=== PATIENT | female | born 1960 ===

== ENCOUNTER 2023-04-15 09:04 | Outpatient (AMB) | payer MEDICARE, OTHER, SELFPAY ==
--- NOTE | 2023-04-15 09:23 | MHC.OFFVIS ---
Intake Vital Signs 04/15/23 09:30 Height 5 ft 2 in Weight 163 lb 2.273 oz BMI 29.8 BP 133/73 Blood Pressure Location Lt brachial Position Sitting Pulse 74 Intake Visit Reasons: Colonoscopy screening Intake Note: Karly presents in office as a new.patient for a colonoscopy screening PT CC: pt reports having abdominal pain , diarrhea pt denies any other GI Issues Retail Services Professional Required: Yes Retail Services Professional Language: Georgian Accompanied by: Self / Same As Patient Allergies No Known Allergies Allergy (Unverified 04/15/23 09:23) HPI Colonoscopy screening HPI Details 62 year old? female here today for pre colonoscopy screening.? Patient was sent to us by her PCP.? ?Last colonoscopy 10 years ago and it was normal per patient. Patient admits to having a history of giardia treated about 4 years ago. Patient reports that she traveled to [place] about 3 months ago and stayed there for couple months.. Was test that about a month ago. ? Patient reports frequent stools mostly lose. Denies melena, hematochezia, unintentional weight loss or ribbon like stools. Patient denies any issues with anesthesia in the past. No history of sleep apnea. Not on any anticoagulation medication. Patient reports epigastric discomfort occasionally without dyspepsia, dysphagia or odynophagia. Patient denies any nausea or vomiting. [facility] Surgical History (Updated 04/15/23 @ 09:30 by Aureliano Gongora) Hx of tonsillectomy Family History (Updated 04/15/23 @ 09:29 by Aureliano Gongora) Mother HTN (hypertension) Heart disease Diabetes Fibromyalgia Arthritis Father Arthritis Maternal Aunt Heart disease Diabetes HTN (hypertension) Maternal Uncle Heart disease Social History (Updated 04/15/23 @ 09:25 by Aureliano Gongora) Household Members: Other Alcohol intake: never Patient Tobacco Use Status: Never used Tobacco Physical Exam Vital Signs: Last Vital Signs Pulse 74 04/15/23 09:30 BP 133/73 04/15/23 09:30 BMI result Body Mass Index 29.8 Const General: healthy appearing, no acute distress and well developed Nutritional Appearance: obese Orientation/consciousness: patient oriented x3 HEENT Head: Yes normal to inspection, Yes normocephalic and Yes atraumatic Face and sinus: Yes normal facial exam Mouth: Normal oral and palatal mucosa present Throat: Yes posterior oropharynx normal, Yes tonsils normal and Yes uvula midline Eyes General: appearance normal, both eyes and all related structures Neck Neck: Yes normal visual inspection, Yes full ROM and Yes trachea midline Thyroid: Thyroid normal Resp Effort & Inspection: normal respiratory effort, able to speak in complete sentences, no tracheal deviation and symmetric chest movement Auscultation: clear to auscultation bilaterally Cardio Rate: regular rate Heart sounds: S1 normal heart sound present and S2 normal heart sound present GI Inspection: Yes normal to inspection, No distended and Yes obesity Palpation (GI): Soft to palpation, not firm, nontender and No hepatosplenomegaly present Auscultation: normal bowel sounds General: Yes no CVA tenderness Back/Spine/Pelvis Back: no CVA tenderness Skin General skin exam: elasticity normal, turgor normal and dry skin Neuro General: patient oriented x3 Psych Appearance: grossly normal Mental Status: mental status grossly normal Speech and movement: Normal speech and movement present Assessment & Plan Assessment & Plan (1) Screen for colon cancer: Code(s): Z12.11 - Encounter for screening for malignant neoplasm of colon Plan: We will schedule patient for colonoscopy, however in the meantime we will rule out reason for frequent loose stools. Will check CRP, C diff, GI panel, ova and parasite (2) Postprandial epigastric pain: Code(s): R10.13 - Epigastric pain Plan: Postprandial epigastric discomfort. Will check for H pylori. Will treat empirically if positive. Patient will also be sent for upper endoscopy when she goes for colonoscopy. Check transglutaminase, lipase. Liver profile. Abdomen nontender, negative Dash sign. (3) Diarrhea: Code(s): R19.7 - Diarrhea, unspecified Qualifiers: Diarrhea type: unspecified type Qualified Code(s): R19.7 - Diarrhea, unspecified Plan: Patient reports diarrhea on and off. As mentioned above will check CRP, C diff, GI panel, ova and parasite. Will also check her thyroid. I will see patient in 5 weeks, sooner on as needed basis. Patient is agreeable to this plan and verbalizes understanding of instructions. She was given the opportunity to ask questions and all questions answered. Thank you for allowing me to participate in her care Orders: Orders C Reactive Protein Today K58.9 - Irritable bowel syndrome without diarrhea CDiff Gene PCR Today R19.7 - Diarrhea, unspecified H Pylori Breath Test Today Lipase Today R10.9 - Unspecified abdominal pain Liver Panel Today R10.9 - Unspecified abdominal pain TSH reflex Free T4 Today K59.00 - Constipation, unspecified Transglutaminase IgA Today R10.9 - Unspecified abdominal pain Transglutaminase Ab IgG Today R10.9 - Unspecified abdominal pain GI Panel Today R19.7 - Diarrhea, unspecified Ova and Parasite Today R19.7 - Diarrhea, unspecified Medications: New methylcellulose (laxative) (Citrucel) take it with full glass of water 500 mg PO DAILY 90 tabs 2RF K59.00 - Constipation, unspecified pantoprazole take one tablet half an hour before breakfast 40 mg PO DAILY 30 tabs 2RF K21.9 - Gastro-esophageal reflux disease without esophagitis Coding Level of Care Code New Pt Level 4 (02549) Diagnoses Screen for colon cancer Z12.11 Postprandial epigastric pain R10.13 Diarrhea R19.7 Diarrhea type: unspecified type Time Spent (min) 45 Comment 30 minutes spent with patient and additional 15 minutes spent reviewing her records
[2023-04-15 09:30] VITALS: BP 133/73; PULSE 74; BMI 29.8
== END 2023-04-15 10:40 | disposition home or self-care (01) ==
PROVIDERS: PCP Nurse Practitioner Family; Visit Provider Nurse Practitioner Family
DX: R19.7 Diarrhea, unspecified (principal); R10.13 Epigastric pain; Z12.11 Encounter for screening for malignant neoplasm of colon
CPT/HCPCS: 99204

== ENCOUNTER 2023-04-15 09:04 | Outpatient (REF) | payer MEDICARE, OTHER, MEDICAID, SELFPAY ==
[2023-04-15 13:12] LABS: Alanine Aminotransferase 23 U/L (0-31); Albumin Level 4.5 g/dL (3.5-5.0); Alkaline Phosphatase 96 U/L (39-117); Aspartate Amino Transferase 19 U/L (5-31); Bilirubin Direct 0.1 mg/dL (0.0-0.5); Bilirubin Total 0.4 mg/dL (0.0-1.0); C Reactive Protein 0.19 mg/dL (< or = 0.50); Lipase 25 U/L (8-78); Total Protein 7.6 g/dL (6.5-8.0)
[2023-04-15 13:30] LABS: TSH reflex Free T4 2.46 uIU/mL (0.32-4.0)
[2023-04-16 09:51] LABS: CDiff Gene PCR NEGATIVE (Negative)
[2023-04-16 10:12] LABS: Adenovirus F 40/41 Not Detected (Not Detect.); Astrovirus Not Detected (Not Detect.); Campylobacter Not Detected (Not Detect.); Cryptosporidium Not Detected (Not Detect.); Cyclospora cayetanensis Not Detected (Not Detect.); E. coli EAEC Not Detected (Not Detect.); E. coli EPEC Not Detected (Not Detect.); E. coli ETEC Not Detected (Not Detect.); E. coli STEC Not Detected (Not Detect.); Entamoeba histolytica Not Detected (Not Detect.); Giardia lamblia Not Detected (Not Detect.); Norovirus GI/GII Not Detected (Not Detect.); Plesiomonas shigelloides Not Detected (Not Detect.); Rotavirus A Not Detected (Not Detect.); Salmonella Not Detected (Not Detect.); Sapovirus Not Detected (Not Detect.); Shigella sp./EIEC Not Detected (Not Detect.); Vibrio Not Detected (Not Detect.); Vibrio Cholerae Not Detected (Not Detect.); Yersinia enterocolitica Not Detected (Not Detect.)
[2023-04-17 13:44] LABS: Transglutaminase Ab IgG <1.0 U/mL; Transglutaminase IgA <1.0 U/mL
[2023-04-19 12:54] LABS: H Pylori Breath Test Positive (Negative)
== END 2023-04-15 09:05 | disposition home or self-care (01) ==
LOC: HO.LAB 09:04
PROVIDERS: PCP Nurse Practitioner Family; Visit Provider Nurse Practitioner Family
DX: R10.9 Unspecified abdominal pain (principal); K58.9 Irritable bowel syndrome, unspecified; K59.00 Constipation, unspecified; R19.7 Diarrhea, unspecified; R10.13 Epigastric pain
CPT/HCPCS: 36415; 80076; 83013; 83690; 84443; 86140; 86364; 87177; 87209; 87493; 87507; 99202

== ENCOUNTER 2023-04-17 09:20 | Outpatient (REF) | payer MEDICARE, MEDICAID, SELFPAY ==
[2023-04-17 11:30] LABS: MANUAL DIFF FLAG NO
[2023-04-17 11:55] LABS: Estimated Average Glucose 94 mg/dL; Hemoglobin A1c % 4.9 % (<6.0)
[2023-04-17 11:56] LABS: Basophils Absolute Auto 0.1 X10*3/uL (0.0-0.2); Basophils Percent Auto 0.9 % (0-2); Eosinophils Absolute Auto 0.1 X10*3/uL (0.0-0.4); Eosinophils Percent Auto 1.8 % (0-4); Hematocrit 43.9 % (37.0-47.0); Hemoglobin 14.7 g/dl (12.0-16.0); Imm Gran Abs Auto 0.02 X10*3/uL (0.00-0.03); Imm Gran Pct Auto 0.3 % (0.0-0.4); Lymphocytes Absolute Auto 2.6 X10*3/uL (1.2-4.9); Lymphocytes Percent Auto 39.1 % (20-40); Mean Corpuscular HGB Conc 33.5 g/dl (31.0-35.0); Mean Corpuscular Hemoglobin 29.3 pg (27.0-33.0); Mean Corpuscular Volume 87.5 fL (80.0-98.0); Mean Platelet Volume 11.4 fL (9.4-12.3); Monocytes Absolute Auto 0.4 X10*3/uL (0.1-1.2); Neutrophils Absolute Auto 3.5 x10*3/uL (2.0-8.3); Neutrophils Percent Auto 51.9 % (45-73); Platelet Count 305 X10*3/uL (160-400); Red Blood Count 5.02 X10*6/uL (4.20-5.50); Red Cell Distribution Width 13.6 % (11.0-16.0); White Blood Count 6.7 X10*3/uL (4.8-10.8)
[2023-04-17 12:19] LABS: Alanine Aminotransferase 20 U/L (0-31); Albumin Level 4.3 g/dL (3.5-5.0); Alkaline Phosphatase 89 U/L (39-117); Anion Gap 11 (12-20); Aspartate Amino Transferase 18 U/L (5-31); Bilirubin Total 0.6 mg/dL (0.0-1.0); Blood Urea Nitrogen 16 mg/dL (9-16); Calcium 10.1 mg/dL (8.4-10.2); Carbon Dioxide 25 mmol/L (22-29); Chloride 108 mmol/L (96-108); Cholesterol 238 mg/dL (<200); Estimated Glomerular Filt Rate > 60; Glucose Random 89 mg/dL (60-115); HDL Cholesterol 51 mg/dL (>40); Iron 99 mcg/dL (30-160); LDL Cholesterol Calculated 148 mg/dL (<100); Magnesium 1.9 mg/dL (1.6-2.6); Percent Iron Saturation 34 % (15-50); Potassium 3.9 mmol/L (3.3-5.1); Sodium 140 mmol/L (135-145); Total Iron Binding Capacity 294 mcg/dL (228-428); Total Protein 7.3 g/dL (6.5-8.0); Triglycerides 199 mg/dL (<150); Unsaturated Iron Binding 195 ug/dL
[2023-04-17 12:26] LABS: Ferritin 128 ng/mL (10-250); Thyroid Stimulating Hormone 2.59 uIU/mL (0.32-4.0)
[2023-04-17 12:29] LABS: HBS Num1 24.75 mIU/mL (0-7.99); HBc Num1 0.12 S/CO (0.00-0.79); HBsAGNum1 0.35 S/CO (0.00-0.99); Hepatitis A Antibody IgM 0.34 Index (0-0.79); Hepatitis B Core Antibody Nonreactive (Nonreactive); Hepatitis B Surface Antigen Negative (Negative); ~HepC Num1 0.09 S/CO (0.00-0.79); ~Hepatitis A Antibody IgM Nonreactive (Nonreactive); ~Hepatitis B Surface Antibody REACTIVE (Nonreactive); ~Hepatitis C Antibody Nonreactive (Nonreactive)
== END 2023-04-17 09:21 | disposition home or self-care (01) ==
LOC: HO.HHCL 09:20
PROVIDERS: Visit Provider Registered Nurse
DX: Z00.01 Encounter for general adult medical examination with abnormal findings (principal); R25.2 Cramp and spasm; E83.19 Other disorders of iron metabolism; E78.2 Mixed hyperlipidemia; Z11.59 Encounter for screening for other viral diseases; Z72.89 Other problems related to lifestyle
CPT/HCPCS: 36415; 80053; 80061; 82728; 83036; 83540; 83735; 84443; 85025; 86704; 86706; 86709; 86803; 87340

== ENCOUNTER → 2023-05-13 09:07 | Outpatient (BNVA) | payer MEDICARE, MEDICAID, SELFPAY | PROVIDERS: PCP Nurse Practitioner Family; Visit Provider Nurse Practitioner Family ==

== ENCOUNTER 2023-05-30 09:49 | Outpatient (REF) | payer MEDICARE, OTHER, MEDICAID, SELFPAY ==
--- NOTE | 2023-05-30 09:52 | EMG_ITS ---
Left tibial and peroneal motor studies were performed. Left superficial peroneal, sural, median, and lateral plantar sensory studies were performed. Tibial H-reflex was obtained and paraspinal muscles were tested with a needle. IMPRESSION: 1. 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 2. Minimal signs of left lower lumbar radiculopathy. MD MICHELLE Gregory/SCOTT / [id number]
== END 2023-05-30 09:50 | disposition home or self-care (01) ==
LOC: HO.NEURO 09:49
PROVIDERS: PCP Nurse Practitioner Family; Visit Provider Registered Nurse
DX: M79.7 Fibromyalgia (principal); R25.2 Cramp and spasm
CPT/HCPCS: 95886; 95909

== ENCOUNTER 2023-05-31 08:47 | Outpatient (REF) | payer MEDICARE, MEDICAID, SELFPAY ==
[2023-06-02 15:19] LABS: H Pylori Breath Test Positive (Negative)
== END 2023-05-31 08:48 | disposition home or self-care (01) ==
LOC: HO.LNP 08:47
PROVIDERS: PCP Nurse Practitioner Family; Visit Provider Nurse Practitioner Family
DX: Z11.2 Encounter for screening for other bacterial diseases (principal)
CPT/HCPCS: 83013; 99211

== ENCOUNTER 2023-06-13 13:45 | Day surgery (SDC) | payer MEDICARE, MEDICAID, OTHER, SELFPAY ==
[2023-06-10 15:15] VITALS: BMI 30.7
--- NOTE | 2023-06-12 13:08 | P.CONAN_ITS ---
Documented by User: Chely Smith NP 06/12/23 13:09 HPI - Anesthesia Eval Consult details Narrative: 62yo F for Upper Endoscopy and Colonoscopy [facility] Past Medical History Medical History Elevated cholesterol Allergic rhinitis Anxiety Depression Fibromyalgia Helicobacter pylori (H. pylori) infection Family History Family History Mother HTN (hypertension) Heart disease Diabetes Fibromyalgia Arthritis Father Arthritis Maternal Aunt Heart disease Diabetes HTN (hypertension) Maternal Uncle Heart disease Surgical History Surgical History History of bunionectomy H/O colonoscopy Hx of tonsillectomy Social History Social History Household Members: Other Alcohol intake: never Patient Tobacco Use Status: Never used Tobacco Are you DNR?: No Advance Directives: No Advance Directives Information Provided: Yes Nutrition Risks: No Nutritional Risk Meds Allergies Allergy/AdvReac Type Severity Reaction Status Date / Time No Known Allergies Allergy Verified 06/13/23 14:10 Home Medications Medication Instructions Recorded Confirmed Last Taken Type albuterol sulfate 90 mcg/actuation 2 puff inhalation Q4H PRN Allergy 04/15/23 06/10/23 Unknown History aerosol inhaler (Ventolin HFA) Symptoms cholecalciferol (vitamin D3) 50 50 mcg PO DAILY 04/15/23 06/10/23 Unknown Histo ry mcg (2,000 unit) capsule trazodone 100 mg tablet 100 mg PO BEDTIME 04/15/23 06/10/23 Unknown History venlafaxine 75 mg capsule,extended 75 mg PO DAILY 05/13/23 06/10/23 Unknown History release 24 hr gabapentin 300 mg capsule 300 mg PO DAILY PRN Pain 06/10/23 06/10/23 Unknown History Exam Exam Date and Time: June 12, 2023 1308 Height,Weight and Vital Signs: Height 5 ft 2 in Weight 76.204 kg Pertinent Lab Results Pertinent Lab Results: Laboratory Tests 04/17/23 09:25 WBC 6.7 Hgb 14.7 Hct 43.9 Plt Count 305 Sodium 140 Potassium 3.9 Chloride 108 Carbon Dioxide 25 BUN 16 Creatinine 0.79 Assessment and Plan Assessment Anesthesia Assessment: Chart Reviewed Documented by User: Narciso Watkins MD 06/13/23 15:22 [facility] Past Medical History Medical History Elevated cholesterol Allergic rhinitis Anxiety Depression Fibromyalgia Helicobacter pylori (H. pylori) infection Family History Family History Mother HTN (hypertension) Heart disease Diabetes Fibromyalgia Arthritis Father Arthritis Maternal Aunt Heart disease Diabetes HTN (hypertension) Maternal Uncle Heart disease Family history of problems with anesthesia: No Surgical History Surgical History History of bunionectomy H/O colonoscopy Hx of tonsillectomy History of Problems with Anesthesia: No Social History Social History Household Members: Other Alcohol intake: never Patient Tobacco Use Status: Never used Tobacco Are you DNR?: No Advance Directives: No Advance Directives Information Provided: Yes Nutrition Risks: No Nutritional Risk Meds Allergies Allergy/AdvReac Type Severity Reaction Status Date / Time No Known Allergies Allergy Verified 06/13/23 14:10 Home Medications Medication Instructions Recorded Confirmed Last Taken Type albuterol sulfate 90 mcg/actuation 2 puff inhalation Q4H PRN Allergy 04/15/23 06/10/23 Unknown History aerosol inhaler (Ventolin HFA) Symptoms cholecalciferol (vitamin D3) 50 50 mcg PO DAILY 04/15/23 06/10/23 Unknown History mcg (2,000 unit) capsule trazodone 100 mg tablet 100 mg PO BEDTIME 04/15/23 06/10/23 Unknown History venlafaxine 75 mg capsule,extended 75 mg PO DAILY 05/13/23 06/10/23 Unknown History release 24 hr gabapentin 300 mg capsule 300 mg PO DAILY PRN Pain 06/10/23 06/10/23 Unknown History Exam Airway Mallampati Class: II TM Dist: >3cm Neck ROM: Full Loose/Missing/Broken Teeth: Yes Assessment and Plan Assessment Anesthesia Assessment: Anesthesia Plan Discussed Final Anesthetic Review Family History of Problems with Anesthesia: No History of Problems with Anesthesia: No NPO: Yes ASA Class: II Final Preanesthetic Review: No Changes in Pt Med Stat, Meds/Allgs Chart Review ed, Consent Obtained/Reviewed and Anes Risks/Benef Reviewed Patient Risk: Low Procedure Risk: Low Anesthetic Plan Anesthetic Plan: MAC: Disposition: Standard PACU
[2023-06-13] MEDS: Lactated Ringers 1,000 ML 100 ML IVCONT (14:01)
[2023-06-13 14:10] VITALS: BP 134/78; PULSE 87; RESP 18; TEMP 36.7; O2SAT 98
--- NOTE | 2023-06-13 14:16 | MHC.SHP ---
Pre-Procedural Eval Section A Date of Service: 06/13/23 Section B Chief Complaint: screening Details of Present Illness: epigastric pain Relevant Family History (Specify if Yes): No Relevant Social History: None Present Medications: see Short Stay Collaborative assessment Medical History: Significant History (Elevated cholesterol Allergic rhinitis Anxiety Depression Fibromyalgia Helicobacter pylori (H. pylori) infection) History of Previous Operations: Relevant previous surgery/procedure and date(s) (History of bunionectomy H/O colonoscopy Hx of tonsillectomy) Allergies: Allergies Allergy/AdvReac Type Severity Reaction Status Date / Time No Known Allergies Allergy Verified 06/13/23 14:10 Review of Systems Sugical H&P ROS: Negative: Constitution, Cardiovascular, Respiratory, Neurological, Psychiatric, Hem-Onc, Allergic/Immunologic, Gastrointestinal, Genitourinary, Musculoskeletal, Integumentary, Endocrine and Eyes/Ears/Nose/Throat Exam Surgical H&P Exam: Normal: HEENT, Normal: Heart, Normal: Lungs, Normal: Extremities, Normal: Abdomen, Normal: Skin and Normal: Neurological Plan Diagnosis/Plan: Unchanged I have reviewed the history and physical and performed a pertinent physical examination on my patient. No changes have occurred unless specified. Time Spent With Patient Time: Total time managing care of this patient today ____ minutes.
--- NOTE | 2023-06-13 14:34 | P.OP_ITS ---
Operative Note Operative Note Date of Service: 06/13/23 Narrative: Operative Information Procedure Description: EGD, Colonoscopy Indication: epigastric pain and screening Anesthesia: MAC FLEXIBLE TRANSORAL UPPER GASTROINTESTINAL ENDOSCOPY AND COLONOSCOPY PROCEDURE NOTE UPPER ENDOSCOPY Consent: Indications for the procedure and potential complications of bleeding, perforation, reaction to medications and missed diagnosis were discussed with the patient and informed consent was obtained. Instrument: Olympus GIF H 190 J mid size upper endoscope Monitoring: Vital signs and clinical assessment, continuous EKG monitoring, Pulse oximetry, Carbon Dioxide monitoring and blood pressure monitoring were done throughout the procedure. Procedure: The patient was placed in the left lateral decubitis position and pre-procedure medications were administered and a bite block was placed. The endoscope was inserted into the mouth and advanced under direct vision to the third part of duodenum. A careful inspection was made as the upper endoscope was withdrawn including a retroflexed examination of the proximal stomach; Findings and interventions are described below. Findings: Larynx:normal Esophagus: GE junction at 37 cm, diaphragm hiatus at 37 cm, mild erythema, bx taken Stomach:Gastritis noted. Biopsies were obtained. Grade 2 flap valve on retroflexed examination of the cardia. Duodenum: Normal bulb and descending duodenum, bx taken Intervention: Biopsies as noted above COLONOSCOPY Instrument: Olympus variable stiffness pediatric scope 190L Colonoscopy Monitoring: Vital signs and clinical assessment, continuous EKG monitoring, Pulse oximetry, Carbon Dioxide monitoring and blood pressure monitoring were done throughout the procedure. Colon withdrawal time was 7 minutes. Procedure: The patient was placed in the left lateral decubitis position and pre-procedure medications were administered. After a digital rectal examination of the ano-rectum, the video colonoscope was inserted into the rectum and advanced through the colon to the cecum/TI. The colonoscope was slowly withdrawn in a retrograde panoramic fashion and the colon mucosa was carefully examined including a retroflexed view of the rectum. Findings and interventions are described below. Procedure Difficulty:easy Findings: Terminal Ileum-normal Cecum:normal Ascending Colon: normal Transverse Colon -normal Descending Colon:normal Sigmoid Colon: normal Rectum: Retroflexion with medium sized internal hemorrhoids, grade I Anorectum - normal Colon preparation: [place] Bowel Preparation Scale Right colon; 1 Transverse colon: 1-2 Left colon; 1-2 (0 = Unprepared colon segment with mucosa not seen due to solid stool that cannot be cleared. 1 = Portion of mucosa of the colon segment seen, but other areas of the colon segment not well seen due to staining, residual stool and/or opaque liquid. 2 = Minor amount of residual staining, small fragments of stool and/or opaque li quid, but mucosa of colon segment seen well. 3 = Entire mucosa of colon segment seen well with no residual staining, small fragments of stool or opaque liquid) Impression and Post Procedure Diagnosis: Endoscopy Findings: gastritis Colonoscopy Findings: poor prep internal hemorrhoids Plan: Await Pathology results Repeat Colonoscopy in 6-12 months with prep compliance or earlier if clinically indicated High fiber diet leaflet avoid straining at stool, epsom salts and sitz bath, anusol supps or cream if H pylori pos treat Above findings were reviewed with the patient and relevant handouts were provided if indicated.
[2023-06-13 15:10] VITALS: BP 113/70; PULSE 93; RESP 16; TEMP 36.1; O2SAT 96
[2023-06-13 15:25] VITALS: BP 113/67; PULSE 81; RESP 14; O2SAT 98
[2023-06-13 15:40] VITALS: BP 123/74; PULSE 75; RESP 16; O2SAT 99
[2023-06-13] MEDS: Mag&Al/Sim/Diphenhyd/Lidocaine 10 ML ORAL.SUSP PO (15:47)
[2023-06-13 15:55] VITALS: BP 125/75; PULSE 73; RESP 14; TEMP 36.1; O2SAT 99
== END 2023-06-13 15:59 | disposition home or self-care (01) ==
PROVIDERS: PCP Nurse Practitioner Family; Visit Provider Internal Medicine Gastroenterology
PROC: (CPT 43239; principal; 2023-06-13 15:40)
DX: Z12.11 Encounter for screening for malignant neoplasm of colon (principal); K64.0 First degree hemorrhoids; K59.1 Functional diarrhea; R10.13 Epigastric pain; K29.50 Unspecified chronic gastritis without bleeding; K44.9 Diaphragmatic hernia without obstruction or gangrene; E66.9 Obesity, unspecified; Z68.30 Body mass index [BMI] 30.0-30.9, adult
CPT/HCPCS: 43239; G0121; 88305; 88342

== ENCOUNTER → 2023-06-13 13:45 | Outpatient (BNV) | payer MEDICARE, OTHER, SELFPAY | PROVIDERS: PCP Nurse Practitioner Family; Visit Provider Internal Medicine Gastroenterology | DX: Z12.11 Encounter for screening for malignant neoplasm of colon (principal); K64.0 First degree hemorrhoids; Z91.199 Patient's noncompliance with other medical treatment and regimen due to unspecified reason; K29.70 Gastritis, unspecified, without bleeding | CPT/HCPCS: 43239; G0121 ==

== ENCOUNTER 2023-07-01 09:01 | Outpatient (REF) | payer MEDICARE, OTHER, MEDICAID, SELFPAY ==
[2023-07-04 10:17] LABS: H Pylori Breath Test Positive (Negative)
== END 2023-07-01 09:02 | disposition home or self-care (01) ==
LOC: HO.LNP 09:01
PROVIDERS: PCP Nurse Practitioner Family; Visit Provider Nurse Practitioner Family
DX: R10.13 Epigastric pain (principal); K59.1 Functional diarrhea; K21.9 Gastro-esophageal reflux disease without esophagitis; Z98.890 Other specified postprocedural states
CPT/HCPCS: 83013; 99212

== ENCOUNTER 2023-07-01 09:01 | Outpatient (AMB) | payer MEDICARE, OTHER, SELFPAY ==
--- NOTE | 2023-07-01 09:07 | A.OFFVIS_ITS ---
Intake Vital Signs 07/01/23 09:10 Height 5 ft 2 in Weight 163 lb 9.328 oz BMI 29.9 BP 137/72 Blood Pressure Location Lt brachial Position Sitting Pulse 80 Intake Visit Reasons: S/P [place], EGD; Dr. Mcdonald Intake Note: Karly presents in office today for post op follow up s/p EGD and colonoscopy. CC: Patient underwent colonoscopy and EGD on 06/13/[address] Mcdonald. Patient c/o diarrhea, epigastric pain, acid reflux, and heartburn. Spring Internship Required: Yes Spring Internship Language: Tunisian Accompanied by: Self / Same As Patient Allergies No Known Allergies Allergy (Verified 07/01/23 09:18) HPI S/P [place], EGD; Dr. Mcdonald HPI Details LAST VISIT: Screen for colon cancer Patient denies any issues with anesthesia in the past. No history of sleep apnea. Not on any anticoagulation medication. Denies any cardiac or respiratory symptoms. What to expect before, during and after the procedure discussed with patient. The importance of good bowel prep and clear liquid diet discussed with patient. Postprandial epigastric pain Postprandial epigastric pain subsided. Occasional epigastric discomfort depending on what she eats. Will retest patient for H pylori. Patient stopped taking pantoprazole. I will have her take famotidine daily. Diarrhea Patient no longer has diarrhea. No longer is using Citrucel. I will see patient after the procedure, sooner on as needed basis. Patient is agreeable to this plan and verbalizes understanding of instructions. She was given the opportunity to ask questions and all questions answered. ? Thank you for allowing me to participate in care Plan Medications New famotidine (Pepcid) 20 mg PO DAILY 30 tabs 3RF K21.9 polyethylene glycol 3350 (Miralax) As directed by gastroenterology department at [facility] 238 grams PO ONCE 238 grams 0RF Z12.11 bisacodyl (Dulcolax (bisacodyl)) take 2 tabs at noon the day before your colonoscopy 10 mg (2 x 5 mg) PO ONCE 1 day 2 tabs 0R F Z12.11 UPPER ENDOSCOPY AND COLONOSCOPY Findings: Larynx:normal Esophagus: GE junction at 37 cm, diaphragm hiatus at 37 cm, mild erythema, bx taken Stomach:Gastritis noted. Biopsies were obtained. Grade 2 flap valve on retroflexed examination of the cardia. Duodenum: Normal bulb and descending duodenum, bx taken Findings: Terminal Ileum-normal Cecum:normal Ascending Colon: normal Transverse Colon -normal Descending Colon:normal Sigmoid Colon: normal Rectum: Retroflexion with medium sized internal hemorrhoids, grade I Anorectum - normal Colon preparation: Mead Bowel Preparation Scale Right colon; 1 Transverse colon: 1-2 Left colon; 1-2 (0 = Unprepared colon segment with mucos a not seen due to solid stool that cannot be cleared. 1 = Portion of mucosa of the colon segme nt seen, but other areas of the colon segment not well seen due to staining, residual stool and/or opaque liquid. 2 = Minor amount of residual staining, s mall fragments of stool and/or opaque liquid, but mucosa of colon segment seen well. 3 = Entire mucosa of colon segment seen well with no residual staining, small fragments of stool or opaque liquid) Impression and Post Procedure Diagnosis: Endoscopy Findings: gastritis Colonoscopy Findings: poor prep internal hemorrhoids Plan: Await Pathology results Repeat Colonoscopy in 6-12 months with prep compliance or earlier if clinically indicated High fiber diet leaflet avoid straining at stool, epsom salts and sitz bath, anusol supps or cream if H pylori pos treat PATHOLOGY RESULTS Addendum #1 (B): H pylori immunostain is negative wi th appropriate control. Electronically Signed By: Macie Tellez 06/19/23 0335 Diagnosis A. Duodenum, biopsy: Duodenal mucosa with preserved villi and no specific change. B. Stomach, biopsy: Chronic gastritis with minimal activity; negative for intestinal metaplasia and dysplasia (see comment). Comment: (B): H pylori immunostain pending; adden dum to follow TODAY'S VISIT: Patient is here today for that like follow-up and to discuss upper endoscopy and colonoscopy results. Patient had suboptimal prep and will need to repeat colonoscopy in 6-12 months. No polyps were found. Patient had chronic gastritis, stops taking her PPI and of May. Biopsy did not show H pylori, however we will do H pylori breath test any office today. Patient had been treated for H pylori prior to going for endoscopy. She continues to have epigastric discomfort postprandially. Patient reports that is not as bad as it was prior to treatment. Patient reports no nausea or vomiting. Occasional dyspepsia without dysphagia or odynophagia. Patient reports that she has frequent postprandial and loose stools. Patient does not feel like she empties completely. Denies melena, hematochezia, unintentional weight loss or ribbon like stools. REPLACED BY [facility] Medical History Elevated cholesterol Allergic rhinitis Anxiety Depression Fibromyalgia Helicobacter pylori (H. pylori) infection Surgical History History of esophagogastroduodenoscopy (EGD) History of bunionectomy H/O colonoscopy Hx of tonsillectomy Family History Mother HTN (hypertension) Heart disease Diabetes Fibromyalgia Arthritis Father Arthritis Maternal Aunt Heart disease Diabetes HTN (hypertension) Maternal Uncle Heart disease Social History Household Members: Other Alcohol intake: never Patient Tobacco Use Status: Never used Tobacco Review of Systems Const Denies weight gain and Denies weight loss ENT Reports no additional complaints, Denies dysphagia and Denies odynophagia Card Reports no additional complaints Resp Reports no additional complaints GI Denies abdominal pain, Denies belching, Denies melena, Reports bloating, Denies change in bowel habits, Denies dysphagia, Denies excessive flatus, Denies dyspepsia, Reports heartburn, Denies diarrhea, Reports loose stools, Denies nausea, Denies odynophagia and Denies vomiting Reports no additional complaints Musc Reports no additional complaints Neuro Reports no additional complaints Psych Reports no additional complaints Endo Reports no additional complaints Physical Exam Vital Signs: Last Vital Signs Pulse 80 07/01/23 09:10 BP 137/72 07/01/23 09:10 BMI result Body Mass Index 29.9 Const General: healthy appearing, no acute distress and well developed Nutritional Appearance: obese Orientation/consciousness: patient oriented x3 HEENT Head: Yes normal to inspection, Yes normocephalic and Yes atraumatic Face and sinus: Yes normal facial exam Mouth: Normal oral and palatal mucosa present Throat: Yes posterior oropharynx normal, Yes tonsils normal and Yes uvula midline Eyes General: appearance normal, both eyes and all related structures Neck Neck: Yes normal visual inspection, Yes full ROM and Yes trachea midline Thyroid: Thyroid normal Resp Effort & Inspection: normal respiratory effort, able to speak in complete sentences, no tracheal deviation and symmetric chest movement Auscultation: clear to auscultation bilaterally Cardio Rate: regular rate Heart sounds: S1 normal heart sound present and S2 normal heart sound present GI Inspection: Yes normal to inspection, No distended and Yes obesity Palpation (GI): Soft to palpation, not firm, nontender and No hepatosplenomegaly present Auscultation: normal bowel sounds General: Yes no CVA tenderness Back/Spine/Pelvis Back: no CVA tenderness Skin General skin exam: elasticity normal, turgor normal and dry skin Neuro General: patient oriented x3 Psych Appearance: grossly normal Mental Status: mental status grossly normal Affect: normal affect Assessment & Plan Assessment & Plan (1) Postprandial epigastric pain: Code(s): R10.13 - Epigastric pain (2) Diarrhea: Code(s): R19.7 - Diarrhea, unspecified Qualifiers: Diarrhea type: functional diarrhea Qualified Code(s): K59.1 - Functional diarrhea (3) GERD (gastroesophageal reflux disease): Code(s): K21.9 - Gastro-esophageal reflux disease without esophagitis Qualifiers: Esophagitis presence: without esophagitis Qualified Code(s): K21.9 - Gastro-esophageal reflux disease without esophagitis (4) Status post colonoscopy: Code(s): Z98.890 - Other specified postprocedural states Plan Patient will repeat colonoscopy in 6-12 months. Will retest for H pylori today. Will start patient on low-dose pantoprazole. Patient continues to have occasional epigastric discomfort with occasional dyspepsia postprandially. Discussed with patient avoiding dietary triggers and late night snacking. Staying upright for minimal 3 hours after meals discussed with patient. Patient can take famotidine on as needed basis at bedtime. Patient is not emptying her bowels completely diarrhea most likely related to patient being constipated. Will help patient bulk her stools with Citrucel and he can take Senokot at bedtime to help her evaluate her bowels better. Patient was also encouraged to increase fluid intake and activity to promote better bowel motility. I will see her in 2 months, sooner on as needed basis. Patient is agreeable to this plan and verbalizes understanding of instructions. She was given the opportunity to ask questions and all questions answered. Thank you for allowing me to participate in her care Orders: Orders H Pylori Breath Test Today Medications: New sennosides (Natural Senna Laxative) 17.2 mg (2 x 8.6 mg) PO BEDTIME 180 tabs 3RF constipation K59.00 - Constipation, unspecified pantoprazole 20 mg PO DAILY 90 tabs 2RF Changed From famotidine (Pepcid) 20 mg PO DAILY 30 tabs 3RF K21.9 - Gastro-esophageal reflux disease without esophagitis To famotidine (Pepcid) 20 mg PO DAILY PRN 30 tabs 3RF acid reflux K21.9 - Gastro-esophageal reflux disease without esophagitis Refilled methylcellulose (laxative) (Citrucel) take it with full glass of water 500 mg PO DAILY 90 tabs 2RF K59.00 - Constipation, unspecified Discontinued pantoprazole take one tablet half an hour before breakfast Discontinued Reason: Patient Completed Course 40 mg PO DAILY 30 tabs 2RF K21.9 - Gastro-esophageal reflux disease without esophagitis Coding Level of Care Code Est Pt Level 4 (27656) Diagnoses Postprandial epigastric pain R10.13 Functional diarrhea K59.1 Diarrhea type: functional diarrhea Gastroesophageal reflux disease without esophagitis K21.9 Esophagitis presence: without esophagitis Status post colonoscopy Z98.890 Time Spent (min) 35 Comment 40 minutes spent with patient and additional 15 minutes spent reviewing her records
[2023-07-01 09:10] VITALS: BP 137/72; PULSE 80; BMI 29.9
== END 2023-07-01 10:00 | disposition home or self-care (01) ==
PROVIDERS: PCP Nurse Practitioner Family; Visit Provider Nurse Practitioner Family
DX: R10.13 Epigastric pain (principal); K59.1 Functional diarrhea; K21.9 Gastro-esophageal reflux disease without esophagitis; Z98.890 Other specified postprocedural states
CPT/HCPCS: 99214

== ENCOUNTER 2023-07-02 11:38 | Outpatient (REF) | payer MEDICARE, OTHER, MEDICAID, SELFPAY ==
--- NOTE | ~2023-07-02 | XR_ITS ---
EXAMINATION: XR LUMBOSACRAL SPINE CLINICAL INFORMATION: Chronic left-sided lower back pain with left-sided sciatica. COMPARISON: CT abdomen/pelvis dated 08/27/2013. TECHNIQUE: Three views of the lumbosacral spine. FINDINGS: Normal vertebral body alignment. The lumbar lordosis is maintained. No acute fracture or subluxation. No loss of vertebral body or intervertebral disc height. Tiny anterior endplate osteophytes at L3-S1, new when compared to the prior CT. No concerning lytic or blastic osseous lesion. No abnormal soft tissue calcification. XR/XR lumbar spine 2-3V IMPRESSION: Minimal degenerative disc disease at L3-S1, new when compared to the prior CT.
--- NOTE | ~2023-07-02 | XR_ITS ---
EXAMINATION: XR KNEE, LEFT CLINICAL INFORMATION: Left knee injury COMPARISON: None available. TECHNIQUE: Four views of the left knee. FINDINGS: No fracture or joint effusion. Alignment is anatomic. Joint spaces are maintained. No abnormal soft tissue calcification. XR/XR knee LT 4V IMPRESSION: Normal left knee.
== END 2023-07-02 11:39 | disposition home or self-care (01) ==
LOC: HO.HHCX 11:38
PROVIDERS: Visit Provider Emergency Medicine
DX: S89.92XA Unspecified injury of left lower leg, initial encounter (principal); M54.50 Low back pain, unspecified
CPT/HCPCS: 72100; 73564

== ENCOUNTER 2023-09-04 09:05 | Outpatient (AMB) | payer MEDICARE, OTHER, SELFPAY ==
[2023-09-04 09:14] VITALS: BMI 29.8
--- NOTE | 2023-09-04 09:14 | MHC.OFFVIS ---
Intake Vital Signs 09/04/23 09:14 Height 5 ft 2 in Weight 163 lb BMI 29.8 Intake Visit Reasons: [employer] LE[employer]PERSON- Left sided back, sciatica pain Intake Note: Karly is a 62 year old danish speaking female who presents today as a new patient with complaints of lower back pain. Her pain (described as burning) has been present for over a year now with radiation down the left leg to the foot. She was taking Tramaol which was helpful but it was discontinued, currently taking tylenol and ibuprofen. EMG done by Dr. Fox at [facility] on 05/30/23 revealing neuropathy. Cms Expert Required: Yes Cms Expert Name: [id number] Allergies No Known Allergies Allergy (Verified 09/04/23 09:14) Medication List - Last Reconciled 09/04/23 by Edith Burger MD albuterol sulfate 90 mcg/actuation (Ventolin HFA) 2 puffs inhalation Q4H PRN bismuth subsalicylate 2 tabs PO QID 14 days cholecalciferol (vitamin D3) 50 mcg PO DAILY clotrimazole 1% 1 appful vaginal BEDTIME doxycycline hyclate 100 mg PO BID 14 days famotidine (Pepcid) 20 mg PO DAILY PRN gabapentin 300 mg PO DAILY PRN methylcellulose (laxative) (Citrucel) 500 mg PO DAILY metronidazole 1,000 mg (2 x 500 mg) PO BID ondansetron 4 mg PO Q8H PRN pantoprazole 20 mg PO DAILY prochlorperazine (Compazine) 25 mg MO DAILY PRN rosuvastatin 10 mg PO BEDTIME sennosides (Natural Senna Laxative) 17.2 mg (2 x 8.6 mg) PO BEDTIME sucralfate 1 g PO BEDTIME trazodone 100 mg PO BEDTIME venlafaxine ER 75 mg PO DAILY HPI HPI Comments History of Present Illness Details Referred from [facility], PCP. Denies inciting injuries. Started more than a year ago. Started on left hip area that gradually has radiated down to left leg. Also points to lateral lumbar/SI region. Reports tingling on left leg down to ankle/heel. Denies weakness. No foot drop. No bladder/bowel changes. Treatment done so far: NSAIDs PFSH Medical History Elevated cholesterol Allergic rhinitis Anxiety Depression Fibromyalgia Helicobacter pylori (H. pylori) infection Surgical History History of esophagogastroduodenoscopy (EGD) History of bunionectomy H/O colonoscopy Hx of tonsillectomy Family History Mother HTN (hypertension) Heart disease Diabetes Fibromyalgia Arthritis Father Arthritis Maternal Aunt Heart disease Diabetes HTN (hypertension) Maternal Uncle Heart disease Social History Household Members: Other Alcohol intake: never Patient Tobacco Use Status: Never used Tobacco Review of Systems Const All systems reviewed & are unremarkable except as noted in HPI and below Physical Exam Vital Signs: BMI result Body Mass Index 29.8 Constitutional: Patient appears to be in no acute distress, well nourished and well developed. Patient was appropriately conversant and oriented. Good historian. MSK: No specific abnormalities found on inspection of the spine and all extremities. No atrophy. Mild tenderness left lumbar paraspinals. The most tenderness is on left GT and along ITB. Lumbar ROM was full. Bilateral hip, knee and ankle ROM WNL. No ligamentous laxity or crepitance. No increased effusion. Straight-leg raising test negative. FABERE test positive left lateral hip pain and ITB tightness. Over test showed stiffness and pain left side. Strength is 5/5 in all muscle groups tested. No increased tone noted. Neurological: Neurologic examination of the upper and lower extremities was nonfocal with intact sensation, muscle stretch reflexes and without focal motor deficits . Dan?s negative bilaterally. Babinski was down going bilaterally. Clonus was negative. Gait is non-antalgic without loss of balance. Results Reviewed Results Reviewed: EMG by Dr. Fox 06/10 Left tibial and peroneal motor studies were performed. Left superficial peroneal, sural, median, and lateral plantar sensory studies were performed. Tibial H-reflex was obtained and paraspinal muscles were tested with a needle. IMPRESSION: 1. 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 2. Minimal signs of left lower lumbar radiculopathy. I independently reviewed lumbar x-rays, showed preserved disc spaces. Assessment & Plan Assessment & Plan (1) Trochanteric bursitis, left hip: Code(s): M70.62 - Trochanteric bursitis, left hip (2) Iliotibial band syndrome, left leg: Code(s): M76.32 - Iliotibial band syndrome, left leg Plan Symptoms and exam so shows left trochanteric bursitis with tightness of ITB. Do not see signs of lumbar radiculopathy. Recommended start a physical therapy, with eventual goal of her using in ITB roller at home to prevent further exacerbation. Offered to do injection for trochanteric but she does not like injections, deferred. Do not see signs/symptoms that would warrant further imaging at this time. Assessment and plan discussed with patient, and patient was agreeable. All questions were answered thoroughly. Follow-up 3 months. Edith Burger MD, AMALIA Board Certified, [place] [employer] and [employer] (ABPMR) Board Certified, [place] [employer] Electro[employer] (ABEM) Orders: Orders PT Evaluation and Treatment Today M70.62 - Trochanteric bursitis, left hip, M76.32 - Iliotibial band syndrome, left leg Medications: Discontinued metronidazole Discontinued Reason: Patient Completed Course 1,000 mg (2 x 500 mg) PO BID 56 tabs 0RF A04.8 - Other specified bacterial intestinal infections doxycycline hyclate Discontinued Reason: Patient Completed Course 100 mg PO BID 14 days 28 caps 0RF Coding Level of Care Code New Pt Level 4 (92963) Diagnoses Trochanteric bursitis, left hip M70.62 Iliotibial band syndrome, left leg M76.32
== END 2023-09-04 09:58 | disposition home or self-care (01) ==
PROVIDERS: PCP Nurse Practitioner Family; Visit Provider Physical Medicine & Rehabilitation
DX: M70.62 Trochanteric bursitis, left hip (principal); M76.32 Iliotibial band syndrome, left leg
CPT/HCPCS: 99204

== ENCOUNTER → 2023-09-04 09:05 | Outpatient (BNVA) | payer MEDICARE, OTHER, MEDICAID, SELFPAY | PROVIDERS: PCP Nurse Practitioner Family; Visit Provider Physical Medicine & Rehabilitation | DX: M70.62 Trochanteric bursitis, left hip (principal); M76.32 Iliotibial band syndrome, left leg | CPT/HCPCS: 99202 ==

== ENCOUNTER 2023-09-06 | Outpatient (REF) | payer MEDICARE, MEDICAID, SELFPAY ==
[2023-09-11 14:37] LABS: H Pylori Breath Test Positive (Negative)
== END 2023-09-06 00:01 | disposition home or self-care (01) ==
LOC: HO.LNP
PROVIDERS: Visit Provider Nurse Practitioner Family
DX: Z11.2 Encounter for screening for other bacterial diseases (principal)
CPT/HCPCS: 83013

== ENCOUNTER 2023-09-06 08:39 | Outpatient (AMB) | payer MEDICARE, OTHER, SELFPAY ==
--- NOTE | 2023-09-06 08:55 | MHC.OFFVIS ---
Intake Vital Signs 09/06/23 08:58 Height 5 ft 2 in Weight 165 lb 5.547 oz BMI 30.2 BP 141/79 H Blood Pressure Location Lt brachial Position Sitting Pulse 80 Intake Visit Reasons: 2 month follow up Intake Note: Karly presents in the office as a 2 month follow up. CC: She states that she is still having pains in her stomach. She states that she is having diarrhea always. She never has constipation. She is also here today to do the H pylori breath test. Fundraising Manager Required: Yes Fundraising Manager Name: [id number] Allergies No Known Allergies Allergy (Verified 09/06/23 08:59) HPI 2 month follow up HPI Details LAST VISIT Postprandial epigastric pain Diarrhea GERD (gastroesophageal reflux disease) Status post colonoscopy Plan Patient will repeat colonoscopy in 6-12 months. Will retest for H pylori today. Will start patient on low-dose pantoprazole. Patient continues to have occasional epigastric discomfort with occasional dyspepsia postprandially. Discussed with patient avoiding dietary triggers and late night snacking. Staying upright for minimal 3 hours after meals discussed with patient. Patient can take famotidine on as needed basis at bedtime. Patient is not emptying her bowels completely diarrhea most likely related to patient being constipated. Will help patient bulk her stools with Citrucel and he can take Senokot at bedtime to help her evaluate her bowels better. Patient was also encouraged to increase fluid intake and activity to promote better bowel motility. I will see her in 2 months, sooner on as needed basis. Patient is agreeable to this plan and verbalizes understanding of instructions. She was given the opportunity to ask questions and all questions answered. ? Thank you for allowing me to participate in her care Orders Orders H Pylori Breath Test Today Medications New sennosides (Natural Senna Laxative) 17.2 mg (2 x 8.6 mg) PO BEDTIME 180 tabs 3RF constipation K59.00 pantoprazole 20 mg PO DAILY 90 tabs 2RF Changed Changed From famotidine (Pepcid) 20 mg PO DAILY 30 tabs 3RF K21.9 Changed To famotidine (Pepcid) 20 mg PO DAILY PRN 30 tabs 3RF acid reflux K21.9 Refilled methylcellulose (laxative) (Citrucel) take it with full glass of water 500 mg PO DAILY 90 tabs 2RF K59.00 Discontinued pantoprazole take one tablet half an hour before breakfast Discontinued Reason: Patient Completed Course 40 mg PO DAILY 30 tabs 2RF K21.9 TODAY'S VISIT: Patient is here today for follow-up. Diagnosed with H pylori last visit, quadruple therapy finished. Patient currently is taking sucralfate and pantoprazole. Reports her symptoms have improved., however patient still reports that she has mild postprandial epigastric discomfort at times. Patient denies any nausea or vomiting. Reports occasional dyspepsia without dysphagia or odynophagia. Patient reports that she is moving her bowels better now that she is taking senna daily. Patient reports that she changed her diet and drinking more fluids. Patient had colonoscopy in May of 2023 with suboptimal prep and recommendation was made to repeat colonoscopy in 6-12 months. Patient denies any issues with anesthesia in the past. No history of sleep apnea. Not on any anticoagulation medication. Patient denies any cardiac or respiratory symptoms. FORMERLY [facility], [facility] Medical History Elevated cholesterol Allergic rhinitis Anxiety Depression Fibromyalgia Helicobacter pylori (H. pylori) infection Surgical History History of esophagogastroduodenoscopy (EGD) History of bunionectomy H/O colonoscopy Hx of tonsillectomy Family History Mother HTN (hypertension) Heart disease Diabetes Fibromyalgia Arthritis Father Arthritis Maternal Aunt Heart disease Diabetes HTN (hypertension) Maternal Uncle Heart disease Social History Household Members: Other Alcohol intake: never Patient Tobacco Use Status: Never used Tobacco Review of Systems Const Denies weight gain and Denies weight loss ENT Reports no additional complaints, Denies dysphagia and Denies odynophagia Card Reports no additional complaints Resp Reports no additional complaints GI Reports abdominal pain (Occasional, epigastric), Denies belching, Denies melena, Denies bloating, Denies change in bowel habits, Denies dysphagia, Denies excessive flatus, Denies dyspepsia, Denies heartburn, Denies diarrhea, Denies loose stools, Denies nausea, Denies odynophagia and Denies vomiting Reports no additional complaints Musc Reports no additional complaints Neuro Reports no additional complaints Psych Reports no additional complaints Endo Reports no additional complaints Physical Exam Vital Signs: Last Vital Signs Pulse 80 09/06/23 08:58 BP 141/79 H 09/06/23 08:58 BMI result Body Mass Index 30.2 Const General: healthy appearing, no acute distress and well developed Nutritional Appearance: obese Orientation/consciousness: patient oriented x3 Resp Effort & Inspection: normal respiratory effort, able to speak in complete sentences, no tracheal deviation and symmetric chest movement Auscultation: clear to auscultation bilaterally Cardio Rate: regular rate GI Inspection: Yes normal to inspection, No distended and Yes obesity Palpation (GI): Soft to palpation, not firm, nontender and No hepatosplenomegaly present Auscultation: normal bowel sounds General: Yes no CVA tenderness Back/Spine/Pelvis Back: no CVA tenderness Skin General skin exam: elasticity normal, turgor normal and dry skin Neuro General: patient oriented x3 Psych Appearance: grossly normal Mental Status: mental status grossly normal Assessment & Plan Assessment & Plan (1) Postprandial epigastric pain: Code(s): R10.13 - Epigastric pain (2) GERD (gastroesophageal reflux disease): Code(s): K21.9 - Gastro-esophageal reflux disease without esophagitis Qualifiers: Esophagitis presence: esophagitis presence not specified Qualified Code(s): K21.9 - Gastro-esophageal reflux disease without esophagitis (3) Helicobacter pylori (H. pylori): Code(s): A04.8 - Other specified bacterial intestinal infections (4) Screen for colon cancer: Code(s): Z12.11 - Encounter for screening for malignant neoplasm of colon Plan Will schedule patient for colonoscopy and upper endoscopy. Will retest for H pylori today. Please send for biopsy and culture for H pylori to make sure eradication of the bacteria or appropriate treatment if H pylori still present. What to expect before during and after procedure discussed with patient. Stressed the importance of good bowel prep and clear liquid diet day before the procedure. Patient denies any cardiac or respiratory symptoms. I will see patient after the procedure, sooner on as needed basis. Patient is agreeable to this plan and verbalizes understanding of instructions. She was given the opportunity to ask questions and all questions answered. Thank you for allowing me to participate in her care Orders: Orders H Pylori Breath Test Today Medications: New bisacodyl (Dulcolax (bisacodyl)) take 4 tabs at noon the day before your colonoscopy 20 mg (4 x 5 mg) PO ONCE 1 day 4 tabs 0RF Z12.11 - Encounter for screening for malignant neoplasm of colon polyethylene glycol 3350 (Miralax) As directed by gastroenterology department at [facility] 238 grams PO ONCE 238 grams 0RF Z12.11 - Encounter for screening for malignant neoplasm of colon Discontinued bismuth subsalicylate Discontinued Reason: Patient no longer taking 2 tabs PO QID 14 days 112 tabs 0RF A04.8 - Other specified bacterial intestinal infections Coding Level of Care Code Est Pt Level 3 (25620) Diagnoses Postprandial epigastric pain R10.13 Gastroesophageal reflux disease, unspecified whether esophagitis present K21.9 Esophagitis presence: esophagitis presence not specified Helicobacter pylori (H. pylori) A04.8 Screen for colon cancer Z12.11 Time Spent (min) 30 Comment 20 minutes spent with patient and additional 10 minutes spent reviewing her records
[2023-09-06 08:58] VITALS: BP 141/79; PULSE 80; BMI 30.2
== END 2023-09-06 09:50 | disposition home or self-care (01) ==
PROVIDERS: PCP Nurse Practitioner Family; Visit Provider Nurse Practitioner Family
DX: R10.13 Epigastric pain (principal); K21.9 Gastro-esophageal reflux disease without esophagitis; A04.8 Other specified bacterial intestinal infections; Z12.11 Encounter for screening for malignant neoplasm of colon
CPT/HCPCS: 99213

== ENCOUNTER → 2023-09-06 08:39 | Outpatient (BNVA) | payer MEDICARE, OTHER, MEDICAID, SELFPAY | PROVIDERS: PCP Nurse Practitioner Family; Visit Provider Nurse Practitioner Family | DX: Z12.11 Encounter for screening for malignant neoplasm of colon (principal); K21.9 Gastro-esophageal reflux disease without esophagitis; A04.8 Other specified bacterial intestinal infections; R10.13 Epigastric pain | CPT/HCPCS: 99212 ==

== ENCOUNTER 2023-09-18 10:00 | Outpatient (RCR) | payer MEDICARE, OTHER, MEDICAID, SELFPAY ==
--- NOTE | 2023-09-10 12:38 | MHC.PT.EP ---
[facility] [place] Office [place] Office [place] Office [address] Carmen Schreiber [address] [phone] F: [phone] F: [phone] F: [phone] F: [phone] Physical Therapy Plan of Care Date of Evaluation: 09/05/23 Date of Surgery: Diagnosis: ITB syndrome L leg, L trochanteric bursitis Assessment: Pt is a 63 y/o female referred to PT for eval and treat of ITB syndrome L leg/ L leg trochanteric bursitis which is resulting in decreased tolerance for sitting for long duration, standing, walking, negotiating stairs and curbs, as well as HH chores secondary to decreased hip and core strength, TTP of her L lateral hip and L lumbar area, and sedentary lifestyle, and pain. Pt is deemed an appropriate candidate to receive skilled PT services to address their physical impairments in order to improve their functional ability. Frequency and Duration: The patient will be seen 2 x / wk x 4 wks Short Term Goals: Initiate home program. Improve baseline pain to < 4/10; initial: 5/10. Vehicle Trimmer Goals: I with home program. Improve LEFI outcome measure by at least 9 points. Pt will be able to tolerate standing > 1 hour with at most a little bit of difficulty. Improve B hip abd MMT strength by at least 1/2 MMT; initial 4/5. Treatment Plan: Modalities to reduce pain, spasms and effusion. Manual therapy to restore motion and function. Therapeutic exercise to improve strength and flexibility. Neuromuscular re-education for posture and balance. Therapeutic activities to return to functional activities of daily living. Electronically signed by: David Quezada PT. Please sign and return to therapist. Thank you for your referral.
--- NOTE | 2024-01-07 11:22 | MHC.PT.DC ---
[facility] [address] [place] Office [place] Office [place] Office [address] Carmen Schreiber [address] [facility] [phone] F: [phone] F: [phone] F: [phone] F: [phone] Physical Therapy Discharge Report Diagnosis: ITB syndrome L leg, L trochanteric bursitis Date of Surgery: Date of Evaluation: 09/05/23 Date of Discharge: 01/07/24 Treatments to Date: 4 Cancellations to Date: No Shows to Date: Discharge Status: Patient Elected to Stop Discharge Summary: Note form PATIENT [facility] session: 09/18 pt requested at end of session to D/C PT while she is being worked up for her knees and back. Feels she may want to return if she has a better understanding of why she has symptoms. Electronically signed by: David Quezada PT. Please sign and return to therapist. Thank you for your referral.
== END 2024-01-07 11:26 | disposition home or self-care (01) ==
LOC: HO.PT 10:00
PROVIDERS: PCP Nurse Practitioner Family; Visit Provider Physical Medicine & Rehabilitation
DX: M76.32 Iliotibial band syndrome, left leg (principal); M70.62 Trochanteric bursitis, left hip
CPT/HCPCS: 97110; 97161

== ENCOUNTER 2023-09-20 18:18 | Outpatient (REF) | payer MEDICARE, OTHER, MEDICAID, SELFPAY ==
--- NOTE | ~2023-09-20 | MR_ITS ---
EXAMINATION: MR LUMBAR SPINE WITHOUT CONTRAST CLINICAL INFORMATION: A 63-year-old with lumbago and left sciatica. COMPARISON: 07/02/2023 X-rays. TECHNIQUE: MRI of the lumbar spine was obtained using routine sequences without contrast. FINDINGS: CORONAL ALIGNMENT: Mild thoracolumbar dextrocurvature, slightly convex to the right at T12-L1 is noted on the current study which could be positional or related to muscle spasm as this is not visualized on the previous X-rays. SAGITTAL ALIGNMENT: There is trace retrolisthesis at L4-L5 and L3-L4 with otherwise normal lumbosacral alignment. Trace anterolisthesis at T11 on T12 also noted. LUMBOSACRAL JUNCTION: Normal. There are 5 [id number] lumbar-type vertebral bodies. VERTEBRAL BODIES: Vertebral body heights are well maintained. No acute or nonhealed fractures. DISC SPACES AND ENDPLATES: Slight disc volume loss at L4-L5 noted with mild disc desiccation and minor spondylosis. Remaining lumbar intervertebral discs demonstrate normal height with intact endplates. Minor anterior marginal endplate spurring noted at L2-L3, L3-L4, and L5-S1. 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 BONE MARROW: No significant marrow-replacing process or bone marrow edema. CONUS MEDULLARIS: Terminates at L1-L2. Morphology and signal is normal. INTRADURAL NERVE ROOTS: Within normal limits. L5-S1: Minor annular bulging with mild paravertebral disc osteophyte complex bilaterally and [id number]-cyggdwnd facet joint arthropathy, left more than right, with a small left-sided facet joint effusion. No significant central spinal canal stenosis. There is slight narrowing of the subarticular zones bilaterally with mild encroachment on the S1 nerve roots. There is mild left-sided neural foraminal stenosis without neural impingement. L4-L5: There is concentric disc bulging with left posterolateral concentric annular fissuring, with mild flattening of the ventral dural sac. No significant facet arthrosis or central canal stenosis. Crowding of the subarticular zones is noted bilaterally, likely encroaching on the traversing L5 nerve roots. Minor foraminal narrowing noted on the left without exiting neural impingement. L3-L4: Mild posterolateral disc osteophyte complex, right more than left, with a small right posterolateral annular fissure, with mild retrolisthesis and slight flattening of the ventral dural sac, right more than left, with narrowing of the subarticular zones, without neural impingement without central canal stenosis. No significant facet arthropathy. Mild bilateral neural foraminal stenosis is noted without exiting neural impingement. L2-L3: Small left-sided inferior foraminal/extraforaminal disc herniation noted without neural impingement. Disc herniation slightly encroaches on the left subarticular zone. No central canal stenosis and no significant neural foraminal stenosis or facet arthrosis. L1-L2: Normal annular contour. No facet arthrosis, canal or foraminal stenosis. T12-L1: Normal annular contour. No facet arthrosis, canal or foraminal stenosis. There is bilateral facet hypertrophic degenerative change at T11-T12, which is not imaged in the axial plane, with trace anterolisthesis of T11 on T12. There is [id number] neural foraminal stenosis, left more than right, at this level. PARAVERTEBRAL AND INCLUDED EXTRASPINAL SOFT TISSUES: There are bilateral simple-appearing renal parapelvic cysts. Limited evaluation.?No specific follow up recommended based on the current ACR Best Practice Guidelines. The paravertebral soft tissues appear unremarkable. MR/MR lumbar spine wo con IMPRESSION: 1. Mild discogenic degenerative changes at L4-L5 with trace retrolisthesis at L4-L5 and L3-L4 and trace anterolisthesis at T11-T12. 2. Disc bulging and annular fissuring at L4-L5 with crowding of the subarticular zones bilaterally likely encroaching on the traversing L5 nerve roots. 3. Posterolateral disc osteophyte complex, right more than left at L3-L4, with mild narrowing of the subarticular zones bilaterally without neural impingement. 4. Disc bulging and annular fissuring at L5-S1 with facet joint arthropathy and mild left-sided neural foraminal stenosis without neural impingement. Slight encroachment on the subarticular zones and S1 nerve roots bilaterally. 5. Facet arthropathy at T11-T12 with [id number]-zn-[id number] neural foraminal stenosis, left more than right.
== END 2023-09-20 18:19 | disposition home or self-care (01) ==
LOC: HO.MRI 18:18
PROVIDERS: PCP Nurse Practitioner Family; Visit Provider Emergency Medicine
DX: M54.42 Lumbago with sciatica, left side (principal); G89.29 Other chronic pain
CPT/HCPCS: 72148

== ENCOUNTER 2023-11-19 10:22 | Day surgery (SDC) | payer MEDICARE, OTHER, MEDICAID, SELFPAY ==
[2023-11-15 15:33] VITALS: BMI 30.2
--- NOTE | 2023-11-18 09:58 | HO.ANESPROP2 ---
HPI - Anesthesia Eval Consult details Narrative: 63yo F for Upper Endoscopy and Colonoscopy PMF Active Problems Active Problems: All Active Problems (Updated 09/04/23 @ 09:49 by Edith Burger MD) Iliotibial band syndrome, left leg (Acute) Trochanteric bursitis, left hip (Acute) Past Medical History Medical History Elevated cholesterol Allergic rhinitis Anxiety Depression Fibromyalgia Helicobacter pylori (H. pylori) infection Family History Family History Mother HTN (hypertension) Heart disease Diabetes Fibromyalgia Arthritis Father Arthritis Maternal Aunt Heart disease Diabetes HTN (hypertension) Maternal Uncle Heart disease Family history of problems with anesthesia: No Surgical History Surgical History Hx of tubal ligation Hx of abdominoplasty Hx of breast augmentation History of esophagogastroduodenoscopy (EGD) History of bunionectomy H/O colonoscopy Hx of tonsillectomy History of Problems with Anesthesia: No Social History Social History Household Members: Other Alcohol intake: never Patient Tobacco Use Status: Never used Tobacco Meds Allergies Allergy/AdvReac Type Severity Reaction Status Date / Time No Known Allergies Allergy Verified 12/06/23 12:01 Home Medications ?Medication ?Instructions ?Recorded ?Confirmed ?Last Taken ?Type albuterol sulfate 90 mcg/actuation 2 puff inhalation Q4H PRN Allergy 04/15/23 11/19/23 Unknown History aerosol inhaler (Ventolin HFA) Symptoms cholecalciferol (vitamin D3) 50 50 mcg PO DAILY 04/15/23 11/19/23 Unknown History mcg (2,000 unit) capsule trazodone 100 mg tablet 100 mg PO BEDTIME 04/15/23 11/19/23 Unknown History venlafaxine 75 mg capsule,extended 75 mg PO DAILY 05/13/23 11/19/23 Unknown History release 24 hr gabapentin 300 mg capsule 300 mg PO DAILY PRN Pain 06/10/23 11/19/23 Unknown History Exam Height,Weight and Vital Signs: Height 5 ft 2 in Weight 74.999 kg Assessment and Plan Assessment Anesthesia Assessment: Chart Reviewed Final Anesthetic Review Family History of Problems with Anesthesia: No History of Problems with Anesthesia: No
--- NOTE | 2023-11-19 13:24 | MHC.SHP ---
Pre-Procedural Eval Section A - 24 Hr Update-Section A only Date of Service: 11/19/23 Section B - Complete if H&P > 30 days Chief Complaint: bacterial intestinal infections,screening Relevant Family History (Specify if Yes): No Relevant Social History: None Present Medications: see Short Stay Collaborative assessment Medical History: Significant History ( Elevated cholesterol Allergic rhinitis Anxiety Depression Fibromyalgia Helicobacter pylori (H. pylori) infection) History of Previous Operations: Relevant previous surgery/procedure and date(s) (y of esophagogastroduodenoscopy (EGD) History of bunionectomy H/O colonoscopy Hx of tonsillectomy) Allergies: Allergies Allergy/AdvReac Type Severity Reaction Status Date / Time No Known Allergies Allergy Verified 09/06/23 08:59 Review of Systems Sugical H&P ROS: Negative: Constitution, Cardiovascular, Respiratory, Neurological, Psychiatric, Hem-Onc, Allergic/Immunologic, Gastrointestinal, Genitourinary, Musculoskeletal, Integumentary, Endocrine and Eyes/Ears/Nose/Throat Exam Surgical H&P Exam: Normal: HEENT, Normal: Heart, Normal: Lungs, Normal: Extremities, Normal: Abdomen, Normal: Skin and Normal: Neurological Plan Diagnosis/Plan: Unchanged I have reviewed the history and physical and performed a pertinent physical examination on my patient. No changes have occurred unless specified. Time Spent With Patient Time: Total time managing care of this patient today ____ minutes.
[2023-11-19 13:38] VITALS: BP 124/77; PULSE 72; RESP 16; TEMP 36.4; O2SAT 97
--- NOTE | 2023-11-19 13:53 | P.CONAN_ITS ---
[facility] Active Problems Active Problems: All Active Problems (Updated 09/04/23 @ 09:49 by Edith Burger MD) Iliotibial band syndrome, left leg (Acute) Trochanteric bursitis, left hip (Acute) Past Medical History Medical History Elevated cholesterol Allergic rhinitis Anxiety Depression Fibromyalgia Helicobacter pylori (H. pylori) infection Family History Family History Mother HTN (hypertension) Heart disease Diabetes Fibromyalgia Arthritis Father Arthritis Maternal Aunt Heart disease Diabetes HTN (hypertension) Maternal Uncle Heart disease Family history of problems with anesthesia: No Surgical History Surgical History (Updated 11/19/23 @ 13:36 by Monae Montoya RN) Hx of tubal ligation Hx of abdominoplasty Hx of breast augmentation History of esophagogastroduodenoscopy (EGD) History of bunionectomy H/O colonoscopy Hx of tonsillectomy History of Problems with Anesthesia: No Social History Social History Household Members: Other Alcohol intake: never Patient Tobacco Use Status: Never used Tobacco Use of substances other than those prescribed or required for medical reasons: No Are you DNR?: No Advance Directives: No Advance Directives Information Provided: Yes Meds Allergies Allergy/AdvReac Type Severity Reaction Status Date / Time No Known Allergies Allergy Verified 11/19/23 13:31 Active Medications: Current Medications Lactated Ringer's (Lr) 1,000 mls @ 100 mls/hr IVCONT .Q10H [facility] Home Medications Medication Instructions Recorded Confirmed Last Taken Type albuterol sulfate 90 mcg/actuation 2 puff inhalation Q4H PRN Allergy 04/15/23 11/19/23 Unknown History aerosol inhaler (Ventolin HFA) Symptoms cholecalciferol (vitamin D3) 50 50 mcg PO DAILY 04/15/23 11/19/23 Unknown History mcg (2,000 unit) capsule trazodone 100 mg tablet 100 mg PO BEDTIME 04/15/23 11/19/23 Unknown History venlafaxine 75 mg capsule,extended 75 mg PO DAILY 05/13/23 11/19/23 Unknown History release 24 hr gabapentin 300 mg capsule 300 mg PO DAILY PRN Pain 06/10/23 11/19/23 Unknown History Exam Height,Weight and Vital Signs: Height 5 ft 2 in Weight 74.999 kg Last Vital Signs Temp 97.5 F 11/19/23 13:38 Pulse 72 11/19/23 13:38 Resp 16 11/19/23 13:38 BP 124/77 11/19/23 13:38 Pulse Ox 97 11/19/23 13:38 O2 Del Method Room Air 11/19/23 13:38 Airway Mallampati Class: II TM Dist: >3cm Neck ROM: Full Loose/Missing/Broken Teeth: No Heart: rrr Lungs: cta Assessment and Plan Assessment Anesthesia Assessment: Anesthesia Plan Discussed and Chart Reviewed Final Anesthetic Review Family History of Problems with Anesthesia: No History of Problems with Anesthesia: No NPO: Yes ASA Class: II Final Preanesthetic Review: No Changes in Pt Med Stat, Meds/Allgs Chart Reviewed, Consent Obtained/Reviewed and Anes Risks/Benef Reviewed Patient Risk: Low Procedure Risk: Intermediate Anesthetic Plan Anesthetic Plan: MAC: Disposition: Standard PACU
[2023-11-19] MEDS: Lactated Ringers 1,000 ML 100 ML IVCONT (14:04)
--- NOTE | 2023-11-19 15:27 | P.OP_ITS ---
Operative Note Operative Note Date of Service: 11/19/23 Narrative: Operative Information Procedure Description: EGD, Colonoscopy Indication: hx of h pylori, screening Anesthesia: MAC FLEXIBLE TRANSORAL UPPER GASTROINTESTINAL ENDOSCOPY AND COLONOSCOPY PROCEDURE NOTE UPPER ENDOSCOPY Consent: Indications for the procedure and potential complications of bleeding, perforation, reaction to medications and missed diagnosis were discussed with the patient and informed consent was obtained. Instrument: Olympus GIF H 190 J mid size upper endoscope Monitoring: Vital signs and clinical assessment, continuous EKG monitoring, Pulse oximetry, Carbon Dioxide monitoring and blood pressure monitoring were done throughout the procedure. Procedure: The patient was placed in the left lateral decubitis position and pre-procedure medications were administered and a bite block was placed. The endoscope was inserted into the mouth and advanced under direct vision to the third part of duodenum. A careful inspection was made as the upper endoscope was withdrawn including a retroflexed examination of the proximal stomach; Findings and interventions are described below. Findings: Larynx:normal Esophagus: GE junction at 35 cm, diaphragm hiatus at 35 cm, mild esophagitis Stomach: Patchy erythema. Biopsies were obtained for C/S. Grade 2 flap valve on retroflexed examination of the cardia. Duodenum: Normal bulb and descending duodenum, Intervention: Biopsies as noted above, COLONOSCOPY Instrument: Olympus variable stiffness pediatric scope 190L Colonoscopy Monitoring: Vital signs and clinical assessment, continuous EKG monitoring, Pulse oximetry, Carbon Dioxide monitoring and blood pressure monitoring were done throughout the procedure. Colon withdrawal time was 8 minutes. Procedure: The patient was placed in the left lateral decubitis position and pre-procedure medications were administered. After a digital rectal examination of the ano-rectum, the video colonoscope was inserted into the rectum and advanced through the colon to the cecum/TI. The colonoscope was slowly withdrawn in a retrograde panoramic fashion and the colon mucosa was carefully examined including a retroflexed view of the rectum. Findings and interventions are described below. Procedure Difficulty:moderate Findings: Terminal Ileum-normal Cecum:normal right sided retroflexion- normal Ascending Colon: normal Transverse Colon -normal Descending Colon:normal Sigmoid Colon: moderate diverticulosis Rectum: Retroflexion with small internal hemorrhoids, grade I Anorectum - normal Colon preparation: [place] Bowel Preparation Scale Right colon; 2 Transverse colon: 2 Left colon; 2 (0 = Unprepared colon segment with mucosa not seen due to solid stool that cannot be cleared. 1 = Portion of mucosa of the colon segment seen, but other areas of the colon segment not well seen due to staining, residual stool and/or opaque liquid. 2 = Minor amount of residual staining, small fragments of stool and/or opaque liquid, but mucosa of colon segment seen well. 3 = Entire mucosa of colon segment seen well with no residual staining, small fragments of stool or opaque liquid) Impression and Post Procedure Diagnosis: Endoscopy Findings: gastritis mild esophagitis Colonoscopy Findings: diverticulosis internal hemorrhoids Plan: Await Pathology results Repeat Colonoscopy in 10 years or earlier if clinically indicated High fiber diet leaflet avoid straining at stool, epsom salts and sitz bath, anusol supps or cream Above findings were reviewed with the patient and relevant handouts were provided if indicated.
[2023-11-19 15:36] VITALS: BP 118/67; PULSE 75; RESP 17; TEMP 36.3; O2SAT 98
[2023-11-19 15:51] VITALS: BP 117/53; PULSE 77; RESP 16; TEMP 36.3; O2SAT 98
[2023-11-29 13:33] LABS: H Pylori Cult Source TISSUE
== END 2023-11-19 16:12 | disposition home or self-care (01) ==
PROVIDERS: PCP Nurse Practitioner Family; Visit Provider Internal Medicine Gastroenterology
PROC: (CPT 43239; principal; 2023-11-19 16:20)
DX: Z12.11 Encounter for screening for malignant neoplasm of colon (principal); K57.30 Diverticulosis of large intestine without perforation or abscess without bleeding; K64.0 First degree hemorrhoids; R19.7 Diarrhea, unspecified; K29.50 Unspecified chronic gastritis without bleeding; B96.81 Helicobacter pylori [H. pylori] as the cause of diseases classified elsewhere; K20.80 Other esophagitis without bleeding; K44.9 Diaphragmatic hernia without obstruction or gangrene; K21.9 Gastro-esophageal reflux disease without esophagitis; E78.00 Pure hypercholesterolemia, unspecified; M79.7 Fibromyalgia; J30.9 Allergic rhinitis, unspecified; F32.A Depression, unspecified; F41.9 Anxiety disorder, unspecified; Z79.899 Other long term (current) drug therapy; Z98.890 Other specified postprocedural states
CPT/HCPCS: 43239; G0121; 36415; 87081; 88305; 88313; 88342; J2704

== ENCOUNTER → 2023-11-19 10:22 | Outpatient (BNV) | payer MEDICARE, OTHER, MEDICAID, SELFPAY | PROVIDERS: PCP Nurse Practitioner Family; Visit Provider Internal Medicine Gastroenterology | DX: Z12.11 Encounter for screening for malignant neoplasm of colon (principal); K57.30 Diverticulosis of large intestine without perforation or abscess without bleeding; K64.0 First degree hemorrhoids; K29.70 Gastritis, unspecified, without bleeding; K20.90 Esophagitis, unspecified without bleeding; Z86.19 Personal history of other infectious and parasitic diseases | CPT/HCPCS: 43239; G0121 ==

== ENCOUNTER 2023-12-06 11:55 | Outpatient (AMB) | payer MEDICARE, MEDICAID, OTHER, SELFPAY ==
--- NOTE | 2023-12-06 12:01 | MHC.OFFVIS ---
Vital Signs 12/06/23 12:03 Height 5 ft 2 in Weight 164 lb BMI 30.0 BP 119/80 Blood Pressure Location Lt brachial Position Sitting Pulse 91 Intake Visit Reasons: s/p egd/colon Intake Note: Patient follow up for EGD/Colonoscopy results. Patient cc: abdominal pain with bloating, no appetite, acid reflex with burning sensation, every food will get her diarrhea and denies any other GI issues. Doctor Of Dental Medicine Required: Yes Doctor Of Dental Medicine Name: [facility] Interpeter Accompanied by: Self / Same As Patient Allergies No Known Allergies Allergy (Verified 12/06/23 12:01) HPI HPI s/p egd/colon: Details: LAST VISIT: Postprandial epigastric pain GERD (gastroesophageal reflux disease) Helicobacter pylori (H. pylori) Screen for colon cancer Plan Will schedule patient for colonoscopy and upper endoscopy. Will retest for H pylori today. Please send for biopsy and culture for H pylori to make sure eradication of the bacteria or appropriate treatment if H pylori still present. What to expect before during and after procedure discussed with patient. Stressed the importance of good bowel prep and clear liquid diet day before the procedure. Patient denies any cardiac or respiratory symptoms. I will see patient after the procedure, sooner on as needed basis. Patient is agreeable to this plan and verbalizes understanding of instructions. She was given the opportunity to ask questions and all questions answered. ? Thank you for allowing me to participate in her care Orders Orders H Pylori Breath Test Today Medications New bisacodyl (Dulcolax (bisacodyl)) take 4 tabs at noon the day before your colonoscopy 20 mg (4 x 5 mg) PO ONCE 1 day 4 tabs 0RF Z12.11 polyethylene glycol 3350 (Miralax) As directed by gastroenterology department at [facility] 238 grams PO ONCE 238 grams 0RF Z12.11 Discontinued bismuth subsalicylate Discontinued Reason: Patient no longer taking 2 tabs PO QID 14 days 112 tabs 0RF A04.8 COLONOSCOPY AND UPPER ENDOSCOPY Findings: Larynx:normal Esophagus: GE junction at 35 cm, diaphragm hiatus at 35 cm, mild esophagitis Stomach: Patchy erythema. Biopsies were obtained for C/S. Grade 2 flap valve on retroflexed examination of the cardia. Duodenum: Normal bulb and descending duodenum, Intervention: Biopsies as noted above, Findings: Terminal Ileum-normal Cecum:normal right sided retroflexion- normal Ascending Colon: normal Transverse Colon -normal Descending Colon:normal Sigmoid Colon: moderate diverticulosis Rectum: Retroflexion with small internal hemorrhoids, grade I Anorectum - normal Colon preparation: [place] Bowel Preparation Scale Right colon; 2 Transverse colon: 2 Left colon; 2 (0 = Unprepared colon segment with mucosa not seen due to solid stool that cannot be cleared. 1 = Portion of mucosa of the colon segment seen, but other areas of the colon segment not well seen due to staining, residual stool and/or opaque liquid. 2 = Minor amount of residual staining, small fragments of stool and/or opaque liquid, but mucosa of colon segment seen well. 3 = Entire mucosa of colon segment seen well with no residual staining, small fragments of stool or opaque liquid) Impression and Post Procedure Diagnosis: Endoscopy Findings: gastritis mild esophagitis Colonoscopy Findings: diverticulosis internal hemorrhoids Plan: Await Pathology results Repeat Colonoscopy in 10 years or earlier if clinically indicated High fiber diet leaflet avoid straining at stool, epsom salts and sitz bath, anusol supps or cream PATHOLOGY RESULTS Diagnosis Stomach, biopsy: Focal mild chronic active Helicobacter gastritis; negative for intestinal metaplasia and dysplasia TODAY'S VISIT Patient is here today for follow-up and to discuss upper endoscopy and colonoscopy results. Patient had no polyps, colonoscopy can be repeated in 10 years, sooner if clinically necessary. Patient continues to have epigastric discomfort. She does have a mild active Helicobacter gastritis. Patient treated 3 times in the past. Patient reports that she has been faithful and taking all of the medications with each treatment. Patient reports that her partner just moved to [place] and was tested there and stool study showed no H pylori. Patient is worried that the test was not done correctly because he is taking medications for acid reflux. Patient reports postprandial epigastric pain and postprandial loose stools. Patient reports abdominal bloating. Patient reports that her symptoms are like this no matter what she eats. [facility] Medical History Elevated cholesterol Allergic rhinitis Anxiety Depression Fibromyalgia Helicobacter pylori (H. pylori) infection Surgical History Hx of tubal ligation Hx of abdominoplasty Hx of breast augmentation History of esophagogastroduodenoscopy (EGD) History of bunionectomy H/O colonoscopy Hx of tonsillectomy Family History Mother HTN (hypertension) Heart disease Diabetes Fibromyalgia Arthritis Father Arthritis Maternal Aunt Heart disease Diabetes HTN (hypertension) Maternal Uncle Heart disease Social History Household Members: Other Alcohol intake: never Patient Tobacco Use Status: Never used Tobacco Review of Systems Const Denies weight gain and Denies weight loss ENT Reports no additional complaints, Denies dysphagia and Denies odynophagia Card Reports no additional complaints Resp Reports no additional complaints GI Reports abdominal pain (Epigastric), Denies belching, Denies melena, Denies bloating, Denies change in bowel habits, Denies dysphagia, Denies excessive flatus, Reports dyspepsia, Reports heartburn, Denies diarrhea, Reports loose stools, Denies nausea, Denies odynophagia and Denies vomiting Reports no additional complaints Musc Reports no additional complaints Neuro Reports no additional complaints Psych Reports no additional complaints Endo Reports no additional complaints Physical Exam Vital Signs: Last Vital Signs Pulse 91 12/06/23 12:03 BP 119/80 12/06/23 12:03 BMI result Body Mass Index 30.0 Const General: healthy appearing, no acute distress and well developed Nutritional Appearance: well nourished Orientation/consciousness: patient oriented x3 Resp Effort & Inspection: normal respiratory effort, able to speak in complete sentences, no tracheal deviation and symmetric chest movement Auscultation: clear to auscultation bilaterally Cardio Rate: regular rate GI Inspection: Yes normal to inspection and No distended Palpation (GI): Soft to palpation, not firm, nontender and No hepatosplenomegaly present Auscultation: normal bowel sounds General: Yes no CVA tenderness Back/Spine/Pelvis Back: no CVA tenderness Skin General skin exam: elasticity normal, turgor normal and dry skin Neuro General: patient oriented x3 Psych Appearance: grossly normal Mental Status: mental status grossly normal Assessment & Plan Assessment & Plan (1) Postprandial epigastric pain: Code(s): R10.13 - Epigastric pain (2) GERD (gastroesophageal reflux disease): Code(s): K21.9 - Gastro-esophageal reflux disease without esophagitis Qualifiers: Esophagitis presence: with esophagitis Esophagitis bleeding: without hemorrhage Qualified Code(s): K21.00 - Gastro-esophageal reflux disease with esophagitis, without bleeding (3) Helicobacter pylori (H. pylori): Code(s): A04.8 - Other specified bacterial intestinal infections (4) Postprandial diarrhea: Code(s): K52.9 - Noninfective gastroenteritis and colitis, unspecified (5) Postprandial abdominal bloating: Code(s): R14.0 - Abdominal distension (gaseous) Plan Will try Talicia and if that will not be successful or unable to purchase because of high co-pay we can try patient on Voquezna triple pack. Patient was encouraged to avoid dietary triggers and late night snacking. Staying upright for minimum 3 hours after meals discussed with patient. Low FODMAP diet discussed with patient. List of food recommended as well as list of food to avoid given to patient. Medications: New rotkuiubzx-falgtebmv-afwmseyag 10-250-12.5 mg (Talicia) must administer with a meal/food 4 caps (4 x 10-250-12.5 mg) PO Q8H 14 days 168 ea 0RF A04.8 - Other specified bacterial intestinal infections
[2023-12-06 12:03] VITALS: BP 119/80; PULSE 91
== END 2023-12-06 12:47 | disposition home or self-care (01) ==
PROVIDERS: PCP Nurse Practitioner Family; Visit Provider Nurse Practitioner Family
DX: R10.13 Epigastric pain (principal); K21.00 Gastro-esophageal reflux disease with esophagitis, without bleeding; A04.8 Other specified bacterial intestinal infections; K52.9 Noninfective gastroenteritis and colitis, unspecified; R14.0 Abdominal distension (gaseous)
CPT/HCPCS: 99214

== ENCOUNTER → 2023-12-06 11:55 | Outpatient (BNVA) | payer MEDICARE, MEDICAID, SELFPAY | PROVIDERS: PCP Nurse Practitioner Family; Visit Provider Nurse Practitioner Family | DX: K21.9 Gastro-esophageal reflux disease without esophagitis (principal); K52.9 Noninfective gastroenteritis and colitis, unspecified; R10.13 Epigastric pain; R14.0 Abdominal distension (gaseous); A04.8 Other specified bacterial intestinal infections | CPT/HCPCS: 99212 ==

== ENCOUNTER 2023-12-11 10:56 | Outpatient (AMB) | payer MEDICARE, MEDICAID, OTHER, SELFPAY ==
--- NOTE | 2023-12-11 10:57 | A.OFFVIS_ITS ---
Intake Visit Reasons: ov- Left sided back, sciatica pain Intake Note: Karly is a 62 year old Korean speaking female who presents today for a follow up of her lower back pain. Patient reports she has a MRI done on 09/20/23 and she would like to know what the results. She states that he her pain goes down to her left leg and down to her toes. Currently she is not having a lot of pain, however her pain was very bad a week ago. Allergies No Known Allergies Allergy (Verified 12/11/23 11:01) Medication List - Last Reconciled 12/11/23 by Edith Burger MD albuterol sulfate 90 mcg/actuation (Ventolin HFA) 2 puffs inhalation Q4H PRN cholecalciferol (vitamin D3) 50 mcg PO DAILY clotrimazole 1% 1 appful vaginal BEDTIME famotidine (Pepcid) 20 mg PO DAILY PRN gabapentin 300 mg PO DAILY PRN aoowuqevjm-tctbbyekf-pzurjzudr 10-250-12.5 mg (Talicia) 4 caps (4 x 10-250-12.5 mg) PO Q8H 14 days pantoprazole 20 mg PO DAILY prochlorperazine (Compazine) 25 mg VT DAILY PRN sucralfate 1 g PO BEDTIME trazodone 100 mg PO BEDTIME venlafaxine ER 75 mg PO DAILY HPI Comments Details: Referred from [facility], PCP. Denies inciting injuries. Back pain started more than a year ago. Started on left hip area that gradually has radiated down to left leg. Also points to lateral lumbar/SI region. When I first saw her, suspected left ITB syndrome. Referred to PT but she could tolerate only 5 sessions. She felt more pain after sessions. But she says she's continued the home exercises from PT. Denies low back pain. Most of pain is left hip and buttocks area. Denies weakness. No foot drop. No bladder/bowel changes. No numbness on feet. Treatment done so far: NSAIDs MRI lumbar was ordered by PCP. Reviewed and discussed with patient. [facility] Medical History (Updated 12/11/23 @ 12:09 by Edith Burger MD) Elevated cholesterol Allergic rhinitis Anxiety Depression Fibromyalgia Helicobacter pylori (H. pylori) infection Surgical History Hx of tubal ligation Hx of abdominoplasty Hx of breast augmentation History of esophagogastroduodenoscopy (EGD) History of bunionectomy H/O colonoscopy Hx of tonsillectomy Family History Mother HTN (hypertension) Heart disease Diabetes Fibromyalgia Arthritis Father Arthritis Maternal Aunt Heart disease Diabetes HTN (hypertension) Maternal Uncle Heart disease Social History Household Members: Other Alcohol intake: never Patient Tobacco Use Status: Never used Tobacco Physical Exam Constitutional: Patient appears to be in no acute distress, well nourished and well developed. Patient was appropriately conversant and oriented. Good historian. MSK: No specific abnormalities found on inspection of the spine and all extremities. No atrophy. spray machine tender on left GT and along ITB. Tender on left SI joint. Lumbar ROM was full. Bilateral hip, knee and ankle ROM WNL. No ligamentous laxity or crepitance. No increased effusion. Strength is 5/5 in all muscle groups tested. No increased tone noted. Neurological: Neurologic examination of the upper and lower extremities was nonfocal with intact sensation, muscle stretch reflexes and without focal motor deficits . Dan?s negative bilaterally. Babinski was down going bilaterally. Clonus was negative. Gait is non-antalgic without loss of balance. Results Reviewed Results Reviewed: EMG by Dr. Fox 06/10 Left tibial and peroneal motor studies were performed. Left superficial peroneal, sural, median, and lateral plantar sensory studies were performed. Tibial H-reflex was obtained and paraspinal muscles were tested with a needle. IMPRESSION: 1. 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 2. Minimal signs of left lower lumbar radiculopathy. I independently reviewed lumbar x-rays, showed preserved disc spaces. MRI lumbar was ordered by PCP. Reviewed and discussed with patient - disc bulge L4-5 otherwise no central stenosis. Facet arthritis. Ordering Physician: YOLI WISE MD Date of Service: 09/20/23 Procedure(s): MR lumbar spine wo [facility] Accession Number(s): [id number] cc: Humera Rodriguez INFANTRYMAN; YOLI WISE MD~ EXAMINATION: MR LUMBAR SPINE WITHOUT CONTRAST CLINICAL INFORMATION: A 63-year-old with lumbago and left sciatica. COMPARISON: 07/02/2023 X-rays. TECHNIQUE: MRI of the lumbar spine was obtained using routine sequences without contrast. FINDINGS: CORONAL ALIGNMENT: Mild thoracolumbar dextrocurvature, slightly convex to the right at T12-L1 is noted on the current study which could be positional or related to muscle spasm as this is not visualized on the previous X-rays. SAGITTAL ALIGNMENT: There is trace retrolisthesis at L4-L5 and L3-L4 with otherwise normal lumbosacral alignment. Trace anterolisthesis at T11 on T12 also noted. LUMBOSACRAL JUNCTION: Normal. There are 5 jsv-ahh-nbseigd lumbar-type vertebral bodies. VERTEBRAL BODIES: Vertebral body heights are well maintained. No acute or nonhealed fractures. DISC SPACES AND ENDPLATES: Slight disc volume loss at L4-L5 noted with mild disc desiccation and minor spondylosis. Remaining lumbar intervertebral discs demonstrate normal height with intact endplates. Minor anterior marginal endplate spurring noted at L2-L3, L3-L4, and L5-S1. 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 BONE MARROW: No significant marrow-replacing process or bone marrow edema. CONUS MEDULLARIS: Terminates at L1-L2. Morphology and signal is normal. INTRADURAL NERVE ROOTS: Within normal limits. L5-S1: Minor annular bulging with mild paravertebral disc osteophyte complex bilaterally and lknb-go-qatxngyg facet joint arthropathy, left more than right, with a small left-sided facet joint effusion. No significant central spinal canal stenosis. There is slight narrowing of the subarticular zones bilaterally with mild encroachment on the S1 nerve roots. There is mild left-sided neural foraminal stenosis without neural impingement. L4-L5: There is concentric disc bulging with left posterolateral concentric annular fissuring, with mild flattening of the ventral dural sac. No significant facet arthrosis or central canal stenosis. Crowding of the subarticular zones is noted bilaterally, likely encroaching on the traversing L5 nerve roots. Minor foraminal narrowing noted on the left without exiting neural impingement. L3-L4: Mild posterolateral disc osteophyte complex, right more than left, with a small right posterolateral annular fissure, with mild retrolisthesis and slight flattening of the ventral dural sac, right more than left, with narrowing of the subarticular zones, without neural impingement without central canal stenosis. No significant facet arthropathy. Mild bilateral neural foraminal stenosis is noted without exiting neural impingement. L2-L3: Small left-sided inferior foraminal/extraforaminal disc herniation noted without neural impingement. Disc herniation slightly encroaches on the left subarticular zone. No central canal stenosis and no significant neural foraminal stenosis or facet arthrosis. L1-L2: Normal annular contour. No facet arthrosis, canal or foraminal stenosis. T12-L1: Normal annular contour. No facet arthrosis, canal or foraminal stenosis. There is bilateral facet hypertrophic degenerative change at T11-T12, which is not imaged in the axial plane, with trace anterolisthesis of T11 on T12. There is xblh-qy-ulbsvtbi neural foraminal stenosis, left more than right, at this level. PARAVERTEBRAL AND INCLUDED EXTRASPINAL SOFT TISSUES: There are bilateral simple-appearing renal parapelvic cysts. Limited evaluation.?No specific follow up recommended based on the current ACR Best Practice Guidelines. The paravertebral soft tissues appear unremarkable. MR/MR lumbar spine wo con IMPRESSION: 1. Mild discogenic degenerative changes at L4-L5 with trace retrolisthesis at L4-L5 and L3-L4 and trace anterolisthesis at T11-T12. 2. Disc bulging and annular fissuring at L4-L5 with crowding of the subarticular zones bilaterally likely encroaching on the traversing L5 nerve roots. 3. Posterolateral disc osteophyte complex, right more than left at L3-L4, with mild narrowing of the subarticular zones bilaterally without neural impingement. 4. Disc bulging and annular fissuring at L5-S1 with facet joint arthropathy and mild left-sided neural foraminal stenosis without neural impingement. Slight encroachment on the subarticular zones and S1 nerve roots bilaterally. 5. Facet arthropathy at T11-T12 with uhis-jv-uyktngpl neural foraminal stenosis, left more than right. Assessment & Plan Assessment & Plan (1) Iliotibial band syndrome, left leg: Code(s): M76.32 - Iliotibial band syndrome, left leg Category: Medical (2) Trochanteric bursitis, left hip: Code(s): M70.62 - Trochanteric bursitis, left hip Category: Medical (3) Sacroiliac joint dysfunction of left side: Code(s): M53.3 - Sacrococcygeal disorders, not elsewhere classified Category: Medical Plan Still showing tenderness over GT and ITB, plus tenderness over SI joint. Don't see signs of lumbar radiculitis. She does not want any type of injections. She could not tolerate PT but has been doing her home exercises. Advised to get foam roller to roll over ITB. Her WEB PROJECT MANAGER can do that for her. Apply ice prior. She liked this plan. Assessment and plan discussed with patient, and patient was agreeable. All questions were answered thoroughly. Follow up 4 months. Edith Burger MD, AMALIA Board Certified, [place] Board of Physical Medicine and Rehabilitation (ABPMR) Board Certified, [place] Board of Electrodiagnostic Medicine (ABEM) Coding Level of Care Code Est Pt Level 4 (79084) Diagnoses Iliotibial band syndrome, left leg M76.32 Trochanteric bursitis, left hip M70.62 Sacroiliac joint dysfunction of left side M53.3
== END 2023-12-11 11:21 | disposition home or self-care (01) ==
PROVIDERS: PCP Nurse Practitioner Family; Visit Provider Physical Medicine & Rehabilitation
DX: M76.32 Iliotibial band syndrome, left leg (principal); M70.62 Trochanteric bursitis, left hip; M53.3 Sacrococcygeal disorders, not elsewhere classified
CPT/HCPCS: 99214

== ENCOUNTER → 2023-12-11 10:56 | Outpatient (BNVA) | payer MEDICARE, MEDICAID, SELFPAY | PROVIDERS: PCP Nurse Practitioner Family; Visit Provider Physical Medicine & Rehabilitation | DX: M75.32 Calcific tendinitis of left shoulder (principal); M70.62 Trochanteric bursitis, left hip; M53.3 Sacrococcygeal disorders, not elsewhere classified | CPT/HCPCS: 99212 ==

== ENCOUNTER 2024-02-05 12:57 | Outpatient (REF) | payer MEDICARE, MEDICAID, OTHER, SELFPAY ==
[2024-02-07 13:56] LABS: H Pylori Breath Test Negative (Negative)
== END 2024-02-05 12:58 | disposition home or self-care (01) ==
LOC: HO.LNP 12:57
PROVIDERS: PCP Nurse Practitioner Family; Visit Provider Nurse Practitioner Family
DX: K21.9 Gastro-esophageal reflux disease without esophagitis (principal); R10.13 Epigastric pain; A04.8 Other specified bacterial intestinal infections; K52.9 Noninfective gastroenteritis and colitis, unspecified; R14.0 Abdominal distension (gaseous)
CPT/HCPCS: 83013; 99212

== ENCOUNTER 2024-02-05 12:57 | Outpatient (AMB) | payer MEDICARE, OTHER, MEDICAID, SELFPAY ==
--- NOTE | 2024-02-05 13:13 | A.OFFVIS_ITS ---
Vital Signs 02/05/24 13:21 Height 5 ft 2 in Weight 158 lb 11.725 oz BMI 29.0 BP 108/70 Blood Pressure Location Rt brachial Position Sitting Pulse 88 Pulse Source Pulse Oximeter Pulse Oximetry (%) 96 Intake Visit Reasons: s/p EGD/ Colonoscopy Intake Note: Karly presents in office today for a scheduled post double s/p FUV. CC: Pt denies any complications or new concerns post op. Pt reports that they are needing the test for H. Pylori. Pt needs repeat test post treatment to ensure that the treatment was effective. Laborer/Grade Check Required: Yes Laborer/Grade Check Name: Robert [id number] Allergies No Known Allergies Allergy (Verified 02/05/24 13:19) HPI HPI s/p EGD/ Colonoscopy: Details: LAST VISIT: Postprandial epigastric pain GERD (gastroesophageal reflux disease) Helicobacter pylori (H. pylori) Postprandial diarrhea Postprandial abdominal bloating Plan Will try Talicia and if that will not be successful or unable to purchase because of high co-pay we can try patient on Voquezna triple pack. Patient was encouraged to avoid dietary triggers and late night snacking. Staying upright for minimum 3 hours after meals discussed with patient. Low FODMAP diet discussed with patient. List of food recommended as well as list of food to avoid given to patient. Medications New qbaildsbhe-rdwxcsxtj-wvvbjmysu 10-250-12.5 mg (Talicia) must administer with a meal/food 4 caps (4 x 10-250-12.5 mg) PO Q8H 14 days 168 ea 0RF A04.8 TODAY'S VISIT Patient is here today for follow-up. Patient treated for H pylori, reports that she took all of her medications without any issues. Patient finished the whole treatment and is here today for breath test. Patient has not taken pantoprazole for the last 2 weeks. Patient took last dose of famotidine yesterday morning which is more than 24 hours ago. Patient has been NPO for over 2 hours. Patient reports that she has been doing fairly well after the treatment. Definitely sees that difference. No longer has acid reflux. Denies epigastric pain postprandially. Denies nausea or vomiting. Patient denies any other GI PFSH Medical History Elevated cholesterol Allergic rhinitis Anxiety Depression Fibromyalgia Helicobacter pylori (H. pylori) infection Surgical History Hx of tubal ligation Hx of abdominoplasty Hx of breast augmentation History of esophagogastroduodenoscopy (EGD) History of bunionectomy H/O colonoscopy Hx of tonsillectomy Family History Mother HTN (hypertension) Heart disease Diabetes Fibromyalgia Arthritis Father Arthritis Maternal Aunt Heart disease Diabetes HTN (hypertension) Maternal Uncle Heart disease Social History Household Members: Other Alcohol intake: never Patient Tobacco Use Status: Never used Tobacco Physical Exam Vital Signs: Last Vital Signs Pulse 88 02/05/24 13:21 BP 108/70 02/05/24 13:21 Pulse Ox 96 02/05/24 13:21 BMI result Body Mass Index 29.0 Assessment & Plan Assessment & Plan (1) Postprandial epigastric pain: Code(s): R10.13 - Epigastric pain (2) GERD (gastroesophageal reflux disease): Code(s): K21.9 - Gastro-esophageal reflux disease without esophagitis Qualifiers: Esophagitis presence: esophagitis presence not specified Qualified Code(s): K21.9 - Gastro-esophageal reflux disease without esophagitis (3) Helicobacter pylori (H. pylori): Code(s): A04.8 - Other specified bacterial intestinal infections (4) Postprandial diarrhea: Code(s): K52.9 - Noninfective gastroenteritis and colitis, unspecified (5) Postprandial abdominal bloating: Code(s): R14.0 - Abdominal distension (gaseous) Plan Will test for H pylori today, hopefully we were able to eradicate bacteria with recent treatment. Patient will start pantoprazole tomorrow morning. Famotidine at bedtime on as-needed basis. Discussed with patient avoiding dietary triggers and late night snacking. Staying upright for minimum 3 hours after meals. Patient will follow-up in 3 months, sooner on as needed basis. She is agreeable to this plan and verbalizes understanding of instructions. She was given the opportunity to ask questions and all questions answered. Thank you for allowing me to participate in her care Orders: Orders H Pylori Breath Test 02/05/24 K21.9 - Gastro-esophageal reflux disease without esophagitis Medications: Changed From famotidine (Pepcid) 20 mg PO DAILY PRN 30 tabs 3RF acid reflux K21.9 - Gastro-esophageal reflux disease without esophagitis To famotidine (Pepcid) 20 mg PO DAILY 30 tabs 3RF acid reflux K21.9 - Gastro- esophageal reflux disease without esophagitis Refilled pantoprazole 20 mg PO DAILY 90 tabs 2RF Coding Level of Care Code Est Pt Level 3 (23200) Diagnoses Postprandial epigastric pain R10.13 Gastroesophageal reflux disease, unspecified whether esophagitis present K21.9 Esophagitis presence: esophagitis presence not specified Helicobacter pylori (H. pylori) A04.8 Postprandial diarrhea K52.9 Postprandial abdominal bloating R14.0 Time Spent (min) 25 Comment 15 minutes spent with patient and additional 10 minutes spent reviewing her records
[2024-02-05 13:21] VITALS: BP 108/70; PULSE 88; O2SAT 96; BMI 29.0
== END 2024-02-05 14:11 | disposition home or self-care (01) ==
PROVIDERS: PCP Nurse Practitioner Family; Visit Provider Nurse Practitioner Family
DX: R10.13 Epigastric pain (principal); K21.9 Gastro-esophageal reflux disease without esophagitis; A04.8 Other specified bacterial intestinal infections; K52.9 Noninfective gastroenteritis and colitis, unspecified; R14.0 Abdominal distension (gaseous)
CPT/HCPCS: 99213

== ENCOUNTER 2024-05-12 13:49 | Outpatient (AMB) | payer MEDICARE, MEDICAID, OTHER, SELFPAY ==
[2024-05-12 13:55] VITALS: BP 138/76; PULSE 76; O2SAT 96; BMI 29.3
--- NOTE | 2024-05-12 13:55 | MHC.OFFVIS ---
Vital Signs 05/12/24 13:55 Height 5 ft 2 in Weight 160 lb 0.889 oz BMI 29.3 BP 138/76 Blood Pressure Location Rt brachial Position Sitting Pulse 76 Pulse Source Pulse Oximeter Pulse Oximetry (%) 96 Oxygen Delivery Method Room Air Intake Visit Reasons: 3 mos FUV. Intake Note: Karly presents in office today for a scheduled 3 mos FUV. CC; Pt was rx'd pantoprazole and famotidine at their last visit. Pt also had H Pylori BT done. Result negative. Pt reports that they are still taking their rx'd medications without difficulties. Pt is feeling worse since their last visit and would like to repeat their H pylori test. Pt is prepared and meets all protocol considerations. Supply Chain Generalist Required: Yes Supply Chain Generalist Services: Supply Chain Generalist Present Supply Chain Generalist Name: [facility] [place] Supply Chain Generalist - Asiha. Allergies No Known Allergies Allergy (Verified 05/12/24 14:00) HPI HPI 3 mos FUV.: Details: LAST VISIT: Postprandial epigastric pain GERD (gastroesophageal reflux disease) Helicobacter pylori (H. pylori) Postprandial diarrhea Postprandial abdominal bloating Plan Will test for H pylori today, hopefully we were able to eradicate bacteria with recent treatment. Patient will start pantoprazole tomorrow morning. Famotidine at bedtime on as-needed basis. Discussed with patient avoiding dietary triggers and late night snacking. Staying upright for minimum 3 hours after meals. Patient will follow-up in 3 months, sooner on as needed basis. She is agreeable to this plan and verbalizes understanding of instructions. She was given the opportunity to ask questions and all questions answered. ? Thank you for allowing me to participate in her care Orders Orders H Pylori Breath Test 02/05/24 K21.9 Medications Changed Changed From famotidine (Pepcid) 20 mg PO DAILY PRN 30 tabs 3RF acid reflux K21.9 Changed To famotidine (Pepcid) 20 mg PO DAILY 30 tabs 3RF acid reflux K21.9 Refilled pantoprazole 20 mg PO DAILY 90 tabs 2RF TODAY'S VISIT: Patient is here today for follow-up and to discuss lab results. Patient had negative H pylori testing. Patient feels like her symptoms are not better. Occasionally patient reports that acid reflux pretty severe. Patient is trying to avoid dietary triggers. Currently she is taking pantoprazole 20 mg daily and famotidine at bedtime. Symptoms frequently after meals. Patient reports occasional dyspepsia without dysphagia or odynophagia. Patient reports that she is moving her bowels well without any issues. Denies any melena, hematochezia, unintentional weight loss or ribbon like stools. Patient denies nausea or vomiting. Reports occasional postprandial abdominal bloating and epigastric pain. ON LICENSE OF [facility] Medical History Elevated cholesterol Allergic rhinitis Anxiety Depression Fibromyalgia Helicobacter pylori (H. pylori) infection Surgical History Hx of tubal ligation Hx of abdominoplasty Hx of breast augmentation History of esophagogastroduodenoscopy (EGD) History of bunionectomy H/O colonoscopy Hx of tonsillectomy Family History Mother HTN (hypertension) Heart disease Diabetes Fibromyalgia Arthritis Father Arthritis Maternal Aunt Heart disease Diabetes HTN (hypertension) Maternal Uncle Heart disease Social History Household Members: Other Alcohol intake: never Patient Tobacco Use Status: Never used Tobacco Review of Systems Const Denies weight gain and Denies weight loss ENT Reports no additional complaints, Denies dysphagia and Denies odynophagia Card Reports no additional complaints Resp Reports no additional complaints GI Reports abdominal pain (Epigastric), Denies belching, Denies melena, Denies bloating, Denies change in bowel habits, Denies dysphagia, Denies excessive flatus, Reports dyspepsia, Reports heartburn, Denies diarrhea, Reports loose stools, Denies nausea, Denies odynophagia and Denies vomiting Reports no additional complaints Musc Reports no additional complaints Neuro Reports no additional complaints Psych Reports no additional complaints Endo Reports no additional complaints Physical Exam Vital Signs: Last Vital Signs Pulse 76 05/12/24 13:55 BP 138/76 05/12/24 13:55 Pulse Ox 96 05/12/24 13:55 Oxygen Delivery Method Room Air 05/12/24 13:55 BMI result Body Mass Index 29.3 Const General: healthy appearing and no acute distress Nutritional Appearance: obese Orientation/consciousness: patient oriented x3 Resp Effort & Inspection: normal respiratory effort, able to speak in complete sentences, no tracheal deviation and symmetric chest movement Auscultation: clear to auscultation bilaterally Cardio Rate: regular rate GI Inspection: Yes normal to inspection, No distended and Yes obesity Palpation (GI): Soft to palpation, not firm, nontender and No hepatosplenomegaly present Auscultation: normal bowel sounds General: Yes no CVA tenderness Back/Spine/Pelvis Back: no CVA tenderness Skin General skin exam: elasticity normal, turgor normal and dry skin Neuro General: patient oriented x3 Psych Appearance: grossly normal Mental Status: mental status grossly normal Assessment & Plan Assessment & Plan (1) Postprandial epigastric pain: Code(s): R10.13 - Epigastric pain (2) GERD (gastroesophageal reflux disease): Code(s): K21.9 - Gastro-esophageal reflux disease without esophagitis Qualifiers: Esophagitis presence: esophagitis presence not specified Qualified Code(s): K21.9 - Gastro-esophageal reflux disease without esophagitis (3) Helicobacter pylori (H. pylori): Code(s): A04.8 - Other specified bacterial intestinal infections (4) Postprandial diarrhea: Code(s): K52.9 - Noninfective gastroenteritis and colitis, unspecified (5) Postprandial abdominal bloating: Code(s): R14.0 - Abdominal distension (gaseous) Plan Patient will stop pantoprazole. Will send her script for Nexium. Continue famotidine at bedtime. Patient was encouraged to avoid dietary triggers and late night snacking. Staying upright for minimum 3 hours after meals discussed with patient. Patient was encouraged to take probiotics. Increase fiber to help her bulk stools. Increase fluid intake and activity to promote better bowel motility. Patient will follow-up in the office in 3 months, sooner on as needed basis. She is agreeable to this plan and verbalizes understanding of instructions. She was given the opportunity to ask questions and all questions answered. Thank you for allowing me to participate in her care Medications: New esomeprazole magnesium (Nexium) 40 mg PO DAILY 30 caps 5RF K21.9 - Gastro-esophageal reflux disease without esophagitis Discontinued jidpvlzgjw-epmjemsbe-rkmltidlz 10-250-12.5 mg must administer with a meal/food Discontinued Reason: Patient Completed Course 4 caps (4 x 10-250-12.5 mg) PO Q8H 14 days 168 ea 0RF A04.8 - Other specified bacterial intestinal infections pantoprazole Discontinued Reason: Doctor's Order 20 mg PO DAILY 90 tabs 2RF prochlorperazine Discontinued Reason: Patient no longer taking 25 mg CA DAILY PRN 12 ea 0RF nausea and vomiting sucralfate Discontinued Reason: Patient no longer taking 1 g PO BEDTIME 90 tabs 1RF R10.13 - Epigastric pain Coding Level of Care Code Est Pt Level 3 (25081) Diagnoses Postprandial epigastric pain R10.13 Gastroesophageal reflux disease, unspecified whether esophagitis present K21.9 Esophagitis presence: esophagitis presence not specified Helicobacter pylori (H. pylori) A04.8 Postprandial diarrhea K52.9 Postprandial abdominal bloating R14.0 Time Spent (min) 25 Comment 15 minutes spent with patient and additional 10 minutes spent reviewing her records
== END 2024-05-12 14:35 | disposition home or self-care (01) ==
PROVIDERS: PCP Nurse Practitioner Family; Visit Provider Nurse Practitioner Family
DX: R10.13 Epigastric pain (principal); K21.9 Gastro-esophageal reflux disease without esophagitis; A04.8 Other specified bacterial intestinal infections; K52.9 Noninfective gastroenteritis and colitis, unspecified; R14.0 Abdominal distension (gaseous)
CPT/HCPCS: 99213

== ENCOUNTER → 2024-05-12 13:49 | Outpatient (BNVA) | payer MEDICARE, MEDICAID, OTHER, SELFPAY | PROVIDERS: PCP Nurse Practitioner Family; Visit Provider Nurse Practitioner Family | DX: K21.9 Gastro-esophageal reflux disease without esophagitis (principal); R10.13 Epigastric pain; A04.8 Other specified bacterial intestinal infections; K52.9 Noninfective gastroenteritis and colitis, unspecified; R14.0 Abdominal distension (gaseous) | CPT/HCPCS: 99212 ==

== ENCOUNTER 2024-09-16 17:56 | Outpatient (REF) | payer MEDICARE, MEDICAID, OTHER, SELFPAY ==
--- OUTSIDE RECORDS SUMMARY | 2024-09-17 16:15 | XMS_ITS | Encounter Summary ---
Author Organization [facility] [facility] Address [address] [place] [address] [address] [place] [address] Care Team Providers Care Paint Sprayer Sandblaster Name Role Phone Cait Manuel Primary Care Provider + [phone] Yudith Monreal NP Primary Care Provider [phone] Peggy Wolfe MD Primary Care Provide r Encounter Details Date Type Department Care Team (Latest Contact Info) Description 02/06/2022 Abstract [facility] CONVERSIONS Dental, Provider, DDS Social History Tobacco Use Types Packs/Day Years Used Date Smoking Tobacco: Never Assessed Comments Unknown Sex and Gender Information Value Date Recorded Sex Assigned at Female 06/18/2022 10:14 AM EDT Legal Sex Female 10:14 AM EDT Gender Identity Female 06/18/2022 10:14 AM EDT Sexual Orientation Straight 06/18/2022 10 :14 AM EDT documented as of this encounter Plan of Treatment Upcoming Encounters Date Type Department Care Team ( Contact Info) Description 11/12/2024 2:45 PM EDT Office Visit [facility] MEDICINE [address] [place] [address] Peggy Wolfe MD [address] [place] [address] documented as of this encounter Visit Diagnoses Not on filedocumented in this encounter Care Teams Paint Sprayer Sandblaster Relationship Specialty Start Date End Date Cait Manuel FNP PCP - General Family Medicine 04/17/22 05/23/23 Yudith Monreal NP [address] [place] [address] PCP - General Family Medicine 05/24/23 08/08/23 Peggy Wolfe MD [address] [place] [address] PCP - General Internal Medicine 08/09/23 documented as of this encounter
--- OUTSIDE RECORDS SUMMARY | 2024-09-17 16:15 | XMS_ITS | Encounter Summary ---
Author Organization [employer] [facility] Address [address] [place] [address] 7[address] [place] [address] Care Team Providers Care Electric Installer Name Role Phone Cait Manuel PEDIATRIC ORTHODONTIST Primary Care Provider [phone] uYdith Monreal NP Primary Care Provider [phone] Peggy Wolfe MD Primary Care Provide r Encounter Details Date Type Department Care Team (Late Contact Info) Description 01/02/2023 Abstract [facility] MEDICINE [address] [place] [address] Cait Manuel FNP [address] [place] [address] Dept [place] [address] Social History Tobacco Use Types Packs/Day Years Used Date Smoking Tobacco: Never Passive Smoke Exposure: Never Smokeless Tobacco: Never Comments Unknown Sex and Gender Information Value Date Recorded Sex Assigned at Female 06/18/2022 10:14 AM EDT Legal Sex Female 10:14 AM EDT Gender Identity Female 06/18/2022 10:14 AM EDT Sexual Orientation Straight 06/18/2022 10 :14 AM EDT COVID-19 Exposure Response Date Recorded In the last 10 days, have yo u been in contact with someone who was confirmed or suspected to have Coronavirus/COVID-19? No / Unsure 01/03/2023 11:36 AM EDT documented as of this encounter Plan of Treatment Upcoming Encounters Date Type Department Care Team (Late st Contact Info) Description 11/12/2024 2:45 PM EDT Office Visit [facility] MEDICINE [address] [place] [address] Peggy Wolfe MD [address] [place] [address] documented as of this encounter Procedures Procedure Name Priority Date/Time Associated Diagnosis Comments COLONOSCOPY Routine 12/26/2012 documented in this encounter Results * Colonoscopy (12/26/2012) Colonoscopy Normal Normal 12/26/2012 Luis Miguel Jami Ovalles - 12/26/2012 11:09 AM EDT Recommended 10 year follow up ([facility] [place] Historical Provider HEALTH MAINTENANCE Final Result documented in this encounter Visit Diagnoses Not on filedocumented in this encounter Care Teams Electric Installer Relationship Specialty Start Date End Date Cait Manuel FNP PCP - General Family Medicine 04/17/22 05/23/23 Yudith Monreal NP [address] [place] [address] PCP - General Family Medicine 05/24/23 08/08/23 Peggy Wolfe MD [address] [place] [address] PCP - General Internal Medicine 08/09/23 documented as of this encounter
--- OUTSIDE RECORDS SUMMARY | 2024-09-17 16:15 | XMS_ITS | Encounter Summary ---
Author Organization [employer] [facility] Address [address] [place] [address] 7t [place] [address] Care Team Providers Care Pen Tester Name Role Phone Cait Manuel Primary Care Provider +- [phone] Yudith Monreal NP Primary Care Provider [phone] Peggy Wolfe MD Primary Care Provide r Encounter Details Date Type Department Care Team (Latest Contact Info) Description 12/25/2018 Abstract [facility] CONVERSIONS Dental, Provider, DDS Social [...] Encounters Date Type Department Care Team ( st Contact Info) Description 11/12/2024 2:45 PM EDT Office Visit [facility] MEDICINE [address] [place] [address] Peggy Wolfe MD [address] [place] [address] documented as of this encounter Visit Diagnoses Not on filedocumented in this encounter Care Teams Pen Tester Relationship Specialty Start Date End Date Cait Manuel FNP PCP - General Family Medicine 04/17/22 05/23/23 Yudith Monreal NP [address] [place] [address] PCP - General Family Medicine 05/24/23 08/08/23 Peggy Wolfe MD [address] [place] [address] PCP - General Internal Medicine 08/09/23 documented as of this encounter
--- OUTSIDE RECORDS SUMMARY | 2024-09-17 16:15 | XMS_ITS | Encounter Summary ---
Author Organization [employer] [facility] Address [address] [place] [address] 7 [place] [address] Care Team Providers Care Foiling Machine Operator Name Role Phone Cait Manuel Primary Care Provider [phone] Yudith Monreal NP Primary Care Provider [phone] Peggy Wolfe MD Primary Care Provide r Reason for Visit * Reason Comments Med Refill Encounter Details Date Type Department Care Team (Late st Contact Info) Description 03/24/2023 Refill [facility] MEDICINE [address] [place] [address] Cait Manuel FNP [address] [place] [address] Dept [place] [address] Social History Tobacco Use Types Packs/Day Years [...] Description 11/12/2024 2:45 PM EDT Office Visit [facility] MEDICINE [address] [place] [address] Peggy Wolfe MD [address] [place], [place] [phone] documented as of this encounter Visit Diagnoses Not on filedocumented in this encounter Care Teams Foiling Machine Operator Relationship Specialty Start Date End Date Cait Manuel FNP PCP - General Family Medicine 04/17/22 05/23/23 Yudith Monreal NP [address] [place] [address] PCP - General Family Medicine 05/24/23 08/08/23 Peggy Wolfe MD [address] [place] [address] PCP - General Internal Medicine 08/09/23 documented as of this encounter
--- OUTSIDE RECORDS SUMMARY | 2024-09-17 16:15 | XMS_ITS | Encounter Summary ---
Author Organization [employer] Address [address] [place] [address] Care Team Providers Care Vulcanizing Press Operator Name Role Phone Yudith Monreal NP Primary Care Provider [phone] Peggy Wolfe MD Primary Care Provide r Reason for Visit * Reason Onset Date Comments Appointment Request 07/30/2023 Encounter Details Date Type Department Care Team ([facility] st Contact Info) Description 07/30/2023 Telephone [facility] MEDICINE [address] [place] [address] Yudith Monreal NP [address] [place] [address] Appointment Request Social History Tobacco Use Types Packs/Day Years Used Date Smoking Tobacco: Never Passive Smoke Exposure: Never Smokeless Tobacco: Never Depression Answer Date Recorded Patient Health Questionnaire-9 Score 7 04/16/2023 Housing Stability Answer Date Recorded What is your housing situation today? I have ishan cowan 06/04/[address] you li ve. Do you have problems with any of the following? None of the above 06/04/2023 Food Insecurity Answer Date Recorded Within the past 12 months, y ou worried that your food would run out before you got money to buy more: Never True 06/04/2023 Within the past 12 months,th e food you bought just didn't last and you didn't have enough money to get more: Never True Transportation Answer Date Recorded In the past 12 months, has l ack of transportation kept you from medical appts, meetings, work or from getting things needed for daily living? No 06/04/2023 Utilities Answer Date Recorded In the past 12 months, has t he electric, gas, oil or water company threatened to shut off services in your home? No 06/04/2023 Depression Answer Date Recorded Patient Health Questionnaire-2 Score 1 04/16/2023 Comments Unknown Sex and Gender Information Value Date Recorded Sex Assigned at Female 06/18/2022 10:14 AM EDT Legal Sex Female 10:14 AM EDT Gender Identity Female 06/18/2022 10:14 AM EDT Sexual Orientation Straight 06/18/2022 10 :14 AM EDT documented as of this encounter Miscellaneous Notes * Telephone Encounter - Lilia Elizalde - 07/30/2023 3:40 PM EST TC from pt requesting TP Appt with PCP. Field Inspector does see recall tried booking no available slot found. Please contact Pt [phone] documented in this encounter Plan of Treatment Upcoming Encounters Date Type Department Care Team (Late st Contact Info) Description 11/12/2024 2:45 PM EDT Office Visit [facility] MEDICINE [address] [place] [address] Peggy Wolfe MD [address] [place] [address] documented as of this encounter Visit Diagnoses Not on filedocumented in this encounter Additional Health Concerns Assessment Noted Time PHQ-9 Depression Total Score: 7 04/16/20 23 4:07 PM EDT documented as of this encounter Care Teams Vulcanizing Press Operator Relationship Specialty Start Date End Date Yudith Monreal NP [address] [place] [phone] PCP - General Family Medicine 05/24/23 08/08/23 Peggy Wolfe MD [address] [place] [address] PCP - General Internal Medicine 08/09/23 documented as of this encounter
--- OUTSIDE RECORDS SUMMARY | 2024-09-17 16:15 | XMS_ITS | Encounter Summary ---
Author Organization [employer] Address [address] [place] [address] Care Team Providers Care Linux Network Engineer Name Role Phone Peggy Wolfe MD Primary Care Provide r Reason for Visit * Reason Onset Date Comments Nurse Triage 09/16/2024 Encounter Details Date Type Department Care Team ([facility] st Contact Info) Description 09/16/2024 Telephone [facility] [address] [place], [place] [phone] Peggy Wolfe MD [address] [place], [place] [phone] Nurse Triage Social History Tobacco Use Types Packs/Day Years Used Date Smoking Tobacco: Never Passive Smoke Exposure: Never Smokeless Tobacco: Never Alcohol Use Standard Drinks/Week Comments Never 0 (1 standard drink = 0.6 oz pur e alcohol) Alcohol Answer Date Recorded Frequency of Alcohol Consumption Not on file 09/23/2023 Average Number of Drinks Not on file 024 Frequency of Binge Drinking Not on file 12/2023 Score 0 09/23/2023 Depression Answer Date Recorded Patient Health Questionnaire-9 [...] encounter Miscellaneous Notes * Telephone Encounter - Lor Joseph RN - 09/16/2024 10:55 AM EST Triage call with [facility] fluorescent lamp replacer [place] [id number] Pt reports urinary symptoms for several days. Burning/pain with urination, frequency , odor and flank pain, neg for fever. Pt is advised to increase liquids to 6-8 glasses daily. Pt agrees. Pt is advised to come to [facility] today to be seen by provider. Pt agrees with disposition. Insurance is verified as active. Protocol Used: Urinary Symptoms (Adult) Protocol-Based Disposition: See in Office or Video Visit Today Video visit not offered Positive Triage Questions: * Side (flank) or lower back pain present * Bad or foul-smelling urine * Urinating more frequently than usual (i.e., frequency) OR new-onset of the feeling of an urgent need to urinate (i.e., urgency) * All higher-acuity triage questions were negative Care Advice Discussed: * Reasons To Call Back - Fever occurs - Pain or burning with urination - Unable to urinate and bladder feels full - You become worse * Telephone Encounter - Ayla Gross - 09/16/2024 8:59 AM EST Symptom: Urine Symptoms Outcome: Schedule an urgent appointment (within 4 hours) or talk to a nurse or provider soon Reason: Pain when passing urine (peeing) The caller accepted this outcome. [phone] (swedish) documented in this encounter Plan of Treatment Upcoming Encounters Date Type Department Care Team (Late st Contact Info) Description 11/12/2024 2:45 PM EDT Office [facility] [address] [place], [place] [phone] Peggy Wolfe MD [address] [place], [place] [phone] documented as of this encounter Visit Diagnoses Not on filedocumented in this encounter Additional Health Concerns Assessment Noted Time PHQ-9 Depression Total Score: 7 04/16/20 23 4:07 PM EDT documented as of this encounter Care Teams Linux Network Engineer Relationship Specialty Start Date End Date Peggy Wolfe MD [address] [place], [place] [phone] PCP - General Internal Medicine 08/09/23 documented as of this encounter
--- OUTSIDE RECORDS SUMMARY | 2024-09-17 16:15 | XMS_ITS | Encounter Summary ---
Author Organization [employer] [facility] Address [address] [place], [place] [address]t [place] [address] Care Team Providers Care Drum Straightener Name Role Phone Cait Manuel Primary Care Provider +1- [phone] Yudith Monreal NP Primary Care Provider [phone] Peggy Wolfe MD Primary Care Provide r Reason for Visit * Reason Onset Date Comments Nurse Triage 05/15/2023 Encounter Details Date Type Department Care Team (Late st Contact Info) Description 05/15/2023 Telephone [facility] MEDICINE [address] [place] [address] Cait Manuel FNP [address] [place] [address] Dept of [place] [address] Nurse Triage Social History Tobacco Use Types Packs/Day Years Used Date Smoking Tobacco: Never Passive Smoke Exposure: Never Smokeless Tobacco: Never Depression Answer Date Recorded Patient Health Questionnaire-9 Score 7 04/16/2023 Depression Answer Date Recorded Patient Health Questionnaire-2 Score 1 04/16/2023 Comments Unknown Sex and Gender Information Value Date Recorded Sex Assigned at Female 06/18/2022 10:14 AM EDT Legal Sex Female 10:14 AM EDT Gender Identity Female 06/18/2022 10:14 AM EDT Sexual Orientation Straight 06/18/2022 10 :14 AM EDT documented as of this encounter Miscellaneous Notes * Telephone Encounter - Lor Joseph RN - 05/15/2023 3:05 PM EDT Triage call with [employer] [id number] Pt reports sore throat that hurts every time swallowing anything. Pt is neg for fever, ear aches ordifficulty breathing. Pt doesn' t have tonsils and can't see if there is anything white in throat. Pt reports , it feels like something is in there . Advised to come to [facility] for provider to check Pt symptoms and Pt agrees with disposition. Home care reviewed. Protocol Used: Sore Throat (Adult) Protocol-Based Disposition: See in Office or Video Visit Today Video visit not offered Positive Triage Questions: * Severe sore throat pain * Patient wants to be seen * All higher-acuity triage questions were negative Care Advice Discussed: * Reassurance and Education - Sore Throat * Sore Throat * Soft Diet * Drink Plenty of Liquids * Reasons To Call Back - Sore throat is the main symptom and it lasts longer than 48 hours - Sore throat is mild but lasts longer than 4 days - Fever lasts longer than 3 days - You become worse * Telephone Encounter - Merry Gillespie - 05/15/2023 2:46 PM EDT Symptom: Sore Throat Outcome: Schedule an urgent appointment (within 4 hours) or talk to a nurse or provider soon Reason: Trouble drinking The caller accepted this outcome Please contact pt at [phone] (Belarusian) documented in this encounter Plan of Treatment Upcoming Encounters Date Type Department Care Team (Late st Contact Info) Description 11/12/2024 2:45 PM EDT Office Visit [facility] MEDICINE [address] [place] [address] Peggy Wolfe MD [address] [place] [address] documented as of this encounter Visit Diagnoses Not on filedocumented in this encounter Additional Health Concerns Assessment Noted Time PHQ-9 Depression Total Score: 7 04/16/20 23 4:07 PM EDT documented as of this encounter Care Teams Drum Straightener Relationship Specialty Start Date End Date Cait Manuel FNP PCP - General Family Medicine 04/17/22 05/23/23 Yudith Monreal NP [address] [place] [address] PCP - General Family Medicine 05/24/23 08/08/23 Peggy Wolfe MD [address] [place] [address] PCP - General Internal Medicine 08/09/23 documented as of this encounter
--- OUTSIDE RECORDS SUMMARY | 2024-09-17 16:15 | XMS_ITS | Encounter Summary ---
Author Organization [employer] Address [address] 7[address] [place] [address] Care Team Providers Care Lead Pastor Name Role Phone Peggy Wolfe MD Primary Care Provide r Reason for Visit * Reason Comments Med Refill Encounter Details Date Type Department Care Team ([facility] st Contact Info) Description 12/11/2023 Refill [facility] MED & PEDS [address] [place], [place] [phone] Peggy Wolfe MD [address] [place] [address] Social History Tobacco Use Types Packs/Day Years Used Date Smoking Tobacco: Never Passive Smoke Exposure: Never Smokeless Tobacco: Never Alcohol Answer Date Recorded Frequency of Alcohol [...] Description 11/12/2024 2:45 PM EDT Office Visit [facility] MEDICINE [address] [place] [phone] Peggy Wolfe MD [address] [place] [phone] documented as of this encounter Visit Diagnoses Not on filedocumented in this encounter Additional Health Concerns Assessment Noted Time PHQ-9 Depression Total Score: 7 04/16/20 23 4:07 PM EDT documented as of this encounter Care Teams Lead Pastor Relationship Specialty Start Date End Date Peggy Wolfe MD [address] [place] [phone] PCP - General Internal Medicine 08/09/23 documented as of this encounter
--- OUTSIDE RECORDS SUMMARY | 2024-09-17 16:15 | XMS_ITS | Encounter Summary ---
Author Organization [employer] Address [address] [facility] 7t [place] [address] Care Team Providers Care Data Entry Operator Name Role Phone Cait Manuel COSTUME CUTTER Primary Care Provider [phone]- [phone] Yudith Monreal NP Primary Care Provider [phone] Peggy Wolfe MD Primary Care Provide r Encounter Details Date Type Department Care Team (Late st Contact Info) Description 05/22/[address] [facility] MEDICINE [address] [place] [address] Cait Manuel FNP [address] [facility] Dept of [place] [address] Social History Tobacco Use Types Packs/Day Years [...] encounter Miscellaneous Notes * Telephone Encounter - Keagan Bah RN - 05/28/2023 3:49 PM EDT T/C to pt. Through VDP id - [id number] for below message, pt. States she already apt. On [facility]/2023 at [facility]. Pt. Is al set. Pt. Advised to give call on [phone] if any questions or concerns. Pt. Verbally agreed and understood. * Telephone Encounter - Merry Gillespie - 05/22/2023 4:15 PM EDT Tc from pt requesting a new order for nerve test on left leg. Any questions, please contact pt at [phone] (Grenadian) documented in this encounter Plan of Treatment Upcoming Encounters Date Type Department Care Team (Late st Contact Info) Description 11/12/2024 2:45 PM EDT Office Visit [facility] MEDICINE [address] [place] [address] Peggy Wolfe MD [address] [place] [address] documented as of this encounter Visit Diagnoses Not on filedocumented in this encounter Additional Health Concerns Assessment Noted Time PHQ-9 Depression Total Score: 7 04/16/20 4:07 PM EDT documented as of this encounter Care Teams Data Entry Operator Relationship Specialty Start Date End Date Cait Manuel FNP PCP - General Family Medicine 04/17/22 05/23/23 Yudith Monreal NP [address] [place] [phone] PCP - General Family Medicine 05/24/23 08/08/23 Peggy Wolfe MD [address] [place] [phone] PCP - General Internal Medicine 08/09/23 documented as of this encounter
--- OUTSIDE RECORDS SUMMARY | 2024-09-17 16:15 | XMS_ITS | Encounter Summary ---
Author Organization [employer] [facility] Address [address] [place] [address] 7t [place] [address] Care Team Providers Care Layout Man Name Role Phone Cait Manuel Primary Care Provider + [phone] Yudith Monreal NP Primary Care Provider [phone] Peggy Wolfe MD Primary Care Provide r Encounter Details Date Type Department Care Team (Latest Contact Info) Description 06/29/2022 Abstract [facility] CONVERSIONS Dental, Provider, DDS Social History Tobacco [...] Description 11/12/2024 2:45 PM EDT Office Visit [facility] MEDICINE [address] [place] [address] Peggy Wolfe MD [address] [place] [address] documented as of this encounter Visit Diagnoses Not on filedocumented in this encounter Care Teams Layout Man Relationship Specialty Start Date End Date Cait Manuel FNP PCP - General Family Medicine 04/17/22 05/23/23 Yudith Monreal NP [address] [place] [address] PCP - General Family Medicine 05/24/23 08/08/23 Peggy Wolfe MD [address] [place] [address] PCP - General Internal Medicine 08/09/23 documented as of this encounter
--- OUTSIDE RECORDS SUMMARY | 2024-09-17 16:15 | XMS_ITS | Encounter Summary ---
Author Organization [facility] Address [address] [place] [address] 7t [place] [address] Care Team Providers Care Administrative Law Judge Name Role Phone Cait Manuel Primary Care Provider +- [phone] Yudith Monreal NP Primary Care Provider [phone] Peggy Wolfe MD Primary Care Provide r Encounter Details Date Type Department Care Team (Latest Contact Info) Description 06/30/2019 Abstract [facility] CONVERSIONS Dental, Provider, DDS Social History [...] Description 11/12/2024 2:45 PM EDT Office Visit [facility] MEDICINE [address] [place] [address] Peggy Wolfe MD [address] [place] [address] documented as of this encounter Visit Diagnoses Not on filedocumented in this encounter Care Teams Administrative Law Judge Relationship Specialty Start Date End Date Cait Manuel FNP PCP - General Family Medicine 04/17/22 05/23/23 Yudith Monreal NP [address] [place] [address] PCP - General Family Medicine 05/24/23 08/08/23 Peggy Wolfe MD [address] [place] [address] PCP - General Internal Medicine 08/09/23 documented as of this encounter
--- OUTSIDE RECORDS SUMMARY | 2024-09-17 16:15 | XMS_ITS | Encounter Summary ---
Author Organization [employer] Address [address] 7[address] [place] [address] Care Team Providers Care Creative Art Director Name Role Phone Peggy Wolfe MD Primary Care Provide r Encounter Details Date Type Department Care Team (Late st Contact Info) Description 09/16/2024 5:20 PM EST Office Visit [facility] [address] [place], [place] [phone] Tom Soriano MD [address] [place], [place] [phone] Dysuria Social History Tobacco Use Types Packs/Day Years [...] AM EDT documented as of this encounter Last Filed Vital Signs Vital Sign Reading Time Taken Comments Blood Pressure 133/74 09/16/2024 5:21 PM EST Pulse 83 09/16/2024 5:21 PM EST Temperature 36.4 ??C (97.5 ??F) 09/16/2024 5:21 PM ES T Respiratory Rate 20 09/16/2024 5:21 PM EST Oxygen Saturation 98% 09/16/2024 5:21 PM EST Inhaled Oxygen Concentration - - Weight 74.6 kg (164 lb 6.4 oz) 09/16/2024 5:21 P M EST Height 157.5 cm (5' 2 ) 09/16/2024 5:21 PM EST Body Mass Index 30.07 09/16/2024 5:21 PM EST documented in this encounter Progress Notes * Tom Soriano MD - 09/16/2024 5:20 PM EST Subjective Patient ID: Karly Davila is a 64 y.o. female. HPI 5 days ago Karly had onset of burning on urination, urgency, frequency, right flank pain. Denies fever, chills, n/v, vaginal discharge, abdominal pain. No h/o kidney stones. Lives alone. Never smoked. Not employed. Patient Active Problem List Diagnosis Abnormal cervical Papanicolaou smear Allergic rhinitis Depressive disorder Fibromyositis Irritable bowel syndrome with diarrhea Mixed hyperlipidemia Mild intermittent asthma Polyp of cervix Rosacea Thumb injury Vitamin D deficiency Health care maintenance Encounter for screening mammogram for malignant neoplasm of breast Chronic Helicobacter pylori gastritis Chronic midline low back pain with left-sided sciatica Dental calculus Localized gingival recession Missing teeth, acquired Seborrheic dermatitis Inadequate occlusion of dental faith Rash Elevated BP without diagnosis of hypertension The following portions of the chart were reviewed this encounter and updated as appropriate: Tobacco Allergies Meds Problems Med Hx Surg Hx Fam Hx Review of Systems Constitutional: Negative for fever. Respiratory: Negative for shortness of breath. Cardiovascular: Negative for chest pain. Gastrointestinal: Negative for abdominal pain. Genitourinary: Positive for dysuria, flank pain, frequency and urgency. Negative for vaginal discharge. Skin: Negative for rash. Neurological: Negative for headaches. Objective Physical Exam Constitutional: Appearance: Normal appearance. HENT: Nose: Nose normal. Eyes: Conjunctiva/sclera: Conjunctivae normal. Pupils: Pupils are equal, round, and reactive to light. Cardiovascular: Rate and Rhythm: Normal rate and regular rhythm. Heart sounds: No murmur heard. Pulmonary: Effort: Pulmonary effort is normal. Breath sounds: Normal breath sounds. Abdominal: General: Abdomen is flat. Palpations: Abdomen is soft. Tenderness: There is no abdominal tenderness. There is right CVA tenderness. There is no left CVA tenderness. Musculoskeletal: General: Normal range of motion. Cervical back: No tenderness. Skin: Findings: No rash. Neurological: Mental Status: She is alert. Gait: Gait is intact. Psychiatric: Mood and Affect: Mood normal. Behavior: Behavior normal. Procedures Assessment/Plan Diagnoses and all orders for this visit: Dysuria Urine C&S pending. Possible pyelonephritis because of right flank pain and tenderness. Prescribed cefpodoxime, Pyridium. Lots of liquids. Rtc if not improving. - POCT urinalysis dipstick manually resulted - Culture, Urine, Routine Other orders - cefpodoxime (Vantin) 200 MG tablet; Take 1 tablet (200 mg) by mouth 2 times daily for 7 days. - phenazopyridine (Pyridium) 200 MG tablet; Take 1 tablet (200 mg) by mouth with breakfast, with lunch, and with evening meal for 2 days. - fluconazole (Diflucan) 150 MG tablet; Take 1 tablet (150 mg) by mouth Once per day. May repeat dose in 3 days prn documented in this encounter Plan of Treatment Upcoming Encounters Date Type Department Care Team (Late st Contact Info) Description 11/12/2024 2:45 PM EDT Office Visit [facility] MEDICINE [address] [place] [address] Peggy Wolfe MD [address] [place] [address] Scheduled Orders Name Type Priority Associated Diagnoses Orde r Schedule Culture, Urine, Routine Microbiology Routine Dysuria Ordered: 09/16/2024 documented as of this encounter Procedures Procedure Name Priority Date/Time Associated Diagnosis Comments POCT URINALYSIS DIPSTICK Routine 09/16/2024 5:55 PM EST Dysuria documented in this encounter Results * (ABNORMAL) POCT urinalysis dipstick manually resulted (09/16/2024 5:55 PM EST) Color, UA Yellow Clarity, UA Clear Glucose, UA Negative Bilirubin, UA Negative Ketones, UA Negative Spec Grav, UA 1.025 Blood, UA Positive(A) Negative, None Detected Comment:trace-intact pH, UA 6.0 Protein, UA Negative Urobilinogen, UA 0.2 Leukocytes, UA Negative Negative, Rare, Trace Nitrite, UA Negative Negative, None Detected Appearance, UA clear QC Media Lot # [id number] Lot# Expiration Date Urine 09/16/2024 5:55 PM EST Tom Soriano MD POINT OF CARE TEST ENTER/EDIT OR DERABLES Final Result documented in this encounter Visit Diagnoses Diagnosis Dysuria documented in this encounter Additional Health Concerns Assessment Noted Time PHQ-9 Depression Total Score: 7 04/16/20 23 4:07 PM EDT documented as of this encounter Care Teams Creative Art Director Relationship Specialty Start Date End Date Peggy Wolfe MD [address] [place] [address] PCP - General Internal Medicine 08/09/23 documented as of this encounter
--- OUTSIDE RECORDS SUMMARY | 2024-09-17 16:15 | XMS_ITS | Encounter Summary ---
Author Organization [employer] [facility] Address [address] [place] [address] 7t [place] [address] Care Team Providers Care Museum Exhibit Technician Name Role Phone Cait Manuel Primary Care Provider +- [phone] Yudith Monreal NP Primary Care Provider [phone] Peggy Wolfe MD Primary Care Provide r Encounter Details Date Type Department Care Team (Latest Contact Info) Description 06/27/2020 Abstract [facility] CONVERSIONS Dental, Provider, DDS Social History [...] Description 11/12/2024 2:45 PM EDT Office Visit [facility] MEDICINE [address] [place] [address] Peggy Wolfe MD [address] [place] [address] documented as of this encounter Visit Diagnoses Not on filedocumented in this encounter Care Teams Museum Exhibit Technician Relationship Specialty Start Date End Date Cait Manuel FNP PCP - General Family Medicine 04/17/22 05/23/23 Yudith Monreal NP [address] [place] [address] PCP - General Family Medicine 05/24/23 08/08/23 Peggy Wolfe MD [address] [place] [address] PCP - General Internal Medicine 08/09/23 documented as of this encounter
--- OUTSIDE RECORDS SUMMARY | 2024-09-17 16:15 | XMS_ITS | Clinical Summary ---
Author Organization [employer] Address [address] [place] [address] 7[address] [place] [address] Care Team Providers Care Urban Sociologist Name Role Phone Peggy Wolfe MD Primary Care Provide r Allergies No known active allergies Medications omega-3 (Fish Oil) 1000 MG capsule Take 1 capsule by mouth every 12 (twelve) hours. 12/22/19 22 Active famotidine (Pepcid) 20 MG tabletIndications: Gastroesophageal reflux disease, unspecified whether esophagitis present Take 1 tablet (20 mg) by mouth 2 times daily. 60 tablet 11 01/22/20 23 Active gabapentin (Neurontin) 300 MG capsuleIndications :Fibromyositis,Low back pain radiating to left leg Take 1 capsule (300 mg) by mouth if needed in the morning, at noon, and at bedtime (Nerve pain). 90 capsule 1 04/16/20 23 Active Bisacodyl EC 5 MG EC tablet TAKE 2 TABLETS BY MOUTH AT NOON THE DAY BEFORE YOUR COLONOSCOPY 05/13/20 23 Active ondansetron ODT (Zofran-ODT) 4 MG disintegrating tablet DISUELVA TENZIN TABLETA POR V A ORAL CADA OCHO HORAS CUANDO SEA NECESARIO PARA LAS N USEAS Y EL V KEITH 04/19/20 23 Active sucralfate (Carafate) 1 g tablet TOME TENZIN TABLETA POR V A ORAL AL ACOSTARSE 04/25/20 23 Active lidocaine (Lidoderm) 5 % patch APPLY 1 PATCH TOPICALLY IN THE MORNING. REMOVE & DISCARD PATCH WITHIN 12 HOURS OR DIRECTED BY MD. MAY USE 2 PATCHES AT A TIME NEEDED FOR LEFT LOW BACK AND LEFT LEG PAIN. 60 patch 2 07/17/20 23 Active traZODone (Desyrel) 100 MG tablet TAKE 1 TABLET BY MOUTH AT BEDTIME as needed 30 tablet 3 09/10/19 24 Active fexofenadine (Alina) 180 MG tabletIndications: Allergic rhinitis, unspecified seasonality, unspecified trigger Take 1 tablet (180 mg) by mouth if needed each day (Allergies). 90 tablet 1 12/23/19 24 Active ibuprofen 800 MG tabletIndications: Fibromyositis take 1 tablet by oral route 3 times every day with food 30 tablet 12/23/19 24 Active ketoconazole (NIZOral) 2 % shampooIndications :Seborrheic dermatitis APPLY TOPICALLY THREE TIMES A WEEK FOR 21 DAYS Do not start before June 26, 2024. 240 mL 06/26/20 24 Active albuterol (Ventolin HFA) 108 (90 Base) MCG/ACT inhalerIndications :Mild intermittent asthma without complication INHALE 2 PUFFS BY MOUTH EVERY 4 TO 6 HOURS IF NEEDED FOR WHEEZING 18 g 3 06/30/20 24 Active hydrocortisone 2.5 % cream Apply to affected area once or twice daily after bath 28 g 1 07/27/20 24 Active esomeprazole (NexIUM) [address] capsule TOME 1 C PSULA POR V A ORAL TODOS LOS D 05/19/20 24 Active DULoxetine (Cymbalta) [address] capsule TOME 2 C PSULAS POR V A ORAL TODOS LOS D 04/06/20 24 Active venlafaxine XR (Effexor XR) 150 MG 24 hr capsule TOME 1 C PSULA POR V A ORAL TODOS LOS D EN [place]IA [place] 04/06/20 24 Active cholecalciferol VITAMIN D (Vitamin D-3) 50 MCG (1999 UT) capsule TAKE 1 CAPSULES BY MOUTH EVERYDAY 90 capsule 08/07/20 24 Active cefpodoxime (Vantin) 200 MG tablet Take 1 tablet (200 mg) by mouth 2 times daily for 7 days. 14 tablet 09/16/19 25 025 Active phenazopyridine (Pyridium) 200 MG tablet Take 1 tablet (200 mg) by mouth with breakfast, with lunch, and with evening meal for 2 days. 6 tablet 09/16/19 25 025 Active fluconazole (Diflucan) 150 MG tablet Take 1 tablet (150 mg) by mouth Once per day. May repeat dose in 3 days prn 2 tablet 09/16/19 25 Active Active Problems Problem Noted Date Diagnosed Date Rash 07/27/2024 Assessment & Plan (07/27/2024 3:58 PM EST): Likely allergic reaction with unknown offending agent. Prescribed hydrocortisone 2.5 % cream. Avoid irritating the lesions. Continue hypoallergenic skin care. Take Alina daily. Elevated BP without diagnosis of hypertension Assessment & Plan (07/27/2024 3:56 PM EST): Initial BP was elevated in clinic 07/27/24 2nd BP check was better. Schedule a BP check visit with PCP nurse. Continue healthy lifestyles and stress reduction. Inadequate occlusion of dental taoist 05/20 Seborrheic dermatitis 05/11/2024 Assessment & Plan (05/13/2024 6:14 PM EDT): Topical therapies prescribed Return to clinic for failure to improve Dental calculus 12/16/2023 Localized gingival recession 12/16/2023 Missing teeth, acquired 12/16/2023 Encounter for screening mamm ogram for malignant neoplasm of breast 09/23/2023 Chronic Helicobacter pylori gastritis 09/23/2023 Assessment & Plan (12/23/2023 10:31 AM EDT): Patient continues to follow with GI, it was recently done and EGD, her H pylori is resistant and she is again on another round of antibiotics I advise to continue with her meds and f/u with the specialist Assessment & Plan (09/24/2023 12:28 PM EST): Continue to follow with GI Chronic midline low back pain with left-sided sc iatica 09/23/2023 Assessment & Plan (09/24/2023 12:29 PM EST): Apply heat on affected area Acetaminophen PRN Health care maintenance 04/17/2023 Overview (04/17/2023): HIV: Non reactive 04/29/2017 Hep C: pending Hep B: pending Pap: 12/21/21 NILM, HPV neg Colonoscopy: Pending, ordered by GI 04/15/23 Abnormal cervical Papanicolaou smear 10/12/2020 Thumb injury 03/24/2018 Polyp of cervix 03/05/2016 Vitamin D deficiency 03/05/2016 Allergic rhinitis 06/01/2015 Overview (04/16/2023): Treats with Alina PO PRN + JAZ use PRN Stable condition Assessment & Plan (12/23/2023 10:32 AM EDT): C/w alina Assessment & Plan (04/16/2023 9:57 PM EDT): Needs med refill F/u PRN if condition worsens Depressive disorder 06/01/2015 Overview (04/16/2023): treating with Trazodone 50 mg at bedtime + Venlafaxine 75 mg. Has psych provider and therapy. Assessment & Plan (12/23/2023 10:32 AM EDT): treating with Trazodone 50 mg at bedtime + Venlafaxine 75 mg. Has psych provider and therapy. 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 Went to PT in the past New onset Lumbar back pain since december 2022, burning sensation radiating down L leg Only takes tramadol 50mg PRN, severe pain. 01/26 today Has been treating with Tramadol for fibromyalgia. Discontinued tramadol 01/21/23 Failed cymbalta trial Assessment & Plan (12/23/2023 10:31 AM EDT): Patient was educated about multidisciplinary approach for her condition, it was advise cardiovascular exercise, maintain hydration, treat anxiety/depression and take medications as directed Ibuprofen only if really necessary with full stomach Assessment & Plan (04/17/2023 11:03 PM EDT): Discussed source of chronic pain r/t fibromyalgia Tramadol not recommended treatment for fibromyalgia pain New onset lumbar back pain may be related to fibromyalgia flare or may be radiculopathy Pt declines voltaren gel, lidocaine patches, PT referral Discussed risks, benefits, SE of gabapentin Pt agreed to trial medication Gabapentin 300 mg TID PRN for pain Followup 2-3 months with new PCP Irritable bowel syndrome with diarrhea 5 Overview (04/17/2023): Preliminary diagnosis Care managed by GI Still investigating cause of pt sx Assessment & Plan (04/17/2023 10:24 PM EDT): Colonoscopy pending Stool studies 01/04/23 were all normal F/u PRN with GI Mixed hyperlipidemia 06/01/2015 Overview (04/17/2023): Lipid panel elevated 2020 Treating with fish oil 1g BID Assessment & Plan (04/17/2023 10:28 PM EDT): Will order repeat fasting lipid Notify results F/u PRN Mild intermittent asthma 06/01/2015 Assessment & Plan (12/23/2023 10:30 AM EDT): Patient educated to avoid triggers Symptoms are controlled with PRN albuterol Rosacea 06/01/2015 Encounters Date Type Department Care Team Description 09/16/2024 5:20 PM EST Office Visit [facility] [address] [place] [address] Tom Soriano MD Dysuria 09/16/2024 Telephone [facility] [address] [place] [address] Peggy Wolfe MD Nurse Triage 08/07/2024 Refill [facility] [address] [place], [place] [phone] [place] FNP 07/27/2024 1:45 PM EST Office Visit [facility] [address] [place] [address] Mirna Louis MD Rash (Primary Dx); Elevated BP without diagnosis of hypertension; Encounter for immunization 07/27/2024 Telephone [facility] [address] [place], [place] [phone] Mirna Louis MD 07/27/2024 Travel 07/27/2024 Telephone [facility] [address] [place], [place] [phone] Peggy Wolfe MD Nurse Triage 06/29/2024 Refill [facility] [address] [place], [place] [phone] Peggy Wolfe MD Mild intermittent asthma without complication 06/25/2024 Refill [facility] [address] [place], [place] [phone] Peggy Wolfe MD Seborrheic dermatitis from Last 3 Months Immunizations Name Administration Dates Next Due Hep B, adult 10/24/2012,07/05/2011,04/17/2011 Influenza injectable quadriv alent IIV4 with preservative 05/02/2018,05/09/2017,07/02/2016,06/01 Influenza injectable quadriv alent preservative free 07/01/2023,06/20/2022,04/27/2020,06/17 Influenza, IIV3, injectable 06/17/2014, 1 Influenza, Split (incl. stacie fied surface antigen) 06/24/2013,07/01/2012 Pneumococcal Conjugate PCV 20 07/27/2024 Pneumococcal Polysaccharide PPSV23 07/18/2010 TD (adult), 2 Lf tetanus tox oid, preservative free, adsorbed 01/21/2007 Tdap 07/27/2024,10/24/2012 Zoster, Recombinant 05/17/2019,03/18/2019 Social History Tobacco Use Types Packs/Day Years Used Date Smoking Tobacco: Never Passive Smoke Exposure: Never Smokeless Tobacco: Never Tobacco Cessation:Counseling Given: Not Answered Alcohol Use Standard Drinks/Week Comments Never 0 [...] Orientation Straight 06/18/2022 10 :14 AM EDT Last Filed Vital Signs Vital Sign Reading [...] Mass Index 30.07 09/16/2024 5:21 PM EST Plan of Treatment Upcoming Encounters Date Type Department Care Team (Late st Contact Info) Description 11/12/2024 2:45 PM EDT Office Visit [facility] [address] [place] [address] Peggy Wolfe MD [address] [place] [address] Health Maintenance Due Date Last Done Comments CT Colonography 1961 FIT DNA/Cologuard 1961 FIT 1961 FOBT 1961 HIV Screening 1961 Sigmoidoscopy 1961 RSV Patients and Patients Aged 60 years or older (1 - Risk 60-74 years 1-dose series) 2021 Colonoscopy 12/26/2022 12/26/2012 Colorectal Cancer Screening 12/26/2022 Depression Screening 04/16/2024 04/16/2023, 04/16/20 23 COVID-19 Vaccine ( season) 2024 02/26/2022, 08/28/2021, 12/02/2020, Additional history exists Dental Prophylaxis 06/17/2024 12/16/2023, 12/26/2022 Dental Oral Exam 08/08/2024 02/06/2024, 06/29/2022 Alcohol/Substance Use Screening 09/23/2024 09/23/2023 Mammogram 12/08/2024 12/09/2023 SDOH Screening 12/15/2024 12/16/2023 Dental X-Ray: Bitewings 12/16/2024 12/16/2023, 06/10 Cervical Cancer Screening 12/26/2024 HPV/Cotest 12/26/2024 12/26/2021, 10/18, 03/17/2019 Pap Smear 12/26/2024 12/26/2021, 10/18, 05/13/2020 Dental X-Ray: Full Mouth 06/30/2025 06/29/2022 Tobacco Screening 09/16/2025 09/16/2024 DTaP/Tdap/Td Vaccines (3 - Td or Tdap) 07/27/2034 07/27/2024, 10/24/2012, 01/21/2007 Hepatitis B Vaccines Completed 10/24/2012, 07/05/2011, 04/17/2011 Zoster Vaccines Completed 05/17/2019, 03/18/2019 Hepatitis C Screening Completed 04/17/2023 Influenza Vaccine Completed 05/15/2024, , 06/20/2022, Additional history exists Pneumococcal Vaccine: 50+ Years Completed 07/27/2024, 07/18/2010 HIB Vaccines Aged Out No longer eligi ble based on patient's age to complete this topic HPV Vaccines Aged Out No longer eligi ble based on patient's age to complete this topic Hepatitis A Vaccines Aged Out No long er eligible based on patient's age to complete this topic IPV Vaccines Aged Out No longer eligi ble based on patient's age to complete this topic Meningococcal Vaccine Aged Out No yanci aroldo eligible based on patient's age to complete this topic RSV under 20 months Aged Out No longe r eligible based on patient's age to complete this topic Rotavirus Vaccines Aged Out No longer eligible based on patient's age to complete this topic Procedures Procedure Name Priority Date/Time Associated Diagnosis Comments POCT URINALYSIS DIPSTICK Routine 09/16/2024 5:55 PM EST Dysuria PERIODIC ORAL EVALUATION - ESTABLISHED PATIENT Routine 02/06/2024 10:30 AM EDT Full PROPHYLAXIS - ADULT Routine 12/16/2023 3:00 PM EDT BITEWINGS - 4 RADIOGRAPHIC IMAGES Routine 12/16/2023 3:00 PM EDT BI MAMMOGRAM SCREENING BILATERAL Routine 12/09/2023 Encounter for screening mammogram for malignant neoplasm of breast HEPATITIS PANEL, GENERAL Routine 04/17/2023 9:25 AM EDT Encounter for well adult exam with abnormal findings THINPREP IMAGING PAP AND HPV MRNA E6/E7, WITH CT/NG, TRICHOMONAS Routine 12/26/2021 10:36 AM EDT HM COLONOSCOPY Routine 12/26/2012 from Last 3 Months or Most Recently Relevant to Health Maintenance Results * (ABNORMAL) POCT urinalysis dipstick manually [...] Expiration Date Urine 09/16/2024 5:55 PM EST Tmo Soriano MD POINT OF CARE TEST ENTER/EDIT OR DERABLES Final Result * BI Mammogram Screening Bilateral (12/09/2023) Anatomical Region Laterality Modality Breast Bilateral Mammography Peggy Dubon MD IMG BI PROCEDURES Fin al Result * Hepatitis Panel, General (04/17/2023 9:25 AM EDT) Hepatitis A IgM Nonreactive Nonreactive LABS Comment:IgM antibodies to ROLLE V not detected; does not exclude earlyacute or recovered HAV infection. ~Hepatitis B Surface Antibody REACTIVE Nonreactive LABS Comment:REACTIVE: > 11.99 mI U/mL Hepatitis B Core Antibody Nonreactive Nonreactive LABS Hepatitis C Antibody Nonreactive Nonreactive LABS Comment:Antibodies to HCV no t detected; does not exclude early acuteHCV infection. Hepatitis B Surface Ag Negative Negative LABS Blood 04/17/2023 9:25 AM EDT 04/17/2023 11:25 AM EDT Cait Manuel PLATINUM AND PALLADIUM KETTLE TENDER LAB BLOOD ORDERABLES Final Result LABS [address] [place] [phone] * THINPREP TIS PAP AND HPV mRNA E6/E7, CT/NG, TRICH (12/26/2021 10:36 AM EDT) Chlamydia trachomatis RNA, TMA, Urogenital NOT DETECTED NOT DETECTED [facility] Clinical Information: None given [facility] COMMENT SEE COMMENT [facility] Comment: The analytical performance characteristics of this assay, when used to test SurePath(TM) specimens have been determined by [employer]. The modifications have not been cleared or approved by the FDA. This assay has been validated pursuant to the CLIA regulations and is used for clinical purposes. ?? For additional information, please refer to https://[employer].Cargo.io/faq/TJE757 (This link is being provided for information/ educational purposes only.) ?? COMMENT SEE COMMENT [facility] Comment: EXPLANATORY NOTE: ? The Pap is a screening test for cervical cancer. It is ?? not a diagnostic test and is subject to false negative ?? and false positive results. It is most reliable when a ?? satisfactory sample, regularly obtained, is submitted ?? with relevant clinical findings and history, and when ?? the Pap result is evaluated along with historic and ?? current clinical information. ?? COMMENT: This Pap test has been evaluated with computer assisted technology. [facility] Grain Manager: SEE COMMENT [facility] Comment: SL, CT(ASCP) CT screening location: [address] ??[id number] HPV nRNA E6/E7 Not Detected Not Detected [facility] Comment: Methodology: Veterinary Parasitologist-Mediated Amplification This assay detects E6/E7 viral messenger RNA (mRNA) from 14 high-risk HPV types (16,18,31,33,35,39,45,51,52,56,58,59,66,68). ? The analytical performance characteristics of this assay have been determined by [employer]. The modifications have not been cleared or approved by the FDA. This assay has been validated pursuant to the CLIA regulations and is used for clinical purposes. ?? For additional information, please refer to http://[employer].Cargo.io/faq/REN275i9 (This link if provided for information/ educational purposes only.) Interpretation/Re sult: Negative for intraepithelial lesion or malignancy. [facility] LMP: NONE GIVEN [facility] Neisseria gonorrhoeae RNA, TMA, Urogenital NOT DETECTED NOT DETECTED [facility] Prev. BX: NONE GIVEN [facility] Prev. PAP: NONE GIVEN [facility] Review Grain Manager: SEE COMMENT [facility] Comment: MSM, CT(ASCP) CT screening location: [address] ??[id number] SOURCE: None given [facility] Statement Of Adequacy: SEE COMMENT [facility] Comment: Satisfactory for evaluation. Endocervical/transformation zone component present. Partially obscuring inflammation Age and/or menstrual status not provided Trichomonas vaginalis, QL, TMA, PAP Vial NOT DETECTED NOT DETECTED [facility] Comment: The analytical performance characteristics of this assay have been determined by [employer]. The modifications have not been cleared or approved by the FDA. This assay has been validated pursuant to the CLIA regulations and is used for clinical purposes. ?? For additional information, please refer to http://education.Cargo.io/ faq/Trichomonastma (This link is being provided for information/ educational purposes only.) ?? NO COLLECTION DATE RECEIVED. WE HAVE USED THE DATE THE SPECIMEN WAS RECEIVED BY THIS LABORATORY THE COLLECTION DATE. IF THIS IS INCORRECT, PLEASE CONTACT CLIENT SERVICES. PHONE NUMBER: ?? 12/26/2021 10:3 6 AM EDT Cherie Knight NP LAB PATHOLOGY ORDERABLES Final Result [facility] [address] * Colonoscopy (12/26/2012) Colonoscopy Normal Normal 12/26/2012 Narrative Jami Ovalles - 12/26/2012 11:09 AM EDT Recommended 10 year follow up ([facility] [place] ) Historical Provider MD HEALTH MAINTENANCE Final Result from Last 3 Months or Most Recently Relevant to Health Maintenance Insurance MEDICARE [facility] MEDICA[facility] STAND ADULT Care Teams Urban Sociologist Relationship Specialty Start Date End Date Peggy Wolfe MD [address] [place] [phone] PCP - General Internal Medicine 08/09/23
== END 2024-09-16 17:57 | disposition home or self-care (01) ==
LOC: HO.LNP 17:56
PROVIDERS: Visit Provider Emergency Medicine
DX: R30.0 Dysuria (principal)
CPT/HCPCS: 87086; 87147

== ENCOUNTER 2024-09-23 16:33 | Outpatient (REF) | payer MEDICARE, MEDICAID, OTHER, SELFPAY ==
--- OUTSIDE RECORDS SUMMARY | 2024-09-23 16:43 | XMS_ITS | Encounter Summary ---
Author Organization [email or web address] [facility] Address [address] [place] [address] [address]t [place] [address] Care Team Providers Care Manager Account Management Name Role Phone Cait Manuel Primary Care Provider +- [phone] Yudith Monreal NP Primary Care Provider [phone] Peggy Wolfe MD Primary Care Provide r Encounter Details Date Type Department Care Team (Latest Contact Info) Description 12/25/2018 Abstract [facility] Dental, Provider, DDS Social History [...] Description 11/12/2024 2:45 PM EDT Office Visit [facility] [address] [place] [address] Peggy Wolfe MD [address] [place] [address] documented as of this encounter Visit Diagnoses Not on filedocumented in this encounter Care Teams Manager Account Management Relationship Specialty Start Date End Date Cait Manuel FNP PCP - General Family Medicine 04/17/22 05/23/23 Yudith Monreal NP [address] [place] [address] PCP - General Family Medicine 05/24/23 08/08/23 Peggy Wolfe MD [address] [place] [address] PCP - General Internal Medicine 08/09/23 documented as of this encounter
--- OUTSIDE RECORDS SUMMARY | 2024-09-23 16:43 | XMS_ITS | Encounter Summary ---
Author Organization [employer] [facility] Address [address] [place] [address] [address]t [place] [address] Care Team Providers Care Publications Writer Name Role Phone Cait Manuel Primary Care Provider +- [phone] Yudith Monreal NP Primary Care Provider [phone] Peggy Wolfe MD Primary Care Provide r Encounter Details Date Type Department Care Team (Latest Contact Info) Description 06/27/2020 Abstract [facility] Dental, Provider, DDS Social History [...] Description 11/12/2024 2:45 PM EDT Office Visit [facility] [address] [place] [address] Peggy Wolfe MD [address] [place] [address] documented as of this encounter Visit Diagnoses Not on filedocumented in this encounter Care Teams Publications Writer Relationship Specialty Start Date End Date Cait Manuel FNP PCP - General Family Medicine 04/17/22 05/23/23 Yudith Monreal NP [address] [place] [address] PCP - General Family Medicine 05/24/23 08/08/23 Peggy Wolfe MD [address] [place] [address] PCP - General Internal Medicine 08/09/23 documented as of this encounter
--- OUTSIDE RECORDS SUMMARY | 2024-09-23 16:43 | XMS_ITS | Encounter Summary ---
Author Organization [facility] Address [address] [place] [address] 7t [place] [address] Care Team Providers Care Non Licensed Nuclear Plant Operator Name Role Phone Cait Manuel ENVIRONMENTAL PROTECTION FORESTER Primary Care Provider [phone] Yudith Monreal NP Primary Care Provider [phone] Peggy Wolfe MD Primary Care Provide r Encounter Details Date Type Department Care Team (Late Contact Info) Description 01/02/2023 Abstract [facility] [address] [place] [address] Cait Manuel FNP [address] [place] [address] Dept [place] [address] Social History Tobacco Use Types Packs/Day Years [...] Description 11/12/2024 2:45 PM EDT Office Visit [facility] [address] [place] [address] Peggy Wolfe MD [address] [place] [phone] documented as of this encounter Procedures Procedure Name Priority Date/Time Associated Diagnosis Comments COLONOSCOPY Routine 12/26/2012 documented in this encounter Results * Colonoscopy (12/26/2012) Colonoscopy Normal Normal 12/26/2012 Luis Miguel Jami Ovalles - 12/26/2012 11:09 AM EDT Recommended 10 year follow up ([facility] [place] Historical Provider HEALTH MAINTENANCE Final Result documented in this encounter Visit Diagnoses Not on filedocumented in this encounter Care Teams Non Licensed Nuclear Plant Operator Relationship Specialty Start Date End Date Cait Manuel FNP PCP - General Family Medicine 04/17/22 05/23/23 Yudith Monreal NP [address] [place] [id number] PCP - General Family Medicine 05/24/23 08/08/23 Peggy Wolfe MD [address] [place] [id number] PCP - General Internal Medicine 08/09/23 documented as of this encounter
--- OUTSIDE RECORDS SUMMARY | 2024-09-23 16:43 | XMS_ITS | Encounter Summary ---
Author Organization [employer] Address [address] [place] [address] Care Team Providers Care Service Specialist Name Role Phone Peggy Wolfe MD Primary Care Provide r Encounter Details Date Type Department Care Team ([facility] st Contact Info) Description 09/22/2024 Telephone [facility] [address] [place], [place] [phone] Peggy Wolfe MD [address] [place], [place] [phone] Social History Tobacco Use Types Packs/Day Years [...] Description 11/12/2024 2:45 PM EDT Office Visit [facility] [address] [place] [phone] Peggy Wolfe MD [address] [place] [address] documented as of this encounter Visit Diagnoses Not on filedocumented in this encounter Additional Health Concerns Assessment Noted Time PHQ-9 Depression Total Score: 7 04/16/20 23 4:07 PM EDT documented as of this encounter Care Teams Service Specialist Relationship Specialty Start Date End Date Peggy Wolfe MD [address] [place] [id number] PCP - General Internal Medicine 08/09/23 documented as of this encounter
--- OUTSIDE RECORDS SUMMARY | 2024-09-23 16:43 | XMS_ITS | Encounter Summary ---
Author Organization [employer] Address [address] 7[address] [place] [address] Care Team Providers Care Head Strength And Conditioning Coach Name Role Phone Peggy Wolfe MD Primary Care Provide r Encounter Details Date Type Department Care Team ([facility] st Contact Info) Description 09/23/2024 10:00 AM EST Office Visit [facility] [address] [place], [place] [phone] Alethea Bryant FNP [address] [place], [place] [phone] Dysuria (Primary Dx); Vaginal discharge; Unprotected sex Social History Tobacco Use Types Packs/Day Years [...] Sign Reading Time Taken Comments Blood Pressure 138/88 09/23/2024 9:53 AM EST Pulse 84 09/23/2024 9:53 AM EST Temperature 37 ??C (98.6 ??F) 09/23/2024 9:53 AM EST Respiratory Rate 18 09/23/2024 9:53 AM EST Oxygen Saturation - - Inhaled Oxygen Concentration - - Weight 73.3 kg (161 lb 9.6 oz) 09/23/2024 9:53 A M EST Height 157.5 cm (5' 2 ) 09/23/2024 9:53 AM EST Body Mass Index 29.56 09/23/2024 9:53 AM EST documented in this encounter Plan of Treatment Upcoming Encounters Date Type Department Care Team (Late st Contact Info) Description 11/12/2024 2:45 PM EDT Office Visit [facility] [address] [place] [address] Peggy Wolfe MD [address] [place] [address] Scheduled Orders Name Type Priority Associated Diagnoses Orde r Schedule Bacterial Vaginosis Panel Microbiology Routine Vaginal discharge Ordered: 09/23/2024 Culture, Urine, Routine Microbiology Routine Dysuria Expected: 09/23/2024 (Approximate), Expires: 09/23/2025 Chlamydia/N. Gonorrhoeae RNA, TMA, Urogenitial Microbiology Routine Dysuria Vaginal discharge Unprotected sex Ordered: 09/23/2024 documented as of this encounter Procedures Procedure Name Priority Date/Time Associated Diagnosis Comments POCT URINALYSIS DIPSTICK Routine 09/23/2024 11:45 AM EST Dysuria documented in this encounter Results * (ABNORMAL) POCT Urinalysis (09/23/2024 11:45 AM EST) Color, UA Yellow Clarity, UA Clear Glucose, UA Negative Bilirubin, UA Negative Ketones, UA Negative Spec Grav, UA 1.020 Blood, UA Positive(A) Negative, None Detected Comment:small pH, UA 5.5 Protein, UA Negative Urobilinogen, UA 0.2 Leukocytes, UA Negative Negative, Rare, Trace Nitrite, UA Negative Negative, None Detected Appearance, UA clear QC Media Lot # [id number] Lot# Expiration Date Urine 09/23/2024 11:4 5 AM EST Alethea Bryant GORE STITCHER POINT OF CARE TEST ENTER/EDIT ORDERABLES Final Result documented in this encounter Visit Diagnoses Diagnosis Dysuria- Primary Vaginal discharge Leukorrhea, not specified as infective Unprotected sex Problems related to high-risk sexual behavior documented in this encounter Additional Health Concerns Assessment Noted Time PHQ-9 Depression Total Score: 7 04/16/20 23 4:07 PM EDT documented as of this encounter Care Teams Head Strength And Conditioning Coach Relationship Specialty Start Date End Date Peggy Wolfe MD [address] [place] [id number] PCP - General Internal Medicine 08/09/23 documented as of this encounter
--- OUTSIDE RECORDS SUMMARY | 2024-09-23 16:43 | XMS_ITS | Encounter Summary ---
Author Organization [employer] [facility] Address [address] [place], [place] [address]t [place] [address] Care Team Providers Care Television Camera Operator Name Role Phone Cait Manuel Primary Care Provider [phone] Yudith Monreal NP Primary Care Provider [phone] Peggy Wolfe MD Primary Care Provide r Reason for Visit * Reason Onset Date Comments Nurse Triage 05/15/2023 Encounter Details Date Type Department Care Team (Late st Contact Info) Description 05/15/2023 Telephone [facility] [address] [place] [address] Cait Manuel FNP [address] [place] [address] Dept [place] [address] Nurse Triage Social History Tobacco Use Types [...] 05/15/2023 3:05 PM EDT Triage call with [place] [employer] Technician [id number] Pt reports sore throat that hurts every time swallowing anything. Pt is neg for fever, ear aches ordifficulty breathing. Pt doesn' t have tonsils and can't see if there is anything white in throat. Pt reports , it feels like something is in there . Advised to come to [facility] for provider to check Pt symptoms and [...] accepted this outcome Please contact pt at [phone] (Canadian) documented in this encounter Plan of Treatment Upcoming Encounters Date Type Department Care Team (Late st Contact Info) Description 11/12/2024 2:45 PM EDT Office Visit [facility] [address] [place] [address] Peggy Wolfe MD [address] [place] [address] documented as of this encounter Visit Diagnoses Not on filedocumented in this encounter Additional Health Concerns Assessment Noted Time PHQ-9 Depression Total Score: 7 04/16/20 23 4:07 PM EDT documented as of this encounter Care Teams Television Camera Operator Relationship Specialty Start Date End Date Cait Manuel FNP PCP - General Family Medicine 04/17/22 05/23/23 Yudith Monreal NP [address] [place] [address] PCP - General Family Medicine 05/24/23 08/08/23 Peggy Wolfe MD [address] [place] [address] PCP - General Internal Medicine 08/09/23 documented as of this encounter
--- OUTSIDE RECORDS SUMMARY | 2024-09-23 16:43 | XMS_ITS | Encounter Summary ---
Author Organization [employer] Address [address] [facility] 7t [place] [address] Care Team Providers Care Cyber Legal Advisor Name Role Phone Cait Manuel OFFICE WORKFORCE PLANNER Primary Care Provider [phone]- [phone] Yudith Monreal NP Primary Care Provider [phone] Peggy Wolfe MD Primary Care Provide r Encounter Details Date Type Department Care Team (Late st Contact Info) Description 05/22/2023 Telephone [facility] [address] [place] [address] Cait Manuel FNP [address] [facility] Dept [place] [address] Social History Tobacco Use Types Packs/Day Years [...] 3:49 PM EDT T/C to pt. Through [employer] id - [id number] for below message, pt. States she already apt. On [facility]/20[facility] [place] [facility] Pt. Is al set. Pt. Advised to give call on [phone] if any questions or concerns. Pt. Verbally agreed and understood. * Telephone Encounter - Merry Gillespie - 05/22/2023 4:15 PM EDT Tc from pt requesting a new order for nerve test on left leg. Any questions, please contact pt at [phone] (Tunisian) documented in this encounter Plan of Treatment Upcoming Encounters Date Type Department Care Team (Late st Contact Info) Description 11/12/2024 2:45 PM EDT Office Visit [facility] MEDICINE [address] [place] [address] Peggy Wolfe MD [address] [place] [phone] documented as of this encounter Visit Diagnoses Not on filedocumented in this encounter Additional Health Concerns Assessment Noted Time PHQ-9 Depression Total Score: 7 04/16/20 4:07 PM EDT documented as of this encounter Care Teams Cyber Legal Advisor Relationship Specialty Start Date End Date Cait Manuel FNP PCP - General Family Medicine 04/17/22 05/23/23 Yudith Monreal NP [address] [place] [phone] PCP - General Family Medicine 05/24/23 08/08/23 Peggy Wolfe MD [address] [place] [phone] PCP - General Internal Medicine 08/09/23 documented as of this encounter
--- OUTSIDE RECORDS SUMMARY | 2024-09-23 16:43 | XMS_ITS | Encounter Summary ---
Author Organization [employer] [facility] Address [address] [place] [address] 7t [place] [address] Care Team Providers Care Clin Asst Name Role Phone Cait Manuel Primary Care Provider + [phone] Yudith Monreal NP Primary Care Provider [phone] Peggy Wolfe MD Primary Care Provide r Encounter Details Date Type Department Care Team (Latest Contact Info) Description 06/29/2022 Abstract [facility] CONVERSIONS Dental, Provider, DDS Social History [...] 11/12/2024 2:45 PM EDT Office Visit [facility] MEDICINE [address] [place] [address] Peggy Wolfe MD [address] [place] [address] documented as of this encounter Visit Diagnoses Not on filedocumented in this encounter Care Teams Clin Asst Relationship Specialty Start Date End Date Cait Manuel FNP PCP - General Family Medicine 04/17/22 05/23/23 Yudith Monreal NP [address] [place] [address] PCP - General Family Medicine 05/24/23 08/08/23 Peggy Wolfe MD [address] [place] [address] PCP - General Internal Medicine 08/09/23 documented as of this encounter
--- OUTSIDE RECORDS SUMMARY | 2024-09-23 16:43 | XMS_ITS | Encounter Summary ---
Author Organization [employer] Address [address] [facility] [address] 7[address] [place] [address] Care Team Providers Care Fingernail Technician Name Role Phone Peggy Wolfe MD Primary Care Provide r Reason for Visit * Reason Onset Date Comments Nurse Triage 09/22/2024 Encounter Details Date Type Department Care Team ([facility] st Contact Info) Description 09/22/2024 Telephone [facility] MEDICINE [address] [place], [place] [phone] Peggy Wolfe MD [address] [place], [place] [phone] Nurse Triage Social History Tobacco Use Types [...] encounter Miscellaneous Notes * Telephone Encounter - Lorelei Rust RN - 09/22/2024 3:52 PM EST Call returned to Karly Davila to triage below. No sales and marketing executive needed as this law writer speaks Macedonian. Reports having pain with passing urine today. Per pt has been started on abx for UTI on 09/16. Per pt completed pyridium. Still on abx has 1 more dose for today. Pt advised of disposition, agreesto sick on site tomorrow with Blue team CHAR FILTER OPERATOR HELPER resident. Reviewed home care advise, ER precautions and reasons to call back. Protocol Used: Urinary Tract Infection on Antibiotic Follow-up Call - Female (Adult) Protocol-Based Disposition: See in Office or Video Visit Today Future Appointments Date Time Provider Department Center 09/23/2024 10:00 AM [facility] MEDICINE [facility] 11/12/2024 2:45 PM Peggy Dubon MD [facility] Insurance verified as active per Real Time Eligibility in [facility]. Positive Triage Question: * Taking antibiotic > 72 hours (3 days) for UTI and flank or lower back pain is SAME (unchanged,not better) * All higher-acuity triage questions were negative Care Advice Discussed: * Reassurance and Education - Urinary Tract Infection * Drink Extra Fluids * Cranberry Juice * Reasons To Call Back - You become worse * Telephone Encounter - Geralevi HayEric - 09/22/2024 2:54 PM EST Symptom: Urination Pain Outcome: Schedule an urgent appointment (within 1 hour) or talk to a nurse or provider soon Reason: Severe pain now The caller accepted this outcome. Contact pt at [phone] documented in this encounter Plan of Treatment Upcoming Encounters Date Type Department Care Team (Late st Contact Info) Description 11/12/2024 2:45 PM EDT Office Visit [facility] MEDICINE [address] [place] [phone] Peggy oWlfe MD [address] [place] [address] documented as of this encounter Visit Diagnoses Not on filedocumented in this encounter Additional Health Concerns Assessment Noted Time PHQ-9 Depression Total Score: 7 04/16/20 23 4:07 PM EDT documented as of this encounter Care Teams Fingernail Technician Relationship Specialty Start Date End Date Peggy Wolfe MD [address] [place] [phone] PCP - General Internal Medicine 08/09/23 documented as of this encounter
--- OUTSIDE RECORDS SUMMARY | 2024-09-23 16:43 | XMS_ITS | Encounter Summary ---
Author Organization [employer] Address [address] [facility] [address] 7[address] [place] [address] Care Team Providers Care Surgery Manager Name Role Phone Peggy Wolfe MD Primary Care Provide r Reason for Visit * Reason Onset Date Comments Results 09/18/2024 Encounter Details Date Type Department Care Team ([facility] Contact Info) Description 09/18/[address] [facility] [address] [place], [place] [phone] Maddie Vuong RN Results Social History Tobacco Use Types Packs/Day Years [...] encounter Miscellaneous Notes * Telephone Encounter - Maddie Vuong RN - 09/18/2024 11:58 AM EST Call placed to patient. Informed her that Urine Cx was + for a UTI. Advised patient she should continue the cefpodoxime as initially prescribed. All questions answered. Patient verbalizes understanding and agreement with plan of care at this time. [employer] interpretor [id number] Era ----- Message from Tom Soriano MD sent at 09/18/2024 11:57 AM EST ----- Hi. Please let Cece know that her urine culture was positive and she should complete the antibiotic. The lab is not testing susceptibility because of a low bacteria count. Thanks Tanner documented in this encounter Plan of Treatment Upcoming Encounters Date Type Department Care Team (Late st Contact Info) Description 11/12/2024 2:45 PM EDT Office Visit [facility] MEDICINE [address] [place] [address] Peggy Wolfe MD [address] [place] [address] documented as of this encounter Visit Diagnoses Not on filedocumented in this encounter Additional Health Concerns Assessment Noted Time PHQ-9 Depression Total Score: 7 04/16/20 23 4:07 PM EDT documented as of this encounter Care Teams Surgery Manager Relationship Specialty Start Date End Date Peggy Wolfe MD [address] [place] [address] PCP - General Internal Medicine 08/09/23 documented as of this encounter
--- OUTSIDE RECORDS SUMMARY | 2024-09-23 16:43 | XMS_ITS | Encounter Summary ---
Author Organization [employer] [facility] Address [address] [place] [address] 7 [place] [address] Care Team Providers Care Project Coach Name Role Phone Cait Manuel Primary Care Provider [phone] Yudith Monreal NP Primary Care Provider [phone] Peggy Wolfe MD Primary Care Provide r Reason for Visit * Reason Comments Med Refill Encounter Details Date Type Department Care Team (Late st Contact Info) Description 03/24/2023 Refill [facility]INE [address] [place] [address] Cait Manuel FNP [address] [place] [address] Dept [place] [address] Social History Tobacco Use Types Packs/Day Years [...] Description 11/12/2024 2:45 PM EDT Office Visit [facility] MEDICINE [address] [place] [phone] Peggy Wolfe MD [address] [place], [place] [phone] documented as of this encounter Visit Diagnoses Not on filedocumented in this encounter Care Teams Project Coach Relationship Specialty Start Date End Date Cait Manuel FNP PCP - General Family Medicine 04/17/22 05/23/23 Yudith Monreal NP [address] [place] [address] PCP - General Family Medicine 05/24/23 08/08/23 Peggy Wolfe MD [address] [place] [address] PCP - General Internal Medicine 08/09/23 documented as of this encounter
--- OUTSIDE RECORDS SUMMARY | 2024-09-23 16:43 | XMS_ITS | Clinical Summary ---
Author Organization [employer] Address [address] [place] [address] 7t [place] [address] Care Team Providers Care Shredded Filler Machine Wrapper Layer Name Role Phone Peggy Wolfe MD Primary [...] days. 14 tablet 09/16/19 25 025 Active fluconazole (Diflucan) 150 MG tablet Take 1 tablet (150 mg) by mouth Once per day. May repeat dose in 3 days prn 2 tablet 09/16/19 25 Active phenazopyridine (Pyridium) 200 MG tablet Take 1 tablet (200 mg) by mouth with breakfast, with lunch, and with evening meal for 2 days. 6 tablet 09/16/19 25 025 Active Problems Problem Noted Date Diagnosed Date Unprotected sex 09/23/2024 Vaginal discharge 09/23/2024 Dysuria 09/23/2024 Rash 07/27/2024 Assessment & Plan (07/27/2024 3:58 [...] and stress reduction. Inadequate occlusion of dental sikh 05/20 Seborrheic dermatitis 05/11/2024 Assessment & Plan [...] new PCP Irritable bowel syndrome with diarrhea Overview (04/17/2023): Preliminary diagnosis Care managed by [...] Encounters Date Type Department Care Team Description 09/23/2024 10:00 AM EST Office Visit [facility] [address] [place] [address] Alethea Bryant FNP Dysuria (Primary Dx); Vaginal discharge; Unprotected sex 09/23/2024 Travel 09/22/2024 Telephone [facility] [address] [place] [address] Peggy Wolfe MD Nurse Triage 09/22/2024 Telephone [facility] [address] [place] [address] Peggy Wolfe MD 09/18/2024 Telephone [facility] [address] [place] [phone] Maddie Vuong RN Results 09/16/2024 5:20 PM EST Office Visit [facility] [address] [place] [phone] Tom Soriano MD Dysuria 09/16/2024 Telephone [facility] [address] [place] [address] Peggy Wolfe MD Nurse Triage 08/07/2024 Refill [facility] [address] [place] [address] [facility] 07/27/2024 1:45 PM EST Office Visit [facility] [address] [place] [phone] Mirna Louis MD Rash (Primary Dx); Elevated BP without diagnosis of hypertension; Encounter for immunization 07/27/2024 Telephone [facility] [address] [place] [address] Mirna Louis MD 07/27/2024 Travel 07/27/[address] [address] Peggy Wolfe MD Nurse Triage 06/29/2024 Refill [facility] [address] [place] [address] Peggy Wolfe MD Mild intermittent asthma without complication 06/25/2024 Refill [facility] [address] [place] [address] [phone] Peggy Wolfe MD Seborrheic dermatitis from Last [...] 18 09/23/2024 9:53 AM EST Oxygen Saturation 98% 09/16/2024 5:21 PM EST Inhaled Oxygen Concentration - - Weight 73.3 kg (161 lb 9.6 oz) 09/23/2024 9:53 A M EST Height 157.5 cm (5' 2 ) 09/23/2024 9:53 AM EST Body Mass Index 29.56 09/23/2024 9:53 AM EST Plan of Treatment Upcoming Encounters Date Type Department Care Team (Late st Contact Info) Description 11/12/2024 2:45 PM EDT Office Visit [facility] [address] [place] [address] Peggy Wolfe MD [address] [place] [address] Health Maintenance Due Date Last Done Comments CT Colonography 1961 FIT DNA/Cologuard 1961 FIT 1961 FOBT 1961 HIV Screening 1961 Sigmoidoscopy 1961 Alcohol/Substance Use Screening 1973 RSV Patients and Patients Aged 60 years or older (1 - Risk 60-74 years 1-dose series) 2021 Colonoscopy 12/26/2022 12/26/2012 Colorectal Cancer Screening 12/26/2022 Depression Screening 04/16/2024 04/16/2023, 04/16/20 23 COVID-19 Vaccine ( season) 2024 02/26/2022, 08/28/2021, 12/02/2020, Additional history exists Dental Prophylaxis 06/17/2024 12/16/2023, 12/26/2022 Dental Oral Exam 08/08/2024 02/06/2024, 06/29/2022 Mammogram 12/08/2024 12/09/2023 SDOH Screening 12/15/2024 12/16/2023 Dental X-Ray: Bitewings 12/16/2024 12/16/2023, 06/10 Cervical Cancer Screening 12/26/2024 HPV/Cotest 12/26/2024 12/26/2021, 2 11/2020, 03/17/2019 Pap Smear 12/26/2024 12/26/2021, 10/18, 05/13/2020 Dental X-Ray: Full Mouth 06/30/2025 06/29/2022 Tobacco Screening 09/23/2025 09/23/2024 DTaP/Tdap/Td Vaccines (3 - Td or Tdap) [...] DIPSTICK Routine 09/23/2024 11:45 AM EST Dysuria CULTURE, URINE, ROUTINE Routine 09/16/2024 5:56 PM EST Dysuria POCT URINALYSIS DIPSTICK Routine 09/16/2024 5:55 PM [...] to Health Maintenance Results * (ABNORMAL) POCT Urinalysis (09/23/2024 11:45 AM EST) Only the most recent of2 resultswithin the time period is included. Color, UA Yellow Clarity, UA Clear Glucose, [...] 09/23/2024 11:4 5 AM EST Alethea Bryant [place] MACHINE OPERATOR POINT OF CARE TEST ENTER/EDIT ORDERABLES Final Result * Culture, Urine, Routine (09/16/2024 5:56 PM EST) Urine Urine specimen obtained by clean catch procedure / Unknown 09/16/2024 5:56 PM EST 09/17/2024 12:28 PM EST Comment:UACC Narrative [facility] - 09/18/2024 10:55 AM EST Strep agalactiae (Grp B) Quant 10,000 to 50,000 cfu/mL Susc N/A Susceptibility not routinely performed on this isolate. Specimen Source: Urine clean catch Tom Soriano MD LAB MICROBIOLOGY - GENERAL ORDER TL Final Result [facility] [address] [place] [phone] * BI Mammogram Screening Bilateral (12/09/2023) Anatomical Region Laterality Modality Breast Bilateral Mammography Peggy Dubon MD IMG BI PROCEDURES Fin al Result * Hepatitis Panel, General (04/17/2023 9:25 AM EDT) Hepatitis A IgM Nonreactive Nonreactive [facility] Comment:IgM antibodies to ROLLE V not detected; does not exclude earlyacute or recovered HAV infection. ~Hepatitis B Surface Antibody REACTIVE Nonreactive [facility] Comment:REACTIVE: > 11.99 mI U/mL Hepatitis B Core Antibody Nonreactive Nonreactive [facility] Hepatitis C Antibody Nonreactive Nonreactive [facility] Comment:Antibodies to HCV no t detected; does not exclude early acuteHCV infection. Hepatitis B Surface Ag Negative Negative [facility] Blood 04/17/2023 9:25 AM EDT 04/17/2023 11:25 AM EDT us Cait Manuel [place] MACHINE OPERATOR LAB BLOOD ORDERABLES Final Result Performing Organization Address [facility]/ZIP Co de Phone Number [facility] [address] [place] [phone] * THINPREP TIS PAP AND HPV mRNA E6/E7, CT/NG, TRICH (12/26/2021 10:36 AM EDT) Chlamydia trachomatis RNA, TMA, Urogenital NOT DETECTED NOT DETECTED [facility] Clinical Information: None given [facility] COMMENT SEE COMMENT [facility] Comment: The analytical performance characteristics of this assay, when used to test SurePath(TM) specimens have been determined by [employer]. The modifications have not been cleared or approved by the FDA. This assay has been validated pursuant to the CLIA regulations and is used for clinical purposes. ?? For additional information, please refer to https://Be At One.iHealth/faq/XDX022 (This link is being provided for information/ [...] has been evaluated with computer assisted technology. [employer] [facility] Furniture Associate: SEE COMMENT [facility] Comment: SL, CT(ASCP) CT screening location: [address] ??[phone] HPV nRNA E6/E7 Not Detected Not Detected [facility] Comment: Methodology: Gambling Box Person-Mediated Amplification This assay detects E6/E7 viral messenger RNA (mRNA) from 14 high-risk HPV types (16,18,31,33,35,39,45,51,52,56,58,59,66,68). ? The analytical performance characteristics of this assay have been determined by [employer]. The modifications have not been cleared or approved by the FDA. This assay has been validated pursuant to the CLIA regulations and is used for clinical purposes. ?? For additional information, please refer to http://Be At One.iHealth/faq/LBJ313v3 (This link if provided for information/ educational purposes only.) Interpretation/Re sult: Negative for intraepithelial lesion or malignancy. [facility] LMP: NONE GIVEN [facility] Neisseria gonorrhoeae RNA, TMA, Urogenital NOT DETECTED NOT DETECTED [facility] Prev. BX: NONE GIVEN [facility] Prev. PAP: NONE GIVEN [facility] Review Furniture Associate: SEE COMMENT [facility] Comment: MSM, CT(ASCP) CT screening location: [address] ??[phone] SOURCE: None given [facility] Statement Of Adequacy: SEE COMMENT [facility] Comment: Satisfactory for evaluation. Endocervical/transformation zone component present. Partially obscuring inflammation Age and/or menstrual status not provided Trichomonas vaginalis, QL, TMA, PAP Vial NOT DETECTED NOT DETECTED [facility] Comment: The analytical performance characteristics of this assay have been determined by [employer]. The modifications have not been cleared or approved by the FDA. This assay has been validated pursuant to the CLIA regulations and is used for clinical purposes. ?? For additional information, please refer to http://education.iHealth/ faq/Trichomonastma (This link is being provided for information/ educational purposes only.) ?? NO COLLECTION DATE RECEIVED. WE HAVE USED THE DATE THE SPECIMEN WAS RECEIVED BY THIS LABORATORY THE COLLECTION DATE. IF THIS IS INCORRECT, PLEASE CONTACT CLIENT SERVICES. PHONE NUMBER: ?? 12/26/2021 10:3 6 AM EDT Cherie Knight NP LAB PATHOLOGY ORDERABLES Final Result [facility] [address] * Colonoscopy (12/26/2012) Colonoscopy Normal Normal 12/26/2012 Narrative Jami Ovalles - 12/26/2012 11:09 AM EDT Recommended 10 year follow up ([facility] ) Historical Provider HEALTH MAINTENANCE Final Result from Last 3 Months or Most Recently Relevant to Health Maintenance Insurance MEDICARE [facility] STANDARD DENTAL-[facility] MEDICAID STAND ADULT Care Teams Shredded Filler Machine Wrapper Layer Relationship Specialty Start Date End Date Peggy Wolfe MD [address] [place] [address] PCP - General Internal Medicine 08/09/23
--- OUTSIDE RECORDS SUMMARY | 2024-09-23 16:43 | XMS_ITS | Encounter Summary ---
Author Organization [facility] Address [address] [place] [address] [address] [place] [address] Care Team Providers Care Cigar Packer Name Role Phone Cait Manuel Primary Care Provider +- [phone] Yudith Monreal NP Primary Care Provider [phone] Peggy Wolfe MD Primary Care Provide r Encounter Details Date Type Department Care Team (Latest Contact Info) Description 06/30/2019 Abstract [facility] CONVERSIONS Dental, Provider, DDS Social History Tobacco [...] 2:45 PM EDT Office Visit [facility] [address] [place] [address] Peggy Wolfe MD [address] [place] [address] documented as of this encounter Visit Diagnoses Not on filedocumented in this encounter Care Teams Cigar Packer Relationship Specialty Start Date End Date Cait Manuel FNP PCP - General Family Medicine 04/17/22 05/23/23 Yudith Monreal NP [address] [place] [address] PCP - General Family Medicine 05/24/23 08/08/23 Peggy Wolfe MD [address] [place] [address] PCP - General Internal Medicine 08/09/23 documented as of this encounter
--- OUTSIDE RECORDS SUMMARY | 2024-09-23 16:43 | XMS_ITS | Encounter Summary ---
Author Organization [employer] Address [address] [place] [address] Care Team Providers Care Engineering Director Name Role Phone Peggy Wolfe MD Primary Care Provide r Encounter Details Date Type Department Care Team (Latest Contact Info) Description 09/23/2024 Travel Social History Tobacco Use Types Packs/Day Years [...] Office Visit [facility] [address] [place] [address] Peggy Wolfe MD [address] [place] [address] documented as of this encounter Visit Diagnoses Not on filedocumented in this encounter Additional Health Concerns Assessment Noted Time PHQ-9 Depression Total Score: 7 04/16/20 23 4:07 PM EDT documented as of this encounter Care Teams Engineering Director Relationship Specialty Start Date End Date Peggy Wolfe MD [address] [place] [address] PCP - General Internal Medicine 08/09/23 documented as of this encounter
--- OUTSIDE RECORDS SUMMARY | 2024-09-23 16:43 | XMS_ITS | Encounter Summary ---
Author Organization [employer] Address [address] [place] [address] Care Team Providers Care Extension Associate Name Role Phone Peggy Wolfe MD Primary Care Provide r Reason for Visit * Reason Comments Med Refill Encounter Details Date Type Department Care Team ([facility] st Contact Info) Description 12/11/2023 Refill [facility]EDS [address] [place], [place] [phone] Peggy Wolfe MD [address] [place] [address] Social History Tobacco Use Types Packs/Day Years [...] Description 11/12/2024 2:45 PM EDT Office Visit [facility] MEDICINE [address] [place] [address] Peggy Wolfe MD [address] [place] [address] documented as of this encounter Visit Diagnoses Not on filedocumented in this encounter Additional Health Concerns Assessment Noted Time PHQ-9 Depression Total Score: 7 04/16/20 23 4:07 PM EDT documented as of this encounter Care Teams Extension Associate Relationship Specialty Start Date End Date Peggy Wolfe MD [address] [place] [address] [phone] PCP - General Internal Medicine 08/09/23 documented as of this encounter
--- OUTSIDE RECORDS SUMMARY | 2024-09-23 16:43 | XMS_ITS | Encounter Summary ---
Author Organization [employer] Address [address] [place] [address] Care Team Providers Care Medical Lab Technologist Name Role Phone Peggy oWlfe MD Primary Care Provide r Encounter Details Date Type Department Care Team (Late st Contact Info) Description 09/16/2024 5:20 PM EST Office Visit [facility]ALK[facility] [address] [place], [place] [phone] Tom Soriano MD [address] [place], [place] [phone] Dysuria Social History Tobacco Use Types Packs/Day [...] acquired Seborrheic dermatitis Inadequate occlusion of dental hoahaoism Rash Elevated BP without diagnosis of hypertension [...] Description 11/12/2024 2:45 PM EDT Office Visit [facility] MEDICINE [address] [place] [address] Peggy Wolfe MD [address] [place] [address] documented as of this encounter Procedures Procedure Name Priority Date/Time Associated Diagnosis Comments CULTURE, URINE, ROUTINE Routine 09/16/2024 5:56 PM EST Dysuria POCT URINALYSIS DIPSTICK Routine 09/16/2024 5:55 PM EST Dysuria documented in this encounter Results * Culture, Urine, Routine (09/16/2024 5:56 PM EST) Urine Urine specimen obtained by clean catch procedure / Unknown 09/16/2024 5:56 PM EST 09/17/2024 12:28 PM EST Comment:UACC Narrative [facility] - 09/18/2024 10:55 AM EST Strep agalactiae (Grp B) Quant 10,000 to 50,000 cfu/mL Susc N/A Susceptibility not routinely performed on this isolate. Specimen Source: Urine clean catch us Tom Soriano MD LAB MICROBIOLOGY - GENERAL ORDER TL Final Result [facility] [address] [place] [phone] [phone] * (ABNORMAL) POCT urinalysis dipstick manually resulted [...] Media Lot # [id number] Lot# Expiration Date [id number] Urine 09/16/2024 5:55 PM EST Tom Soriano MD POINT OF CARE TEST ENTER/EDIT OR DERABLES Final Result documented in this encounter Visit Diagnoses Diagnosis Dysuria documented in this encounter Additional Health Concerns Assessment Noted Time PHQ-9 Depression Total Score: 7 04/16/20 23 4:07 PM EDT documented as of this encounter Care Teams Medical Lab Technologist Relationship Specialty Start Date End Date Peggy Wolfe MD [address] [place] [address] PCP - General Internal Medicine 08/09/23 documented as of this encounter
--- OUTSIDE RECORDS SUMMARY | 2024-09-23 16:43 | XMS_ITS | Encounter Summary ---
Author Organization [employer] Address [address] [place] [address] Care Team Providers Care Bag Shop Worker Name Role Phone Peggy Wolfe MD Primary Care Provide r Reason for Visit * Reason Onset Date Comments Nurse Triage 09/16/2024 Encounter Details Date Type Department Care Team ([facility] st Contact Info) Description 09/16/2024 Telephone [facility] MEDICINE [address] [place], [place] [phone] Peggy Wolfe MD [address] [place], [place] [phone] Nurse Triage Social History Tobacco Use Types [...] 09/16/2024 10:55 AM EST Triage call with [facility] bottle tester [place] [id number] Pt reports urinary symptoms for several days. Burning/pain with urination, frequency , odor and flank pain, neg for fever. Pt is advised to increase liquids to 6-8 glasses daily. Pt agrees. Pt is advised to come to [facility] today to be seen by provider. [...] urine (peeing) The caller accepted this outcome. [phone] (iranian) documented in this encounter Plan of Treatment Upcoming Encounters Date Type Department Care Team (Late st Contact Info) Description 11/12/2024 2:45 PM EDT Office Visit [facility] MEDICINE [address] [place], [place] [phone] Peggy Wolfe MD [address] [place], [place] [phone] documented as of this encounter Visit Diagnoses Not on filedocumented in this encounter Additional Health Concerns Assessment Noted Time PHQ-9 Depression Total Score: 7 04/16/20 23 4:07 PM EDT documented as of this encounter Care Teams Bag Shop Worker Relationship Specialty Start Date End Date Peggy Wolfe MD [address] [place], [place] [phone] PCP - General Internal Medicine 08/09/23 documented as of this encounter
--- OUTSIDE RECORDS SUMMARY | 2024-09-23 16:43 | XMS_ITS | Encounter Summary ---
Author Organization [employer] [facility] Address [address] [place] [address] 7t [place] [address] Care Team Providers Care Business Info Consultant Name Role Phone Cait Manuel Primary Care Provider + [phone] Yudith Monreal NP Primary Care Provider [phone] Peggy Wolfe MD Primary Care Provide r Encounter Details Date Type Department Care Team (Latest Contact Info) Description 02/06/2022 Abstract [facility] CONVERSIONS Dental, Provider, DDS Social History [...] Description 11/12/2024 2:45 PM EDT Office Visit [facility] MEDICINE [address] [place] [address] Peggy Wolfe MD [address] [place] [address] documented as of this encounter Visit Diagnoses Not on filedocumented in this encounter Care Teams Business Info Consultant Relationship Specialty Start Date End Date Cait Manuel FNP PCP - General Family Medicine 04/17/22 05/23/23 Yudith Monreal NP [address] [place] [address] PCP - General Family Medicine 05/24/23 08/08/23 Peggy Wolfe MD [address] [place] [address] PCP - General Internal Medicine 08/09/23 documented as of this encounter
--- OUTSIDE RECORDS SUMMARY | 2024-09-23 16:44 | XMS_ITS | Encounter Summary ---
Author Organization [employer] Address [address] [place] [address] Care Team Providers Care Oil Processing Technician Name Role Phone Yudith Monreal NP Primary Care Provider [phone] Peggy Wolfe MD Primary Care Provide r Reason for Visit * Reason Onset Date Comments Appointment Request 07/30/2023 Encounter Details Date Type Department Care Team ([facility] st Contact Info) Description 07/30/2023 Telephone [facility] MEDICINE [address] [place] [address] Yudith Monreal NP [address] [place] [address] Appointment Request Social History Tobacco Use Types [...] from pt requesting TP Appt with PCP. Motel Keeper does see recall tried booking no available slot found. Please contact Pt [phone] documented in this encounter Plan of Treatment Upcoming Encounters Date Type Department Care Team (Late st Contact Info) Description 11/12/2024 2:45 PM EDT Office Visit [facility] MEDICINE [address] [place] [phone] Peggy Wolfe MD [address] [place] [address] documented as of this encounter Visit Diagnoses Not on filedocumented in this encounter Additional Health Concerns Assessment Noted Time PHQ-9 Depression Total Score: 7 04/16/20 23 4:07 PM EDT documented as of this encounter Care Teams Oil Processing Technician Relationship Specialty Start Date End Date Yudith Monreal NP [address] [place] [address] PCP - General Family Medicine 05/24/23 08/08/23 Peggy Wolfe MD [address] [place] [phone] PCP - General Internal Medicine 08/09/23 documented as of this encounter
[2024-09-24 04:52] LABS: CT PCR NOT DETECTED (Not Detect.); NG PCR NOT DETECTED (Not Detect.)
[2024-09-24 12:50] LABS: Bacterial Vaginosis PCR NEGATIVE (Negative); Candida Group PCR NOT DETECTED (Not Detect); Candida glab krusei PCR NOT DETECTED (Not Detect); Trichomonas vaginalis PCR NOT DETECTED (Not Detect)
== END 2024-09-23 16:34 | disposition home or self-care (01) ==
LOC: HO.HHCLNP 16:33
PROVIDERS: Visit Provider Nurse Practitioner Family
DX: N89.8 Other specified noninflammatory disorders of vagina (principal); R30.0 Dysuria; Z72.51 High risk heterosexual behavior; Z20.9 Contact with and (suspected) exposure to unspecified communicable disease
CPT/HCPCS: 81515; 87086; 87491; 87591

== ENCOUNTER 2024-11-12 15:31 | Outpatient (REF) | payer MEDICARE, MEDICAID, OTHER, SELFPAY ==
--- NOTE | ~2024-11-12 | XR_ITS ---
EXAMINATION: XR ABDOMEN KUB CLINICAL INDICATION: right flank pain COMPARISON: None available. TECHNIQUE: AP view of the abdomen. FINDINGS: The bowel gas pattern is normal with no evidence of ileus or obstruction. No abnormal soft tissue calcifications are noted. No organomegaly or large abdominal mass. Normal-appearing osseous structures. XR/XR KUB IMPRESSION: Normal KUB radiograph. Electronically signed by: Gee Mcnally MD 11/12/2024 03:59 PM EDT
--- OUTSIDE RECORDS SUMMARY | 2024-11-12 19:03 | XMS_ITS | Encounter Summary ---
Author Organization [facility] Address [address] [place] [address] [place] [address] Care Team Providers Care Child Psychology Teacher Name Role Phone Cait Manuel Primary Care Provider [phone] Yudith Monreal NP Primary Care Provider [phone] Peggy Wolfe MD Primary Care Provide r Reason for Visit * Reason Comments Med Refill Encounter Details Date Type Department Care Team (Late st Contact Info) Description 03/24/2023 Refill [facility] MEDIC[facility] [address] [place] [address] Cait Manuel FNP [address] [place] [address] Dept [place] [address] Social History Tobacco Use Types Packs/Day Years [...] Care Team (Late st Contact Info) Description 01/14/2025 1:45 PM EDT Procedure Visit [facility] MEDICINE [address] [place] [address] Rhianna Vazquez CNM [address] [place], [place] [phone] 05/20/2025 10:00 AM EDT Office Visit [facility] ADULT DENTAL [address] [place] [address] Mae Zaldivar [address] [place], [place] [phone] documented as of this encounter Visit Diagnoses Not on filedocumented in this encounter Care Teams Child Psychology Teacher Relationship Specialty Start Date End Date Cait Manuel FNP PCP - General Family Medicine 04/17/22 05/23/23 Yudith Monreal NP [address] [place] [address] PCP - General Family Medicine 05/24/23 08/08/23 Peggy Wolfe MD [address] [place] [address] PCP - General Internal Medicine 08/09/23 documented as of this encounter
--- OUTSIDE RECORDS SUMMARY | 2024-11-12 19:03 | XMS_ITS | Encounter Summary ---
Author Organization [email or web address] Address [address] 7t [place] [address] Care Team Providers Care Paralegal Legal Secretary Name Role Phone Peggy Wolfe MD Primary Care Provide r Reason for Visit * Reason Comments Pre-visit Planning SDOH screening negat jessica and tobacco screening negative Encounter Details Date Type Department Care Team ([facility] st Contact Info) Description 11/03/2024 Patient Outreach [facility] [address] [place], [place] [phone] Peggy Wolfe MD [address] [place] [address] Pre-visit Planning (SDOH screening negative and tobacco screening negative) Social History Tobacco Use Types Packs/Day Years [...] Recorded Patient Health Questionnaire-2 Score 1 04/16/2023 Internet Access Answer Date Recorded Internet Access Q1 Yes 11/03/2024 Internet Access Q2 Not on file 11/03/2024 Comments Unknown Sex and Gender Information Value Date Recorded Sex Assigned at Female 06/18/2022 10:14 AM EDT Legal Sex Female 10:14 AM EDT Gender Identity Female 06/18/2022 10:14 AM EDT Sexual Orientation Straight 06/18/2022 10 :14 AM EDT documented as of this encounter Progress Notes * Odette Michael - 11/03/2024 9:35 AM EDT CC Odette placed successful outbound call to patient for pre-visit planning. Patient name and confirmed. Patient confirms appt date and time, and has transportation. Biggest concern for appointment at this time is none Patient advised to bring to appointment a photo id and insurance card. Appropriate screenings completed in anticipation of appointment. documented in this encounter Plan of Treatment Upcoming Encounters Date Type Department Care Team (Late st Contact Info) Description 01/14/2025 1:45 PM EDT Procedure Visit [facility] [address] [place] [address] Rhianna Vazquez CNM [address] [place] [address] 05/20/2025 10:00 AM EDT Office Visit [facility] ADULT DENTAL [address] [place] [address] Mae Zaldivar [address] [place] [address] documented as of this encounter Visit Diagnoses Not on filedocumented in this encounter Additional Health Concerns Assessment Noted Time PHQ-9 Depression Total Score: 7 04/16/20 23 4:07 PM EDT documented as of this encounter Care Teams Paralegal Legal Secretary Relationship Specialty Start Date End Date Peggy Wolfe MD [address] [place] [address] PCP - General Internal Medicine 08/09/23 documented as of this encounter
--- OUTSIDE RECORDS SUMMARY | 2024-11-12 19:03 | XMS_ITS | Encounter Summary ---
Author Organization [employer] Address [address] 7[address] [place] [address] Care Team Providers Care Clerk Secretary Name Role Phone Peggy Wolfe MD Primary Care Provide r Encounter Details Date Type Department Care Team (Latest Contact Info) Description 11/12/2024 Travel Social History Tobacco Use Types Packs/Day [...] Answer Date Recorded Patient Health Questionnaire-9 Score 8 11/12/2024 Patient Health Questionnaire-9 Score 8 11/12/2024 Last PHQ-9: Questionnaire Data Not on file 0 11/12/2024 Housing Stability Answer Date Recorded What is [...] Answer Date Recorded Patient Health Questionnaire-2 Score 2 11/12/2024 Internet Access Answer Date Recorded Internet Access [...] Description 01/14/2025 1:45 PM EDT Procedure Visit [facility] MED[facility]INE [address] [place] [address] Rhianna Vazquez CNM [address] [place] [address] 05/20/2025 10:00 AM EDT Office Visit [facility] ADULT DENTAL [address] [place] [address] Rocky Zaldivararis [address] [place] [address] documented as of this encounter Visit Diagnoses Not on filedocumented in this encounter Additional Health Concerns Assessment Noted Time PHQ-9 Depression Total Score: 8 11/13/19 25 2:38 PM EDT documented as of this encounter Care Teams Clerk Secretary Relationship Specialty Start Date End Date Peggy Wolfe MD [address] [place] [address] PCP - General Internal Medicine 08/09/23 documented as of this encounter
--- OUTSIDE RECORDS SUMMARY | 2024-11-12 19:03 | XMS_ITS | Encounter Summary ---
Author Organization [email or web address] [facility] Address [address] [place] [address] 7t [place] [address] Care Team Providers Care Handy Worker Name Role Phone Cait Manuel PARKING LOT MANAGER Primary Care Provider [phone]- [phone] Yudith Monreal NP Primary Care Provider [phone] Peggy Wolfe MD Primary Care Provide r Encounter Details Date Type Department Care Team (Latest Contact Info) Description 06/30/2019 Abstract [facility] CONVERSIONS Dental, Provider, DDS Social History [...] Care Team ( st Contact Info) Description 01/14/2025 1:45 PM EDT Procedure Visit [facility] MEDICINE [address] [place] [address] Rhianna Vazquez CNM [address] [place] [address] 05/20/2025 10:00 AM EDT Office Visit [facility] ADULT DENTAL [address] [place] [address] Mae Zaldivar [address] [place] [address] documented as of this encounter Visit Diagnoses Not on filedocumented in this encounter Care Teams Handy Worker Relationship Specialty Start Date End Date Cait Manuel FNP PCP - General Family Medicine 04/17/22 05/23/23 Yudith Monreal NP 230 [place] [address] PCP - General Family Medicine 05/24/23 08/08/23 Peggy Wolfe MD [address] [place] [address] PCP - General Internal Medicine 08/09/23 documented as of this encounter
--- OUTSIDE RECORDS SUMMARY | 2024-11-12 19:03 | XMS_ITS | Encounter Summary ---
Author Organization [employer] Address [address] 7[address] [place] [address] Care Team Providers Care Salt Maker Name Role Phone Peggy Wolfe MD Primary Care Provide r Reason for Visit * Reason Comments Routine Cleaning Dental Exam x-rays Perio chart Encounter Details Date Type Department Care Team ([facility] st Contact Info) Description 11/12/2024 9:00 AM EDT Office Visit [facility] ADULT DENTAL [address] [place] [address] Mae Zaldivar [address] [place] [address] Missing teeth, acquired (Primary Dx); Localized gingival recession; Dental calculus Social History Tobacco Use Types Packs/Day Years [...] the past 12 months, has t he [employer], gas, oil or water company threatened to [...] Sign Reading Time Taken Comments Blood Pressure 126/70 11/12/2024 9:10 AM EDT Pulse - - Temperature - - Respiratory Rate - - Oxygen Saturation - - Inhaled Oxygen Concentration - - Weight - - Height - - Body Mass Index - - documented in this encounter Progress Notes * Mae Zaldivar - 11/12/2024 9:00 AM EDT Patient ID: Karly Davila is a 64 y.o. female. Time Out: Timeout Date: 11/12/24, Timeout Time: 911 (x-rays, prophy P. exam Dr. cleaning, Perio chart) Location: [facility] Tooth: Maxilla and Mandible Procedure: Exam, X-rays, Prophylaxis, and Perio chart Verified the above with patient, certified physical therapist assistant, and provider. Confirmed via patient's chart, intraorally and by radiographs. Driver/Sales Workers: not applicable Medical Hx: Vitals: Blood pressure 126/70. Medications, Med Hx reviewed with patient and updated in chart. Treatment Provided Dental procedures in this visit D1110 - PROPHYLAXIS - ADULT Full (Completed) Service provider: Mae Zaldivar Billing provider: [facility] DMD D0274 - BITEWINGS - 4 RADIOGRAPHIC IMAGES (Completed) Service provider: Mae Zaldivar Billing provider: [facility] DMD D1330 - ORAL HYGIENE INSTRUCTIONS (Completed) Service provider: Mae Zaldivar Billing provider: [facility] DMD D9450 - CASE PRESENTATION, DETAILED AND EXTENSIVE TREATMENT PLANNING (Completed) Service provider: Mae Zaldivar Billing provider: [facility] DMD D0220 - INTRAORAL - PERIAPICAL FIRST RADIOGRAPHIC IMAGE 9 (Completed) Service provider: Mae Zaldivar Billing provider: [facility] DMD D0230 - INTRAORAL - PERIAPICAL EACH ADDITIONAL RADIOGRAPHIC IMAGE 24,25 (Completed) Service provider: Mae Zaldivar Billing provider: [facility] DMD D0230 - INTRAORAL - PERIAPICAL EACH ADDITIONAL RADIOGRAPHIC IMAGE 7 (Completed) Service provider: Mae Zaldivar Billing provider: [facility] DMD Instruments Used: Ultrasonic Scalers, Hand Scalers, and Prophy angle Fluoride: N/A Oral Cancer Screening: No lesions Head/Neck Exam: No Lesions Calculus: light Plaque: Light Stain: trace Bleeding: light Gingiva: pink, recession OH: Good Perio Chart: Completed Oral hygiene instructions provided to patient including brushing technique and flossing. Recommendations: [place] two times daily, modified wynn technique, Floss daily, Electric toothbrush, Soft bristle toothbrush, [place] Tongue, Anti-sensitivity toothpaste Recall Frequency: 6 mo NV: 6 mo prophy Hygienist: Mae Zaldivar RD Cosigned by [facility] DMD at 11/12/2024 10:40 AM EDT * [facility] DMD - 11/12/2024 9:00 AM EDT C/C: dental exam I.O.E: slight plaque accumulation E.O.E: wnl OCS: wnl Head and neck: wnl Radiographic: gen slight periodontal bone loss, slight furcation lucency #31 Dx: gen chronic slight periodontitis, Tx: prophy, recall exam, monitor #31 Shirlene documented in this encounter Plan of Treatment Upcoming Encounters Date Type Department Care Team (Late st Contact Info) Description 01/14/2025 1:45 PM EDT Procedure Visit [facility] MEDICINE [address] [place] [address] YusufsylwiaRhianna weber, CNM [address] [place] [address] 05/20/2025 10:00 AM EDT Office Visit [facility] ADULT DENTAL [address] [place] [address] Rocky Zaldivararis [address] [place] [address] Scheduled Orders Name Type Priority Associated Diagnoses Orde r Schedule CASE PRESENTATION, DETAILED AND EXTENSIVE TREATMENT PLANNING Dental Routine 1 Occurrences starting 11/12/2024 ORAL HYGIENE INSTRUCTIONS Dental Routine 1 Occurrences starting 11/12/2024 documented as of this encounter Procedures Procedure Name Priority Date/Time Associated Diagnosis Comments Full PROPHYLAXIS - ADULT Routine 025 9:00 AM EDT Missing teeth, acquired Localized gingival recession Dental calculus PERIODIC ORAL EVALUATION - ESTABLISHED PATIENT Routine 11/12/2024 9:00 AM EDT ORAL HYGIENE INSTRUCTIONS Routine 11/12/2024 9:00 AM EDT Missing teeth, acquired Localized gingival recession Dental calculus 9 INTRAORAL - PERIAPICAL FIRST RADIOGRAPHIC IMAGE Routine 11/12/2024 9:00 AM EDT Missing teeth, acquired Localized gingival recession Dental calculus 24,25 INTRAORAL - PERIAPICAL EACH ADDITIONAL RADIOGRAPHIC IMAGE Routine 11/12/2024 9:00 AM EDT Missing teeth, acquired Localized gingival recession Dental calculus 7 INTRAORAL - PERIAPICAL EACH ADDITIONAL RADIOGRAPHIC IMAGE Routine 11/12/2024 9:00 AM EDT Missing teeth, acquired Localized gingival recession Dental calculus CASE PRESENTATION, DETAILED AND EXTENSIVE TREATMENT PLANNING Routine 11/12/2024 9:00 AM EDT Missing teeth, acquired Localized gingival recession Dental calculus BITEWINGS - 4 RADIOGRAPHIC IMAGES Routine 11/12/2024 9:00 AM EDT Missing teeth, acquired Localized gingival recession Dental calculus documented in this encounter Visit Diagnoses Diagnosis Missing teeth, acquired- Primary Localized gingival recession Gingival recession, localized Dental calculus Accretions on teeth documented in this encounter Additional Health Concerns Assessment Noted Time PHQ-9 Depression Total Score: 8 11/13/19 25 2:38 PM EDT documented as of this encounter Care Teams Salt Maker Relationship Specialty Start Date End Date Peggy Wolfe MD [address] [place] [address] PCP - General Internal Medicine 08/09/23 documented as of this encounter
--- OUTSIDE RECORDS SUMMARY | 2024-11-12 19:03 | XMS_ITS | Encounter Summary ---
Author Organization [employer] [facility] Address [address] [place], [place] [address] [place] [address] Care Team Providers Care Wall And Floor Tiler Name Role Phone Cait Manuel Primary Care Provider [phone]- [phone] Yudith Monreal NP Primary Care Provider [phone] Peggy Wolfe MD Primary Care Provide r Reason for Visit * Reason Onset Date Comments Nurse Triage 05/15/2023 Encounter Details Date Type Department Care Team (Late st Contact Info) Description 05/15/2023 Telephone [facility] [address] [place] [address] Cait Manuel FNP [address] [place] [address] Dept [place] [address] Nurse Triage Social History Tobacco Use Types [...] 05/15/2023 3:05 PM EDT Triage call with [place] Boilermaker Pipe Fitter [id number] Pt reports sore throat that hurts every time swallowing anything. Pt is neg for fever, ear aches ordifficulty breathing. Pt doesn' t have tonsils and can't see if there is anything white in throat. Pt reports , it feels like something is in there . Advised to come to [facility] for provider to check Pt [...] accepted this outcome Please contact pt at [phone] (Tunisian) documented in this encounter Plan of Treatment Upcoming Encounters Date Type Department Care Team (Late st Contact Info) Description 01/14/2025 1:45 PM EDT Procedure Visit [facility]ICINE [address] [place] [address] Rhianna Vazquez CNM [address] [place] [address] 05/20/2025 10:00 AM EDT Office Visit [facility] ADULT DENTAL [address] [place] [address] Mae Zaldivar [address] [place] [address] documented as of this encounter Visit Diagnoses Not on filedocumented in this encounter Additional Health Concerns Assessment Noted Time PHQ-9 Depression Total Score: 7 04/16/20 23 4:07 PM EDT documented as of this encounter Care Teams Wall And Floor Tiler Relationship Specialty Start Date End Date Cait Manuel FNP PCP - General Family Medicine 04/17/22 05/23/23 Yudith Monreal NP [address] [place] [address] PCP - General Family Medicine 05/24/23 08/08/23 Peggy Wolfe MD [address] [place] [address] PCP - General Internal Medicine 08/09/23 documented as of this encounter
--- OUTSIDE RECORDS SUMMARY | 2024-11-12 19:03 | XMS_ITS | Encounter Summary ---
Author Organization [employer] Address [address] 7t [place] [address] Care Team Providers Care Landscape Horticulture Instructor Name Role Phone Peggy Wolfe MD Primary Care Provide r Reason for Visit * Reason Comments Med Refill Encounter Details Date Type Department Care Team ([facility] st Contact Info) Description 12/11/2023 Refill [facility] [address] [place], [place] [phone] Peggy Wolfe MD [address] [place] [address] Social History Tobacco Use Types Packs/Day Years [...] Description 01/14/2025 1:45 PM EDT Procedure Visit [facility] [address] [place] [address] Rhianna Vazquez CNM [address] [place] [address] 05/20/2025 10:00 AM EDT Office Visit [facility] ADULT DENTAL [address] [place] [address] Mae Zaldivar [address] [place] [address] documented as of this encounter Visit Diagnoses Not on filedocumented in this encounter Additional Health Concerns Assessment Noted Time PHQ-9 Depression Total Score: 7 04/16/20 23 4:07 PM EDT documented as of this encounter Care Teams Landscape Horticulture Instructor Relationship Specialty Start Date End Date Peggy Wolfe MD [address] [place] [address] PCP - General Internal Medicine 08/09/23 documented as of this encounter
--- OUTSIDE RECORDS SUMMARY | 2024-11-12 19:03 | XMS_ITS | Encounter Summary ---
Author Organization [employer] Address [address] 7t [place] [address] Care Team Providers Care Pattern Hanger Name Role Phone Peggy Wolfe MD Primary Care Provide r Reason for Visit * Reason Onset Date Comments Nurse Triage 09/16/2024 Encounter Details Date Type Department Care Team ([facility] st Contact Info) Description 09/16/2024 Telephone [facility]ICINE [address] [place], [place] [phone] Peggy Wolfe MD [address] [place], [place] [phone] Nurse Triage Social History Tobacco Use Types [...] 09/16/2024 10:55 AM EST Triage call with [facility] pictures editor [place] [id number] Pt reports urinary symptoms for several days. Burning/pain with urination, frequency , odor and flank pain, neg for fever. Pt is advised to increase liquids to 6-8 glasses daily. Pt agrees. Pt is advised to come to [facility] today to be seen by provider. Pt [...] urine (peeing) The caller accepted this outcome. [phone] (setswana) documented in this encounter Plan of Treatment Upcoming Encounters Date Type Department Care Team (Late st Contact Info) Description 01/14/2025 1:45 PM EDT Procedure Visit [facility] MEDICINE [address] [place] [address] Rhianna Vazquez CNM [address] [place] [address] 05/20/2025 10:00 AM EDT Office Visit [facility] ADULT DENTAL [address] [place] [address] KayleyMae [address] [place] [address] documented as of this encounter Visit Diagnoses Not on filedocumented in this encounter Additional Health Concerns Assessment Noted Time PHQ-9 Depression Total Score: 7 04/16/20 23 4:07 PM EDT documented as of this encounter Care Teams Pattern Hanger Relationship Specialty Start Date End Date Peggy Wolfe MD [address] [place] [address] PCP - General Internal Medicine 08/09/23 documented as of this encounter
--- OUTSIDE RECORDS SUMMARY | 2024-11-12 19:03 | XMS_ITS | Encounter Summary ---
Author Organization [employer] Address [address] [facility] [address] 7t [place] [address] Care Team Providers Care Dimensional Integration Engineer Name Role Phone Cait Manuel WELT DRAWER Primary Care Provider [phone] Yudith Monreal NP Primary Care Provider [phone] Peggy Wolfe MD Primary Care Provide r Encounter Details Date Type Department Care Team (Late st Contact Info) Description 05/22/2023 Telephone [facility] MEDICINE [address] [place] [address] Cait Manuel FNP [address] [facility] Dept [place] [address] Social History Tobacco Use Types Packs/Day Years [...] 3:49 PM EDT T/C to pt. Through [employer] id - [id number] for below message, pt. States she already apt. On 05/30/2023 at [facility]. Pt. Is al set. Pt. Advised to give call on [phone] if any questions or concerns. Pt. Verbally agreed and understood. * Telephone Encounter - Merry Gillespie - 05/22/2023 4:15 PM EDT Tc from pt requesting a new order for nerve test on left leg. Any questions, please contact pt at [phone] (Gambian) documented in this encounter Plan of Treatment Upcoming Encounters Date Type Department Care Team (Late st Contact Info) Description 01/14/2025 1:45 PM EDT Procedure Visit [facility] MEDICINE [address] [place] [address] Rhianna Vazquez CNM [address] [place] [address] 05/20/2025 10:00 AM EDT Office Visit [facility] ADULT DENTAL [address] [place] [address] Mae Zaldivar [address] [place] [address] documented as of this encounter Visit Diagnoses Not on filedocumented in this encounter Additional Health Concerns Assessment Noted Time PHQ-9 Depression Total Score: 7 04/16/20 23 4:07 PM EDT documented as of this encounter Care Teams Dimensional Integration Engineer Relationship Specialty Start Date End Date Cait Manuel FNP PCP - General Family Medicine 04/17/22 05/23/23 Yudith Monreal NP [address] [place] [address] PCP - General Family Medicine 05/24/23 08/08/23 Peggy Wolfe MD [address] [place] [address] PCP - General Internal Medicine 08/09/23 documented as of this encounter
--- OUTSIDE RECORDS SUMMARY | 2024-11-12 19:03 | XMS_ITS | Encounter Summary ---
Author Organization [employer] Address [address] 7[address] [place] [address] Care Team Providers Care Cabinet Worker Name Role Phone Peggy Wolfe MD Primary Care Provide r Encounter Details Date Type Department Care Team ([facility] st Contact Info) Description 09/22/2024 Telephone [facility] MEDICINE [address] [place], [place] [phone] Peggy Wolfe MD [address] [place], [place] [phone] Social History Tobacco Use Types Packs/Day Years [...] Description 01/14/2025 1:45 PM EDT Procedure Visit [facility] MEDICINE [address] [place] [address] Rhianna Vazquez CNM [address] [place] [address] 05/20/2025 10:00 AM EDT Office Visit [facility] ADULT DENTAL [address] [place] [address] Mae Zaldivar [address] [place] [address] documented as of this encounter Visit Diagnoses Not on filedocumented in this encounter Additional Health Concerns Assessment Noted Time PHQ-9 Depression Total Score: 7 04/16/20 23 4:07 PM EDT documented as of this encounter Care Teams Cabinet Worker Relationship Specialty Start Date End Date Peggy Wolfe MD [address] [place] [address] PCP - General Internal Medicine 08/09/23 documented as of this encounter
--- OUTSIDE RECORDS SUMMARY | 2024-11-12 19:03 | XMS_ITS | Encounter Summary ---
Author Organization [employer] [facility] Address [address] [place] [address] 7t [place] [address] Care Team Providers Care Craft Center Director Name Role Phone Cait Manuel CLOTH PRINTER Primary Care Provider [phone]- [phone] Yudith Monreal NP Primary Care Provider [phone] Peggy Wolfe MD Primary Care Provide r Encounter Details Date Type Department Care Team (Latest Contact Info) Description 12/25/2018 Abstract [facility] CONVERSIONS Dental, Provider, DDS Social History [...] Description 01/14/2025 1:45 PM EDT Procedure Visit [facility] [address] [place] [address] Rhianna Vazquez CNM [address] [place] [address] 05/20/2025 10:00 AM EDT Office Visit [facility] ADULT DENTAL [address] [place] [address] Mae Zaldivar [address] [place] [address] documented as of this encounter Visit Diagnoses Not on filedocumented in this encounter Care Teams Craft Center Director Relationship Specialty Start Date End Date Cait Manuel FNP PCP - General Family Medicine 04/17/22 05/23/23 Yudith Monreal NP [address] [place] [address] PCP - General Family Medicine 05/24/23 08/08/23 Peggy Wolfe MD [address] [place] [address] PCP - General Internal Medicine 08/09/23 documented as of this encounter
--- OUTSIDE RECORDS SUMMARY | 2024-11-12 19:03 | XMS_ITS | Encounter Summary ---
Author Organization [employer] [facility] Address [address] [place] [address] 7t [place] [address] Care Team Providers Care Oil Well Fishing Tool Technician Name Role Phone Cait Manuel METALSMITH Primary Care Provider [phone]- [phone] Yudith Monreal NP Primary Care Provider [phone] Peggy Wolfe MD Primary Care Provide r Encounter Details Date Type Department Care Team (Latest Contact Info) Description 02/06/2022 Abstract [facility] CONVERSIONS Dental, Provider, DDS Social [...] Description 01/14/2025 1:45 PM EDT Procedure Visit [facility] MEDICINE [address] [place] [address] Rhianna Vazquez CNM [address] [place] [address] 05/20/2025 10:00 AM EDT Office Visit [facility] ADULT DENTAL [address] [place] [address] Mae Zaldivar [address] [place] [address] documented as of this encounter Visit Diagnoses Not on filedocumented in this encounter Care Teams Oil Well Fishing Tool Technician Relationship Specialty Start Date End Date Cait Manuel FNP PCP - General Family Medicine 04/17/22 05/23/23 Yudith Monreal NP [address] [place] [address] PCP - General Family Medicine 05/24/23 08/08/23 Peggy Wolfe MD [address] [place] [address] PCP - General Internal Medicine 08/09/23 documented as of this encounter
--- OUTSIDE RECORDS SUMMARY | 2024-11-12 19:03 | XMS_ITS | Encounter Summary ---
Author Organization [employer] [facility] Address [address] [place] [address] 7t [place] [address] Care Team Providers Care Guard Immigration Name Role Phone Cait Manuel LOSS PREVENTION LEAD Primary Care Provider [phone] Yudith Monreal NP Primary Care Provider [phone] Peggy Wolfe MD Primary Care Provide r Encounter Details Date Type Department Care Team (Late st Contact Info) Description 01/02/2023 Abstract [facility] MEDICINE [address] [place] [address] Cait Manuel FNP [address] [place] [address] Dept [place] [address] Social History Tobacco Use Types Packs/Day Years [...] Description 01/14/2025 1:45 PM EDT Procedure Visit [facility] MEDICINE [address] [place] [address] Rhianna Vazquez CNM [address] [place] [address] 05/20/2025 10:00 AM EDT Office Visit [facility] ADULT DENTAL [address] [place], [place] [phone] Mae Zaldivar [address] [place] [address] documented as of this encounter Procedures Procedure Name Priority Date/Time Associated Diagnosis Comments COLONOSCOPY Routine 12/26/2012 documented in this encounter Results * Colonoscopy (12/26/2012) Colonoscopy Normal Normal 12/26/2012 Jami Garcia - 12/26/2012 11:09 AM EDT Recommended 10 year follow up ([facility] [place] Historical Provider HEALTH MAINTENANCE Final Result documented in this encounter Visit Diagnoses Not on filedocumented in this encounter Care Teams Guard Immigration Relationship Specialty Start Date End Date Cait Manuel FNP PCP - General Family Medicine 04/17/22 05/23/23 Yudith Monreal NP [address] [place] [address] [id number] PCP - General Family Medicine 05/24/23 08/08/23 Peggy Wolfe MD [address] [place] [address] [phone] PCP - General Internal Medicine 08/09/23 documented as of this encounter
--- OUTSIDE RECORDS SUMMARY | 2024-11-12 19:03 | XMS_ITS | Encounter Summary ---
Author Organization [employer] [facility] Address [address] [place] [address] 7t [place] [address] Care Team Providers Care Tool Procurement Coordinator Name Role Phone Cait Manuel MACHINIST HELPER Primary Care Provider [phone] Yudith Monreal NP Primary Care Provider [phone] Peggy Wolfe MD Primary Care Provide r Encounter Details Date Type Department Care Team (Latest Contact Info) Description 06/29/2022 Abstract [facility] CONVERSIONS Dental, Provider, DDS Social [...] Description 01/14/2025 1:45 PM EDT Procedure Visit [facility] MEDICINE [address] [place] [address] Rhianna Vazquez CNM [address] [place] [address] 05/20/2025 10:00 AM EDT Office Visit [facility] ADULT DENTAL [address] [place] [address] Mae Zaldivar [address] [place] [address] documented as of this encounter Visit Diagnoses Not on filedocumented in this encounter Care Teams Tool Procurement Coordinator Relationship Specialty Start Date End Date Cait Manuel FNP PCP - General Family Medicine 04/17/22 05/23/23 Yudith Monreal NP [address] [place] [address] PCP - General Family Medicine 05/24/23 08/08/23 Peggy Wolfe MD [address] [place] [address] PCP - General Internal Medicine 08/09/23 documented as of this encounter
--- OUTSIDE RECORDS SUMMARY | 2024-11-12 19:03 | XMS_ITS | Encounter Summary ---
Author Organization [employer] [facility] Address [address] [place] [address] 7t [place] [address] Care Team Providers Care Windsurfing Instructor Name Role Phone Cait Manuel DIE PRESS OPERATOR Primary Care Provider [phone] Yuidth Monreal NP Primary Care Provider [phone] Peggy Wolfe MD Primary Care Provide r Encounter Details Date Type Department Care Team (Latest Contact Info) Description 06/27/2020 Abstract [facility] CONVERSIONS Dental, Provider, DDS Social History [...] Description 01/14/2025 1:45 PM EDT Procedure Visit [facility] MEDICINE [address] [place] [address] Rhianna Vazquez CNM [address] [place] [address] 05/20/2025 10:00 AM EDT Office Visit [facility] ADULT DENTAL [address] [place] [address] Mae Zaldivar [address] [place] [address] documented as of this encounter Visit Diagnoses Not on filedocumented in this encounter Care Teams Windsurfing Instructor Relationship Specialty Start Date End Date Cait Manuel FNP PCP - General Family Medicine 04/17/22 05/23/23 Yudith Monreal NP [address] [place] [address] PCP - General Family Medicine 05/24/23 08/08/23 Peggy Wolfe MD [address] [place] [address] PCP - General Internal Medicine 08/09/23 documented as of this encounter
--- OUTSIDE RECORDS SUMMARY | 2024-11-12 19:03 | XMS_ITS | Encounter Summary ---
Author Organization [employer] Address [address] 7t [place] [address] Care Team Providers Care Dog Sitter Name Role Phone Pgegy Wolfe MD Primary Care Provide r Reason for Visit * Reason Comments Annual Exam Encounter Details Date Type Department Care Team ([facility] st Contact Info) Description 11/12/2024 2:45 PM EDT Office Visit [facility]ICINE [address] [place], [place] [phone] Peggy Wolfe MD [address] [place] [address] Right flank pain; Mixed hyperlipidemia; Mild intermittent asthma without complication; Allergic rhinitis, unspecified seasonality, unspecified trigger; Fibromyositis; Dysuria Social History Tobacco Use Types Packs/Day [...] Sign Reading Time Taken Comments Blood Pressure 134/82 11/12/2024 2:33 PM EDT Pulse 86 11/12/2024 2:33 PM EDT Temperature 36.4 ??C (97.6 ??F) 11/12/2024 2:33 PM ED T Respiratory Rate 20 11/12/2024 2:33 PM EDT Oxygen Saturation 99% 11/12/2024 2:33 PM EDT Inhaled Oxygen Concentration - - Weight 74.2 kg (163 lb 9.6 oz) 11/12/2024 2:33 P M EDT Height 157.5 cm (5' 2 ) 11/12/2024 2:33 PM EDT Body Mass Index 29.92 11/12/2024 2:33 PM EDT documented in this encounter Progress Notes * Peggy Dubon MD - 11/12/2024 2:45 PM EDT SUBJECTIVE: Karly Davila is a 64 y.o. year old female who presents for comprehensive. Occupation:retired Lives with:alone Social Hx: denies drinking EtOH, denies smoking cigarettes and denies recreational drug use. Diet:regular Exercise:sedentary Pap Smear:due on 01/14/2025 Colonoscopy:patient reports is up to date she is being follow by GI I will get records at [facility] Mammogram up to date Eye Care:up to date Dental Care:up to date PMHx:see below Immunizations: Up to date Acute Concerns: Patient reports that she has been having right flank pain, she also has been having dysuria, urinary frequency and urgency, reports she has strong family history of kidney stones, she was seen in [facility] for the flank pain recently Social History Social History Narrative Not on file Patient Active Problem List Diagnosis Abnormal cervical [...] acquired Seborrheic dermatitis Inadequate occlusion of dental congregation Rash Elevated BP without diagnosis of hypertension Vaginal discharge Dysuria Right flank pain No family history on file. Review of Systems Constitutional: Negative. HENT: Negative. Respiratory: Negative. Cardiovascular: Negative. Genitourinary: Positive for dysuria, flank pain, frequency and urgency. Negative for decreased urine volume, difficulty urinating, dyspareunia, enuresis, genital sores, hematuria, menstrual problem, pelvic pain, vaginal bleeding, vaginal discharge and vaginal pain. OBJECTIVE: Vitals: 11/12/24 1433 BP: 134/82 BP Location: Left arm Patient Position: Sitting BP Cuff Size: Large adult Pulse: 86 Resp: 20 Temp: 97.6 ??F (36.4 ??C) TempSrc: Temporal SpO2: 99% Weight: 163 lb 9.6 oz (74.2 kg) Height: 5' 2 (1.575 m) Physical Exam Constitutional: Appearance: Normal appearance. Cardiovascular: Rate and Rhythm: Normal rate and regular rhythm. Pulmonary: Effort: Pulmonary effort is normal. Breath sounds: Normal breath sounds. Abdominal: General: Abdomen is flat. Palpations: Abdomen is soft. Tenderness: There is abdominal tenderness. There is right CVA tenderness. Musculoskeletal: Right lower leg: No edema. Left lower leg: No edema. Neurological: Mental Status: She is alert. Follow Up: Follow up 1month pap. Current Outpatient Medications on File Prior to Visit Medication Sig Dispense Refill Bisacodyl EC 5 MG EC tablet TAKE 2 TABLETS BY MOUTH AT NOON THE DAY BEFORE YOUR COLONOSCOPY cholecalciferol VITAMIN D (Vitamin D-3) 50 MCG (2000 UT) capsule TAKE 1 CAPSULES BY MOUTH EVERYDAY 90 capsule 0 DULoxetine (Cymbalta) [address] capsule TOME 2 C PSULAS POR V A ORAL TODOS LOS D esomeprazole (NexIUM) [address] capsule TOME 1 C PSULA POR V A ORAL TODOS LOS D famotidine (Pepcid) 20 MG tablet Take 1 tablet (20 mg) by mouth 2 times daily. 60 tablet 11 fluconazole (Diflucan) 150 MG tablet Take 1 tablet (150 mg) by mouth Once per day. May repeat dose in 3 days prn 2 tablet 0 gabapentin (Neurontin) 300 MG capsule Take 1 capsule (300 mg) by mouth if needed in the morning, atnoon, and at bedtime (Nerve pain). 90 capsule 1 hydrocortisone 2.5 % cream Apply to affected area once or twice daily after bath 28 g 1 ibuprofen 800 MG tablet take 1 tablet by oral route 3 times every day with food 30 tablet 0 ketoconazole (NIZOral) 2 % shampoo APPLY TOPICALLY THREE TIMES A WEEK FOR 21 DAYS Do not start before June 26, 2024. 240 mL 0 lidocaine (Lidoderm) 5 % patch APPLY 1 PATCH TOPICALLY IN THE MORNING. REMOVE & DISCARD PATCH WITHIN 12 HOURS OR DIRECTED BY MD. MAY USE 2 PATCHES AT A TIME NEEDED FOR LEFT LOW BACK AND LEFT LEG PAIN. 60 patch 2 omega-3 (Fish Oil) 1000 MG capsule Take 1 capsule by mouth every 12 (twelve) hours. ondansetron ODT (Zofran-ODT) 4 MG disintegrating tablet DISUELVA TENZIN TABLETA POR V A ORAL CADA [place] CUANDO SEA NECESARIO PARA LAS N USEAS Y EL V KEITH sucralfate (Carafate) 1 g tablet TOME TENZIN TABLETA POR V A ORAL AL ACOSTARSE traZODone (Desyrel) 100 MG tablet TAKE 1 TABLET BY MOUTH AT BEDTIME as needed 30 tablet 3 venlafaxine XR (Effexor XR) 150 MG 24 hr capsule TOME 1 C PSULA POR V A ORAL TODOS LOS D EN LA MA LITA [DISCONTINUED] albuterol (Ventolin HFA) 108 (90 Base) MCG/ACT inhaler INHALE 2 PUFFS BY MOUTH EVERY4 TO 6 HOURS IF NEEDED FOR WHEEZING 18 g 3 [DISCONTINUED] fexofenadine (Alina) 180 MG tablet Take 1 tablet (180 mg) by mouth if needed each day (Allergies). 90 tablet 1 No current facility-administered medications on file prior to visit. Problem List Items Addressed This Visit Right flank pain UTI versus kidney stone I ordered UA and culture I will treat her empirically with Macrobid 100 mg twice a day KUB ordered today patient will be contacted with results Relevant Medications nitrofurantoin, macrocrystal-monohydrate, (Macrobid) 100 MG capsule Other Relevant Orders XR KUB and Upright 2 Views (Completed) POCT Urinalysis (Completed) Mixed hyperlipidemia Relevant Orders CBC auto differential Comprehensive Metabolic Panel Hepatitis C Antibody with Reflex to HCV, RNA, Quantitative, Real-Time PCR Lipid Panel, Standard TSH with Reflex to Free T4 Mild intermittent asthma Stable continue with same interventions Relevant Medications albuterol (Ventolin HFA) 108 (90 Base) MCG/ACT inhaler Allergic rhinitis Relevant Medications fexofenadine (Alina) 180 MG tablet fluticasone (Flonase) 50 MCG/ACT nasal spray Fibromyositis Patient was educated about multidisciplinary approach for her condition, it was advise cardiovascular exercise, maintain hydration, treat anxiety/depression and take medications as directed Acetaminophen as needed Relevant Medications acetaminophen (Tylenol Extra Strength) 500 MG tablet Dysuria Relevant Medications nitrofurantoin, macrocrystal-monohydrate, (Macrobid) 100 MG capsule Other Relevant Orders Culture, Urine, Routine POCT Urinalysis (Completed) documented in this encounter Miscellaneous Notes * Assessment & Plan Note - Peggy Dubon MD - 11/12/2024 4:27 PM EDT Associated Problem(s): Fibromyositis Patient was educated about multidisciplinary approach for her condition, it was advise cardiovascular exercise, maintain hydration, treat anxiety/depression and take medications as directed Acetaminophen as needed * Assessment & Plan Note - Peggy Dubon MD - 11/12/2024 4:27 PM EDT Associated Problem(s): Mild intermittent asthma Stable continue with same interventions * Assessment & Plan Note - Peggy Dubon MD - 11/12/2024 4:26 PM EDT Associated Problem(s): Right flank pain UTI versus kidney stone I ordered UA and culture I will treat her empirically with Macrobid 100 mg twice a day KUB ordered today patient will be contacted with results documented in this encounter Plan of Treatment Upcoming Encounters Date Type Department Care Team (Late st Contact Info) Description 01/14/2025 1:45 PM EDT Procedure Visit [facility] [address] [place] [address] Rhianna Vazquez CNM [address] [place] [address] 05/20/2025 10:00 AM EDT Office Visit [facility] ADULT DENTAL [address] [place] [address] Mae Zaldivar [address] [place] [address] Scheduled Orders Name Type Priority Associated Diagnoses Orde r Schedule CBC auto differential Lab Routine Mixed hyperlipidemia Expected: 11/12/2024 (Approximate), Expires: 11/12/2025 Comprehensive Metabolic Panel Lab Routine Mixed hyperlipidemia Expected: 11/12/2024 (Approximate), Expires: 11/12/2025 Hepatitis C Antibody with Reflex to HCV, RNA, Quantitative, Real-Time PCR Lab Routine Mixed hyperlipidemia Expected: 11/12/2024, Expires: 11/12/2025 Lipid Panel, Standard Lab Routine Mixed hyperlipidemia Expected: 11/12/2024 (Approximate), Expires: 11/12/2025 TSH with Reflex to Free T4 Lab Routine Mixed hyperlipidemia Expected: 11/12/2024 (Approximate), Expires: 11/12/2025 Culture, Urine, Routine Microbiology Routine Dysuria Ordered: 11/12/2024 documented as of this encounter Procedures Procedure Name Priority Date/Time Associated Diagnosis Comments POCT URINALYSIS DIPSTICK Routine 11/12/2024 3:49 PM EDT Right flank pain Dysuria XR KUB AND UPRIGHT 2 VIEWS Routine 11/12/2024 3:32 PM EDT Right flank pain documented in this encounter Results * (ABNORMAL) POCT Urinalysis (11/12/2024 3:49 PM EDT) Color, UA Yellow Clarity, UA Clear Glucose, UA Negative Bilirubin, UA Negative Ketones, UA Negative Spec Grav, UA 1.025 Blood, UA Positive(A) Negative, None Detected Comment:trace pH, UA 6.0 Protein, UA Negative Urobilinogen, UA 0.2 Leukocytes, UA Trace Negative, Rare, Trace Comment:small Nitrite, UA Negative Negative, None Detected Appearance, UA clear Urine 11/12/2024 3:49 PM EDT us Peggy Dubon MD POINT OF CARE TEST EN TER/EDIT ORDERABLES Final Result * XR KUB and Upright 2 Views (11/12/2024 3:32 PM EDT) Anatomical Region Laterality Modality Radiographic Venecia ging 11/12/2024 3:32 PM EDT Narrative 11/12/2024 4:02 PM EDT ?[facility] ?[address] ?[place] [address] ?XRay Report ? Signed ? Patient: Giovanni,Karly ?MR#: [id number] ?? [id number] ? : 1960 ?Acct:[id number] ? Age/Sex: 64 / F ?ADM Date: 03/27/25 ? Loc: HO.HHCX ? Attending Dr: Peggy Dubon MD ? Ordering Physician: Peggy Wolfe MD ?? Date of Service: 11/12/24 ?? Procedure(s): XR KUB ?? Accession Number(s): [id number] ? cc: Peggy Wolfe MD ? EXAMINATION: ?? XR ABDOMEN KUB ? CLINICAL INDICATION: ?? right flank pain ? COMPARISON: ?? None available. ? TECHNIQUE: ?? AP view of the abdomen. ? FINDINGS: ?? The bowel gas pattern is normal with no evidence of ileus or ?? obstruction. No abnormal soft tissue calcifications are noted. ?? No organomegaly or large abdominal mass. ?? Normal-appearing osseous structures. ? XR/XR KUB ?? IMPRESSION: ?? Normal KUB radiograph. ? Electronically signed by: ??Gee Mcnally MD ??11/12/2024 03:59 PM EDT RP ? Dictated By: ?Gee Mcnally MD ? Signed By: ?<Electronically signed by Gee Mcnally MD in OV> ?11/12/24 1559 ? DD/ 1532 ? TD/TT: 11/12/24 1556 ? Custom Bike Builder: ? Procedure Note Lesly Felix - 11/12/[address] [address] XRay Report Signed Patient: Re Davila#: [id number] : 1960cct:[id number] Age/Sex: 64 / FADM Date: 11/12/24 Loc: HO.HHCX Attending Dr: Peggy Dubon MD Ordering Physician: Peggy Wolfe MD Date of Service: 11/12/24 Procedure(s): XR KUB Accession Number(s): [id number] cc: Peggy Wolfe MD EXAMINATION: XR ABDOMEN KUB CLINICAL INDICATION: right flank pain COMPARISON: None available. TECHNIQUE: AP view of the abdomen. FINDINGS: The bowel gas pattern is normal with no evidence of ileus or obstruction. No abnormal soft tissue calcifications are noted. No organomegaly or large abdominal mass. Normal-appearing osseous structures. XR/XR KUB IMPRESSION: Normal KUB radiograph. Electronically signed by: Gee Mcnally MD 11/12/2024 03:59 PM EDT RP Dictated By: Gee Mcnally MD Signed By: <Electronically signed by Gee Mcnally MD in OV> 11/12/24 1559 DD/ 1532 TD/TT: 11/12/24 1556 Custom Bike Builder: us Peggy Dubon MD IMG XR PROCEDURES Fin al Result documented in this encounter Visit Diagnoses Diagnosis Right flank pain Abdominal pain, unspecified site Mixed hyperlipidemia Mild intermittent asthma without complication Allergic rhinitis, unspecified seasonality, unspecified trigger Fibromyositis Unspecified myalgia and myositis Dysuria documented in this encounter Additional Health Concerns Assessment Noted Time PHQ-9 Depression Total Score: 8 11/13/19 25 2:38 PM EDT documented as of this encounter Care Teams Dog Sitter Relationship Specialty Start Date End Date Peggy Wolfe MD [address] [place] [address] PCP - General Internal Medicine 08/09/23 documented as of this encounter
--- OUTSIDE RECORDS SUMMARY | 2024-11-12 19:03 | XMS_ITS | Encounter Summary ---
Author Organization [employer] Address [address] [place] [address] Care Team Providers Care Jail Manager Name Role Phone Peggy Wolfe MD Primary Care Provide r Encounter Details Date Type Department Care Team (Latest Contact Info) Description 10/19/2024 Travel Social History Tobacco Use Types Packs/Day [...] Description 01/14/2025 1:45 PM EDT Procedure Visit [facility] MEDICINE [address] [place] [address] Rhianna Vazquez CNM [address] [place] [address] 05/20/2025 10:00 AM EDT Office Visit [facility] ADULT DENTAL [address] [place] [address] Kayley, Mae [address] [place] [address] documented as of this encounter Visit Diagnoses Not on filedocumented in this encounter Additional Health Concerns Assessment Noted Time PHQ-9 Depression Total Score: 7 04/16/20 23 4:07 PM EDT documented as of this encounter Care Teams Jail Manager Relationship Specialty Start Date End Date Peggy Wolfe MD [address] [place] [address] PCP - General Internal Medicine 08/09/23 documented as of this encounter
--- OUTSIDE RECORDS SUMMARY | 2024-11-12 19:03 | XMS_ITS | Encounter Summary ---
Author Organization [employer] Address [address] [place] [address] Care Team Providers Care Director Of Online Merchandising Name Role Phone Yudith Monreal NP Primary Care Provider [phone] Peggy Wolfe MD Primary Care Provide r Reason for Visit * Reason Onset Date Comments Appointment Request 07/30/2023 Encounter Details Date Type Department Care Team ([facility] st Contact Info) Description 07/30/2023 Telephone [facility] MEDICINE [address] [place] [address] Yudith Monreal NP [address] [place] [address] Appointment Request Social History Tobacco Use Types [...] from pt requesting TP Appt with PCP. Php Lamp Developer does see recall tried booking no available slot found. Please contact Pt [phone] documented in this encounter Plan of Treatment Upcoming Encounters Date Type Department Care Team (Late st Contact Info) Description 01/14/2025 1:45 PM EDT Procedure Visit [facility] MEDICINE [address] [place] [address] Rhianna Vazquez CNM [address] [place] [address] 05/20/2025 10:00 AM EDT Office Visit [facility] ADULT DENTAL [address] [place] [address] Kayley, Mae [address] [place] [address] documented as of this encounter Visit Diagnoses Not on filedocumented in this encounter Additional Health Concerns Assessment Noted Time PHQ-9 Depression Total Score: 7 04/16/20 23 4:07 PM EDT documented as of this encounter Care Teams Director Of Online Merchandising Relationship Specialty Start Date End Date Yudith Monreal NP [address] [place] [address] PCP - General Family Medicine 05/24/23 08/08/23 Peggy Wolfe MD [address] [place] [address] PCP - General Internal Medicine 08/09/23 documented as of this encounter
--- OUTSIDE RECORDS SUMMARY | 2024-11-12 19:03 | XMS_ITS | Encounter Summary ---
Author Organization [employer] Address [address] [facility] 7t [place] [address] Care Team Providers Care Food Management Aide Name Role Phone Peggy Wolfe MD Primary Care Provide r Encounter Details Date Type Department Care Team ([facility] st Contact Info) Description 10/30/2024 Population Health Risk Score [facility] ([facility] Department [address] [facility] [address] [place] [address] Provider, Population Health Generic Social History Tobacco Use Types Packs/Day Years [...] 1:45 PM EDT Procedure Visit [facility] MEDICINE [address] [place] [address] Rhianna Vazquez CNM [address] [place] [address] 05/20/2025 10:00 AM EDT Office Visit [facility] ADULT DENTAL [address] [place] [address] Kayley, Mae [address] [place] [address] documented as of this encounter Visit Diagnoses Not on filedocumented in this encounter Additional Health Concerns Assessment Noted Time PHQ-9 Depression Total Score: 7 04/16/20 23 4:07 PM EDT documented as of this encounter Care Teams Food Management Aide Relationship Specialty Start Date End Date Peggy Wolfe MD [address] [place] [address] PCP - General Internal Medicine 08/09/23 documented as of this encounter
--- OUTSIDE RECORDS SUMMARY | 2024-11-12 19:03 | XMS_ITS | Clinical Summary ---
Author Organization [employer] Address [address] [place] [address] 7[address] [place] [address] Care Team Providers Care Concrete Layer Name Role Phone Peggy Wolfe MD Primary Care Provide r Allergies No known active allergies Medications omega-3 (Fish Oil) 1000 MG capsule Take 1 capsule by mouth every 12 (twelve) hours. 022 Active famotidine (Pepcid) 20 MG tabletIndications :Gastroesophageal reflux disease, unspecified whether esophagitis present Take 1 tablet (20 mg) by mouth 2 times daily. 60 tablet 11 023 Active gabapentin (Neurontin) 300 MG capsuleIndication s:Fibromyositis,L ow back pain radiating to left leg Take 1 capsule (300 mg) by mouth if needed in the morning, at noon, and at bedtime (Nerve pain). 90 capsule 1 023 Active Bisacodyl EC 5 MG EC tablet TAKE 2 TABLETS BY MOUTH AT NOON THE DAY BEFORE YOUR COLONOSCOPY 023 Active ondansetron ODT (Zofran-ODT) 4 MG disintegrating tablet DISUELVA TENZIN TABLETA POR V A ORAL CADA OCHO HORAS CUANDO SEA NECESARIO PARA LAS N USEAS Y EL V KEITH 023 Active sucralfate (Carafate) 1 g tablet TOME TENZIN TABLETA POR V A ORAL AL ACOSTARSE 023 Active lidocaine (Lidoderm) 5 % patch APPLY 1 PATCH TOPICALLY IN THE MORNING. REMOVE & DISCARD PATCH WITHIN 12 HOURS OR DIRECTED BY MD. MAY USE 2 PATCHES AT A TIME NEEDED FOR LEFT LOW BACK AND LEFT LEG PAIN. 60 patch 2 023 Active traZODone (Desyrel) 100 MG tablet TAKE 1 TABLET BY MOUTH AT BEDTIME as needed 30 tablet 3 024 Active ibuprofen 800 MG tabletIndications :Fibromyositis take 1 tablet by oral route 3 times every day with food 30 tablet 024 Active ketoconazole (NIZOral) 2 % shampooIndication s:Seborrheic dermatitis APPLY TOPICALLY THREE TIMES A WEEK FOR 21 DAYS Do not start before June 26, 2024. 240 mL 024 Active hydrocortisone 2.5 % cream Apply to affected area once or twice daily after bath 28 g 1 024 Active esomeprazole (NexIUM) [address] capsule TOME 1 C PSULA POR V A ORAL TODOS LOS D 024 Active DULoxetine (Cymbalta) [address] capsule TOME 2 C PSULAS POR V A ORAL TODOS LOS D 024 Active venlafaxine XR (Effexor XR) 150 MG 24 hr capsule TOME 1 C PSULA POR V A ORAL TODOS LOS D EN LA YONI LITA 024 Active cholecalciferol VITAMIN D (Vitamin D-3) 50 MCG (2000 UT) capsule TAKE 1 CAPSULES BY MOUTH EVERYDAY 90 capsule 024 Active fluconazole (Diflucan) 150 MG tablet Take 1 tablet (150 mg) by mouth Once per day. December repeat dose in 3 days prn 2 tablet 025 Active albuterol (Ventolin HFA) 108 (90 Base) MCG/ACT inhalerIndication s:Mild intermittent asthma without complication INHALE 2 PUFFS BY MOUTH EVERY 4 TO 6 HOURS IF NEEDED FOR WHEEZING 18 g 3 025 Active fexofenadine (Alina) 180 MG tabletIndications :Allergic rhinitis, unspecified seasonality, unspecified trigger Take 1 tablet (180 mg) by mouth if needed each day (Allergies). 90 tablet 1 025 Active fluticasone (Flonase) 50 MCG/ACT nasal sprayIndications: Allergic rhinitis, unspecified seasonality, unspecified trigger Administer 1-2 sprays into each nostril Once per day. Shake gently. Before first use, prime pump. After use, clean tip and replace cap. 16 g 2 025 2025 Active acetaminophen (Tylenol Extra Strength) 500 MG tabletIndications :Fibromyositis Take 2 tablets (1,000 mg) by mouth every 8 (eight) hours if needed for mild pain for up to 10 days. 60 tablet 025 2024 Active nitrofurantoin, macrocrystal-mono hydrate, (Macrobid) 100 MG capsuleIndication s:Right flank pain,Dysuria Take 1 capsule (100 mg) by mouth 2 times daily for 7 days. 14 capsule 025 2024 Active fexofenadine (Alina) 180 MG tabletIndications :Allergic rhinitis, unspecified seasonality, unspecified trigger Take 1 tablet (180 mg) by mouth if needed each day (Allergies). 90 tablet 1 024 2024 Discontinued(R eorder (will not trigger notification to Pharmacy)) albuterol (Ventolin HFA) 108 (90 Base) MCG/ACT inhalerIndication s:Mild intermittent asthma without complication INHALE 2 PUFFS BY MOUTH EVERY 4 TO 6 HOURS IF NEEDED FOR WHEEZING 18 g 3 024 2024 Discontinued(R eorder (will not trigger notification to Pharmacy)) Active Problems Problem Noted Date Diagnosed Date Right flank pain 11/12/2024 Assessment & Plan (11/12/2024 4:26 PM EDT): UTI versus kidney stone I ordered UA and culture I will treat her empirically with Macrobid 100 mg twice a day KUB ordered today patient will be contacted with results Vaginal discharge 09/23/2024 Dysuria 09/23/2024 Rash 07/27/2024 [...] and stress reduction. Inadequate occlusion of dental jew 05/20 Seborrheic dermatitis 05/11/2024 Assessment & Plan [...] 01/21/23 Failed cymbalta trial Assessment & Plan (11/12/2024 4:27 PM EDT): Patient was educated about multidisciplinary approach for her condition, it was advise cardiovascular exercise, maintain hydration, treat anxiety/depression and take medications as directed Acetaminophen as needed Assessment & Plan (12/23/2023 10:31 AM EDT): [...] Mild intermittent asthma 06/01/2015 Assessment & Plan (11/12/2024 4:27 PM EDT): Stable continue with same interventions Assessment & Plan (12/23/2023 10:30 AM EDT): Patient educated to avoid triggers Symptoms are controlled with PRN albuterol Rosacea 06/01/2015 Encounters Date Type Department Care Team Description 11/12/2024 2:45 PM EDT Office Visit [facility] [address] [place], [place] [phone] Peggy Wolfe MD Right flank pain; Mixed hyperlipidemia; Mild intermittent asthma without complication; Allergic rhinitis, unspecified seasonality, unspecified trigger; Fibromyositis; Dysuria 11/12/2024 9:00 AM EDT Office Visit [facility] [address] [place], [place] [phone] Mae Zaldivar Missing teeth, acquired (Primary Dx); Localized gingival recession; Dental calculus 11/12/2024 Orders Only [facility] [address] [place], [place] [phone] Provider, MD Lola 11/12/2024 Travel 11/03/2024 Patient Outreach [address] [address] Peggy Wolfe MD Pre-visit Planning (SDOH screening negative and tobacco screening negative) 10/30/2024 Population Health Risk Score Community [facility] [address] [place] [phone] Provider, Population Health Generic 10/19/2024 Travel 09/23/2024 10:00 AM EST Office Visit [address] [address] Alethea Bryant, SARA Dysuria (Primary Dx); Vaginal discharge 09/23/2024 Orders Only [facility] [address] [place] [phone] Lynne Zamudio NP 09/23/2024 Travel 09/22/[address] [address] Peggy Wolfe MD Nurse Triage 09/22/[address] [address] Peggy Wolfe MD 09/18/2024 Telephone [facility] [address] [place] [phone] Maddie Vuong RN Results 09/16/2024 5:20 PM EST Office Visit [facility] [address] [address] Tom Soriano MD Dysuria 09/16/[address] [address] Peggy Wolfe MD Nurse Triage from Last 3 Months Immunizations Name Administration [...] Mass Index 29.92 11/12/2024 2:33 PM EDT Plan of Treatment Upcoming Encounters Date Type Department Care Team (Late st Contact Info) Description 01/14/2025 1:45 PM EDT Procedure Visit [facility] [address] [place] [address] Rhianna Vazquez, DELBERT [address] [place] [address] 05/20/2025 10:00 AM EDT Office Visit [facility] [address] [place] [address] Kayley, Mae [address] [place] [address] Health Maintenance Due Date Last Done Comments CT Colonography 1961 FIT DNA/Cologuard 1961 FIT 1960 FOBT 1960 HIV Screening 1960 Sigmoidoscopy 1960 Alcohol/Substance Use Screening 1973 RSV Patients and Patients Aged 60 years or older (1 - Risk 60-74 years 1-dose series) 2021 COVID-19 Vaccine ( season) 2024 02/26/2022, 08/28/2021, 12/02/2020, Additional history exists Mammogram 12/08/2024 12/09/2023 Cervical Cancer Screening 12/26/2024 HPV/Cotest 12/26/2024 12/26/2021, /2 11/2020, 03/17/2019 Pap Smear 12/26/2024 12/26/2021, 032 11/2020, 05/13/2020 Dental Oral Exam 05/16/2025 11/12/2024, , 06/29/2022 Dental Prophylaxis 05/16/2025 11/12/2024, 0 12/16/2023, 12/26/2022 Dental X-Ray: Full Mouth 06/30/2025 06/29/2022 SDOH Screening 11/03/2025 11/03/2024 Depression Screening 11/12/2025 11/12/2024, 11/13/19 Tobacco Screening 11/12/2025 11/12/2024 Dental X-Ray: Bitewings 11/13/2025 11/13/19, 12/16/2023, 06/10/2023 Colonoscopy 11/18/2033 11/19/2023, 12/26/2012 Colorectal Cancer Screening 11/18/2033 DTaP/Tdap/Td Vaccines (3 - Td or Tdap) [...] 11/12/2024 3:32 PM EDT Right flank pain PERIODIC ORAL EVALUATION - ESTABLISHED PATIENT Routine 11/12/2024 9:00 AM EDT 24,25 INTRAORAL - PERIAPICAL EACH ADDITIONAL RADIOGRAPHIC IMAGE Routine 11/12/2024 9:00 AM EDT Missing teeth, acquired Localized gingival recession Dental calculus 9 INTRAORAL - PERIAPICAL FIRST RADIOGRAPHIC IMAGE Routine 11/12/2024 9:00 AM EDT Missing teeth, acquired Localized gingival recession Dental calculus CASE PRESENTATION, DETAILED AND EXTENSIVE TREATMENT PLANNING Routine 11/12/2024 9:00 AM EDT Missing teeth, acquired Localized gingival recession Dental calculus ORAL HYGIENE INSTRUCTIONS Routine 11/12/2024 9:00 AM EDT Missing teeth, acquired Localized gingival recession Dental calculus BITEWINGS - 4 RADIOGRAPHIC IMAGES Routine 11/12/2024 9:00 AM EDT Missing teeth, acquired Localized gingival recession Dental calculus Full PROPHYLAXIS - ADULT Routine 11/12/2024 9:00 AM EDT Missing teeth, acquired Localized gingival recession Dental calculus 7 INTRAORAL - PERIAPICAL EACH ADDITIONAL RADIOGRAPHIC IMAGE Routine 11/12/2024 9:00 AM EDT Missing teeth, acquired Localized gingival recession Dental calculus POCT URINALYSIS DIPSTICK Routine 09/23/2024 11:45 AM EST Dysuria CULTURE, URINE, ROUTINE Routine 09/23/2024 12:00 AM EST CHLAMYDIA/N. GONORRHOEAE RNA, TMA, UROGENITAL Routine 09/23/2024 12:00 AM EST Dysuria Vaginal discharge BACTERIAL VAGINOSIS PANEL Routine 09/23/2024 12:00 AM EST Vaginal discharge CULTURE, URINE, ROUTINE Routine 09/16/2024 5:56 PM EST Dysuria POCT URINALYSIS DIPSTICK Routine 09/16/2024 5:55 PM EST Dysuria BI MAMMOGRAM SCREENING BILATERAL Routine 12/09/2023 Encounter for screening mammogram for malignant neoplasm of breast HM COLONOSCOPY Routine 11/19/2023 3:37 PM EDT HEPATITIS PANEL, GENERAL Routine 04/17/2023 9:25 AM EDT Encounter for well adult exam with abnormal findings THINPREP IMAGING PAP AND HPV MRNA E6/E7, WITH CT/NG, TRICHOMONAS Routine 12/26/2021 10:36 AM EDT from Last 3 Months or Most Recently Relevant to Health Maintenance Results * (ABNORMAL) POCT Urinalysis (11/12/2024 3:49 PM EDT) Only the most recent of3 resultswithin the time period is included. Color, UA Yellow Clarity, UA Clear Glucose, UA Negative Bilirubin, UA Negative Ketones, UA Negative Spec Grav, UA 1.025 Blood, UA Positive(A) Negative, None Detected Comment:trace pH, UA 6.0 Protein, UA Negative Urobilinogen, UA 0.2 Leukocytes, UA Trace Negative, Rare, Trace Comment:small Nitrite, UA Negative Negative, None Detected Appearance, UA clear Urine 11/12/2024 3:49 PM EDT Peggy Dubon MD POINT OF CARE TEST EN TER/EDIT ORDERABLES Final Result * XR KUB and Upright 2 Views (11/12/2024 3:32 PM EDT) Anatomical Region Laterality Modality Radiographic Venecia ging 11/12/2024 3:32 PM EDT Narrative 11/12/2024 4:02 PM EDT ?[facility] ?[address] ?[place] [address] ?XRay Report ? Signed ? Patient: Giovanni,Karly ?MR#: [id number] ?? [id number] ? : 1960 ?Acct:[id number] ? Age/Sex: 64 / F ?ADM Date: 11/12/24 ? Loc: HO.HHCX ? Attending Dr: Peggy Dubon MD ? Ordering Physician: Peggy Wolfe MD ?? Date of Service: 11/12/24 ?? Procedure(s): XR KUB ?? Accession Number(s): [id number] ? cc: Peggy Wolfe MD ? EXAMINATION: [...] DD/ 1532 ? TD/TT: 11/12/24 1556 ? Manager Recruiting: ? Procedure Note Isidro, Image - 11/12/2024 [facility] [address] [place] [address] XRay Report Signed Patient: Re Davila#: [id number] : 2Acct:[id number] Age/Sex: 64 / FADM Date: 11/12/24 Loc: HO.HHCX Attending Dr: Peggy Dubon MD Ordering Physician: Peggy Wolfe MD Date of Service: 11/12/24 Procedure(s): XR KUB Accession Number(s): [id number] cc: Peggy Wolfe MD EXAMINATION: XR ABDOMEN [...] 11/12/24 1559 DD/ 1532 TD/TT: 11/12/24 1556 Manager Recruiting: us Peggy Dubon MD IMG XR PROCEDURES Fin al Result * Bacterial Vaginosis Panel (09/23/2024 12:00 AM EST) TRICHOMONAS VAGINALIS DETECTION BY PCR NOT DETECTED Not Detect [facility] BACTERIAL VAGINOSIS DETECTION BY PCR NEGATIVE Negative [facility] Comment:The BV organism targ ets of the Xpert Xpress MVP test can becommensal in women; Xpert Xpress MVP positive results forbacterial vaginosis should be considered in conjunction withother clinical and patient information to determine thedisease status. Organisms that are not detected by the XpertXpress MVP test have also been reported to be associatedwith BV and aerobic vaginitis.The Xpert Xpress MVP test performance has not been evaluatedin patients under the age of 14. ANA GROUP DETECTION BY PCR NOT DETECTED Not Detect [facility] Ana glab krusei PCR NOT DETECTED Not Detect [facility] Swab Vaginal structure / Unknown 09/23/2024 09/23/2024 us Lynne Zamudio NP LAB MICROBIOLOGY - GENERAL ORDER TL Final Result [facility] [address] [place] [address] [phone] * Chlamydia/N. Gonorrhoeae RNA, TMA, Urogenitial (09/23/2024 12:00 AM EST) CT PCR NOT DETECTED Not Detect. [facility] Comment:A not detected test result does not exclude the possibilityof infection because test results can be affected byimproper specimen collection, concurrent antibiotic therapy,or the number of organisms in the specimen which may bebelow the sensitivity of the test. As with many diagnostictests, results from the Xpert CT/NG assay should beinterpreted in conjunction with other laboratory andclinical data available to the clinician.Xpert CT/NG performance has not been evaluated in patientsless than 14 years of age. The assay should not be used forthe evaluationof suspected sexual abuse or for other medico-legalindications. Additional testing is recommended in anycircumstance when false positive or false negative resultscould lead to adverse medical, social or psychologicalconsequences. NG PCR NOT DETECTED Not Detect. [facility] Comment:A not detected test result does not exclude the possibilityof infection because test results can be affected byimproper specimen collection, concurrent antibiotic therapy,or the number of organisms in the specimen which may bebelow the sensitivity of the test. As with many diagnostictests, results from the Xpert CT/NG assay should beinterpreted in conjunction with other laboratory andclinical data available to the clinician.Xpert CT/NG performance has not been evaluated in patientsless than 14 years of age. The assay should not be used forthe evaluationof suspected sexual abuse or for other medico-legalindications. Additional testing is recommended in anycircumstance when false positive or false negative resultscould lead to adverse medical, social or psychologicalconsequences. Swab (Vaginal Swab) 09/23/2024 09/23/2024 Narrative [facility] - 09/24/2024 4:53 AM EST Vaginal Lynne Zamudio NP LAB MICROBIOLOGY - GENERAL ORDER TL Final Result Performing Organization Address [facility] Co de Phone Number [facility] [address] [place] [address] [phone] * Culture, Urine, Routine (09/23/2024 12:00 AM EST) Only the most recent of2 resultswithin the time period is included. Urine Urine specimen obtained by clean catch procedure / Unknown 09/23/2024 09/23/2024 Comment:UACC Narrative [facility] - 09/25/2024 11:25 AM EST Urine Culture No growth. Specimen Source: Urine clean catch us Lynne Zamudio LEAD MILITARY ANALYST LAB MICROBIOLOGY - GENERAL ORDER TL Final Result Performing Organization Address [facility] Co de Phone Number [facility] [address] [place] [phone] * BI Mammogram Screening Bilateral (12/09/2023) Anatomical Region Laterality Modality Breast Bilateral Mammography us Peggy Dubon MD IMG BI PROCEDURES Fin al Result * Hm Colonoscopy (11/19/2023 3:37 PM EDT) us Historical Provider HEALTH MAINTENANCE Final Result * Hepatitis Panel, General (04/17/2023 9:25 AM EDT) Hepatitis A IgM Nonreactive Nonreactive [facility] Comment:IgM antibodies to ROLLE V not detected; does not exclude earlyacute or recovered HAV infection. ~Hepatitis B Surface Antibody REACTIVE Nonreactive [facility] Comment:REACTIVE: > 11.99 mI U/mL Hepatitis B Core Antibody Nonreactive Nonreactive [facility] Hepatitis C Antibody Nonreactive Nonreactive [facility] Comment:Antibodies to HCV no t detected; does not exclude early acuteHCV infection. Hepatitis B Surface Ag Negative Negative [facility] Blood 04/17/2023 9:25 AM EDT 04/17/2023 11:25 AM EDT us Cait Manuel DENTAL APPLIANCE FIXER LAB BLOOD ORDERABLES Final Result [facility] [address] [place] [address] [phone] * THINPREP TIS PAP AND HPV mRNA E6/E7, CT/NG, TRICH (12/26/2021 10:36 AM EDT) Chlamydia trachomatis RNA, TMA, Urogenital NOT DETECTED NOT DETECTED [facility] Clinical Information: None given [facility] COMMENT SEE COMMENT [facility] Comment: The analytical performance characteristics of this assay, when used to test SurePath(TM) specimens have been determined by [employer]. The modifications have not been cleared or approved by the FDA. This assay has been validated pursuant to the CLIA regulations and is used for clinical purposes. ?? For additional information, please refer to https://education.Dealdrive/faq/ZFO379 (This link is being provided for information/ [...] has been evaluated with computer assisted technology. [facility] Detail Technician: SEE COMMENT [facility] Comment: SL, CT(ASCP) CT screening location: [address] ??[phone] HPV nRNA E6/E7 Not Detected Not Detected [facility] Comment: Methodology: Biomedical Service Engineer-Mediated Amplification This assay detects E6/E7 viral messenger RNA (mRNA) from 14 high-risk HPV types (16,18,31,33,35,39,45,51,52,56,58,59,66,68). ? The analytical performance characteristics of this assay have been determined by [employer]. The modifications have not been cleared or approved by the FDA. This assay has been validated pursuant to the CLIA regulations and is used for clinical purposes. ?? For additional information, please refer to http://education.[employer].e Health Access/faq/CVF001t6 (This link if provided for information/ educational purposes only.) Interpretation/Re sult: Negative for intraepithelial lesion or malignancy. [facility] LMP: NONE GIVEN [facility] Neisseria gonorrhoeae RNA, TMA, Urogenital NOT DETECTED NOT DETECTED [facility] Prev. BX: NONE GIVEN [facility] Prev. PAP: NONE [facility]IVEN [facility] Review Detail Technician: SEE COMMENT [facility] Comment: MSM, CT(ASCP) CT screening location: [address] ??[id number] SOURCE: None given [facility] Statement Of Adequacy: SEE COMMENT [facility] Comment: Satisfactory for evaluation. Endocervical/transformation zone component present. Partially obscuring inflammation Age and/or menstrual status not provided Trichomonas vaginalis, QL, TMA, PAP Vial NOT DETECTED NOT DETECTED [facility] Comment: The analytical performance characteristics of this assay have been determined by [employer]. The modifications have not been cleared or approved by the FDA. This assay has been validated pursuant to the CLIA regulations and is used for clinical purposes. ?? For additional information, please refer to http://[employer].Dealdrive/ faq/Trichomonastma (This link is being provided for information/ educational purposes only.) ?? NO COLLECTION DATE RECEIVED. WE HAVE USED THE DATE THE SPECIMEN WAS RECEIVED BY THIS LABORATORY THE COLLECTION DATE. IF THIS IS INCORRECT, PLEASE CONTACT CLIENT SERVICES. PHONE NUMBER: ?? 12/26/2021 10:3 6 AM EDT us Cherie Knight NP LAB PATHOLOGY ORDERABLES Final Result [facility] [address] from Last 3 Months or Most Recently Relevant to Health Maintenance Insurance MEDICARE [facility] STANDARD DENTAL-[facility] MEDICAID STAND ADULT Care Teams Concrete Layer Relationship Specialty Start Date End Date Peggy Wolfe MD [address] [place] [address] PCP - General Internal Medicine 08/09/23
--- OUTSIDE RECORDS SUMMARY | 2024-11-12 19:03 | XMS_ITS | Encounter Summary ---
Author Organization [employer] Address [address] [place] [address] Care Team Providers Care Scrum Coach Name Role Phone Peggy Wolfe MD Primary Care Provide r Encounter Details Date Type Department Care Team ([facility] st Contact Info) Description 11/12/2024 Orders Only [facility] [address] [place], [place] [phone] Provider, MD Lola Social History Tobacco Use Types Packs/Day Years [...] Description 01/14/2025 1:45 PM EDT Procedure Visit [facility] [address] [place] [address] Rhianna Vazquez CNM [address] [place] [address] 05/20/2025 10:00 AM EDT Office Visit [facility] [address] [place] [address] Kayley, Mae [address] [place] [address] documented as of this encounter Procedures Procedure Name Priority Date/Time Associated Diagnosis Comments HM COLONOSCOPY Routine 11/19/2023 3:37 PM EDT documented in this encounter Results * Hm Colonoscopy (11/19/2023 3:37 PM EDT) us Historical Provider HEALTH MAINTENANCE Final Result documented in this encounter Visit Diagnoses Not on filedocumented in this encounter Additional Health Concerns Assessment Noted Time PHQ-9 Depression Total Score: 8 11/13/19 25 2:38 PM EDT documented as of this encounter Care Teams Scrum Coach Relationship Specialty Start Date End Date Peggy Wolfe MD [address] [place] [address] PCP - General Internal Medicine 08/09/23 documented as of this encounter
== END 2024-11-12 15:32 | disposition home or self-care (01) ==
LOC: HO.HHCX 15:31
PROVIDERS: Visit Provider Internal Medicine
DX: R10.9 Unspecified abdominal pain (principal); R30.0 Dysuria
CPT/HCPCS: 74018; 87086

== ENCOUNTER → 2024-11-12 15:32 | Outpatient (BNV) | payer MEDICARE, MEDICAID, OTHER, SELFPAY | PROVIDERS: Visit Provider Radiology Diagnostic Radiology | DX: R10.9 Unspecified abdominal pain (principal) | CPT/HCPCS: 74018 ==

== ENCOUNTER 2024-11-13 08:24 | Outpatient (REF) | payer MEDICARE, MEDICAID, OTHER, SELFPAY ==
[2024-11-13 11:41] LABS: MANUAL DIFF FLAG NO
[2024-11-13 12:00] LABS: Basophils Percent Auto 0.6 % (0-2); Eosinophils Absolute Auto 0.1 X10*3/uL (0.0-0.4); Eosinophils Percent Auto 1.9 % (0-4); Hematocrit 41.4 % (37.0-47.0); Hemoglobin 14.1 g/dl (12.0-16.0); Imm Gran Abs Auto 0.04 X10*3/uL (0.00-0.03); Imm Gran Pct Auto 0.8 % (0.0-0.4); Lymphocytes Percent Auto 38.5 % (20-40); Mean Corpuscular HGB Conc 34.1 g/dl (31.0-35.0); Mean Corpuscular Hemoglobin 28.9 pg (27.0-33.0); Mean Corpuscular Volume 84.8 fL (80.0-98.0); Monocytes Absolute Auto 0.3 X10*3/uL (0.1-1.2); Neutrophils Absolute Auto 2.7 x10*3/uL (2.0-8.3); Neutrophils Percent Auto 52.2 % (45-73); Platelet Count 302 X10*3/uL (160-400); Red Blood Count 4.88 X10*6/uL (4.20-5.50); Red Cell Distribution Width 14.1 % (11.0-16.0); White Blood Count 5.2 X10*3/uL (4.8-10.8)
[2024-11-13 12:36] LABS: Alanine Aminotransferase 34 U/L (0-31); Albumin Level 4.2 g/dL (3.5-5.0); Alkaline Phosphatase 100 U/L (39-117); Anion Gap 11 (12-20); Aspartate Amino Transferase 28 U/L (5-31); Bilirubin Total 0.5 mg/dL (0.0-1.0); Blood Urea Nitrogen 16 mg/dL (9-16); Calcium 9.5 mg/dL (8.4-10.2); Carbon Dioxide 23 mmol/L (22-29); Chloride 111 mmol/L (96-108); Cholesterol 195 mg/dL (<200); Estimated Glomerular Filt Rate > 60; Glucose Random 87 mg/dL (60-115); HDL Cholesterol 40 mg/dL (>40); LDL Cholesterol Calculated 95 mg/dL (<100); Sodium 141 mmol/L (135-145); Total Protein 7.2 g/dL (6.5-8.0); Triglycerides 303 mg/dL (<150)
[2024-11-13 12:41] LABS: TSH reflex Free T4 2.12 uIU/mL (0.32-4.0)
[2024-11-14 14:17] LABS: ~HepC Num1 0.16 S/CO (0.00-0.79); ~Hepatitis C Antibody Nonreactive (Nonreactive)
== END 2024-11-13 08:25 | disposition home or self-care (01) ==
LOC: HO.HHCL 08:24
PROVIDERS: Visit Provider Internal Medicine
DX: E78.2 Mixed hyperlipidemia (principal)
CPT/HCPCS: 36415; 80053; 80061; 84443; 85025; 86803

== ENCOUNTER 2024-11-16 12:59 | Outpatient (REF) | payer MEDICARE, MEDICAID, OTHER, SELFPAY ==
[2024-11-16 15:26] LABS: Folate 10.5 ng/mL (> or = 4.0); Vitamin B12 226 pg/mL (200-900)
--- OUTSIDE RECORDS SUMMARY | 2024-11-16 15:37 | XMS_ITS | Encounter Summary ---
Author Organization [employer] Address [address] 7t [place] [address] Care Team Providers Care Manager Restaurant Name Role Phone Yudith Monreal NP Primary Care Provider [phone] Peggy Wolfe MD Primary Care Provide r Reason for Visit * Reason Onset Date Comments Appointment Request 07/30/2023 Encounter Details Date Type Department Care Team ([facility] st Contact Info) Description 07/30/2023 Telephone [facility] MEDICINE [address] [place] [address] Yudith Monreal NP [address] [place] [address] Appointment Request Social History Tobacco Use Types [...] from pt requesting TP Appt with PCP. Animal Surgeon does see recall tried booking no available slot found. Please contact Pt [phone] documented in this encounter Plan of Treatment Upcoming Encounters Date Type Department Care Team (Late st Contact Info) Description 01/14/2025 1:45 PM EDT Procedure Visit [facility] MEDICINE [address] [place] [address] Rhianna Vazquez CNM [address] [place] [address] 05/20/2025 10:00 AM EDT Office Visit [facility] ADULT DENTAL [address] [place] [address] Kayley, Mae [address] [place] [address] documented as of this encounter Visit Diagnoses Not on filedocumented in this encounter Additional Health Concerns Assessment Noted Time PHQ-9 Depression Total Score: 7 04/16/20 23 4:07 PM EDT documented as of this encounter Care Teams Manager Restaurant Relationship Specialty Start Date End Date Yudith Monreal NP [address] [place] [address] PCP - General Family Medicine 05/24/23 08/08/23 Peggy Wolfe MD [address] [place] [address] PCP - General Internal Medicine 08/09/23 documented as of this encounter
--- OUTSIDE RECORDS SUMMARY | 2024-11-16 15:37 | XMS_ITS | Encounter Summary ---
Author Organization [facility] Address [address] [place] [address] 7t [place] [address] Care Team Providers Care Spa Therapist Name Role Phone Cait Manuel INSIDE SALES COORDINATOR Primary Care Provider [phone] Yudith Monreal NP Primary Care Provider [phone] Peggy Wolfe MD Primary Care Provide r Encounter Details Date Type Department Care Team (Latest Contact Info) Description 02/06/2022 Abstract [facility] CONVERSIONS Dental, Provider, DDS Social History [...] 1:45 PM EDT Procedure Visit [facility] MEDICINE [address] [place] [address] Rhianna Vazquez CNM [address] [place] [address] 05/20/2025 10:00 AM EDT Office Visit [facility] ADULT DENTAL [address] [place] [address] Mae Zaldivar [address] [place] [address] documented as of this encounter Visit Diagnoses Not on filedocumented in this encounter Care Teams Spa Therapist Relationship Specialty Start Date End Date Cait Manuel FNP PCP - General Family Medicine 04/17/22 05/23/23 Yudith Monreal NP [address] [place] [address] PCP - General Family Medicine 05/24/23 08/08/23 Peggy Wolfe MD [address] [place] [address] PCP - General Internal Medicine 08/09/23 documented as of this encounter
--- OUTSIDE RECORDS SUMMARY | 2024-11-16 15:37 | XMS_ITS | Encounter Summary ---
Author Organization [employer] [facility] Address [address] [place] [address] 7t [place] [address] Care Team Providers Care Corporate Giving Manager Name Role Phone Cait Manuel BARREL BUNG REMOVER AND DUMPER Primary Care Provider [phone] Yudith Monreal NP Primary Care Provider [phone] Peggy Wolfe MD Primary Care Provide r Encounter Details Date Type Department Care Team (Latest Contact Info) Description 12/25/2018 Abstract [facility] CONVERSIONS Dental, Provider, [...] 01/14/2025 1:45 PM EDT Procedure Visit [facility] MEDICINE [address] [place] [address] Rhianna Vazquez CNM [address] [place] [address] 05/20/2025 10:00 AM EDT Office Visit [facility] ADULT DENTAL [address] [place] [address] Mae Zaldivar [address] [place] [address] documented as of this encounter Visit Diagnoses Not on filedocumented in this encounter Care Teams Corporate Giving Manager Relationship Specialty Start Date End Date Cait Manuel FNP PCP - General Family Medicine 04/17/22 05/23/23 Yudith Monreal NP [address] [place] [address] PCP - General Family Medicine 05/24/23 08/08/23 Peggy Wolfe MD [address] [place] [address] PCP - General Internal Medicine 08/09/23 documented as of this encounter
--- OUTSIDE RECORDS SUMMARY | 2024-11-16 15:37 | XMS_ITS | Clinical Summary ---
Author Organization [employer] Address [address] [place] [address] 7t [place] [address] Care Team Providers Care Partition Making Machine Operator Name Role Phone Peggy Wolfe MD [...] and stress reduction. Inadequate occlusion of dental jainism 05/20 Seborrheic dermatitis 05/11/2024 Assessment & Plan [...] 11/12/2024 2:45 PM EDT Office Visit [facility] MEDICINE [address] [place], [place] [phone] Peggy Wolfe MD Right flank pain; Mixed hyperlipidemia; Mild intermittent asthma without complication; Allergic rhinitis, unspecified seasonality, unspecified trigger; Fibromyositis; Dysuria 11/12/2024 9:00 AM EDT Office Visit [facility] ADULT DENTAL [address] [place], [place] [phone] Mae Zaldivar Missing teeth, acquired (Primary Dx); Localized gingival recession; Dental calculus 11/12/2024 Orders Only [facility] CHC MED & PEDS [address] [place], [place] [phone] Provider, MD Lola 11/12/2024 Travel 11/03/2024 Patient Outreach [address] [address] Peggy Wolfe MD Pre-visit Planning (SDOH screening negative and tobacco screening negative) 10/30/2024 Population Health Risk Score [facility] (C3) Department [address] [place] [phone] Provider, Population Health Generic 10/19/2024 Travel 09/23/2024 10:00 AM EST Office Visit [address] [address] Alethea Bryant, SARA Dysuria (Primary Dx); Vaginal discharge 09/23/2024 Orders Only [facility] PEDIATRICS [address] [place] [address] Lynne Zamudio NP 09/23/2024 Travel 09/22/[address] [address] Peggy Wolfe MD Nurse Triage 09/22/[address] [address] Peggy Wolfe MD 09/18/2024 Telephone [facility] WALK-IN CENTER [address] [place] [phone] Maddie Vuong RN Results 09/16/2024 5:20 PM EST Office Visit [facility] WALK-IN [address] [address] Tom Soriano MD Dysuria 09/16/[address] [address] Peggy Wolfe MD Nurse Triage from Last [...] Description 01/14/2025 1:45 PM EDT Procedure Visit [facility] MEDICINE [address] [place] [address] Rhianna Vazquez, DELBERT [address] [place] [address] 05/20/2025 10:00 AM EDT Office Visit [facility] ADULT DENTAL [address] [place] [address] Kayley, Mae [address] [place] [address] Health Maintenance Due Date Last Done Comments [...] Free T4 2.12 0.32 - 4.0 uIU/mL LABS Blood Venous blood specimen / Unknown 11/13/2024 8:27 AM EDT 11/13/2024 11:39 AM EDT us Peggy Dubon MD LAB BLOOD ORDERABLES Final Result LABS [address] [place] [address] [phone] * (ABNORMAL) CBC auto differential (11/13/2024 8:27 AM EDT) White Blood Count 5.2 4.8 - 10.8 X10*3/uL LABS Red Blood Count 4.88 4.20 - 5.50 X10*6/uL LABS Hemoglobin 14.1 12.0 - 16.0 g/dl LABS Hematocrit 41.4 37.0 - 47.0 % LABS Mean Corpuscular Volume 84.8 80.0 - 98.0 fL LABS Mean Corpuscular Hemoglobin 28.9 27.0 - 33.0 pg LABS Mean Corpuscular HGB Conc 34.1 31.0 - 35.0 g/dl LABS Red Cell Distribution Width 14.1 11.0 - 16.0 % LABS Platelet Count 302 160 - 400 X10*3/uL LABS Mean Platelet Volume 11.0 9.4 - 12.3 fL LABS Neutrophils Percent Auto 52.2 45 - 73 % LABS Imm Gran Pct Auto 0.8(H) 0.0 - 0.4 % LABS Lymphocytes Percent Auto 38.5 20 - 40 % LABS Monocytes Percent Auto 6.0 2 - 11 % LABS Eosinophils Percent Auto 1.9 0 - 4 % LABS Basophils Percent Auto 0.6 0 - 2 % LABS NRBC Pct Auto 0.0 0.0 - 0.2 /100WBC LABS Neutrophils Absolute Auto 2.7 2.0 - 8.3 x10*3/uL LABS Imm Gran Abs Auto 0.04(H) 0.00 - 0.03 X10*3/uL LABS Lymphocytes Absolute Auto 2.0 1.2 - 4.9 X10*3/uL LABS Monocytes Absolute Auto 0.3 0.1 - 1.2 X10*3/uL LABS Eosinophils Absolute Auto 0.1 0.0 - 0.4 X10*3/uL LABS Basophils Absolute Auto 0.0 0.0 - 0.2 X10*3/uL LABS NRBC Abs Auto 0.000 0.0 - 0.012 X10*3/uL LABS Blood Venous blood specimen / Unknown 11/13/2024 8:27 AM EDT 11/13/2024 11:39 AM EDT us Peggy Dubon MD LAB BLOOD ORDERABLES Final Result Performing Organization Address [facility]/ZIP Co de Phone Number LABS [address] [place] [phone] * Hepatitis C Antibody with Reflex to HCV, RNA, Quantitative, Real-Time PCR (11/13/2024 8:27 AM EDT) Pathologist [facility] Hepatitis C Antibody Nonreactive Nonreactive LABS Comment:Antibodies to HCV no t detected; does not exclude early acuteHCV infection. Blood Venous blood specimen / Unknown 11/13/2024 8:27 AM EDT 11/13/2024 11:39 AM EDT us Peggy Dubon MD LAB BLOOD ORDERABLES Final Result Performing Organization Address [facility] Co de Phone Number LABS [address] [place] [phone] * (ABNORMAL) Lipid Panel, Standard (11/13/2024 8:27 AM EDT) Triglycerides 303(H) <150 mg/dL [facility] LABS Comment:Desirable Triglyceri de: less than 150 mg/dLBorderline High Triglyceride 150-199 mg/dLHigh Triglyceride: 200-499 mg/dLVery High Triglyceride: greater than or equal to 5OO mg/dL Cholesterol 195 <200 mg/dL LABS Comment:Desirable Cholestero l: less than 200 mg/dLBorderline High Cholesterol: 200-239 mg/dLHigh Cholesterol: greater than 239 mg/dL LDL Cholesterol Calculated 95 <100 mg/dL LABS Comment:Desirable LDL: less than 100 mg/dLNear Optimal/Above Optimal LDL: 110- 129 mg/dLBorderline High LDL: 130-159 mg/dLHigh LDL: 160-189 mg/dLVery High LDL: greater than or equal to 190 mg/dL HDL Cholesterol 40(L) >40 mg/dL [facility] LABS Comment:Desirable HDL: great er than 40 mg/dL Note: This HDL assay may give artificially low results in patients with liver disease. Blood Venous blood specimen / Unknown 11/13/2024 8:27 AM EDT 11/13/2024 11:39 AM EDT us Peggy Dubon MD LAB BLOOD ORDERABLES Final Result LABS [address] [place] [phone] * (ABNORMAL) Comprehensive Metabolic Panel (11/13/2024 8:27 AM EDT) Sodium 141 135 - 145 mmol/L LABS Potassium 4.0 3.3 - 5.1 mmol/L LABS Chloride 111(H) 96 - 108 mmol/L LABS Carbon Dioxide 23 22 - 29 mmol/L LABS Anion Gap 11(L) 12 - 20 LABS Urea Nitrogen (BUN) 16 9 - 16 mg/dL LABS Creatinine, Serum 0.73 0.5 - 1.4 mg/dL LABS Estimated Glomerular Filt Rate >60 LABS Comment:Chronic Kidney Disea se: Estimated GFR < 60 mL/min/1.55x6Gpsdmy Kidney Disease: Estimated GFR < 15 mL/min/1.73m2 Glucose 87 60 - 115 mg/dL LABS Calcium 9.5 8.4 - 10.2 mg/dL LABS Bilirubin, Total 0.5 0.0 - 1.0 mg/dL LABS Aspartate Amino Transferase 28 5 - 31 U/L LABS Alanine Aminotransferase 34(H) 0 - 31 U/L LABS Total Protein 7.2 6.5 - 8.0 g/dL LABS Albumin Level 4.2 3.5 - 5.0 g/dL LABS Alkaline Phosphatase 100 39 - 117 U/L LABS Blood Venous blood specimen / Unknown 11/13/2024 8:27 AM EDT 11/13/2024 11:39 AM EDT Peggy Dubon MD LAB BLOOD ORDERABLES Final Result LABS [address] [place] [phone] * (ABNORMAL) POCT Urinalysis (11/12/2024 3:49 [...] PM EDT Narrative 11/12/2024 4:02 PM EDT ?[facility] ?[address] ?[place] [address] ?XRay Report ? Signed ? Patient: Giovanni,Karly ?MR#: [id number] ?? [id number] ? : 1960 ?Acct:[id number] ? Age/Sex: 64 / F ?ADM Date: 11/12/24 ? Loc: HO.HHCX ? Attending Dr: Peggy Dubon MD ? Ordering Physician: Peggy Wolfe MD ?? Date of Service: 11/12/24 ?? Procedure(s): XR KUB ?? Accession Number(s): [id number] ? cc: Peggy Wolfe MD ? EXAMINATION: [...] ? DD/ 1532 ? TD/TT: 11/12/246 ? Regulatory Affairs Analyst: ? Procedure Note Lesly Felix - 11/12/[address] [address] XRay Report Signed Patient: Re Davila#: [id number] : 2Acct:[id number] Age/Sex: 64 / FADM Date: 11/12/24 Loc: .HHX Attending Dr: Peggy Dubon MD Ordering Physician: Peggy Wolfe MD Date of Service: 11/12/24 Procedure(s): XR KUB Accession Number(s): [id number] cc: Peggy Wolfe MD EXAMINATION: XR ABDOMEN [...] 11/12/24 1559 DD/ 1532 TD/TT: 11/12/24 1556 Regulatory Affairs Analyst: us Peggy Dubon MD IMG XR PROCEDURES Fin al Result * Culture, Urine, Routine (11/12/2024 3:28 PM EDT) Only the most recent of3 resultswithin the time period is included. Urine Urine specimen obtained by clean catch procedure / Unknown 11/12/2024 3:28 PM EDT 11/12/2024 6:26 PM EDT Comment:[facility] LABS - 11/14/2024 10:39 AM EDT Urine Culture Report Result Urine Culture > 100,000 cfu/ml Urine Culture Mixed bacterial merry characteristic of Urine Culture urogenital contamination. Specimen Source: Urine clean catch us Peggy Dubon MD LAB MICROBIOLOGY - [facility] ORDERABLES Final Result LABS [address] [place] [phone] * Bacterial Vaginosis Panel (09/23/2024 12:00 AM EST) TRICHOMONAS VAGINALIS DETECTION BY PCR NOT DETECTED Not Detect LABS BACTERIAL VAGINOSIS DETECTION BY PCR NEGATIVE Negative LABS Comment:The BV organism targ ets of [...] DETECTION BY PCR NOT DETECTED Not Detect LABS Ana glab krusei PCR NOT DETECTED Not Detect LABS Swab Vaginal structure / Unknown 09/23/2024 09/23/2024 us Lynne Zamudio NP LAB MICROBIOLOGY - GENERAL ORDER TL Final Result LABS [address] [place] [address] [phone] * Chlamydia/N. Gonorrhoeae RNA, TMA, Urogenitial (09/23/2024 12:00 AM EST) CT PCR NOT DETECTED Not Detect. LABS Comment:A not detected test result does [...] psychologicalconsequences. NG PCR NOT DETECTED Not Detect. LABS Comment:A not detected test result does [...] psychologicalconsequences. Swab (Vaginal Swab) 09/23/2024 09/23/2024 Narrative LABS - 09/24/2024 4:53 AM EST Vaginal Lynne Zamudio NP LAB MICROBIOLOGY - GENERAL ORDER TL Final Result Performing Organization Address City/State/[facility] Co de Phone Number LABS [address] [place] [phone] * BI Mammogram Screening Bilateral (12/09/2023) Anatomical Region Laterality Modality Breast Bilateral Mammography us Peggy Dubon MD IMG BI PROCEDURES Fin al Result * Hm Colonoscopy (11/19/2023 3:37 PM EDT) Historical Provider HEALTH MAINTENANCE Final Result * THINPREP TIS PAP AND HPV mRNA E6/E7, CT/NG, TRICH (12/26/2021 10:36 AM EDT) Chlamydia trachomatis RNA, TMA, Urogenital NOT DETECTED NOT DETECTED [facility] Clinical Information: None given [facility] COMMENT SEE COMMENT [facility] Comment: The analytical performance characteristics of this assay, when used to test SurePath(TM) specimens have been determined by [employer] The modifications have not been cleared or approved by the FDA. This assay has been validated pursuant to the CLIA regulations and is used for clinical purposes. ?? For additional information, please refer to https://education.[employer]/faq/MCC879 (This link is being provided for information/ [...] has been evaluated with computer assisted technology. [facility] Paper Bags Sewing Machine Operator: SEE COMMENT [facility] Comment: SL, CT(ASCP) CT screening location: [address] ??[address] HPV nRNA E6/E7 Not Detected Not Detected [facility] Comment: Methodology: Pest Control Operator-Mediated Amplification This assay detects E6/E7 viral messenger RNA (mRNA) from 14 high-risk HPV types (16,18,31,33,35,39,45,51,52,56,58,59,66,68). ? The analytical performance characteristics of this assay have been determined by [employer] The modifications have not been cleared or approved by the FDA. This assay has been validated pursuant to the CLIA regulations and is used for clinical purposes. ?? For additional information, please refer to http://[employer]/faq/KRT787f2 (This link if provided for information/ educational purposes only.) Interpretation/Re sult: Negative for intraepithelial lesion or malignancy. [facility] LMP: NONE GIVEN [facility] Neisseria gonorrhoeae RNA, TMA, Urogenital NOT DETECTED NOT DETECTED [facility] Prev. BX: NONE GIVEN [facility] Prev. PAP: NONE GIVEN [facility] Review Paper Bags Sewing Machine Operator: SEE COMMENT [facility] Comment: MSM, CT(ASCP) CT screening location: [address] ??[address] SOURCE: None given [facility] Statement Of Adequacy: SEE COMMENT [facility] Comment: Satisfactory for evaluation. Endocervical/transformation zone component present. Partially obscuring inflammation Age and/or menstrual status not provided Trichomonas vaginalis, QL, TMA, PAP Vial NOT DETECTED NOT DETECTED [facility] Comment: The analytical performance characteristics of this assay have been determined by [employer] The modifications have not been cleared or approved by the FDA. This assay has been validated pursuant to the CLIA regulations and is used for clinical purposes. ?? For additional information, please refer to http://education.[employer]/ faq/Trichomonastma (This link is being provided for information/ educational purposes only.) ?? NO COLLECTION DATE RECEIVED. WE HAVE USED THE DATE THE SPECIMEN WAS RECEIVED BY THIS LABORATORY THE COLLECTION DATE. IF THIS IS INCORRECT, PLEASE CONTACT CLIENT SERVICES. PHONE NUMBER: ?? 12/26/2021 10:3 6 AM EDT Cherie Knight NP LAB PATHOLOGY ORDERABLES Final Result [facility] Anywhere [address] from Last 3 Months or Most Recently Relevant to Health Maintenance Insurance MEDICARE [facility] [place] STAND AD[place] Care Teams Partition Making Machine Operator Relationship Specialty Start Date End Date Peggy Wolfe MD [address] [place] [phone] PCP - General Internal Medicine 08/09/23
--- OUTSIDE RECORDS SUMMARY | 2024-11-16 15:37 | XMS_ITS | Encounter Summary ---
Author Organization [facility] Address [address] [place] [address] [place] [address] Care Team Providers Care Sanitary Napkin Machine Tender Name Role Phone Cait Manuel Primary Care Provider [phone] Yudith Monreal NP Primary Care Provider [phone] Peggy Wolfe MD Primary Care Provide r Reason for Visit * Reason Comments Med Refill Encounter Details Date Type Department Care Team (Late st Contact Info) Description 03/24/2023 Refill [facility] [address] [place] [address] Cait Manuel FNP [address] [place] [address] Dept of [place] [address] Social History Tobacco Use Types Packs/Day Years [...] Description 01/14/2025 1:45 PM EDT Procedure Visit [facility] [address] [place] [address] Rhianna Vazquez CNM [address] [place], [place] [phone] 05/20/2025 10:00 AM EDT Office Visit [facility] ADULT DENTAL [address] [place] [address] Mae Zaldivar [address] [place], [place] [phone] documented as of this encounter Visit Diagnoses Not on filedocumented in this encounter Care Teams Sanitary Napkin Machine Tender Relationship Specialty Start Date End Date Cait Manuel FNP PCP - General Family Medicine 04/17/22 05/23/23 Yudith Monreal NP [address] [place] [address] PCP - General Family Medicine 05/24/23 08/08/23 Peggy Wolfe MD [address] [place] [address] PCP - General Internal Medicine 08/09/23 documented as of this encounter
--- OUTSIDE RECORDS SUMMARY | 2024-11-16 15:37 | XMS_ITS | Encounter Summary ---
Author Organization [employer] Address [address] [facility] [address] 7t [place] [address] Care Team Providers Care College Coach Name Role Phone Peggy Wolfe MD Primary Care Provide r Reason for Visit * Reason Comments Annual Exam Encounter Details Date Type Department Care Team ([facility] st Contact Info) Description 11/12/2024 2:45 PM EDT Office Visit [facility] MEDICINE [address] [place], [place] [phone] Peggy Wolfe MD 230 [place] [address] Right flank pain; Mixed hyperlipidemia; Mild intermittent [...] by GI I [place] [facility] [place] up to date Eye Care:up to date Dental Care:up to date PMHx:see below Immunizations: Up to date Acute Concerns: Patient reports that she has been having right flank pain, she also has been having dysuria, urinary frequency and urgency, reports she has strong family history of kidney stones, she was seen in [facility] for the flank pain recently [...] acquired Seborrheic dermatitis Inadequate occlusion of dental synagogue Rash Elevated BP without diagnosis of hypertension [...] 1:45 PM EDT Procedure Visit [facility] MEDICINE [address] [place] [address] Rhianna Vazquez CNM [address] [place] [address] 05/20/2025 10:00 AM EDT Office Visit [facility] ADULT DENTAL [address] [place] [address] Mae Zaldivar [address] [place] [address] documented as of this encounter Procedures Procedure [...] Free T4 2.12 0.32 - 4.0 uIU/mL [facility] Blood Venous blood specimen / Unknown 11/13/2024 8:27 AM EDT 11/13/2024 11:39 AM EDT us Peggy Dubon MD LAB BLOOD ORDERABLES Final Result [facility] [address] [place], [place] [phone] * (ABNORMAL) Lipid Panel, Standard (11/13/2024 8:27 AM EDT) Triglycerides 303(H) <150 mg/dL [facility] Comment:Desirable Triglyceri de: less than 150 mg/dLBorderline High Triglyceride 150-199 mg/dLHigh Triglyceride: 200-499 mg/dLVery High Triglyceride: greater than or equal to 5OO mg/dL Cholesterol 195 <200 mg/dL [facility] Comment:Desirable Cholestero l: less than 200 mg/dLBorderline High Cholesterol: 200-239 mg/dLHigh Cholesterol: greater than 239 mg/dL LDL Cholesterol Calculated 95 <100 mg/dL [facility] Comment:Desirable LDL: less than 100 mg/dLNear Optimal/Above Optimal LDL: 110- 129 mg/dLBorderline High LDL: 130-159 mg/dLHigh LDL: 160-189 mg/dLVery High LDL: greater than or equal to 190 mg/dL HDL Cholesterol 40(L) >40 mg/dL [facility] Comment:Desirable HDL: great er than 40 mg/dL Note: This HDL assay may give artificially low results in patients with liver disease. Blood Venous blood specimen / Unknown 11/13/2024 8:27 AM EDT 11/13/2024 11:39 AM EDT us Peggy Dubon MD LAB BLOOD ORDERABLES Final Result Performing Organization Address [facility]/ZIP Co de Phone Number [facility] [address] [place] [phone] * Hepatitis C Antibody with Reflex to HCV, RNA, Quantitative, Real-Time PCR (11/13/2024 8:27 AM EDT) Hepatitis C Antibody Nonreactive Nonreactive [facility] Comment:Antibodies to HCV no t detected; does not exclude early acuteHCV infection. Blood Venous blood specimen / Unknown 11/13/2024 8:27 AM EDT 11/13/2024 11:39 AM EDT us Peggy Dubon MD LAB BLOOD ORDERABLES Final Result Performing Organization Address City/[facility]/ZIP Co de Phone Number [facility] [address] [place] [phone] [phone] * (ABNORMAL) Comprehensive Metabolic Panel (11/13/2024 8:27 AM EDT) Sodium 141 135 - 145 mmol/L [facility] Potassium 4.0 3.3 - 5.1 mmol/L [facility] Chloride 111(H) 96 - 108 mmol/L [facility] Carbon Dioxide 23 22 - 29 mmol/L [facility] Anion Gap 11(L) 12 - 20 [facility] Urea Nitrogen (BUN) 16 9 - 16 mg/dL [facility] Creatinine, Serum 0.73 0.5 - 1.4 mg/dL [facility] Estimated Glomerular Filt Rate >60 [facility] Comment:Chronic Kidney Disea se: Estimated GFR < 60 mL/min/1.59u9Hkntwu Kidney Disease: Estimated GFR < 15 mL/min/1.73m2 Glucose 87 60 - 115 mg/dL [facility] Calcium 9.5 8.4 - 10.2 mg/dL [facility] Bilirubin, Total 0.5 0.0 - 1.0 mg/dL [facility] Aspartate Amino Transferase 28 5 - 31 U/L [facility] Alanine Aminotransferase 34(H) 0 - 31 U/L [facility] Total Protein 7.2 6.5 - 8.0 g/dL [facility] Albumin Level 4.2 3.5 - 5.0 g/dL [facility] Alkaline Phosphatase 100 39 - 117 U/L [facility] Blood Venous blood specimen / Unknown 11/13/2024 8:27 AM EDT 11/13/2024 11:39 AM EDT us Peggy Dubon MD LAB BLOOD ORDERABLES Final Result [facility] [address] [place] [phone] * (ABNORMAL) CBC auto differential (11/13/2024 8:27 AM EDT) White Blood Count 5.2 4.8 - 10.8 X10*3/uL [facility] Red Blood Count 4.88 4.20 - 5.50 X10*6/uL [facility] Hemoglobin 14.1 12.0 - 16.0 g/dl [facility] Hematocrit 41.4 37.0 - 47.0 % [facility] Mean Corpuscular Volume 84.8 80.0 - 98.0 fL [facility] Mean Corpuscular Hemoglobin 28.9 27.0 - 33.0 pg [facility] Mean Corpuscular HGB Conc 34.1 31.0 - 35.0 g/dl [facility] Red Cell Distribution Width 14.1 11.0 - 16.0 % [facility] Platelet Count 302 160 - 400 X10*3/uL [facility] Mean Platelet Volume 11.0 9.4 - 12.3 fL [facility] Neutrophils Percent Auto 52.2 45 - 73 % [facility] Imm Gran Pct Auto 0.8(H) 0.0 - 0.4 % [facility] Lymphocytes Percent Auto 38.5 20 - 40 % [facility] Monocytes Percent Auto 6.0 2 - 11 % [facility] Eosinophils Percent Auto 1.9 0 - 4 % [facility] Basophils Percent Auto 0.6 0 - 2 % [facility] NRBC Pct Auto 0.0 0.0 - 0.2 /100WBC [facility] Neutrophils Absolute Auto 2.7 2.0 - 8.3 x10*3/uL [facility] Imm Gran Abs Auto 0.04(H) 0.00 - 0.03 X10*3/uL [facility] Lymphocytes Absolute Auto 2.0 1.2 - 4.9 X10*3/uL [facility] Monocytes Absolute Auto 0.3 0.1 - 1.2 X10*3/uL [facility] Eosinophils Absolute Auto 0.1 0.0 - 0.4 X10*3/uL [facility] Basophils Absolute Auto 0.0 0.0 - 0.2 X10*3/uL [facility] NRBC Abs Auto 0.000 0.0 - 0.012 X10*3/uL [facility] Blood Venous blood specimen / Unknown 11/13/2024 8:27 AM EDT 11/13/2024 11:39 AM EDT us Peggy Dubon MD LAB BLOOD ORDERABLES Final Result [facility] [address] [place] [address] [phone] * (ABNORMAL) POCT Urinalysis (11/12/2024 3:49 PM [...] PM EDT Narrative 11/12/2024 4:02 PM EDT ?[facility] ?[address] ?[place] [address] ?XRay Report ? Signed ? Patient: Giovanni,Karly ?MR#: [id number] ?? [id number] ? : 1960 ?Acct:[id number] ? Age/Sex: 64 / F ?ADM Date: /27/25 ? Loc: HO.HHCX ? Attending Dr: Peggy Dubon MD ? Ordering Physician: Peggy Wolfe MD ?? Date of Service: 11/12/24 ?? Procedure(s): XR KUB ?? Accession Number(s): [id number] ? cc: Peggy Wolfe MD ? EXAMINATION: [...] DD/ 1532 ? TD/TT: 11/12/24 1556 ? Hotel Engineer: ? Procedure Note Isidro, Lesly - 11/12/[address] [address] XRay Report Signed Patient: Cisco DavilaR#: [id number] : 1960cct:[id number] Age/Sex: 64 / FADM Date: 11/12/24 Loc: HO.HHCX Attending Dr: Peggy Dubon MD Ordering Physician: Peggy Wolfe MD Date of Service: 11/12/24 Procedure(s): XR KUB Accession Number(s): [id number] cc: Peggy Wolfe MD EXAMINATION: XR ABDOMEN [...] 11/12/24 1559 DD/ 1532 TD/TT: 11/12/24 1556 Hotel Engineer: us Peggy Dubon MD IMG XR PROCEDURES Fin al Result * Culture, Urine, Routine (11/12/2024 3:28 PM EDT) Urine Urine specimen obtained by clean catch procedure / Unknown 11/12/2024 3:28 PM EDT 11/12/2024 6:26 PM EDT Comment:UACC Narrative [facility] - 11/14/2024 10:39 AM EDT Urine Culture Report Result Urine Culture > 100,000 cfu/ml Urine Culture Mixed bacterial merry characteristic of Urine Culture urogenital contamination. Specimen Source: Urine clean catch us Peggy Dubon MD LAB MICROBIOLOGY - GE NERAL ORDERABLES Final Result [facility] [address] [place] [phone] documented in this encounter Visit Diagnoses Diagnosis Right flank pain Abdominal pain, unspecified site Mixed hyperlipidemia Mild intermittent asthma without complication Allergic rhinitis, unspecified seasonality, unspecified trigger Fibromyositis Unspecified myalgia and myositis Dysuria documented in this encounter Additional Health Concerns Assessment Noted Time PHQ-9 Depression Total Score: 8 11/13/19 25 2:38 PM EDT documented as of this encounter Care Teams College Coach Relationship Specialty Start Date End Date Peggy Wolfe MD [address] [place] [phone] PCP - General Internal Medicine 08/09/23 documented as of this encounter
--- OUTSIDE RECORDS SUMMARY | 2024-11-16 15:37 | XMS_ITS | Encounter Summary ---
Author Organization [employer] Address [address] [employer] 7t [place] [address] Care Team Providers Care Switching Clerk Name Role Phone Cait Manuel MANAGER JAVA Primary Care Provider [phone]- [phone] Yudith Monreal NP Primary Care Provider [phone] Peggy Wolfe MD Primary Care Provide r Encounter Details Date Type Department Care Team (Late st Contact Info) Description 05/22/2023 Telephone [facility] MEDICINE [address] [place] [address] Cait Manuel FNP [address] [facility] Dept [place] [address] Social History Tobacco Use Types Packs/Day Years [...] 3:49 PM EDT T/C to pt. Through [employer] id - [id number] for below message, pt. States she [place] [facility] Pt. Is al set. Pt. Advised to give call on [phone] if any questions or concerns. Pt. Verbally agreed and understood. * Telephone Encounter - Merry Gillespie - 05/22/2023 4:15 PM EDT Tc from pt requesting a new order for nerve test on left leg. Any questions, please contact pt at [phone] (Bulgarian) documented in this encounter Plan of Treatment Upcoming Encounters Date Type Department Care Team (Late st Contact Info) Description 01/14/2025 1:45 PM EDT Procedure Visit [facility] MEDICINE [address] [place] [address] Rhianna Vazquez CNM [address] [place] [address] 05/20/2025 10:00 AM EDT Office Visit [facility] ADULT DENTAL [address] [place] [address] Mae Zaldivar [address] [place] [address] documented as of this encounter Visit Diagnoses Not on filedocumented in this encounter Additional Health Concerns Assessment Noted Time PHQ-9 Depression Total Score: 7 04/16/20 23 4:07 PM EDT documented as of this encounter Care Teams Switching Clerk Relationship Specialty Start Date End Date Cait Manuel FNP PCP - General Family Medicine 04/17/22 05/23/23 Yudith Monreal NP [address] [place] [phone] PCP - General Family Medicine 05/24/23 08/08/23 Peggy Wolfe MD [address] [place] [phone] PCP - General Internal Medicine 08/09/23 documented as of this encounter
--- OUTSIDE RECORDS SUMMARY | 2024-11-16 15:37 | XMS_ITS | Encounter Summary ---
Author Organization [employer] Address [address] [facility] [address] 7[address] [place] [address] Care Team Providers Care Structural Layout Worker Name Role Phone Peggy Wolfe MD [...] Description 01/14/2025 1:45 PM EDT Procedure Visit [facility] MEDICINE [address] [place] [address] Rhianna Vazquez CNM [address] [place] [address] 05/20/2025 10:00 AM EDT Office Visit [facility] ADULT DENTAL [address] [place] [address] Rocky Zaldivararis [address] [place] [address] documented as of this encounter Visit Diagnoses Not on filedocumented in this encounter Additional Health Concerns Assessment Noted Time PHQ-9 Depression Total Score: 8 11/13/19 25 2:38 PM EDT documented as of this encounter Care Teams Structural Layout Worker Relationship Specialty Start Date End Date Peggy Wolfe MD [address] [place] [address] PCP - General Internal Medicine 08/09/23 documented as of this encounter
--- OUTSIDE RECORDS SUMMARY | 2024-11-16 15:37 | XMS_ITS | Encounter Summary ---
Author Organization [employer] [facility] Address [address] [place] [address] 7t [place] [address] Care Team Providers Care Air Conditioning Mechanic Industrial Name Role Phone Cait Manuel LAND MANAGER Primary Care Provider [phone]- [phone] Yudith Monreal NP Primary Care Provider [phone] Peggy Wolfe MD Primary Care Provide r Encounter Details Date Type Department Care Team (Late st Contact Info) Description 01/02/2023 Abstract [facility] MEDICINE [address] [place] [address] Cait Manuel FNP [address] [place] [address] Dept [place] [address] Social History Tobacco Use Types Packs/Day Years [...] Description 01/14/2025 1:45 PM EDT Procedure Visit [facility] MEDICINE [address] [place] [address] Rhianna Vazquez CNM [address] [place] [address] 05/20/2025 10:00 AM EDT Office Visit [facility] ADULT DENTAL [address] [place], [place] [phone] Mae Zaldivar [address] [place] [address] documented as of this encounter Procedures Procedure Name Priority Date/Time Associated Diagnosis Comments COLONOSCOPY Routine 12/26/2012 documented in this encounter Results * Colonoscopy (12/26/2012) Colonoscopy Normal Normal 12/26/2012 Jami Garcia - 12/26/2012 11:09 AM EDT Recommended 10 year follow up ([facility] ) Historical Provider HEALTH MAINTENANCE Final Result documented in this encounter Visit Diagnoses Not on filedocumented in this encounter Care Teams Air Conditioning Mechanic Industrial Relationship Specialty Start Date End Date Cait Manuel FNP PCP - General Family Medicine 04/17/22 05/23/23 Yudith Monreal NP [address] [place] [address] [phone] PCP - General Family Medicine 05/24/23 08/08/23 Peggy Wolfe MD [address] [place] [address] [phone] PCP - General Internal Medicine 08/09/23 documented as of this encounter
--- OUTSIDE RECORDS SUMMARY | 2024-11-16 15:37 | XMS_ITS | Encounter Summary ---
Author Organization [employer] Address [address] [facility] [facility] [address] 7t [place] [address] Care Team Providers Care Piping Blocker Name Role Phone Peggy Wolfe MD Primary Care Provide r Reason for Visit * Reason Onset Date Comments Nurse Triage 09/16/2024 Encounter Details Date Type Department Care Team ([facility] st Contact Info) Description 09/16/2024 Telephone [facility] MEDICINE [address] [place], [place] [phone] Peggy Wolfe MD [address] [place], [place] [phone] Nurse Triage Social History Tobacco Use Types [...] 09/16/2024 10:55 AM EST Triage call with [facility] outdoor studies director [place] [id number] Pt reports urinary symptoms for several days. Burning/pain with urination, frequency , odor and flank pain, neg for fever. Pt is advised to increase liquids to 6-8 glasses daily. Pt agrees. Pt is advised to come to [facility] today to be seen by provider. Pt [...] urine (peeing) The caller accepted this outcome. [phone] (syriac) documented in this encounter Plan of Treatment Upcoming Encounters Date Type Department Care Team (Late st Contact Info) Description 01/14/2025 1:45 PM EDT Procedure Visit [facility] MED[facility]INE [address] [place] [address] Rhianna Vazquez CNM [address] [place] [address] 05/20/2025 10:00 AM EDT Office Visit [facility] ADULT DENTAL [address] [place] [address] KayleyMae [address] [place] [address] documented as of this encounter Visit Diagnoses Not on filedocumented in this encounter Additional Health Concerns Assessment Noted Time PHQ-9 Depression Total Score: 7 04/16/20 23 4:07 PM EDT documented as of this encounter Care Teams Piping Blocker Relationship Specialty Start Date End Date Peggy Wolfe MD [address] [place] [address] PCP - General Internal Medicine 08/09/23 documented as of this encounter
--- OUTSIDE RECORDS SUMMARY | 2024-11-16 15:37 | XMS_ITS | Encounter Summary ---
Author Organization [facility] Address [address] [place] [address] 7t [place] [address] Care Team Providers Care Inkjet Operator Name Role Phone Cait Manuel PATENTED HOGSHEAD ASSEMBLER Primary Care Provider [phone]- [phone] Yudith Monreal NP Primary Care Provider [phone] Peggy Wolfe MD Primary Care Provide r Encounter Details Date Type Department Care Team (Latest Contact Info) Description 06/30/2019 Abstract [facility] CONVERSIONS Dental, Provider, DDS [...] 1:45 PM EDT Procedure Visit [facility] MEDICINE [address] [place] [address] Rhianna Vazquez CNM [address] [place] [address] 05/20/2025 10:00 AM EDT Office Visit [facility] ADULT DENTAL [address] [place] [address] Mae Zaldivar [address] [place] [address] documented as of this encounter Visit Diagnoses Not on filedocumented in this encounter Care Teams Inkjet Operator Relationship Specialty Start Date End Date Cait Manuel FNP PCP - General Family Medicine 04/17/22 05/23/23 Yudith Monreal NP [address] [place] [address] PCP - General Family Medicine 05/24/23 08/08/23 Peggy Wolfe MD [address] [place] [address] PCP - General Internal Medicine 08/09/23 documented as of this encounter
--- OUTSIDE RECORDS SUMMARY | 2024-11-16 15:37 | XMS_ITS | Encounter Summary ---
Author Organization [employer] Address [address] [facility] [address] 7t [place] [address] Care Team Providers Care Abalone Sheller Name Role Phone Peggy Wolfe MD Primary Care Provide r Encounter Details Date Type Department Care Team ([facility] st Contact Info) Description 11/12/2024 Orders Only [facility] [address] [place], [place] [phone] Provider, MD Lola Social History Tobacco Use [...] Procedure Visit [facility] MEDICINE [address] [place] [address] Rhianna Vazquez CNM [address] [place] [address] 05/20/2025 10:00 AM EDT Office Visit [facility] ADULT DENTAL [address] [place] [address] Kayley, Mae [address] [place] [address] documented as of this encounter Procedures Procedure [...] documented as of this encounter Care Teams Abalone Sheller Relationship Specialty Start Date End Date Peggy Wolfe MD [address] [place] [address] PCP - General Internal Medicine 08/09/23 documented as of this encounter
--- OUTSIDE RECORDS SUMMARY | 2024-11-16 15:37 | XMS_ITS | Encounter Summary ---
Author Organization [facility] Address [address] [place], [place] [address]t [place] [address] Care Team Providers Care Signals Collector/Analyst Name Role Phone Cait Manuel Primary Care Provider [phone]- [phone] Yudith Monreal NP Primary Care Provider [phone] Peggy Wolfe MD Primary Care Provide r Reason for Visit * Reason Onset Date Comments Nurse Triage 05/15/2023 Encounter Details Date Type Department Care Team (Late st Contact Info) Description 05/15/2023 Telephone [facility] MEDICINE [address] [place] [address] Cait Manuel FNP [address] [place] [address] Dept [place] [address] Nurse Triage Social History Tobacco Use Types [...] 05/15/2023 3:05 PM EDT Triage call with Blachly Tabular Typist [id number] Pt reports sore throat that hurts every time swallowing anything. Pt is neg for fever, ear aches ordifficulty breathing. Pt doesn' t have tonsils and can't see if there is anything white in throat. Pt reports , it feels like something is in there . Advised to come to [facility] for provider to check Pt [...] accepted this outcome Please contact pt at [phone] (East Timorese) documented in this encounter Plan of Treatment Upcoming Encounters Date Type Department Care Team (Late st Contact Info) Description 01/14/2025 1:45 PM EDT Procedure Visit [facility] MEDICINE [address] [place] [address] Rhianna Vazquez CNM [address] [place] [address] 05/20/2025 10:00 AM EDT Office Visit [facility] ADULT DENTAL [address] [place] [address] Mae Zaldivar [address] [place] [address] documented as of this encounter Visit Diagnoses Not on filedocumented in this encounter Additional Health Concerns Assessment Noted Time PHQ-9 Depression Total Score: 7 04/16/20 23 4:07 PM EDT documented as of this encounter Care Teams Signals Collector/Analyst Relationship Specialty Start Date End Date Cait Manuel FNP PCP - General Family Medicine 04/17/22 05/23/23 Yudith Monreal NP [address] [place] [address] PCP - General Family Medicine 05/24/23 08/08/23 Peggy Wolfe MD [address] [place] [address] PCP - General Internal Medicine 08/09/23 documented as of this encounter
--- OUTSIDE RECORDS SUMMARY | 2024-11-16 15:37 | XMS_ITS | Encounter Summary ---
Author Organization [facility] Address [address] [place] [address] 7t [place] [address] Care Team Providers Care Research Psychologist Name Role Phone Cait Manuel SUPERVISOR ENGINE ASSEMBLY Primary Care Provider [phone]- [phone] Yudith Monreal NP Primary Care Provider [phone] Peggy Wolfe MD Primary Care Provide r Encounter Details Date Type Department Care Team (Latest Contact Info) Description 06/27/2020 Abstract [facility] CONVERSIONS Dental, Provider, DDS Social History Tobacco [...] [facility] [address] [place] [address] Rhianna Vazquez CNM [address] [place] [address] 05/20/2025 10:00 AM EDT Office Visit [facility] ADULT DENTAL [address] [place] [address] Mae Zaldivar [address] [place] [address] documented as of this encounter Visit Diagnoses Not on filedocumented in this encounter Care Teams Research Psychologist Relationship Specialty Start Date End Date Cait Manuel FNP PCP - General Family Medicine 04/17/22 05/23/23 Yudith Monreal NP [address] [place] [address] PCP - General Family Medicine 05/24/23 08/08/23 Peggy Wolfe MD [address] [place] [address] PCP - General Internal Medicine 08/09/23 documented as of this encounter
--- OUTSIDE RECORDS SUMMARY | 2024-11-16 15:37 | XMS_ITS | Encounter Summary ---
Author Organization [employer] [facility] Address [address] [place] [address] 7t [place] [address] Care Team Providers Care Scale Assembly Set Up Worker Name Role Phone Cait Manuel RESOURCE ROOM TEACHER Primary Care Provider [phone]- [phone] Yudith Monreal NP Primary Care Provider [phone] Peggy Wolfe MD Primary Care Provide r Encounter Details Date Type Department Care Team (Latest Contact Info) Description 06/29/2022 Abstract [facility] CONVERSIONS Dental, Provider, DDS Social [...] Procedure Visit [facility] MEDICINE [address] [place] [address] Rhianna Vazquez CNM [address] [place] [address] 05/20/2025 10:00 AM EDT Office Visit [facility] ADULT DENTAL [address] [place] [address] Mae Zaldivar [address] [place] [address] documented as of this encounter Visit Diagnoses Not on filedocumented in this encounter Care Teams Scale Assembly Set Up Worker Relationship Specialty Start Date End Date Cait Manuel FNP PCP - General Family Medicine 04/17/22 05/23/23 Yudith Monreal NP [address] [place] [address] PCP - General Family Medicine 05/24/23 08/08/23 Peggy Wolfe MD [address] [place] [address] PCP - General Internal Medicine 08/09/23 documented as of this encounter
--- OUTSIDE RECORDS SUMMARY | 2024-11-16 15:37 | XMS_ITS | Encounter Summary ---
Author Organization [employer] Address [address] 7[address] [place] [address] Care Team Providers Care Mva Reactor Operator Head Name Role Phone Peggy Wolfe MD Primary Care Provide r Reason for Visit * Reason Comments Med Refill Encounter Details Date Type Department Care Team ([facility] st Contact Info) Description 12/11/2023 Refill [facility] CHC MED & PEDS [address] [place], [place] [phone] Peggy Wolfe MD [address] [place] [address] Social History Tobacco Use Types Packs/Day Years [...] Description 01/14/2025 1:45 PM EDT Procedure Visit [facility] MEDICINE [address] [place] [address] Rhianna Vazquez CNM [address] [place] [address] 05/20/2025 10:00 AM EDT Office Visit [facility] ADULT DENTAL [address] [place] [address] Mae aZldivar [address] [place] [address] documented as of this encounter Visit Diagnoses Not on filedocumented in this encounter Additional Health Concerns Assessment Noted Time PHQ-9 Depression Total Score: 7 04/16/20 23 4:07 PM EDT documented as of this encounter Care Teams Mva Reactor Operator Head Relationship Specialty Start Date End Date Peggy Wolfe MD [address] [place] [address] PCP - General Internal Medicine 08/09/23 documented as of this encounter
--- OUTSIDE RECORDS SUMMARY | 2024-11-16 15:37 | XMS_ITS | Encounter Summary ---
Author Organization [employer] Address [address] [place] [address] Care Team Providers Care Cultural Anthropology Professor Name Role Phone Peggy Wolfe MD Primary Care Provide r Reason for Visit * Reason Comments Routine Cleaning Dental Exam x-rays Perio chart Encounter Details Date Type Department Care Team ([facility] st Contact Info) Description 11/12/2024 9:00 AM EDT Office Visit [facility] ADULT DENTAL [address] [place] [address] Mae Zaldivar [address] [place] [address] Missing teeth, acquired (Primary Dx); Localized gingival [...] the past 12 months, has t he [employer], gas, oil or water company threatened to [...] P. exam Dr. cleaning, Perio chart) Location: [facility] Tooth: Maxilla and Mandible Procedure: Exam, X-rays, Prophylaxis, and Perio chart Verified the above with patient, assistant professor of marine biology, and provider. Confirmed via patient's chart, intraorally and by radiographs. Airbrush Painter: not applicable Medical Hx: Vitals: Blood pressure [...] patient including brushing technique and flossing. Recommendations: [place] two times daily, modified ywnn technique, Floss daily, Electric toothbrush, Soft bristle toothbrush, [place] Tongue, Anti-sensitivity toothpaste Recall Frequency: 6 mo [...] Description 01/14/2025 1:45 PM EDT Procedure Visit [facility] MEDICINE [address] [place] [address] YusufsylwiaRhianna weber, CNM [address] [place] [address] 05/20/2025 10:00 AM EDT Office Visit [facility] ADULT DENTAL [address] [place] [address] Rocky Zaldivararis [address] [place] [address] Scheduled Orders Name Type Priority Associated Diagnoses [...] documented as of this encounter Care Teams Cultural Anthropology Professor Relationship Specialty Start Date End Date Peggy Wolfe MD [address] [place] [address] PCP - General Internal Medicine 08/09/23 documented as of this encounter
--- OUTSIDE RECORDS SUMMARY | 2024-11-16 15:37 | XMS_ITS | Encounter Summary ---
Author Organization [employer] Address [address] [place] [address] Care Team Providers Care Chief Estimator Name Role Phone Peggy Wolfe MD Primary Care Provide r Encounter Details Date Type Department Care Team ([facility] st Contact Info) Description 09/22/2024 Telephone [facility] MEDICINE [address] [place], [place] [phone] Peggy Wolfe MD [address] [place], [place] [phone] Social History Tobacco Use Types Packs/Day Years [...] Description 01/14/2025 1:45 PM EDT Procedure Visit [facility] MEDICINE [address] [place] [address] Rhianna Vazquez CNM [address] [place] [address] 05/20/2025 10:00 AM EDT Office Visit [facility] ADULT DENTAL [address] [place] [address] Mae Zaldivar [address] [place] [address] documented as of this encounter Visit Diagnoses Not on filedocumented in this encounter Additional Health Concerns Assessment Noted Time PHQ-9 Depression Total Score: 7 04/16/20 23 4:07 PM EDT documented as of this encounter Care Teams Chief Estimator Relationship Specialty Start Date End Date Peggy Wolfe MD [address] [place] [address] PCP - General Internal Medicine 08/09/23 documented as of this encounter
[2024-11-20 17:34] LABS: Vitamin D 25-OH, D2 <4 ng/mL; Vitamin D 25-OH, D3 42 ng/mL; Vitamin D 25-OH, Total 42 ng/mL (30-100)
== END 2024-11-16 13:00 | disposition home or self-care (01) ==
LOC: HO.LAB 12:59
PROVIDERS: PCP Nurse Practitioner Family; Visit Provider Nurse Practitioner Family
DX: R10.13 Epigastric pain (principal); K52.9 Noninfective gastroenteritis and colitis, unspecified; R14.0 Abdominal distension (gaseous); K21.9 Gastro-esophageal reflux disease without esophagitis; A04.8 Other specified bacterial intestinal infections; E55.9 Vitamin D deficiency, unspecified
CPT/HCPCS: 36415; 82306; 82607; 82746; 99212

== ENCOUNTER 2024-11-16 12:59 | Outpatient (AMB) | payer MEDICARE, MEDICAID, OTHER, SELFPAY ==
--- NOTE | 2024-11-16 13:17 | A.OFFVIS_ITS ---
Vital Signs 11/16/24 13:18 Height 5 ft 2 in Weight 161 lb BMI 29.4 BP 120/70 Blood Pressure Location Lt brachial Position Sitting Pulse 82 Pulse Oximetry (%) 97 Oxygen Delivery Method Room Air Intake Visit Reasons: 3 month follow up r/s 08/25/24 Intake Note: Patient 6 month follow up for GERD. Patient cc: abdominal pain and diarrhea. Denies any other GI issues for today visit. Plastics Plater Required: Yes Accompanied by: Self / Same As Patient Allergies No Known Allergies Allergy (Verified 11/16/24 13:17) HPI HPI 3 month follow up r/s 08/25/24: Details: LAST VISIT: Postprandial epigastric pain GERD (gastroesophageal reflux disease) Helicobacter pylori (H. pylori) Postprandial diarrhea Postprandial abdominal bloating Plan Patient will stop pantoprazole. Will send her script for Nexium. Continue famotidine at bedtime. Patient was encouraged to avoid dietary triggers and late night snacking. Staying upright for minimum 3 hours after meals discussed with patient. Patient was encouraged to take probiotics. Increase fiber to help her bulk stools. Increase fluid intake and activity to promote better bowel motility. Patient will follow-up in the office in 3 months, sooner on as needed basis. She is agreeable to this plan and verbalizes understanding of instructions. She was given the opportunity to ask questions and all questions answered. ? Thank you for allowing me to participate in her care Medications New esomeprazole magnesium (Nexium) 40 mg PO DAILY 30 caps 5RF K21.9 Discontinued wqlefmrpch-fmafqztlq-zhktfmyew 10-250-12.5 mg must administer with a meal/food Discontinued Reason: Patient Completed Course 4 caps (4 x 10-250-12.5 mg) PO Q8H 14 days 168 ea 0RF A04.8 pantoprazole Discontinued Reason: Doctor's Order 20 mg PO DAILY 90 tabs 2RF prochlorperazine Discontinued Reason: Patient no longer taking 25 mg CO DAILY PRN 12 ea 0RF nausea and vomiting sucralfate Discontinued Reason: Patient no longer taking 1 g PO BEDTIME 90 tabs 1RF R10.13 TODAY'S VISIT Patient is here today for follow-up. Patient reports that no longer is experiencing epigastric pain with acid reflux. Symptoms are controlled with Nexium and famotidine. Patient is also avoiding dietary triggers and reports to be feeling well. However patient does admit to have occasional abdominal bloating occasional diarrhea and then constipation. Patient reports that this happens depending on what she eats. Denies any melena, hematochezia, unintentional weight loss or ribbon like stools. History of H pylori in the past treated with negative breath test after 2 rounds of treatment. Patient denies dyspepsia, dysphagia or odynophagia. Patient denies any other GI concerning symptoms. [facility] Medical History Elevated cholesterol Allergic rhinitis Anxiety Depression Fibromyalgia Helicobacter pylori (H. pylori) infection Surgical History Hx of tubal ligation Hx of abdominoplasty Hx of breast augmentation History of esophagogastroduodenoscopy (EGD) History of bunionectomy H/O colonoscopy Hx of tonsillectomy Family History Mother HTN (hypertension) Heart disease Diabetes Fibromyalgia Arthritis Father Arthritis Maternal Aunt Heart disease Diabetes HTN (hypertension) Maternal Uncle Heart disease Social History Household Members: Other Alcohol intake: never Patient Tobacco Use Status: Never used Tobacco Review of Systems Const Denies weight gain and Denies weight loss ENT Reports no additional complaints, Denies dysphagia and Denies odynophagia Card Reports no additional complaints Resp Reports no additional complaints GI Reports abdominal pain (LLQ), Denies belching, Denies melena, Reports bloating, Denies change in bowel habits, Reports constipation, Denies dysphagia, Denies excessive flatus, Denies dyspepsia, Denies heartburn, Denies diarrhea, Reports loose stools, Denies nausea, Denies odynophagia and Denies vomiting Reports no additional complaints Musc Reports no additional complaints Neuro Reports no additional complaints Psych Reports no additional complaints Endo Reports no additional complaints Physical Exam Vital Signs: Last Vital Signs Pulse 82 11/16/24 13:18 BP 120/70 11/16/24 13:18 Pulse Ox 97 11/16/24 13:18 Oxygen Delivery Method Room Air 11/16/24 13:18 BMI result Body Mass Index 29.4 Const General: healthy appearing and no acute distress Nutritional Appearance: obese Orientation/consciousness: patient oriented x3 Resp Effort & Inspection: normal respiratory effort, able to speak in complete sentences, no tracheal deviation and symmetric chest movement Auscultation: clear to auscultation bilaterally Cardio Rate: regular rate GI Inspection: Yes normal to inspection, No distended and Yes obesity Palpation (GI): Soft to palpation, not firm, nontender and No hepatosplenomegaly present Auscultation: normal bowel sounds General: Yes no CVA tenderness Back/Spine/Pelvis Back: no CVA tenderness Skin General skin exam: elasticity normal, turgor normal and dry skin Neuro General: patient oriented x3 Psych Appearance: grossly normal Mental Status: mental status grossly normal Assessment & Plan Assessment & Plan (1) Postprandial epigastric pain: Code(s): R10.13 - Epigastric pain (2) GERD (gastroesophageal reflux disease): Code(s): K21.9 - Gastro-esophageal reflux disease without esophagitis Qualifiers: Esophagitis presence: without esophagitis Qualified Code(s): K21.9 - Gastro-esophageal reflux disease without esophagitis (3) Helicobacter pylori (H. pylori): Code(s): A04.8 - Other specified bacterial intestinal infections (4) Postprandial diarrhea: Code(s): K52.9 - Noninfective gastroenteritis and colitis, unspecified (5) Postprandial abdominal bloating: Code(s): R14.0 - Abdominal distension (gaseous) Plan Will check vitamin B12, folate, vitamin-D level. Patient continues to have postprandial abdominal bloating and occasional loose stools. Will have patient take fiber supplements. We recommended changing her diet to possibly follow FODMAP diet. List of recommended as well as list of food to avoid given to patient. Patient will follow-up in 6 months, sooner on as needed basis. She is agreeable to this plan and verbalizes understanding of instructions. She was given the opportunity to ask questions and all questions answered. Thank you for allowing me to participate in her care Orders: Orders Vitamin B12 and Folate 11/16/24 R19.7 - Diarrhea, unspecified Vitamin D 25-OH (D2 and D3) 11/16/24 E55.9 - Vitamin D deficiency, unspecified Medications: New methylcellulose (laxative) (Citrucel) take it with full glass of water 500 mg PO DAILY 90 tabs 2RF K59.00 - Constipation, unspecified Changed From famotidine 20 mg PO DAILY PRN 90 tabs 1RF for acid reflux K21.9 - Gastro- esophageal reflux disease without esophagitis To famotidine 20 mg PO DAILY 90 tabs 2RF for acid reflux K21.9 - Gastro- esophageal reflux disease without esophagitis Refilled esomeprazole magnesium (Nexium) 40 mg PO DAILY 90 caps 3RF K21.9 - Gastro- esophageal reflux disease without esophagitis Coding Level of Care Code Est Pt Level 4 (21095) Complex EM visit Add On G2211 Diagnoses Postprandial epigastric pain R10.13 Gastroesophageal reflux disease without esophagitis K21.9 Esophagitis presence: without esophagitis Helicobacter pylori (H. pylori) A04.8 Postprandial diarrhea K52.9 Postprandial abdominal bloating R14.0 Time Spent (min) 35 Comment 20 minutes spent with patient and additional 15 minutes spent reviewing her records
[2024-11-16 13:18] VITALS: BP 120/70; PULSE 82; O2SAT 97; BMI 29.4
--- OUTSIDE RECORDS SUMMARY | 2024-11-16 14:36 | XMS_ITS | Encounter Summary ---
Author Organization [employer] [facility] Address [address] [place] [address] 7t [place] [address] Care Team Providers Care Intercell Connector Placer Name Role Phone Cait Manuel CELL REPAIRER Primary Care Provider +1- [phone] Yudith Monreal NP Primary Care Provider [phone] Peggy Wolfe MD Primary Care Provide r Encounter Details Date Type Department Care Team (Latest Contact Info) Description 06/29/2022 Abstract [facility] CONVERSIONS Dental, Provider, DDS Social History [...] Description 01/14/2025 1:45 PM EDT Procedure Visit [facility] MEDICINE [address] [place] [address] Rhianna Vazquez CNM [address] [place] [address] 05/20/2025 10:00 AM EDT Office Visit [facility] ADULT DENTAL [address] [place] [address] Mae Zaldivar [address] [place] [address] documented as of this encounter Visit Diagnoses Not on filedocumented in this encounter Care Teams Intercell Connector Placer Relationship Specialty Start Date End Date Cait Manuel FNP PCP - General Family Medicine 04/17/22 05/23/23 Yudith Monreal NP [address] [place] [address] PCP - General Family Medicine 05/24/23 08/08/23 Peggy Wolfe MD [address] [place] [address] PCP - General Internal Medicine 08/09/23 documented as of this encounter
--- OUTSIDE RECORDS SUMMARY | 2024-11-16 14:36 | XMS_ITS | Encounter Summary ---
Author Organization [employer] [facility] Address [address] [place] [address] 7t [place] [address] Care Team Providers Care Keyliner Name Role Phone Cait Manuel WAXING MACHINE OPERATOR Primary Care Provider [phone]- [phone] Yudith Monreal NP Primary Care Provider [phone] Peggy Wolfe MD Primary Care Provide r Encounter Details Date Type Department Care Team (Late st Contact Info) Description 01/02/2023 Abstract [facility] MEDICINE [address] [place] [address] Cait Manuel FNP [address] [place] [address] Dept [place] [address] Social History Tobacco Use Types Packs/Day Years [...] 1:45 PM EDT Procedure Visit [facility] MEDICINE [address] [place] [address] Rhianna Vazquez CNM [address] [place] [address] 05/20/2025 10:00 AM EDT Office Visit [facility] ADULT DENTAL [address] [place], [place] [phone] Mae Zaldivar [address] [place] [address] documented as of this encounter Procedures Procedure Name Priority Date/Time Associated Diagnosis Comments COLONOSCOPY Routine 12/26/2012 documented in this encounter Results * Colonoscopy (12/26/2012) Colonoscopy Normal Normal 12/26/2012 Jami Garcia - 12/26/2012 11:09 AM EDT Recommended 10 [place] [place] Historical Provider HEALTH MAINTENANCE Final Result documented in this encounter Visit Diagnoses Not on filedocumented in this encounter Care Teams Keyliner Relationship Specialty Start Date End Date Cait Manuel FNP PCP - General Family Medicine 04/17/22 05/23/23 Yudith Monreal NP [address] [place] [address] [id number] PCP - General Family Medicine 05/24/23 08/08/23 Peggy Wolfe MD [address] [place] [address] [id number] PCP - General Internal Medicine 08/09/23 documented as of this encounter
--- OUTSIDE RECORDS SUMMARY | 2024-11-16 14:36 | XMS_ITS | Encounter Summary ---
Author Organization [employer] Address [address] 7t [place] [address] Care Team Providers Care Bone Char Puller Name Role Phone Peggy Wolfe MD Primary [...] Description 01/14/2025 1:45 PM EDT Procedure Visit [facility] MEDICINE [address] [place] [address] Rhianna Vazquez CNM [address] [place] [address] 05/20/2025 10:00 AM EDT Office Visit [facility] ADULT DENTAL [address] [place] [address] Rocky Zaldivararis [address] [place] [address] documented as of this encounter Visit Diagnoses Not on filedocumented in this encounter Additional Health Concerns Assessment Noted Time PHQ-9 Depression Total Score: 8 11/13/19 25 2:38 PM EDT documented as of this encounter Care Teams Bone Char Puller Relationship Specialty Start Date End Date Peggy Wolfe MD [address] [place] [address] PCP - General Internal Medicine 08/09/23 documented as of this encounter
--- OUTSIDE RECORDS SUMMARY | 2024-11-16 14:36 | XMS_ITS | Encounter Summary ---
Author Organization [employer] [facility] Address [address] [place], [place] [address]t [place] [address] Care Team Providers Care Aircraft Log Clerk Name Role Phone Cait Manuel Primary Care Provider [phone] Yudith Monreal NP Primary Care Provider [phone] Peggy Wolfe MD Primary Care Provide r Reason for Visit * Reason Onset Date Comments Nurse Triage 05/15/2023 Encounter Details Date Type Department Care Team (Late st Contact Info) Description 05/15/2023 Telephone [facility] MEDICINE [address] [place] [address] Cait Manuel FNP [address] [place] [address] Dept [place] [address] Nurse Triage Social History Tobacco Use Types [...] 05/15/2023 3:05 PM EDT Triage call with [employer] A/C Technician [id number] Pt reports sore throat that hurts every time swallowing anything. Pt is neg for fever, ear aches ordifficulty breathing. Pt doesn' t have tonsils and can't see if there is anything white in throat. Pt reports , it feels like something is in there . Advised to come to [facility] for provider to check Pt [...] accepted this outcome Please contact pt at [phone] ([place] Citizen) documented in this encounter Plan of Treatment Upcoming Encounters Date Type Department Care Team (Late st Contact Info) Description 01/14/2025 1:45 PM EDT Procedure Visit [facility] MEDICINE [address] [place] [address] Rhianna Vazquez CNM [address] [place] [address] 05/20/2025 10:00 AM EDT Office Visit [facility] ADULT DENTAL [address] [place] [address] Mae Zaldivar [address] [place] [address] documented as of this encounter Visit Diagnoses Not on filedocumented in this encounter Additional Health Concerns Assessment Noted Time PHQ-9 Depression Total Score: 7 04/16/20 23 4:07 PM EDT documented as of this encounter Care Teams Aircraft Log Clerk Relationship Specialty Start Date End Date Cait Manuel FNP PCP - General Family Medicine 04/17/22 05/23/23 Yudith Monreal NP [address] [place] [address] PCP - General Family Medicine 05/24/23 08/08/23 Peggy Wolfe MD [address] [place] [address] PCP - General Internal Medicine 08/09/23 documented as of this encounter
--- OUTSIDE RECORDS SUMMARY | 2024-11-16 14:36 | XMS_ITS | Encounter Summary ---
Author Organization [employer] [facility] Address [address] [place] [address] 7t [place] [address] Care Team Providers Care Insurance Claims Assistant Name Role Phone Cait Manuel MICROBIOLOGY PROFESSOR Primary Care Provider [phone]- [phone] Yudith Monreal NP Primary Care Provider [phone] Peggy Wolfe MD Primary Care Provide r Encounter Details Date Type Department Care Team (Latest Contact Info) Description 06/27/2020 Abstract [facility] CONVERSIONS Dental, Provider, DDS Social History [...] Description 01/14/2025 1:45 PM EDT Procedure Visit [facility] MEDICINE [address] [place] [address] Rhianna Vazquez CNM [address] [place] [address] 05/20/2025 10:00 AM EDT Office Visit [facility] ADULT DENTAL [address] [place] [address] Mae Zaldivar [address] [place] [address] documented as of this encounter Visit Diagnoses Not on filedocumented in this encounter Care Teams Insurance Claims Assistant Relationship Specialty Start Date End Date Cait Manuel FNP PCP - General Family Medicine 04/17/22 05/23/23 Yudith Monreal NP [address] [place] [address] PCP - General Family Medicine 05/24/23 08/08/23 Peggy Wolfe MD [address] [place] [address] PCP - General Internal Medicine 08/09/23 documented as of this encounter
--- OUTSIDE RECORDS SUMMARY | 2024-11-16 14:36 | XMS_ITS | Encounter Summary ---
Author Organization [employer] Address [address] 7[address] [place] [address] Care Team Providers Care Electronic Semiconductor Processor Name Role Phone Peggy Wolfe MD Primary Care Provide r Encounter Details Date Type Department Care Team ([facility] st Contact Info) Description 11/12/2024 Orders Only [facility] MED & PEDS [address] [place], [place] [id number] Provider, MD Lola Social History Tobacco Use [...] Procedure Visit [facility] MEDICINE [address] [place] [address] Rhianna Vazquez CNM [address] [place] [address] 05/20/2025 10:00 AM EDT Office Visit [facility] ADULT DENTAL [address] [place] [address] Kayley, Mae [address] [place] [address] documented as of this encounter Procedures Procedure [...] documented as of this encounter Care Teams Electronic Semiconductor Processor Relationship Specialty Start Date End Date Peggy Wolfe MD [address] [place] [address] PCP - General Internal Medicine 08/09/23 documented as of this encounter
--- OUTSIDE RECORDS SUMMARY | 2024-11-16 14:36 | XMS_ITS | Encounter Summary ---
Author Organization [employer] [facility] Address [address] [place] [address] 7t [place] [address] Care Team Providers Care Card Game Operator Name Role Phone Cait Manuel MARKETING TECHNOLOGIST Primary Care Provider [phone]- [phone] Yudith Monreal NP Primary Care Provider [phone] Peggy Wolfe MD Primary Care Provide r Encounter Details Date Type Department Care Team (Latest Contact Info) Description 12/25/2018 Abstract [facility] CONVERSIONS Dental, Provider, DDS Social [...] Description 01/14/2025 1:45 PM EDT Procedure Visit [facility] MEDICINE [address] [place] [address] Rhianna Vazquez CNM [address] [place] [address] 05/20/2025 10:00 AM EDT Office Visit [facility] ADULT DENTAL [address] [place] [address] Mae Zaldivar [address] [place] [address] documented as of this encounter Visit Diagnoses Not on filedocumented in this encounter Care Teams Card Game Operator Relationship Specialty Start Date End Date Cait Manuel FNP PCP - General Family Medicine 04/17/22 05/23/23 Yudith Monreal NP [address] [place] [address] PCP - General Family Medicine 05/24/23 08/08/23 Peggy Wolfe MD [address] [place] [address] PCP - General Internal Medicine 08/09/23 documented as of this encounter
--- OUTSIDE RECORDS SUMMARY | 2024-11-16 14:36 | XMS_ITS | Encounter Summary ---
Author Organization [employer] Address [address] [facility] 7t [place] [address] Care Team Providers Care Clerk Cashier Name Role Phone Cait Manuel MILL OPERATOR HELPER Primary Care Provider [phone]- [phone] Yudith Monreal NP Primary Care Provider [phone] Peggy Wolfe MD Primary Care Provide r Encounter Details Date Type Department Care Team (Late st Contact Info) Description 05/22/[address] [facility] MEDICINE [address] [place] [address] Cait Manuel FNP [address] [facility] [place] [address] Social History Tobacco Use Types Packs/Day Years [...] 3:49 PM EDT T/C to pt. Through [employer] id - [id number] for below message, pt. States she already apt. On 05/30/2023 at [facility] [place]. Pt. Is al set. Pt. Advised to give call on [phone] if any questions or concerns. Pt. Verbally agreed and understood. * Telephone Encounter - Merry Gillespie - 05/22/2023 4:15 PM EDT Tc from pt requesting a new order for nerve test on left leg. Any questions, please contact pt at [phone] (Samoan) documented in this encounter Plan of Treatment Upcoming Encounters Date Type Department Care Team (Late st Contact Info) Description 01/14/2025 1:45 PM EDT Procedure Visit [facility] MEDICINE [address] [place] [address] Rhianna Vazquez CNM [address] [place] [address] 05/20/2025 10:00 AM EDT Office Visit [facility] ADULT DENTAL [address] [place] [address] Mae Zaldivar [address] [place] [address] documented as of this encounter Visit Diagnoses Not on filedocumented in this encounter Additional Health Concerns Assessment Noted Time PHQ-9 Depression Total Score: 7 04/16/20 23 4:07 PM EDT documented as of this encounter Care Teams Clerk Cashier Relationship Specialty Start Date End Date Cait Manuel FNP PCP - General Family Medicine 04/17/22 05/23/23 Yudith Monreal NP [address] [place] [address] PCP - General Family Medicine 05/24/23 08/08/23 Peggy Wolfe MD [address] [place] [address] PCP - General Internal Medicine 08/09/23 documented as of this encounter
--- OUTSIDE RECORDS SUMMARY | 2024-11-16 14:36 | XMS_ITS | Encounter Summary ---
Author Organization [employer] [facility] Address [address] [place] [address] 7t [place] [address] Care Team Providers Care Animal Taxonomist Name Role Phone Cait Manuel ELECTRONIC SCALE TESTER Primary Care Provider [phone]- [phone] Yudith Monreal NP Primary Care Provider [phone] Peggy Wolfe MD Primary Care Provide r Encounter Details Date Type Department Care Team (Latest Contact Info) Description 06/30/2019 Abstract [facility] CONVERSIONS Dental, Provider, DDS Social History [...] 1:45 PM EDT Procedure Visit [facility] MEDICINE [address] [place] [address] Rhianna Vazquez CNM [address] [place] [address] 05/20/2025 10:00 AM EDT Office Visit [facility] ADULT DENTAL [address] [place] [address] Mae Zaldivar [address] [place] [address] documented as of this encounter Visit Diagnoses Not on filedocumented in this encounter Care Teams Animal Taxonomist Relationship Specialty Start Date End Date Cait Manuel FNP PCP - General Family Medicine 04/17/22 05/23/23 Yudith Monreal NP [address] [place] [address] PCP - General Family Medicine 05/24/23 08/08/23 Peggy Wolfe MD [address] [place] [address] PCP - General Internal Medicine 08/09/23 documented as of this encounter
--- OUTSIDE RECORDS SUMMARY | 2024-11-16 14:36 | XMS_ITS | Encounter Summary ---
Author Organization [employer] [facility] Address [address] [place] [address] [place] [address] Care Team Providers Care Welding Manager Name Role Phone Cait Manuel Primary Care Provider [phone]- [phone] Yudith Monreal NP Primary Care Provider [phone] Peggy Wolfe MD Primary Care Provide r Reason for Visit * Reason Comments Med Refill Encounter Details Date Type Department Care Team (Late st Contact Info) Description 03/24/2023 Refill [facility] MEDICINE [address] [place] [address] Cait Manuel FNP [address] [place] [address] Dept [place] [address] Social History Tobacco Use Types Packs/Day Years [...] Description 01/14/2025 1:45 PM EDT Procedure Visit [facility] MEDICINE [address] [place] [address] Rhianna Vazquez CNM [address] [place], [place] [phone] 05/20/2025 10:00 AM EDT Office Visit [facility] ADULT DENTAL [address] [place] [address] Mae Zaldivar [address] [place], [place] [phone] documented as of this encounter Visit Diagnoses Not on filedocumented in this encounter Care Teams Welding Manager Relationship Specialty Start Date End Date Cait Manuel FNP PCP - General Family Medicine 04/17/22 05/23/23 Yudith Monreal NP [address] [place] [address] PCP - General Family Medicine 05/24/23 08/08/23 Peggy Wolfe MD [address] [place] [address] PCP - General Internal Medicine 08/09/23 documented as of this encounter
--- OUTSIDE RECORDS SUMMARY | 2024-11-16 14:36 | XMS_ITS | Encounter Summary ---
Author Organization [employer] Address [address] [place] [address] Care Team Providers Care Revenue Integrity Analyst Name Role Phone Peggy Wolfe MD Primary Care Provide r Reason for Visit * Reason Comments Med Refill Encounter Details Date Type Department Care Team ([facility] st Contact Info) Description 12/11/2023 Refill [facility] MED & PEDS [address] [place], [place] [phone] Peggy Wolfe MD [address] [place] [address] Social History Tobacco Use Types Packs/Day Years [...] 01/14/2025 1:45 PM EDT Procedure Visit [facility] MEDICINE [address] [place] [address] Rhianna Vazquez CNM [address] [place] [address] 05/20/2025 10:00 AM EDT Office Visit [facility] ADULT DENTAL [address] [place] [address] Mae Zaldivar [address] [place] [address] documented as of this encounter Visit Diagnoses Not on filedocumented in this encounter Additional Health Concerns Assessment Noted Time PHQ-9 Depression Total Score: 7 04/16/20 23 4:07 PM EDT documented as of this encounter Care Teams Revenue Integrity Analyst Relationship Specialty Start Date End Date Peggy Wolfe MD [address] [place] [phone] PCP - General Internal Medicine 08/09/23 documented as of this encounter
--- OUTSIDE RECORDS SUMMARY | 2024-11-16 14:36 | XMS_ITS | Encounter Summary ---
Author Organization [employer] [facility] Address [address] [place] [address] 7t [place] [address] Care Team Providers Care Monitoring Engineer Name Role Phone Cait Manuel PRINTING MACHINE MECHANIC Primary Care Provider [phone] Yudith Monreal NP Primary Care Provider [phone] Peggy Wolfe MD Primary Care Provide r Encounter Details Date Type Department Care Team (Latest Contact Info) Description 02/06/2022 Abstract [facility] CONVERSIONS Dental, Provider, DDS Social [...] Description 01/14/2025 1:45 PM EDT Procedure Visit [facility] MEDICINE [address] [place] [address] Rhianna Vazquez CNM [address] [place] [address] 05/20/2025 10:00 AM EDT Office Visit [facility] ADULT DENTAL [address] [place] [address] Mae Zaldivar [address] [place] [address] documented as of this encounter Visit Diagnoses Not on filedocumented in this encounter Care Teams Monitoring Engineer Relationship Specialty Start Date End Date Cait Manuel FNP PCP - General Family Medicine 04/17/22 05/23/23 Yudith Monreal NP [address] [place] [address] PCP - General Family Medicine 05/24/23 08/08/23 Peggy Wolfe MD [address] [place] [address] PCP - General Internal Medicine 08/09/23 documented as of this encounter
--- OUTSIDE RECORDS SUMMARY | 2024-11-16 14:36 | XMS_ITS | Encounter Summary ---
Author Organization [employer] Address [address] [place] [address] Care Team Providers Care Room Clerk Name Role Phone Peggy Wolfe MD Primary Care Provide r Reason for Visit * Reason Comments Annual Exam Encounter Details Date Type Department Care Team ([facility] st Contact Info) Description 11/12/2024 2:45 PM EDT Office Visit [facility] MEDICINE [address] [place], [place] [phone] Peggy Wolfe MD [address] [place] [address] Right flank pain; Mixed hyperlipidemia; Mild intermittent [...] in this encounter Progress Notes * Peggy uDbon MD - 11/12/2024 2:45 PM EDT SUBJECTIVE: Karly Davila is a 64 y.o. year old female who presents for comprehensive. Occupation:retired Lives with:alone Social Hx: denies drinking EtOH, denies smoking cigarettes and denies recreational drug use. Diet:regular Exercise:sedentary Pap Smear:due on 01/14/2025 Colonoscopy:patient reports is up to date she is being follow by GI I will get records at [facility] Mammogram up to date Eye Care:up to date Dental Care:up to date PMHx:see below Immunizations: Up to date Acute Concerns: Patient reports that she has been having right flank pain, she also has been having dysuria, urinary frequency and urgency, reports she has strong family history of kidney stones, she was seen in [facility] for the flank pain recently Social [...] acquired Seborrheic dermatitis Inadequate occlusion of dental bahai Rash Elevated BP without diagnosis of hypertension [...] 01/14/2025 1:45 PM EDT Procedure Visit [facility] MEDICINE [address] [place] [address] Rhianna Vazquez CNM [address] [place] [address] 05/20/2025 10:00 AM EDT Office Visit [facility] ADULT DENTAL [address] [place] [address] Mae Zaldivar [address] [place] [address] documented as of this encounter Procedures Procedure Name Priority Date/Time Associated Diagnosis Comments TSH W/REFLEX TO FT4 Routine 11/13/2024 8 :27 AM EDT Mixed hyperlipidemia CBC WITH AUTO DIFFERENTIAL Routine 11/13/2024 8:27 AM EDT Mixed hyperlipidemia HEPATITIS C AB W/REFL TO HCV RNA, QN, PCR Routine 11/13/2024 8:27 AM EDT Mixed hyperlipidemia LIPID PANEL, STANDARD Routine 11/13/2024 8:27 AM EDT Mixed hyperlipidemia COMPREHENSIVE METABOLIC PANEL Routine 11/13/2024 8:27 AM EDT Mixed hyperlipidemia POCT URINALYSIS DIPSTICK Routine 11/12/2024 3:49 PM EDT Right flank pain Dysuria XR KUB AND UPRIGHT 2 VIEWS Routine 11/12/2024 3:32 PM EDT Right flank pain CULTURE, URINE, ROUTINE Routine 11/12/2024 3:28 PM EDT Dysuria documented in this encounter Results * TSH with Reflex to Free T4 (11/13/2024 8:27 AM EDT) TSH reflex Free T4 2.12 0.32 - 4.0 uIU/mL [facility] Blood Venous blood specimen / Unknown 11/13/2024 8:27 AM EDT 11/13/2024 11:39 AM EDT us Peggy Dubon MD LAB BLOOD ORDERABLES Final Result [facility] [address] [place], [place] [phone] * (ABNORMAL) Lipid Panel, Standard (11/13/2024 8:27 AM EDT) Triglycerides 303(H) <150 mg/dL [facility] Comment:Desirable Triglyceri de: less than 150 mg/dLBorderline High Triglyceride 150-199 mg/dLHigh Triglyceride: 200-499 mg/dLVery High Triglyceride: greater than or equal to 5OO mg/dL Cholesterol 195 <200 mg/dL [facility] Comment:Desirable Cholestero l: less than 200 mg/dLBorderline High Cholesterol: 200-239 mg/dLHigh Cholesterol: greater than 239 mg/dL LDL Cholesterol Calculated 95 <100 mg/dL [facility] Comment:Desirable LDL: less than 100 mg/dLNear Optimal/Above Optimal LDL: 110- 129 mg/dLBorderline High LDL: 130-159 mg/dLHigh LDL: 160-189 mg/dLVery High LDL: greater than or equal to 190 mg/dL HDL Cholesterol 40(L) >40 mg/dL [facility] Comment:Desirable HDL: great er than 40 mg/dL Note: This HDL assay may give artificially low results in patients with liver disease. Blood Venous blood specimen / Unknown 11/13/2024 8:27 AM EDT 11/13/2024 11:39 AM EDT us Peggy Dubon MD LAB BLOOD ORDERABLES Final Result Performing Organization Address [facility]/ZIP Co de Phone Number [facility] [address] [place] [phone] * Hepatitis C Antibody with Reflex to HCV, RNA, Quantitative, Real-Time PCR (11/13/2024 8:27 AM EDT) Hepatitis C Antibody Nonreactive Nonreactive [facility] Comment:Antibodies to HCV no t detected; does not exclude early acuteHCV infection. Blood Venous blood specimen / Unknown 11/13/2024 8:27 AM EDT 11/13/2024 11:39 AM EDT us Peggy Dubon MD LAB BLOOD ORDERABLES Final Result Performing Organization Address City/[facility]/ZIP Co de Phone Number [facility] [address] [place] [phone] * (ABNORMAL) Comprehensive Metabolic Panel (11/13/2024 8:27 AM EDT) Sodium 141 135 - 145 mmol/L [facility] Potassium 4.0 3.3 - 5.1 mmol/L [facility] Chloride 111(H) 96 - 108 mmol/L [facility] Carbon Dioxide 23 22 - 29 mmol/L [facility] Anion Gap 11(L) 12 - 20 [facility] Urea Nitrogen (BUN) 16 9 - 16 mg/dL [facility] Creatinine, Serum 0.73 0.5 - 1.4 mg/dL [facility] Estimated Glomerular Filt Rate >60 [facility] Comment:Chronic Kidney Disea se: Estimated GFR < 60 mL/min/1.35h2Dwgizx Kidney Disease: Estimated GFR < 15 mL/min/1.73m2 Glucose 87 60 - 115 mg/dL [facility] Calcium 9.5 8.4 - 10.2 mg/dL [facility] Bilirubin, Total 0.5 0.0 - 1.0 mg/dL [facility] Aspartate Amino Transferase 28 5 - 31 U/L [facility] Alanine Aminotransferase 34(H) 0 - 31 U/L [facility] Total Protein 7.2 6.5 - 8.0 g/dL [facility] Albumin Level 4.2 3.5 - 5.0 g/dL [facility] Alkaline Phosphatase 100 39 - 117 U/L [facility] Blood Venous blood specimen / Unknown 11/13/2024 8:27 AM EDT 11/13/2024 11:39 AM EDT us Peggy Dubon MD LAB BLOOD ORDERABLES Final Result [facility] [address] [place] [phone] * (ABNORMAL) CBC auto differential (11/13/2024 8:27 AM EDT) White Blood Count 5.2 4.8 - 10.8 X10*3/uL [facility] Red Blood Count 4.88 4.20 - 5.50 X10*6/uL [facility] Hemoglobin 14.1 12.0 - 16.0 g/dl [facility] Hematocrit 41.4 37.0 - 47.0 % [facility] Mean Corpuscular Volume 84.8 80.0 - 98.0 fL [facility] Mean Corpuscular Hemoglobin 28.9 27.0 - 33.0 pg [facility] Mean Corpuscular HGB Conc 34.1 31.0 - 35.0 g/dl [facility] Red Cell Distribution Width 14.1 11.0 - 16.0 % [facility] Platelet Count 302 160 - 400 X10*3/uL [facility] Mean Platelet Volume 11.0 9.4 - 12.3 fL [facility] Neutrophils Percent Auto 52.2 45 - 73 % [facility] Imm Gran Pct Auto 0.8(H) 0.0 - 0.4 % [facility] Lymphocytes Percent Auto 38.5 20 - 40 % [facility] Monocytes Percent Auto 6.0 2 - 11 % [facility] Eosinophils Percent Auto 1.9 0 - 4 % [facility] Basophils Percent Auto 0.6 0 - 2 % [facility] NRBC Pct Auto 0.0 0.0 - 0.2 /100WBC [facility] Neutrophils Absolute Auto 2.7 2.0 - 8.3 x10*3/uL [facility] Imm Gran Abs Auto 0.04(H) 0.00 - 0.03 X10*3/uL [facility] Lymphocytes Absolute Auto 2.0 1.2 - 4.9 X10*3/uL [facility] Monocytes Absolute Auto 0.3 0.1 - 1.2 X10*3/uL [facility] Eosinophils Absolute Auto 0.1 0.0 - 0.4 X10*3/uL [facility] Basophils Absolute Auto 0.0 0.0 - 0.2 X10*3/uL [facility] NRBC Abs Auto 0.000 0.0 - 0.012 X10*3/uL [facility] Blood Venous blood specimen / Unknown 11/13/2024 8:27 AM EDT 11/13/2024 11:39 AM EDT us Peggy Dubon MD LAB BLOOD ORDERABLES Final Result [facility] [address] [place] [phone] [phone] * (ABNORMAL) POCT Urinalysis (11/12/2024 3:49 PM [...] PM EDT Narrative 11/12/2024 4:02 PM EDT ?[facility] ?[address] ?[place] [address] ?XRay Report ? Signed ? Patient: Giovanni,Karly ?MR#: [id number] ?? [id number] ? : 1960 ?Acct:[id number] ? Age/Sex: 64 / F ?ADM Date: /27/25 ? Loc: HO.HHCX ? Attending Dr: Peggy Dubon MD ? Ordering Physician: Peggy Wolfe MD ?? Date of Service: 11/12/24 ?? Procedure(s): XR KUB ?? Accession Number(s): [id number] ? cc: Peggy Wolfe MD ? EXAMINATION: [...] DD/ 1532 ? TD/TT: 11/12/24 1556 ? Neonatal Social Worker: ? Procedure Note Isidro, Lesly - 11/12/[address] [address] XRay Report Signed Patient: Cisco DavilaR#: [id number] : 1960cct:[id number] Age/Sex: 64 / FADM Date: 11/12/24 Loc: HO.HHCX Attending Dr: Peggy Dubon MD Ordering Physician: Peggy Wolfe MD Date of Service: 11/12/24 Procedure(s): XR KUB Accession Number(s): [id number] cc: Peggy Wolfe MD EXAMINATION: XR ABDOMEN [...] Gee Mcnally MD 11/12/2024 03:59 PM EDT Dictated By: Gee Mcnally MD Signed By: <Electronically signed by Gee Mcnally MD in OV> 11/12/24 1559 DD/ 1532 TD/TT: 11/12/24 1556 Neonatal Social Worker: us Peggy Dubon MD IMG XR PROCEDURES Fin al Result * Culture, Urine, Routine (11/12/2024 3:28 PM EDT) Urine Urine specimen obtained by clean catch procedure / Unknown 11/12/2024 3:28 PM EDT 11/12/2024 6:26 PM EDT Comment:UACC Narrative [facility] - 11/14/2024 10:39 AM EDT Urine Culture Report Result Urine Culture > 100,000 cfu/ml Urine Culture Mixed bacterial merry characteristic of Urine Culture urogenital contamination. Specimen Source: Urine clean catch us Peggy Dubon MD LAB MICROBIOLOGY - GE NERAL ORDERABLES Final Result [facility] [address] [place] [phone] documented in this encounter Visit Diagnoses Diagnosis Right flank pain Abdominal pain, unspecified site Mixed hyperlipidemia Mild intermittent asthma without complication Allergic rhinitis, unspecified seasonality, unspecified trigger Fibromyositis Unspecified myalgia and myositis Dysuria documented in this encounter Additional Health Concerns Assessment Noted Time PHQ-9 Depression Total Score: 8 11/13/19 25 2:38 PM EDT documented as of this encounter Care Teams Room Clerk Relationship Specialty Start Date End Date Peggy Wolfe MD [address] [place] [phone] PCP - General Internal Medicine 08/09/23 documented as of this encounter
--- OUTSIDE RECORDS SUMMARY | 2024-11-16 14:36 | XMS_ITS | Clinical Summary ---
Author Organization [employer] Address [address] [place] [address] 7t [place] [address] Care Team Providers Care Clamshell Operator Name Role Phone Peggy Wolfe MD Primary [...] and stress reduction. Inadequate occlusion of dental oriental orthodox 05/20 Seborrheic dermatitis 05/11/2024 Assessment & Plan [...] 2:45 PM EDT Office Visit [facility] [address] [place], [place] [phone] Peggy Wolfe MD Right flank pain; Mixed hyperlipidemia; Mild intermittent asthma without complication; Allergic rhinitis, unspecified seasonality, unspecified trigger; Fibromyositis; Dysuria 11/12/2024 9:00 AM EDT Office Visit [facility] [address] [place], [place] [phone] Mae Zaldivar Missing teeth, acquired (Primary Dx); Localized gingival recession; Dental calculus 11/12/2024 Orders Only [facility] [address] [place], [place] [phone] Provider, MD Lola 11/12/2024 Travel 11/03/2024 Patient Outreach [address] [address] Peggy Wolfe MD Pre-visit Planning (SDOH screening negative and tobacco screening negative) 10/30/2024 Population Health Risk Score [facility] ([facility] Department [address] [place] [phone] Provider, Population Health Generic 10/19/2024 Travel 09/23/2024 10:00 AM EST Office Visit [address] [address] Alethea Bryant, SARA Dysuria (Primary Dx); Vaginal discharge 09/23/2024 Orders Only [facility] [address] [place] [address] Lynne Zamudio NP 09/23/2024 Travel 09/22/[address] [address] Peggy Wolfe MD Nurse Triage 09/22/[address] [address] Peggy Wolfe MD 09/18/2024 Telephone [facility] [address] [place] [phone] Maddie Vuong RN Results 09/16/2024 5:20 PM EST Office Visit [facility] [address] [address] Tom Soriano MD Dysuria 09/16/[address] [address] Peggy Wolfe MD Nurse Triage from Last [...] 1:45 PM EDT Procedure Visit [facility] [address] [place] [address] Rhianna Vazquez, DELBERT [address] [place] [address] 05/20/2025 10:00 AM EDT Office Visit [facility] [address] [place] [address] Kayley, Mae [address] [place] [address] Health Maintenance Due Date Last Done Comments [...] 2 11/2020, 03/17/2019 Pap Smear 12/26/2024 12/26/2021, 032 [...] 07/05/2011, 04/17/2011 Zoster Vaccines Completed 05/17/2019, 03/18/2019 Influenza Vaccine Completed 05/15/2024, , 06/20/2022, Additional history exists Pneumococcal Vaccine: 50+ Years Completed 07/27/2024, 07/18/2010 Hepatitis C Screening Completed 11/13/2024, 023 HIB Vaccines Aged Out No longer eligi [...] 11/13/2024 8 :27 AM EDT Mixed hyperlipidemia LIPID PANEL, STANDARD Routine 11/13/2024 8:27 AM EDT Mixed hyperlipidemia HEPATITIS C AB W/REFL TO HCV RNA, QN, PCR Routine 11/13/2024 8:27 AM EDT Mixed hyperlipidemia COMPREHENSIVE METABOLIC PANEL Routine 11/13/2024 8:27 AM EDT Mixed hyperlipidemia CBC WITH AUTO DIFFERENTIAL Routine 11/13/2024 8:27 AM EDT Mixed hyperlipidemia POCT URINALYSIS DIPSTICK Routine 11/12/2024 3:49 PM EDT Right flank pain Dysuria XR KUB AND UPRIGHT 2 VIEWS Routine 11/12/2024 3:32 PM EDT Right flank pain CULTURE, URINE, ROUTINE Routine 11/12/2024 3:28 PM EDT Dysuria PERIODIC ORAL EVALUATION - ESTABLISHED PATIENT [...] HM COLONOSCOPY Routine 11/19/2023 3:37 PM EDT THINPREP IMAGING PAP AND HPV MRNA E6/E7, WITH CT/NG, TRICHOMONAS Routine 12/26/2021 10:36 AM EDT from Last 3 Months or Most Recently Relevant to Health Maintenance Results * TSH with Reflex to Free T4 (11/13/2024 8:27 AM EDT) TSH reflex Free T4 2.12 0.32 - 4.0 uIU/mL [facility] Blood Venous blood specimen / Unknown 11/13/2024 8:27 AM EDT 11/13/2024 11:39 AM EDT us Peggy Dubon MD LAB BLOOD ORDERABLES Final Result [facility] [address] [place] [phone] [phone] * (ABNORMAL) CBC auto differential (11/13/2024 8:27 AM EDT) White Blood Count 5.2 4.8 - 10.8 X10*3/uL [facility] Red Blood Count 4.88 4.20 - 5.50 X10*6/uL [facility] Hemoglobin 14.1 12.0 - 16.0 g/dl [facility] Hematocrit 41.4 37.0 - 47.0 % [facility] Mean Corpuscular Volume 84.8 80.0 - 98.0 fL [facility] Mean Corpuscular Hemoglobin 28.9 27.0 - 33.0 pg [facility] Mean Corpuscular HGB Conc 34.1 31.0 - 35.0 g/dl [facility] Red Cell Distribution Width 14.1 11.0 - 16.0 % [facility] Platelet Count 302 160 - 400 X10*3/uL [facility] Mean Platelet Volume 11.0 9.4 - 12.3 fL [facility] Neutrophils Percent Auto 52.2 45 - 73 % [facility] Imm Gran Pct Auto 0.8(H) 0.0 - 0.4 % [facility] Lymphocytes Percent Auto 38.5 20 - 40 % [facility] Monocytes Percent Auto 6.0 2 - 11 % [facility] Eosinophils Percent Auto 1.9 0 - 4 % [facility] Basophils Percent Auto 0.6 0 - 2 % [facility] NRBC Pct Auto 0.0 0.0 - 0.2 /100WBC [facility] Neutrophils Absolute Auto 2.7 2.0 - 8.3 x10*3/uL [facility] Imm Gran Abs Auto 0.04(H) 0.00 - 0.03 X10*3/uL [facility] Lymphocytes Absolute Auto 2.0 1.2 - 4.9 X10*3/uL [facility] Monocytes Absolute Auto 0.3 0.1 - 1.2 X10*3/uL [facility] Eosinophils Absolute Auto 0.1 0.0 - 0.4 X10*3/uL [facility] Basophils Absolute Auto 0.0 0.0 - 0.2 X10*3/uL [facility] NRBC Abs Auto 0.000 0.0 - 0.012 X10*3/uL [facility] Blood Venous blood specimen / Unknown 11/13/2024 8:27 AM EDT 11/13/2024 11:39 AM EDT us Peggy Dubon MD LAB BLOOD ORDERABLES Final Result Performing Organization Address [facility]/ZIP Co de Phone Number [facility] [address] [place] [phone] * Hepatitis C Antibody with Reflex to HCV, RNA, Quantitative, Real-Time PCR (11/13/2024 8:27 AM EDT) Pathologist [facility] Hepatitis C Antibody Nonreactive Nonreactive [facility] Comment:Antibodies to HCV no t detected; does not exclude early acuteHCV infection. Blood Venous blood specimen / Unknown 11/13/2024 8:27 AM EDT 11/13/2024 11:39 AM EDT us Peggy Dubon MD LAB BLOOD ORDERABLES Final Result Performing Organization Address [facility] Co de Phone Number [facility] [address] [place] [phone] * (ABNORMAL) Lipid Panel, Standard (11/13/2024 8:27 AM EDT) Triglycerides 303(H) <150 mg/dL [facility] Comment:Desirable Triglyceri de: less than 150 mg/dLBorderline High Triglyceride 150-199 mg/dLHigh Triglyceride: 200-499 mg/dLVery High Triglyceride: greater than or equal to 5OO mg/dL Cholesterol 195 <200 mg/dL [facility] Comment:Desirable Cholestero l: less than 200 mg/dLBorderline High Cholesterol: 200-239 mg/dLHigh Cholesterol: greater than 239 mg/dL LDL Cholesterol Calculated 95 <100 mg/dL [facility] Comment:Desirable LDL: less than 100 mg/dLNear Optimal/Above Optimal LDL: 110- 129 mg/dLBorderline High LDL: 130-159 mg/dLHigh LDL: 160-189 mg/dLVery High LDL: greater than or equal to 190 mg/dL HDL Cholesterol 40(L) >40 mg/dL [facility] Comment:Desirable HDL: great er than 40 mg/dL Note: This HDL assay may give artificially low results in patients with liver disease. Blood Venous blood specimen / Unknown 11/13/2024 8:27 AM EDT 11/13/2024 11:39 AM EDT us Peggy Dubon MD LAB BLOOD ORDERABLES Final Result [facility] [address] [place] [phone] * (ABNORMAL) Comprehensive Metabolic Panel (11/13/2024 8:27 AM EDT) Sodium 141 135 - 145 mmol/L [facility] Potassium 4.0 3.3 - 5.1 mmol/L [facility] Chloride 111(H) 96 - 108 mmol/L [facility] Carbon Dioxide 23 22 - 29 mmol/L [facility] Anion Gap 11(L) 12 - 20 [facility] Urea Nitrogen (BUN) 16 9 - 16 mg/dL [facility] Creatinine, Serum 0.73 0.5 - 1.4 mg/dL [facility] Estimated Glomerular Filt Rate >60 [facility] Comment:Chronic Kidney Disea se: Estimated GFR < 60 mL/min/1.13i1Gizzuw Kidney Disease: Estimated GFR < 15 mL/min/1.73m2 Glucose 87 60 - 115 mg/dL [facility] Calcium 9.5 8.4 - 10.2 mg/dL [facility] Bilirubin, Total 0.5 0.0 - 1.0 mg/dL [facility] Aspartate Amino Transferase 28 5 - 31 U/L [facility] Alanine Aminotransferase 34(H) 0 - 31 U/L [facility] Total Protein 7.2 6.5 - 8.0 g/dL [facility] Albumin Level 4.2 3.5 - 5.0 g/dL [facility] Alkaline Phosphatase 100 39 - 117 U/L [facility] Blood Venous blood specimen / Unknown 11/13/2024 8:27 AM EDT 11/13/2024 11:39 AM EDT Peggy Dubon MD LAB BLOOD ORDERABLES Final Result [facility] [address] [place] [phone] * (ABNORMAL) POCT Urinalysis (11/12/2024 3:49 PM [...] PM EDT Narrative 11/12/2024 4:02 PM EDT ?[facility] ?[address] ?[place] [address] ?XRay Report ? Signed ? Patient: Giovanni,Karly ?MR#: [id number] ?? [id number] ? : 1960 ?Acct:[id number] ? Age/Sex: 64 / F ?ADM Date: 11/12/24 ? Loc: HO.HHCX ? Attending Dr: Peggy Dubon MD ? Ordering Physician: Peggy Wolfe MD ?? Date of Service: 11/12/24 ?? Procedure(s): XR KUB ?? Accession Number(s): [id number] ? cc: Peggy Wolfe MD ? EXAMINATION: [...] ?11/12/24 1559 ? DD/ 1532 ? TD/TT: 11/12/246 ? Health Education Specialist: ? Procedure Note Lesly Felix - 11/12/[address] [address] XRay Report Signed Patient: Re Davila#: [id number] : 2Acct:[id number] Age/Sex: 64 / FADM Date: 11/12/24 Loc: .HHX Attending Dr: Peggy Dubon MD Ordering Physician: Peggy Wolfe MD Date of Service: 11/12/24 Procedure(s): XR KUB Accession Number(s): [id number] cc: Peggy Wolfe MD EXAMINATION: XR ABDOMEN [...] 11/12/24 1559 DD/ 1532 TD/TT: 11/12/24 1556 Health Education Specialist: us Peggy Dubon MD IMG XR PROCEDURES Fin al Result * Culture, Urine, Routine (11/12/2024 3:28 PM EDT) Only the most recent of3 resultswithin the time period is included. Urine Urine specimen obtained by clean catch procedure / Unknown 11/12/2024 3:28 PM EDT 11/12/2024 6:26 PM EDT Comment:[facility] - 11/14/2024 10:39 AM EDT Urine Culture Report Result Urine Culture > 100,000 cfu/ml Urine Culture Mixed bacterial merry characteristic of Urine Culture urogenital contamination. Specimen Source: Urine clean catch us Peggy Dubon MD LAB MICROBIOLOGY - [facility] ORDERABLES Final Result [facility] [address] [place] [phone] * Bacterial Vaginosis Panel (09/23/2024 12:00 AM EST) TRICHOMONAS VAGINALIS DETECTION BY PCR NOT DETECTED Not Detect [facility] BACTERIAL VAGINOSIS DETECTION BY PCR NEGATIVE Negative [facility] Comment:The BV organism targ ets [...] DETECTION BY PCR NOT DETECTED Not Detect [facility] Ana glab krusei PCR NOT DETECTED Not Detect [facility] Swab Vaginal structure / Unknown 09/23/2024 09/23/2024 us Lynne Zamudio NP LAB MICROBIOLOGY - GENERAL ORDER TL Final Result [facility] [address] [place] [phone] * Chlamydia/N. Gonorrhoeae RNA, TMA, Urogenitial (09/23/2024 12:00 AM EST) CT PCR NOT DETECTED Not Detect. [facility] Comment:A not detected test result [...] psychologicalconsequences. NG PCR NOT DETECTED Not Detect. [facility] Comment:A not detected test result [...] psychologicalconsequences. Swab (Vaginal Swab) 09/23/2024 09/23/2024 Narrative [facility] - 09/24/2024 4:53 AM EST Vaginal Lynne Zamudio NP LAB MICROBIOLOGY - GENERAL ORDER TL Final Result Performing Organization Address City/State/[facility] Co de Phone Number [facility] [address] [place] [phone] * BI Mammogram Screening Bilateral (12/09/2023) Anatomical Region Laterality Modality Breast Bilateral Mammography us Peggy Dubon MD IMG BI PROCEDURES Fin al Result * Hm Colonoscopy (11/19/2023 3:37 PM EDT) Historical Provider HEALTH MAINTENANCE Final Result * THINPREP TIS PAP AND HPV mRNA E6/E7, CT/NG, TRICH (12/26/2021 10:36 AM EDT) Chlamydia trachomatis RNA, TMA, Urogenital NOT DETECTED NOT DETECTED [facility] Clinical Information: None given [facility] COMMENT SEE COMMENT [facility] Comment: The analytical performance characteristics of this assay, when used to test SurePath(TM) specimens have been determined by [employer] The modifications have not been cleared or approved by the FDA. This assay has been validated pursuant to the CLIA regulations and is used for clinical purposes. ?? For additional information, please refer to https://education.Populis/faq/IDZ175 (This link is being provided for information/ [...] been evaluated with computer assisted technology. [facility] Database Engineer: SEE COMMENT [facility] Comment: SL, CT(ASCP) CT screening location: [address] ??[phone] HPV nRNA E6/E7 Not Detected Not Detected [facility] Comment: Methodology: Quality Assurance Consultant-Mediated Amplification This assay detects E6/E7 viral messenger RNA (mRNA) from 14 high-risk HPV types (16,18,31,33,35,39,45,51,52,56,58,59,66,68). ? The analytical performance characteristics of this assay have been determined by [employer] The modifications have not been cleared or approved by the FDA. This assay has been validated pursuant to the CLIA regulations and is used for clinical purposes. ?? For additional information, please refer to http://Heverest.ru.Populis/faq/QGH835y7 (This link if provided for information/ educational purposes only.) Interpretation/Re sult: Negative for intraepithelial lesion or malignancy. [facility] LMP: NONE GIVEN [facility] Neisseria gonorrhoeae RNA, TMA, Urogenital NOT DETECTED NOT DETECTED [facility] Prev. BX: NONE GIVEN [facility] Prev. PAP: NONE GIVEN [facility] Review Database Engineer: SEE COMMENT [facility] Comment: MSM, CT(ASCP) CT screening location: [address] ??[phone] SOURCE: None given [facility] Statement Of Adequacy: SEE COMMENT [facility] Comment: Satisfactory for evaluation. Endocervical/transformation zone component present. Partially obscuring inflammation Age and/or menstrual status not provided Trichomonas vaginalis, QL, TMA, PAP Vial NOT DETECTED NOT DETECTED [facility] Comment: The analytical performance characteristics of this assay have been determined by [employer] The modifications have not been cleared or approved by the FDA. This assay has been validated pursuant to the CLIA regulations and is used for clinical purposes. ?? For additional information, please refer to http://education.Populis/ faq/Trichomonastma (This link is being provided for information/ educational purposes only.) ?? NO COLLECTION DATE RECEIVED. WE HAVE USED THE DATE THE SPECIMEN WAS RECEIVED BY THIS LABORATORY THE COLLECTION DATE. IF THIS IS INCORRECT, PLEASE CONTACT CLIENT SERVICES. PHONE NUMBER: ?? 12/26/2021 10:3 6 AM EDT Cherie Knight NP LAB PATHOLOGY ORDERABLES Final Result [facility] Anywhere [address] from Last 3 Months or Most Recently Relevant to Health Maintenance Insurance MEDICARE [facility] [place]AND[place] STAND ADULT Care Teams Clamshell Operator Relationship Specialty Start Date End Date Peggy Wolfe MD [address] [place] [phone] PCP - General Internal Medicine 08/09/23
--- OUTSIDE RECORDS SUMMARY | 2024-11-16 14:36 | XMS_ITS | Encounter Summary ---
Author Organization [employer] Address [address] [place] [address] Care Team Providers Care Sergeant At Arms Name Role Phone Peggy Wolfe MD Primary Care Provide r Reason for Visit * Reason Comments Routine Cleaning Dental Exam x-rays Perio chart Encounter Details Date Type Department Care Team ([facility] st Contact Info) Description 11/12/2024 9:00 AM EDT Office Visit [facility] [address] [place] [address] Mae Zaldivar [address] [place] [address] Missing teeth, acquired (Primary Dx); Localized gingival [...] the past 12 months, has t he be2, gas, oil or water company threatened to [...] P. exam Dr. cleaning, Perio chart) Location: [facility] Tooth: Maxilla and Mandible Procedure: Exam, X-rays, Prophylaxis, and Perio chart Verified the above with patient, librarian assistant, and provider. Confirmed via patient's chart, intraorally and by radiographs. Statistical Reporting Analyst: not applicable Medical Hx: Vitals: Blood pressure [...] patient including brushing technique and flossing. Recommendations: Romulus two times daily, modified wynn technique, Floss daily, Electric toothbrush, Soft bristle toothbrush, Romulus Tongue, Anti-sensitivity toothpaste Recall Frequency: 6 mo [...] Description 01/14/2025 1:45 PM EDT Procedure Visit [facility] [address] [place] [address] YusufsylwiaRhianna weber, CNM [address] [place] [address] 05/20/2025 10:00 AM EDT Office Visit [facility] [address] [place] [address] Rocky Zaldivararis [address] [place] [address] Scheduled Orders Name Type Priority Associated Diagnoses [...] documented as of this encounter Care Teams Sergeant At Arms Relationship Specialty Start Date End Date Peggy Wolfe MD [address] [place] [address] PCP - General Internal Medicine 08/09/23 documented as of this encounter
--- OUTSIDE RECORDS SUMMARY | 2024-11-16 14:37 | XMS_ITS | Encounter Summary ---
Author Organization [employer] Address [address] [place] [address] Care Team Providers Care Cherry Cutter Name Role Phone Peggy Wolfe MD Primary Care Provide r Reason for Visit * Reason Onset Date Comments Nurse Triage 09/16/2024 Encounter Details Date Type Department Care Team ([facility] st Contact Info) Description 09/16/2024 Telephone [facility] [address] [place], [place] [phone] Peggy Wolfe MD [address] [place], [place] [phone] Nurse Triage Social History Tobacco Use Types [...] 09/16/2024 10:55 AM EST Triage call with [facility] it security specialist [place] [id number] Pt reports urinary symptoms for several days. Burning/pain with urination, frequency , odor and flank pain, neg for fever. Pt is advised to increase liquids to 6-8 glasses daily. Pt agrees. Pt is advised to come to [facility] today to be seen by [...] urine (peeing) The caller accepted this outcome. [phone] (danish) documented in this encounter Plan of Treatment Upcoming Encounters Date Type Department Care Team (Late st Contact Info) Description 01/14/2025 1:45 PM EDT Procedure Visit [facility] [address] [place] [address] Rhianna Vazquez CNM [address] [place] [address] 05/20/2025 10:00 AM EDT Office Visit [facility] ADULT DENT[facility] [address] [place] [address] KayleyMae [address] [place] [address] documented as of this encounter Visit Diagnoses Not on filedocumented in this encounter Additional Health Concerns Assessment Noted Time PHQ-9 Depression Total Score: 7 04/16/20 23 4:07 PM EDT documented as of this encounter Care Teams Cherry Cutter Relationship Specialty Start Date End Date Peggy Wolfe MD [address] [place] [address] PCP - General Internal Medicine 08/09/23 documented as of this encounter
--- OUTSIDE RECORDS SUMMARY | 2024-11-16 14:37 | XMS_ITS | Encounter Summary ---
Author Organization [employer] Address [address] [place] [address] Care Team Providers Care Merchant Banker Name Role Phone Yudith Monreal NP Primary Care Provider [phone] Peggy Wolfe MD Primary Care Provide r Reason for Visit * Reason Onset Date Comments Appointment Request 07/30/2023 Encounter Details Date Type Department Care Team ([facility] st Contact Info) Description 07/30/2023 Telephone [facility] [address] [place] [address] Yudith Monreal NP [address] [place] [address] Appointment Request Social History Tobacco Use Types [...] from pt requesting TP Appt with PCP. Manager Program Management does see recall tried booking no available slot found. Please contact Pt [phone] documented in this encounter Plan of Treatment Upcoming Encounters Date Type Department Care Team (Late st Contact Info) Description 01/14/2025 1:45 PM EDT Procedure Visit [facility] [address] [place] [phone] Rhianna Vazquez CNM [address] [place] [address] 05/20/2025 10:00 AM EDT Office Visit [facility] ADULT D[facility] [address] [place] [address] Kayley, Mae [address] [place] [address] documented as of this encounter Visit Diagnoses Not on filedocumented in this encounter Additional Health Concerns Assessment Noted Time PHQ-9 Depression Total Score: 7 04/16/20 23 4:07 PM EDT documented as of this encounter Care Teams Merchant Banker Relationship Specialty Start Date End Date Yudith Monreal NP [address] [place] [address] PCP - General Family Medicine 05/24/23 08/08/23 Peggy Wolfe MD [address] [place] [phone] PCP - General Internal Medicine 08/09/23 documented as of this encounter
--- OUTSIDE RECORDS SUMMARY | 2024-11-16 14:37 | XMS_ITS | Encounter Summary ---
Author Organization [employer] Address [address] [place] [address] Care Team Providers Care Novelty Printing Machine Operator Name Role Phone Pegyg Wolfe MD Primary Care Provide r Encounter Details Date Type Department Care Team ([facility] st Contact Info) Description 09/22/2024 Telephone [facility] [address] [place], [place] [phone] Peggy Wolfe MD [address] [place], [place] [phone] Social History Tobacco Use Types Packs/Day Years [...] Description 01/14/2025 1:45 PM EDT Procedure Visit [facility] [address] [place] [address] Rhianna Vazquez CNM [address] [place] [address] 05/20/2025 10:00 AM EDT Office Visit [facility] ADULT DENTAL [address] [place] [address] Mae Zaldivar [address] [place] [address] documented as of this encounter Visit Diagnoses Not on filedocumented in this encounter Additional Health Concerns Assessment Noted Time PHQ-9 Depression Total Score: 7 04/16/20 23 4:07 PM EDT documented as of this encounter Care Teams Novelty Printing Machine Operator Relationship Specialty Start Date End Date Peggy Wolfe MD [address] [place] [address] PCP - General Internal Medicine 08/09/23 documented as of this encounter
== END 2024-11-16 13:47 | disposition home or self-care (01) ==
LOC: HO.HGI 13:00
PROVIDERS: PCP Nurse Practitioner Family; Visit Provider Nurse Practitioner Family
DX: R10.13 Epigastric pain (principal); K21.9 Gastro-esophageal reflux disease without esophagitis; A04.8 Other specified bacterial intestinal infections; K52.9 Noninfective gastroenteritis and colitis, unspecified; R14.0 Abdominal distension (gaseous)
CPT/HCPCS: 99214; G2211

== ENCOUNTER 2024-12-03 17:04 | Outpatient (REF) | payer MEDICARE, MEDICAID, SELFPAY ==
--- OUTSIDE RECORDS SUMMARY | 2024-12-03 18:28 | XMS_ITS | Encounter Summary ---
Author Organization [employer] Address [address] [place] [address] Care Team Providers Care Escalator Service Mechanic Name Role Phone Peggy Wolfe MD Primary Care Provide r Encounter Details Date Type Department Care Team (Latest Contact Info) Description 12/03/2024 Travel Social History Tobacco Use Types Packs/Day [...] Care Team (Late st Contact Info) Description 05/20/2025 10:00 AM EDT Office Visit [facility] ADULT DENTAL [address] [place] [address] Kayley, Mae [address] [place] [address] documented as of this encounter Visit Diagnoses Not on filedocumented in this encounter Additional Health Concerns Assessment Noted Time PHQ-9 Depression Total Score: 8 11/13/19 25 2:38 PM EDT documented as of this encounter Care Teams Escalator Service Mechanic Relationship Specialty Start Date End Date Peggy Wolfe MD [address] [place] [address] PCP - General Internal Medicine 08/09/23 documented as of this encounter
--- OUTSIDE RECORDS SUMMARY | 2024-12-03 18:28 | XMS_ITS | Encounter Summary ---
Author Organization [employer] [facility] Address [address] [place] [address] [place] [address] Care Team Providers Care Area Manager Name Role Phone Cait Manuel Primary Care Provider [phone]- [phone] Yudith Monreal NP Primary Care Provider [phone] Peggy Wolfe MD Primary Care Provide r Reason for Visit * Reason Comments Med Refill Encounter Details Date Type Department Care Team (Late st Contact Info) Description 03/24/2023 Refill [facility] MEDICINE [address] [place] [address] Cait Manuel FNP [address] [place] [address] Dept of [place] [address] Social History Tobacco Use Types Packs/Day Years [...] Description 05/20/2025 10:00 AM EDT Office Visit [facility] ADULT DENTAL [address] [place] [address] Mae Zaldivar [address] [place] [address] documented as of this encounter Visit Diagnoses Not on filedocumented in this encounter Care Teams Area Manager Relationship Specialty Start Date End Date Cait Manuel FNP PCP - General Family Medicine 04/17/22 05/23/23 Yudith Monreal NP [address] [place] [address] PCP - General Family Medicine 05/24/23 08/08/23 Peggy Wolfe MD [address] [place] [address] PCP - General Internal Medicine 08/09/23 documented as of this encounter
--- OUTSIDE RECORDS SUMMARY | 2024-12-03 18:28 | XMS_ITS | Encounter Summary ---
Author Organization [employer] Address [address] [place] [address] Care Team Providers Care Telephone Sales Agent Name Role Phone Peggy Wolfe MD Primary Care Provide r Reason for Visit * Reason Comments Med Refill Encounter Details Date Type Department Care Team ([facility] st Contact Info) Description 12/11/[address] [facility] CHC MED & PEDS [address] [place], [place] [phone] Peggy Wolfe MD [address] [place] [address] Social History Tobacco Use Types Packs/Day Years [...] Description 05/20/2025 10:00 AM EDT Office Visit [facility] ADULT DENTAL [address] [place] [address] Kayley, Mae [address] [place] [address] documented as of this encounter Visit Diagnoses Not on filedocumented in this encounter Additional Health Concerns Assessment Noted Time PHQ-9 Depression Total Score: 7 04/16/20 23 4:07 PM EDT documented as of this encounter Care Teams Telephone Sales Agent Relationship Specialty Start Date End Date Peggy Wolfe MD [address] [place] [address] PCP - General Internal Medicine 08/09/23 documented as of this encounter
--- OUTSIDE RECORDS SUMMARY | 2024-12-03 18:28 | XMS_ITS | Encounter Summary ---
Author Organization [employer] [facility] Address [address] [place] [address] 7t [place] [address] Care Team Providers Care On Air Personality Name Role Phone Cait Manuel Primary Care Provider [phone]- [phone] Yudith Monreal NP Primary Care Provider [phone] Peggy Wolfe MD Primary Care Provide r Encounter Details Date Type Department Care Team (Latest Contact Info) Description 02/06/2022 Abstract [facility] CONVERSIONS Dental, Provider, DDS Social [...] Department Care Team ( Contact Info) Description 05/20/2025 10:00 AM EDT Office Visit [facility] ADULT DENTAL [address] [place] [address] Kayley, Mae [address] [place] [address] documented as of this encounter Visit Diagnoses Not on filedocumented in this encounter Care Teams On Air Personality Relationship Specialty Start Date End Date Cait Manuel FNP PCP - General Family Medicine 04/17/22 05/23/23 Yudith Monreal NP [address] [place] [address] PCP - General Family Medicine 05/24/23 08/08/23 Peggy Wolfe MD [address] [place] [address] PCP - General Internal Medicine 08/09/23 documented as of this encounter
--- OUTSIDE RECORDS SUMMARY | 2024-12-03 18:28 | XMS_ITS | Encounter Summary ---
Author Organization [employer] Address [address] [place] [address] Care Team Providers Care Sole Stainer Name Role Phone Peggy Wolfe MD Primary Care Provide r Encounter Details Date Type Department Care Team ([facility] st Contact Info) Description 11/12/[address] [facility] CHC MED & PEDS [address] [place], [place] [phone] ProviderLola MD Social History Tobacco Use Types Packs/Day Years [...] Description 05/20/2025 10:00 AM EDT Office Visit [facility] ADULT DENTAL [address] [place] [address] Kayley, Mae [address] [place] [address] documented as of this encounter Procedures Procedure Name Priority Date/Time Associated Diagnosis Comments HM COLONOSCOPY Routine 11/19/2023 3:37 PM EDT documented in this encounter Results * Hm Colonoscopy (11/19/2023 3:37 PM EDT) Historical Provider HEALTH MAINTENANCE Final Result documented in this encounter Visit Diagnoses Not on filedocumented in this encounter Additional Health Concerns Assessment Noted Time PHQ-9 Depression Total Score: 8 11/13/19 25 2:38 PM EDT documented as of this encounter Care Teams Sole Stainer Relationship Specialty Start Date End Date Peggy Wolfe MD [address] [place] [address] PCP - General Internal Medicine 08/09/23 documented as of this encounter
--- OUTSIDE RECORDS SUMMARY | 2024-12-03 18:28 | XMS_ITS | Encounter Summary ---
Author Organization [employer] Address [address] [facility] 7t [place] [address] Care Team Providers Care Credit Department Manager Name Role Phone Cait Manuel INDEPENDENT DISTRIBUTOR Primary Care Provider [phone]- [phone] Yudith Monreal NP Primary Care Provider [phone] Peggy Wolfe MD Primary Care Provide r Encounter Details Date Type Department Care Team (Late st Contact Info) Description 05/22/2023 Telephone [facility] MEDICINE [address] [place] [address] Cait Manuel FNP [address] [facility] [place] [address] Social History Tobacco Use Types Packs/Day Years [...] 3:49 PM EDT T/C to pt. Through [id number] id - [id number] for below message, pt. States she already apt. On 05/30/2023 at [facility]. Pt. Is al set. Pt. Advised to give call on [phone] if any questions or concerns. Pt. Verbally agreed and understood. * Telephone Encounter - Merry Gillespie - 05/22/2023 4:15 PM EDT Tc from pt requesting a new order for nerve test on left leg. Any questions, please contact pt at [phone] (Barbadian) documented in this encounter Plan of Treatment Upcoming Encounters Date Type Department Care Team (Late st Contact Info) Description 05/20/2025 10:00 AM EDT Office Visit [facility] ADULT DENTAL [address] [place], [place] [phone] Mae Zaldivar [address] [place] [address] documented as of this encounter Visit Diagnoses Not on filedocumented in this encounter Additional Health Concerns Assessment Noted Time PHQ-9 Depression Total Score: 7 04/16/20 23 4:07 PM EDT documented as of this encounter Care Teams Credit Department Manager Relationship Specialty Start Date End Date Cait Manuel FNP PCP - General Family Medicine 04/17/22 05/23/23 Yudith Monreal NP [address] [place] [address] PCP - General Family Medicine 05/24/23 08/08/23 Peggy Wolfe MD [address] [place], [place] [phone] PCP - General Internal Medicine 08/09/23 documented as of this encounter
--- OUTSIDE RECORDS SUMMARY | 2024-12-03 18:28 | XMS_ITS | Encounter Summary ---
Author Organization [employer] Address [address] [place] [address] Care Team Providers Care Payment Collector Name Role Phone Peggy Wolfe MD Primary Care Provide r Encounter Details Date Type Department Care Team ([facility] st Contact Info) Description 09/22/2024 Telephone [facility] MEDICINE [address] [place], [place] [phone] Peggy Wolfe MD [address] [place], [place] [phone] Social History Tobacco Use Types Packs/Day Years [...] Description 05/20/2025 10:00 AM EDT Office Visit [facility] ADULT DENTAL [address] [place] [address] Kayley, Mae [address] [place] [address] documented as of this encounter Visit Diagnoses Not on filedocumented in this encounter Additional Health Concerns Assessment Noted Time PHQ-9 Depression Total Score: 7 04/16/20 23 4:07 PM EDT documented as of this encounter Care Teams Payment Collector Relationship Specialty Start Date End Date Peggy Wolfe MD [address] [place] [address] PCP - General Internal Medicine 08/09/23 documented as of this encounter
--- OUTSIDE RECORDS SUMMARY | 2024-12-03 18:28 | XMS_ITS | Clinical Summary ---
Author Organization [employer] Address [address] [place] [address] 7[address] [place] [address] Care Team Providers Care Surgical Elastic Knitter Hand Frame Name Role Phone Peggy Wolfe MD Primary [...] cap. 16 g 2 025 2025 Active Icosapent Ethyl (Vascepa) 1 g capsuleIndication s:Hypertriglyceri demia Take 2 capsules (2 g) by mouth with breakfast and with evening meal. 120 capsule 11 025 2025 Active clotrimazole-beta methasone (Lotrisone) creamIndications: Rash Apply topically 2 times daily for 28 days. 45 g 025 2024 Active fexofenadine (Alina) 180 MG [...] eorder (will not trigger notification to Pharmacy)) acetaminophen (Tylenol Extra Strength) 500 MG tabletIndications :Fibromyositis Take 2 tablets (1,000 mg) by mouth every 8 (eight) hours if needed for mild pain for up to 10 days. 60 tablet 025 2024 nitrofurantoin, macrocrystal-mono hydrate, (Macrobid) 100 MG capsuleIndication s:Right flank pain,Dysuria Take 1 capsule (100 mg) by mouth 2 times daily for 7 days. 14 capsule 025 2024 Active Problems Problem Noted Date Diagnosed Date Encounter for Papanicolaou s mear for cervical cancer screening 12/03/2024 Assessment & Plan (12/03/2024 9:43 AM EDT): PAP and pelvic exam done today, patient will be contacted with results Hypertriglyceridemia 12/03/2024 Assessment & Plan (12/03/2024 9:43 AM EDT): Today extensive discussion was done about life style modifications I advise healthy diet (low calorie) and cardiovascular exercise Right flank pain 11/12/2024 Assessment & Plan (11/12/2024 4:26 PM EDT): UTI versus kidney stone I ordered UA and culture I will treat her empirically with Macrobid 100 mg twice a day KUB ordered today patient will be contacted with results Vaginal discharge 09/23/2024 Dysuria 09/23/2024 Rash 07/27/2024 Assessment & Plan (12/03/2024 9:44 AM EDT): Local cream prescribed it was instructed not to use it more than 2 weeks Assessment & Plan (07/27/2024 3:58 PM EST): [...] and stress reduction. Inadequate occlusion of dental methodist 05/20 Seborrheic dermatitis 05/11/2024 Assessment & Plan [...] Encounters Date Type Department Care Team Description 12/03/2024 9:00 AM EDT Procedure Visit [address] [address] Peggy Wolfe MD Encounter for Papanicolaou smear for cervical cancer screening (Primary Dx); Rash; Hypertriglyceridemi a 12/03/2024 Travel 11/26/[address] [address] Peggy Wolfe MD CHART PREP 11/26/2024 Travel 11/20/[address] [address] Peggy Wolfe MD Appointment Request; Results 11/12/2024 2:45 PM EDT Office Visit [address] [address] Peggy Wolfe MD Right flank pain; Mixed hyperlipidemia; Mild intermittent asthma without complication; Allergic rhinitis, unspecified seasonality, unspecified trigger; Fibromyositis; Dysuria 11/12/2024 9:00 AM EDT Office Visit [facility] [address] [place] [address] Kayley, Mae Missing teeth, acquired (Primary Dx); Localized gingival recession; Dental calculus 11/12/2024 Orders Only [facility] [address] [place], [place] [phone] Lola Jacinto MD 11/12/2024 Travel 11/03/2024 Patient Outreach [address] [address] Peggy Wolfe MD Pre-visit Planning (SDOH screening negative and tobacco screening negative) 10/30/2024 Population Health Risk Score [facility] ([facility] Department [address] [place] [phone] Provider, Population Health Generic 10/19/2024 Travel 09/23/2024 10:00 AM EST Office Visit [facility] MED[facility] [address] [place] [address] Alethea Bryant FNP Dysuria (Primary Dx); Vaginal discharge 09/23/2024 Orders Only [facility] PED[facility] [address] [place] [address] Lynne Zamudio NP 09/23/2024 Travel 09/22/2024 Telephone [facility] [address] [place] [address] Peggy Wolfe MD Nurse Triage 09/22/[address] [address] Peggy Wolfe MD 09/18/2024 Telephone [facility] [address] [place] [address] Maddie Vuong RN Results 09/16/2024 5:20 PM EST Office Visit [facility] [address] [place] [address] Tom Soriano MD Dysuria 09/16/[address] [address] Peggy Wolfe MD Nurse Triage from Last [...] Sign Reading Time Taken Comments Blood Pressure 138/81 12/03/2024 9:13 AM EDT Pulse 91 12/03/2024 9:13 AM EDT Temperature 36.1 ??C (97 ??F) 12/03/2024 9:13 AM EDT Respiratory Rate 20 12/03/2024 9:13 AM EDT Oxygen Saturation 99% 11/12/2024 2:33 PM EDT Inhaled Oxygen Concentration - - Weight 74.4 kg (164 lb) 12/03/2024 9:13 AM EDT Height 157.5 cm (5' 2 ) 12/03/2024 9:13 AM EDT Body Mass Index 30 12/03/2024 9:13 AM EDT Plan of Treatment Upcoming Encounters Date Type Department Care Team (Late st Contact Info) Description 05/20/2025 10:00 AM EDT Office Visit [facility] [address] [place] [address] Kayley, Mae [address] [place] [address] Health Maintenance Due Date Last Done Comments [...] Pap Smear 12/26/2024 12/26/2021, 10/18, 05/13/2020 Dental Oral Exam 05/16/2025 11/12/2024, , 06/29/2022 Dental Prophylaxis 05/16/2025 11/12/2024, 0 12/16/2023, 12/26/2022 Dental X-Ray: Full Mouth 06/30/2025 06/29/2022 SDOH Screening 11/03/2025 11/03/2024 Depression Screening 11/12/2025 11/12/2024, 11/13/19 Dental X-Ray: Bitewings 11/13/2025 11/13/19, 12/16/2023, 06/10/2023 Tobacco Screening 12/03/2025 12/03/2024 Colonoscopy 11/18/2033 11/19/2023, 12/26/2012 Colorectal Cancer Screening [...] Free T4 2.12 0.32 - 4.0 uIU/mL [facility] Blood Venous blood specimen / Unknown 11/13/2024 8:27 AM EDT 11/13/2024 11:39 AM EDT us Peggy Dubon MD LAB BLOOD ORDERABLES Final Result [facility] [address] [place] [phone] * (ABNORMAL) CBC auto differential (11/13/2024 8:27 AM EDT) White Blood Count 5.2 4.8 - 10.8 X10*3/uL [facility] Red Blood Count 4.88 4.20 - 5.50 X10*6/uL [facility] Hemoglobin 14.1 12.0 - 16.0 g/dl [facility] Hematocrit 41.4 37.0 - 47.0 % [facility] Mean Corpuscular Volume 84.8 80.0 - 98.0 fL [facility] Mean Corpuscular Hemoglobin 28.9 27.0 - 33.0 pg [facility] Mean Corpuscular HGB Conc 34.1 31.0 - 35.0 g/dl [facility] Red Cell Distribution Width 14.1 11.0 - 16.0 % [facility] Platelet Count 302 160 - 400 X10*3/uL [facility] Mean Platelet Volume 11.0 9.4 - 12.3 fL [facility] Neutrophils Percent Auto 52.2 45 - 73 % [facility] Imm Gran Pct Auto 0.8(H) 0.0 - 0.4 % [facility] Lymphocytes Percent Auto 38.5 20 - 40 % [facility] Monocytes Percent Auto 6.0 2 - 11 % [facility] Eosinophils Percent Auto 1.9 0 - 4 % [facility] Basophils Percent Auto 0.6 0 - 2 % [facility] NRBC Pct Auto 0.0 0.0 - 0.2 /100WBC [facility] Neutrophils Absolute Auto 2.7 2.0 - 8.3 x10*3/uL [facility] Imm Gran Abs Auto 0.04(H) 0.00 - 0.03 X10*3/uL [facility] Lymphocytes Absolute Auto 2.0 1.2 - 4.9 X10*3/uL [facility] Monocytes Absolute Auto 0.3 0.1 - 1.2 X10*3/uL [facility] Eosinophils Absolute Auto 0.1 0.0 - 0.4 X10*3/uL [facility] Basophils Absolute Auto 0.0 0.0 - 0.2 X10*3/uL [facility] NRBC Abs Auto 0.000 0.0 - 0.012 X10*3/uL [facility] Blood Venous blood specimen / Unknown 11/13/2024 8:27 AM EDT 11/13/2024 11:39 AM EDT Peggy Dubon MD LAB BLOOD ORDERABLES Final Result Performing Organization Address [facility]/ZIP Co de Phone Number [facility] [address] [place] [phone] * Hepatitis C Antibody with Reflex to HCV, RNA, Quantitative, Real-Time PCR (11/13/2024 8:27 AM EDT) Hepatitis C Antibody Nonreactive Nonreactive [facility] Comment:Antibodies to HCV no t detected; does not exclude early acuteHCV infection. Blood Venous blood specimen / Unknown 11/13/2024 8:27 AM EDT 11/13/2024 11:39 AM EDT Peggy Dubon MD LAB BLOOD ORDERABLES Final Result Performing Organization Address City/[facility]/ZIP Co de Phone Number [facility] [address] [place] [phone] * (ABNORMAL) Lipid Panel, Standard (11/13/2024 8:27 AM EDT) Triglycerides 303(H) <150 mg/dL [facility] Comment:Desirable Triglyceri de: less than 150 mg/dLBorderline High Triglyceride 150-199 mg/dLHigh Triglyceride: 200-499 mg/dLVery High Triglyceride: greater than or equal to 5OO mg/dL Cholesterol 195 <200 mg/dL [facility] Comment:Desirable Cholestero l: less than 200 mg/dLBorderline High Cholesterol: 200-239 mg/dLHigh Cholesterol: greater than 239 mg/dL LDL Cholesterol Calculated 95 <100 mg/dL [facility] Comment:Desirable LDL: less than 100 mg/dLNear Optimal/Above Optimal LDL: 110- 129 mg/dLBorderline High LDL: 130-159 mg/dLHigh LDL: 160-189 mg/dLVery High LDL: greater than or equal to 190 mg/dL HDL Cholesterol 40(L) >40 mg/dL [facility] Comment:Desirable HDL: great er than 40 mg/dL Note: This HDL assay may give artificially low results in patients with liver disease. Blood Venous blood specimen / Unknown 11/13/2024 8:27 AM EDT 11/13/2024 11:39 AM EDT us Peggy Dubon MD LAB BLOOD ORDERABLES Final Result [facility] [address] [place] [address] [phone] * (ABNORMAL) Comprehensive Metabolic Panel (11/13/2024 8:27 AM EDT) Sodium 141 135 - 145 mmol/L [facility] Potassium 4.0 3.3 - 5.1 mmol/L [facility] Chloride 111(H) 96 - 108 mmol/L [facility] Carbon Dioxide 23 22 - 29 mmol/L [facility] Anion Gap 11(L) 12 - 20 [facility] Urea Nitrogen (BUN) 16 9 - 16 mg/dL [facility] Creatinine, Serum 0.73 0.5 - 1.4 mg/dL [facility] Estimated Glomerular Filt Rate >60 [facility] Comment:Chronic Kidney Disea se: Estimated GFR < 60 mL/min/1.17b8Glifyc Kidney Disease: Estimated GFR < 15 mL/min/1.73m2 Glucose 87 60 - 115 mg/dL [facility] Calcium 9.5 8.4 - 10.2 mg/dL [facility] Bilirubin, Total 0.5 0.0 - 1.0 mg/dL [facility] Aspartate Amino Transferase 28 5 - 31 U/L [facility] Alanine Aminotransferase 34(H) 0 - 31 U/L [facility] Total Protein 7.2 6.5 - 8.0 g/dL [facility] Albumin Level 4.2 3.5 - 5.0 g/dL [facility] Alkaline Phosphatase 100 39 - 117 U/L [facility] Blood Venous blood specimen / Unknown 11/13/2024 8:27 AM EDT 11/13/2024 11:39 AM EDT Peggy Dubon MD LAB BLOOD ORDERABLES Final Result [facility] [address] [place] [address] [phone] * (ABNORMAL) POCT Urinalysis (11/12/2024 3:49 [...] PM EDT Narrative 11/12/2024 4:02 PM EDT ?[facility] ?[address] ?[place] [address] ?XRay Report ? Signed ? Patient: Giovanni,Karly ?MR#: [id number] ?? [id number] ? : 1960 ?Acct:[id number] ? Age/Sex: 64 / F ?ADM Date: 03/27/25 ? Loc: HO.HHCX ? Attending Dr: Peggy Dubon MD ? Ordering Physician: Peggy Wolfe MD ?? Date of Service: 11/12/24 ?? Procedure(s): XR KUB ?? Accession Number(s): [id number] ? cc: Peggy Wolfe MD ? EXAMINATION: [...] DD/ 1532 ? TD/TT: 11/12/24 1556 ? Automatic Splicing Machine Operator: ? Procedure Note [place], Image - 11/12/[address] [address] XRay Report Signed Patient: Re Davila#: [id number] : 2Acct:[id number] Age/Sex: 64 / FADM Date: 11/12/24 Loc: HO.HHCX Attending Dr: Peggy Dubon MD Ordering Physician: Peggy Wolfe MD Date of Service: 11/12/24 Procedure(s): XR KUB Accession Number(s): [id number] cc: Peggy Wolfe MD EXAMINATION: XR ABDOMEN [...] 11/12/24 1559 DD/ 1532 TD/TT: 11/12/24 1556 Automatic Splicing Machine Operator: us Peggy Dubon MD IMG XR PROCEDURES Fin al Result * Culture, Urine, Routine (11/12/2024 3:28 PM EDT) Only the most recent of3 resultswithin the time period is included. Urine Urine specimen obtained by clean catch procedure / Unknown 11/12/2024 3:28 PM EDT 11/12/2024 6:26 PM EDT Comment:UACC Narrative [facility] - 11/14/2024 10:39 AM EDT Urine Culture Report Result Urine Culture > 100,000 cfu/ml Urine Culture Mixed bacterial merry characteristic of Urine Culture urogenital contamination. Specimen Source: Urine clean catch us Peggy Dubon MD LAB MICROBIOLOGY - NERAL ORDERABLES Final Result [facility] [address] [place] [phone] * Bacterial Vaginosis Panel (09/23/2024 12:00 AM EST) TRICHOMONAS VAGINALIS DETECTION BY PCR NOT DETECTED Not Detect [facility] BACTERIAL VAGINOSIS DETECTION BY PCR NEGATIVE Negative [facility] Comment:The BV organism targ ets of [...] DETECTION BY PCR NOT DETECTED Not Detect [facility] Ana glab krusei PCR NOT DETECTED Not Detect [facility] Swab Vaginal structure / Unknown 09/23/2024 09/23/2024 Lynne Zamudio NP LAB MICROBIOLOGY - GENERAL ORDER TL Final Result [facility] [address] [place] [address] [phone] * Chlamydia/N. Gonorrhoeae RNA, TMA, Urogenitial (09/23/2024 12:00 AM EST) CT PCR NOT DETECTED Not Detect. [facility] Comment:A not detected test result does [...] psychologicalconsequences. NG PCR NOT DETECTED Not Detect. [facility] Comment:A not detected test result does [...] psychologicalconsequences. Swab (Vaginal Swab) 09/23/2024 09/23/2024 Narrative [facility] - 09/24/2024 4:53 AM EST Vaginal us Lynne Zamudio NP LAB MICROBIOLOGY - GENERAL ORDER TL Final Result [facility] [address] [place] [address] [phone] * BI Mammogram Screening Bilateral (12/09/2023) Anatomical Region Laterality Modality Breast Bilateral Mammography us Peggy Dubon MD IMG BI PROCEDURES Fin al Result * Hm Colonoscopy (11/19/2023 3:37 PM EDT) us Historical Provider HEALTH MAINTENANCE Final Result * THINPREP TIS PAP AND HPV mRNA E6/E7, CT/NG, TRICH (12/26/2021 10:36 AM EDT) Chlamydia trachomatis RNA, TMA, Urogenital NOT DETECTED NOT DETECTED [facility] Clinical Information: None given [facility] COMMENT SEE COMMENT [facility] Comment: The analytical performance characteristics of this assay, when used to test SurePath(TM) specimens have been determined by [employer]. The modifications have not been cleared or approved by the FDA. This assay has been validated pursuant to the CLIA regulations and is used for clinical purposes. ?? For additional information, please refer to https://education.[employer]/faq/IRH611 (This link is being provided for information/ [...] has been evaluated with computer assisted technology. [facility] Branch Lead: SEE COMMENT [facility] Comment: SL, CT(ASCP) CT screening location: [address] ??[address] HPV nRNA E6/E7 Not Detected Not Detected [facility] Comment: Methodology: Director Integrated-Mediated Amplification This assay detects E6/E7 viral messenger RNA (mRNA) from 14 high-risk HPV types (16,18,31,33,35,39,45,51,52,56,58,59,66,68). ? The analytical performance characteristics of this assay have been determined by [employer]. The modifications have not been cleared or approved by the FDA. This assay has been validated pursuant to the CLIA regulations and is used for clinical purposes. ?? For additional information, please refer to http://[employer]/faq/RPY010q5 (This link if provided for information/ educational purposes only.) Interpretation/Re sult: Negative for intraepithelial lesion or malignancy. [facility] LMP: NONE GIVEN [facility] Neisseria gonorrhoeae RNA, TMA, Urogenital NOT DETECTED NOT DETECTED [facility] Prev. BX: NONE GIVEN [facility] Prev. PAP: NONE GIVEN [facility] Review Branch Lead: SEE COMMENT [facility] Comment: MSM, CT(ASCP) CT screening location: [address] ??[address] SOURCE: None given [facility] Statement Of Adequacy: SEE COMMENT [facility] Comment: Satisfactory for evaluation. Endocervical/transformation zone component present. Partially obscuring inflammation Age and/or menstrual status not provided Trichomonas vaginalis, QL, TMA, PAP Vial NOT DETECTED NOT DETECTED [facility] Comment: The analytical performance characteristics of this assay have been determined by [employer]. The modifications have not been cleared or approved by the FDA. This assay has been validated pursuant to the CLIA regulations and is used for clinical purposes. ?? For additional information, please refer to http://[employer]/ faq/Trichomonastma (This link is being provided for information/ educational purposes only.) ?? NO COLLECTION DATE RECEIVED. WE HAVE USED THE DATE THE SPECIMEN WAS RECEIVED BY THIS LABORATORY THE COLLECTION DATE. IF THIS IS INCORRECT, PLEASE CONTACT CLIENT SERVICES. PHONE NUMBER: ?? 12/26/2021 10:3 6 AM EDT us Cherie Knight NP LAB PATHOLOGY ORDERABLES Final Result [facility] [address] [place] [address], from Last 3 Months or Most Recently Relevant to Health Maintenance Insurance [place] [id number] [facility] STAND ADULT Care Teams Surgical Elastic Knitter Hand Frame Relationship Specialty Start Date End Date Peggy Wolfe MD [address] [place] [phone] PCP - General Internal Medicine 08/09/23
--- OUTSIDE RECORDS SUMMARY | 2024-12-03 18:28 | XMS_ITS | Encounter Summary ---
Author Organization [employer] Address [address] [place] [address] Care Team Providers Care Director Of Pediatric Rehabilitation Name Role Phone Yudith Monreal NP Primary Care Provider [phone] Peggy Wolfe MD Primary Care Provide r Reason for Visit * Reason Onset Date Comments Appointment Request 07/30/2023 Encounter Details Date Type Department Care Team ([facility] st Contact Info) Description 07/30/2023 Telephone [facility] MED[facility] [address] [place] [address] Yudith Monreal NP [address] [place] [address] Appointment Request Social History Tobacco Use Types [...] from pt requesting TP Appt with PCP. [employer] Analyst does see recall tried booking no available slot found. Please contact Pt [phone] documented in this encounter Plan of Treatment Upcoming Encounters Date Type Department Care Team (Late st Contact Info) Description 05/20/2025 10:00 AM EDT Office Visit [facility] ADULT DENTAL [address] [place] [address] Kayley, Mae [address] [place] [address] documented as of this encounter Visit Diagnoses Not on filedocumented in this encounter Additional Health Concerns Assessment Noted Time PHQ-9 Depression Total Score: 7 04/16/20 23 4:07 PM EDT documented as of this encounter Care Teams Director Of Pediatric Rehabilitation Relationship Specialty Start Date End Date Yudith Monreal NP [address] [place] [address] PCP - General Family Medicine 05/24/23 08/08/23 Peggy Wolfe MD [address] [place] [address] PCP - General Internal Medicine 08/09/23 documented as of this encounter
--- OUTSIDE RECORDS SUMMARY | 2024-12-03 18:28 | XMS_ITS | Encounter Summary ---
Author Organization [employer] [facility] Address [address] [place] [address] [address] [place] [address] Care Team Providers Care Hat Finisher Name Role Phone Cait Manuel Primary Care Provider [phone] Yudith Monreal NP Primary Care Provider [phone] Peggy Wolfe MD Primary Care Provide r Encounter Details Date Type Department Care Team (Latest Contact Info) Description 12/25/2018 Abstract [facility] Dental, Provider, DDS Social History Tobacco [...] Care Team ( st Contact Info) Description 05/20/2025 10:00 AM EDT Office Visit [facility] ADULT DENTAL [address] [place] [address] Kayley, Mae [address] [place] [address] documented as of this encounter Visit Diagnoses Not on filedocumented in this encounter Care Teams Hat Finisher Relationship Specialty Start Date End Date Cait Manuel FNP PCP - General Family Medicine 04/17/22 05/23/23 Yudith Monreal NP [address] [place] [address] PCP - General Family Medicine 05/24/23 08/08/23 Peggy Wolfe MD [address] [place] [address] PCP - General Internal Medicine 08/09/23 documented as of this encounter
--- OUTSIDE RECORDS SUMMARY | 2024-12-03 18:28 | XMS_ITS | Encounter Summary ---
Author Organization [employer] [facility] Address [address] [place], [place] [address] [place] [address] Care Team Providers Care Knife Blade Polisher Name Role Phone Cait Manuel Primary Care Provider [phone] Yudith Monreal NP Primary Care Provider [phone] Peggy Wolfe MD Primary Care Provide r Reason for Visit * Reason Onset Date Comments Nurse Triage 05/15/2023 Encounter Details Date Type Department Care Team (Late st Contact Info) Description 05/15/2023 Telephone [facility] MEDICINE [address] [place] [address] Cait Manuel FNP [address] [place] [address] Dept [place] [address] Nurse Triage Social History Tobacco Use Types [...] 05/15/2023 3:05 PM EDT Triage call with [place] Helper Teacher [phone] Pt reports sore throat that hurts every time swallowing anything. Pt is neg for fever, ear aches ordifficulty breathing. Pt doesn' t have tonsils and can't see if there is anything white in throat. Pt reports , it feels like something is in there . Advised to come to [facility] for provider to check Pt [...] accepted this outcome Please contact pt at [phone] (Uzbek) documented in this encounter Plan of Treatment Upcoming Encounters Date Type Department Care Team (Late st Contact Info) Description 05/20/2025 10:00 AM EDT Office Visit [facility] ADULT DENTAL [address] [place] [address] Kayley, Mae [address] [place] [address] documented as of this encounter Visit Diagnoses Not on filedocumented in this encounter Additional Health Concerns Assessment Noted Time PHQ-9 Depression Total Score: 7 04/16/20 23 4:07 PM EDT documented as of this encounter Care Teams Knife Blade Polisher Relationship Specialty Start Date End Date Cait Manuel FNP PCP - General Family Medicine 04/17/22 05/23/23 Yudith Monreal NP [address] [place] [address] PCP - General Family Medicine 05/24/23 08/08/23 Peggy Wolfe MD [address] [place] [address] PCP - General Internal Medicine 08/09/23 documented as of this encounter
--- OUTSIDE RECORDS SUMMARY | 2024-12-03 18:28 | XMS_ITS | Encounter Summary ---
Author Organization [facility] Address [address] [place] [address] 7t [place] [address] Care Team Providers Care Wire Tester Name Role Phone Cait Manuel Primary Care Provider [phone]- [phone] Yudith Monreal NP Primary Care Provider [phone] Peggy Wolfe MD Primary Care Provide r Encounter Details Date Type Department Care Team (Latest Contact Info) Description 06/29/2022 Abstract [facility] CONVERSIONS Dental, Provider, DDS Social [...] Description 05/20/2025 10:00 AM EDT Office Visit [facility] ADULT DENTAL [address] [place] [address] Kayley, Mae [address] [place] [address] documented as of this encounter Visit Diagnoses Not on filedocumented in this encounter Care Teams Wire Tester Relationship Specialty Start Date End Date Cait Manuel FNP PCP - General Family Medicine 04/17/22 05/23/23 Yudith Monreal NP [address] [place] [address] PCP - General Family Medicine 05/24/23 08/08/23 Peggy Wolfe MD [address] [place] [address] PCP - General Internal Medicine 08/09/23 documented as of this encounter
--- OUTSIDE RECORDS SUMMARY | 2024-12-03 18:28 | XMS_ITS | Encounter Summary ---
Author Organization [employer] [facility] Address [address] [place] [address] [address] [place] [address] Care Team Providers Care Cushion Padder Name Role Phone Cait Manuel WASTEWATER TREATMENT SUPERVISOR Primary Care Provider [phone]- [phone] Yudith Monreal NP Primary Care Provider [phone] Peggy Wolfe MD Primary Care Provide r Encounter Details Date Type Department Care Team (Late st Contact Info) Description 01/02/2023 Abstract [facility] MEDICINE [address] [place] [address] Cait Manuel FNP [address] [place] [address] Dept [place] [address] Social History Tobacco Use Types Packs/Day Years [...] Description 05/20/2025 10:00 AM EDT Office Visit [facility] ADULT DENTAL [address] [place] [address] Mae Zaldivar [address] [place] [address] documented as of this encounter Procedures Procedure Name Priority Date/Time Associated Diagnosis Comments COLONOSCOPY Routine 12/26/2012 documented in this encounter Results * Colonoscopy (12/26/2012) Colonoscopy Normal Normal 12/26/2012 Jami Garcia - 12/26/2012 11:09 AM EDT Recommended 10 year follow up ([facility] [place] ) Historical Provider HEALTH MAINTENANCE Final Result documented in this encounter Visit Diagnoses Not on filedocumented in this encounter Care Teams Cushion Padder Relationship Specialty Start Date End Date Cait Manuel FNP PCP - General Family Medicine 04/17/22 05/23/23 Yudith Monreal NP [address] [place] [address] PCP - General Family Medicine 05/24/23 08/08/23 Peggy Wolfe MD [address] [place] [address] PCP - General Internal Medicine 08/09/23 documented as of this encounter
--- OUTSIDE RECORDS SUMMARY | 2024-12-03 18:28 | XMS_ITS | Encounter Summary ---
Author Organization [employer] Address [address] [place] [address] Care Team Providers Care Aws Software Development Engineer Name Role Phone Peggy Wolfe MD Primary Care Provide r Reason for Visit * Reason Onset Date Comments Nurse Triage 09/16/2024 Encounter Details Date Type Department Care Team ([facility] st Contact Info) Description 09/16/2024 Telephone [facility] MEDICINE [address] [place], [place] [phone] Peggy Wolfe MD [address] [place], [place] [phone] Nurse Triage Social History Tobacco Use Types [...] 09/16/2024 10:55 AM EST Triage call with [facility] merchandising director [place] [id number] Pt reports urinary symptoms for several days. Burning/pain with urination, frequency , odor and flank pain, neg for fever. Pt is advised to increase liquids to 6-8 glasses daily. Pt agrees. Pt is advised to come to [facility] today to be seen by provider. [...] urine (peeing) The caller accepted this outcome. [phone] (pashto) documented in this encounter Plan of Treatment Upcoming Encounters Date Type Department Care Team (Late st Contact Info) Description 05/20/2025 10:00 AM EDT Office Visit [facility] ADULT DENTAL [address] [place], [place] [phone] Kayley, Mae [address] [place], [place] [phone] documented as of this encounter Visit Diagnoses Not on filedocumented in this encounter Additional Health Concerns Assessment Noted Time PHQ-9 Depression Total Score: 7 04/16/20 23 4:07 PM EDT documented as of this encounter Care Teams Aws Software Development Engineer Relationship Specialty Start Date End Date Peggy Wolfe MD [address] [place] [address] PCP - General Internal Medicine 08/09/23 documented as of this encounter
--- OUTSIDE RECORDS SUMMARY | 2024-12-03 18:28 | XMS_ITS | Encounter Summary ---
Author Organization [employer] [facility] Address [address] [place] [address] 7t [place] [address] Care Team Providers Care Non Destructive Testing Scientist Name Role Phone Cait Manuel Primary Care Provider [phone]- [phone] Yudith Monreal NP Primary Care Provider [phone] Peggy Wolfe MD Primary Care Provide r Encounter Details Date Type Department Care Team (Latest Contact Info) Description 06/30/[address] [facility] CONVERSIONS Dental, Provider, DDS Social History [...] AM EDT Office Visit [facility] ADULT DENTAL [address] [place] [address] Kayley, Mae [address] [place] [address] documented as of this encounter Visit Diagnoses Not on filedocumented in this encounter Care Teams Non Destructive Testing Scientist Relationship Specialty Start Date End Date Cait Manuel FNP PCP - General Family Medicine 04/17/22 05/23/23 Yudith Monreal NP [address] [place] [address] PCP - General Family Medicine 05/24/23 08/08/23 Peggy Wolfe MD [address] [place] [address] PCP - General Internal Medicine 08/09/23 documented as of this encounter
--- OUTSIDE RECORDS SUMMARY | 2024-12-03 18:28 | XMS_ITS | Encounter Summary ---
Author Organization [employer] [facility] Address [address] [place] [address] 7t [place] [address] Care Team Providers Care Cigarette Vendor Name Role Phone Cait Manuel Primary Care Provider [phone]- [phone] Yudith Monreal NP Primary Care Provider [phone] Peggy Wolfe MD Primary Care Provide r Encounter Details Date Type Department Care Team (Latest Contact Info) Description 06/27/2020 Abstract [facility] CONVERSIONS Dental, Provider, DDS Social [...] Description 05/20/2025 10:00 AM EDT Office Visit [facility] ADULT DENTAL [address] [place] [address] Kayley, Mae [address] [place] [address] documented as of this encounter Visit Diagnoses Not on filedocumented in this encounter Care Teams Cigarette Vendor Relationship Specialty Start Date End Date Cait Manuel FNP PCP - General Family Medicine 04/17/22 05/23/23 Yudith Monreal NP [address] [place] [address] PCP - General Family Medicine 05/24/23 08/08/23 Peggy Wolfe MD [address] [place] [address] PCP - General Internal Medicine 08/09/23 documented as of this encounter
--- OUTSIDE RECORDS SUMMARY | 2024-12-03 18:28 | XMS_ITS | Encounter Summary ---
Author Organization [employer] Address [address] [place] [address] Care Team Providers Care Supervisor Matrix Name Role Phone Peggy Wolfe MD Primary Care Provide r Encounter Details Date Type Department Care Team (Latest Contact Info) Description 12/03/2024 9:00 AM EDT Procedure Visit [facility] MEDICINE [address] [place], [place] [phone] Peggy Wolfe MD [address] [place], [place] [phone] Encounter for Papanicolaou smear for cervical cancer screening (Primary Dx); Rash; Hypertriglyceridemia Social History Tobacco Use Types Packs/Day Years [...] 20 12/03/2024 9:13 AM EDT Oxygen Saturation - - Inhaled Oxygen Concentration - - Weight 74.4 kg (164 lb) 12/03/2024 9:13 AM EDT Height 157.5 cm (5' 2 ) 12/03/2024 9:13 AM EDT Body Mass Index 30 12/03/2024 9:13 AM EDT documented in this encounter Progress Notes * Peggy Dubon MD - 12/03/2024 9:00 AM EDT Images from the original note were not included. SUBJECTIVE: Karly Davila is a 64 y.o. year old female who presents for Pap . Patient denies breast pain, lumps, changes in skin, nipple retraction or discharge Patient denies pelvic pain, vaginal discharge or bleeding Patient does have mild itchiness and rash on perineal area Acute Concerns: I reviewed labs with patient I let her now her triglycerides are high, her ASCVD score is 5.7 she should be on a statin but did not tolerate them in the past due to myalgias. Her AST is 34 mildly elevated Social History Social History Narrative Not on [...] acquired Seborrheic dermatitis Inadequate occlusion of dental protestant Rash Elevated BP without diagnosis of hypertension Vaginal discharge Dysuria Right flank pain Encounter for Papanicolaou smear for cervical cancer screening Hypertriglyceridemia No family history on file. Review of Systems Constitutional: Negative. HENT: Negative. Respiratory: Negative. Cardiovascular: Negative. Genitourinary: Negative. OBJECTIVE: Vitals: 12/03/24 0913 BP: 138/81 BP Location: Left arm Patient Position: Sitting BP Cuff Size: Adult Pulse: 91 Resp: 20 Temp: 97 ??F (36.1 ??C) TempSrc: Oral Weight: 164 lb (74.4 kg) Height: 5' 2 (1.575 m) Physical Exam Exam conducted with a cook vegetable present. Constitutional: Appearance: Normal appearance. Cardiovascular: Rate and Rhythm: Normal rate and regular rhythm. Pulmonary: Effort: Pulmonary effort is normal. Breath sounds: Normal breath sounds. Abdominal: General: Abdomen is flat. Palpations: Abdomen is soft. Genitourinary: Pubic Area: Rash present. Vagina: Normal. Cervix: Normal. Uterus: Normal. Neurological: Mental Status: She is alert. Follow Up: No follow-ups on file. Current Outpatient Medications on File Prior to Visit Medication Sig Dispense Refill albuterol (Ventolin HFA) 108 (90 Base) MCG/ACT inhaler INHALE 2 PUFFS BY MOUTH EVERY 4 TO 6 HOURS IF NEEDED FOR WHEEZING 18 g 3 Bisacodyl EC 5 MG EC tablet TAKE [...] mouth 2 times daily. 60 tablet 11 fexofenadine (Alina) 180 MG tablet Take 1 tablet (180 mg) by mouth if needed each day (Allergies). 90 tablet 1 fluconazole (Diflucan) 150 MG tablet Take 1 tablet (150 mg) by mouth Once per day. May repeat dose in 3 days prn 2 tablet 0 fluticasone (Flonase) 50 MCG/ACT nasal spray Administer 1-2 sprays into each nostril Once per day. Shake gently. Before first use, prime pump. After use, clean tip and replace cap. 16 g 2 gabapentin (Neurontin) 300 MG capsule Take 1 [...] ORAL TODOS LOS D EN LA MA LIAT No current facility-administered medications on file prior to visit. Problem List Items Addressed This Visit Encounter for Papanicolaou smear for cervical cancer screening - Primary PAP and pelvic exam done today, patient will be contacted with results Relevant Orders Pap Smear Rash Local cream prescribed it was instructed not to use it more than 2 weeks Relevant Medications clotrimazole-betamethasone (Lotrisone) cream Hypertriglyceridemia Today extensive discussion was done about life style modifications I advise healthy diet (low calorie) and cardiovascular exercise Relevant Medications Icosapent Ethyl (Vascepa) 1 g capsule documented in this encounter Miscellaneous Notes * Assessment & Plan Note - Peggy Dubon MD - 12/03/2024 9:44 AM EDT Associated Problem(s): Rash Local cream prescribed it was instructed not to use it more than 2 weeks * Assessment & Plan Note - Peggy Dubon MD - 12/03/2024 9:43 AM EDT Associated Problem(s): Hypertriglyceridemia Today extensive discussion was done about life style modifications I advise healthy diet (low calorie) and cardiovascular exercise * Assessment & Plan Note - Peggy Dubon MD - 12/03/2024 9:43 AM EDT Associated Problem(s): Encounter for Papanicolaou smear for cervical cancer screening PAP and pelvic exam done today, patient will be contacted with results documented in this encounter Plan of Treatment Upcoming Encounters Date Type Department Care Team (Late st Contact Info) Description 05/20/2025 10:00 AM EDT Office Visit [facility] ADULT DENTAL [address] [place] [address] Mae Zaldivar [address] [place] [address] Scheduled Orders Name Type Priority Associated Diagnoses Orde r Schedule Pap Smear Pathology and Cytology Routine Encounter for Papanicolaou smear for cervical cancer screening Ordered: 12/03/2024 documented as of this encounter Visit Diagnoses Diagnosis Encounter for Papanicolaou smear for cervical cancer screening- Primary Rash Rash and other nonspecific skin eruption Hypertriglyceridemia Pure hyperglyceridemia documented in this encounter Additional Health Concerns Assessment Noted Time PHQ-9 Depression Total Score: 8 11/13/19 25 2:38 PM EDT documented as of this encounter Care Teams Supervisor Matrix Relationship Specialty Start Date End Date Peggy Wolfe MD [address] [place] [address] PCP - General Internal Medicine 08/09/23 documented as of this encounter
[2024-12-10 14:06] LABS: HPV Genotype 16 Negative (Negative); HPV Genotype 18 Negative (Negative); HPV High Risk Negative (Negative)
== END 2024-12-03 17:05 | disposition home or self-care (01) ==
LOC: HO.HHCLNP 17:04
PROVIDERS: Visit Provider Internal Medicine
DX: Z12.4 Encounter for screening for malignant neoplasm of cervix (principal)
CPT/HCPCS: 87626; 88175

== ENCOUNTER 2025-06-18 11:38 | Outpatient (AMB) | payer MEDICARE, MEDICAID, SELFPAY ==
[2025-06-18 11:47] VITALS: BP 118/66; PULSE 76; O2SAT 97; BMI 29.3
--- NOTE | 2025-06-18 11:47 | A.OFFVIS_ITS ---
Vital Signs 06/18/25 11:47 Height 5 ft 2 in Weight 160 lb BMI 29.3 BP 118/66 Blood Pressure Location Rt brachial Position Sitting Pulse 76 Pulse Source Pulse Oximeter Pulse Oximetry (%) 97 Oxygen Delivery Method Room Air Intake Visit Reasons: Added from CL. GERD mgmt Intake Note: ESTABLISHED PATIENT for GERD, diarrhea mgmt. Chief Complaint; C.O. epigastric pain persistence + diarrhea w/ increased sx frequency. Pt states that her sx persist despite her current therapies. Information Technology Director Required: Yes Information Technology Director Services: Information Technology Director Present Information Technology Director Name: Kemi [id number] Information Interpreted: clinical only Accompanied by: Self / Same As Patient Allergies Seasonal Allergies Allergy (Unknown, Verified 06/18/25 11:54) Sneezing lactose Adverse Reaction (Unknown, Verified 06/18/25 11:54) Nausea and Vomiting HPI HPI Added from CL. GERD mgmt: Details: LAST VISIT: Postprandial epigastric pain GERD (gastroesophageal reflux disease) Helicobacter pylori (H. pylori) Postprandial diarrhea Postprandial abdominal bloating Plan Will check vitamin B12, folate, vitamin-D level. Patient continues to have postprandial abdominal bloating and occasional loose stools. Will have patient take fiber supplements. We recommended changing her diet to possibly follow FODMAP diet. List of recommended as well as list of food to avoid given to patient. Patient will follow-up in 6 months, sooner on as needed basis. She is agreeable to this plan and verbalizes understanding of instructions. She was given the opportunity to ask questions and all questions answered. ? Thank you for allowing me to participate in her care Orders Vitamin B12 and Folate 11/16/24 R19.7 Vitamin D 25-OH (D2 and D3) 11/16/24 E55.9 New methylcellulose (laxative) (Citrucel) take it with full glass of water 500 mg PO DAILY 90 tabs 2RF K59.00 Changed Changed From famotidine 20 mg PO DAILY PRN 90 tabs 1RF for acid reflux K21.9 Changed To famotidine 20 mg PO DAILY 90 tabs 2RF for acid reflux K21.9 Refilled esomeprazole magnesium (Nexium) 40 mg PO DAILY 90 caps 3RF K21.9 TODAY'S VISIT: Patient is here today for requested visit. Patient reports that she has been taking famotidine at bedtime and Nexium in the morning and she continues to have epigastric pain. Patient reports also postprandial abdominal bloating. Patient reports increased in frequency with stools. Patient denies any mucus in her stools. Denies any nausea or vomiting. Denies melena, hematochezia, unintentional weight loss or ribbon like stools. Patient denies any dyspepsia, dysphagia or odynophagia. Patient has not noticed if any particular food is causing her to have worsening symptoms. However no change to her diet. Patient currently does not add extra fiber in her diet. Patient denies any nausea or vomiting. Pain in the epigastric area sometimes radiates to the left upper quadrant and left back PFSH Medical History Elevated cholesterol Allergic rhinitis Anxiety Depression Fibromyalgia Helicobacter pylori (H. pylori) infection Surgical History Hx of tubal ligation Hx of abdominoplasty Hx of breast augmentation History of esophagogastroduodenoscopy (EGD) History of bunionectomy H/O colonoscopy Hx of tonsillectomy Family History Mother HTN (hypertension) Heart disease Diabetes Fibromyalgia Arthritis Father Arthritis Maternal Aunt Heart disease Diabetes HTN (hypertension) Maternal Uncle Heart disease Social History Household Members: Other Alcohol intake: never Patient Tobacco Use Status: Never used Tobacco Physical Exam Vital Signs: Last Vital Signs Pulse 76 06/18/25 11:47 BP 118/66 06/18/25 11:47 Pulse Ox 97 06/18/25 11:47 Oxygen Delivery Method Room Air 06/18/25 11:47 BMI result Body Mass Index 29.3 Results Reviewed Results Reviewed: Laboratory Tests 11/16/24 13:59 Vitamin B12 226 25-OH Vitamin D Total 42 Folate 10.5 Assessment & Plan Assessment & Plan (1) Postprandial epigastric pain: Code(s): R10.13 - Epigastric pain (2) Gastroesophageal reflux disease: Code(s): K21.9 - Gastro-esophageal reflux disease without esophagitis Qualifiers: Esophagitis presence: esophagitis presence not specified Qualified Code(s): K21.9 - Gastro-esophageal reflux disease without esophagitis (3) Helicobacter pylori infection: Code(s): A04.8 - Other specified bacterial intestinal infections (4) Postprandial diarrhea: Code(s): K52.9 - Noninfective gastroenteritis and colitis, unspecified (5) Postprandial abdominal bloating: Code(s): R14.0 - Abdominal distension (gaseous) Plan Patient reports left upper quadrant pain and increased diarrhea. Patient also reports occasional postprandial right upper quadrant discomfort. Will send her for ultrasound, check lipase to rule out pancreatitis, check liver panel. She will increase fiber in her diet. Recommended fiber supplements with pre and probiotic. She will continue taking Nexium in the morning and famotidine at bedtime. Avoid dietary triggers and late night snacking. Staying upright for minimum 3 hours after meals discussed with patient. Patient has appointment in August. Patient will need to be retested for H pylori if she continues to have symptoms. Patient is agreeable to current plan of care and verbalizes understanding of instructions. She was given the opportunity to ask questions and all questions answered. Thank you for allowing me to participate in her care Orders: Orders US abdomen complete 06/18/25 R10.9 - Unspecified abdominal pain Lipase 06/18/25 R10.9 - Unspecified abdominal pain Liver Panel 06/18/25 R74.01 - Elevation of levels of liver transaminase levels Coding Level of Care Code Est Pt Level 4 (95483) Complex visit Add On G2211 Diagnoses Postprandial epigastric pain R10.13 Gastroesophageal reflux disease, unspecified whether esophagitis present K21.9 Esophagitis presence: esophagitis presence not specified Helicobacter pylori infection A04.8 Postprandial diarrhea K52.9 Postprandial abdominal bloating R14.0 Time Spent (min) 40 Comment 25 minutes spent with patient and additional 15 minutes spent reviewing her records
--- OUTSIDE RECORDS SUMMARY | 2025-06-18 13:17 | XMS_ITS | Encounter Summary ---
Author Organization [employer] Address [address] [place] [address] Care Team Providers Care Scarf And Anneal Operator Name Role Phone Peggy Wolfe MD Primary Care Provide r Reason for Visit * Reason Comments Med Refill Encounter Details Date Type Department Care Team ([facility] st Contact Info) Description 12/11/2023 Refill [facility] MED & PEDS [address] [place], [place] [phone] Peggy Wolfe MD [address] [place] [address] Social History Tobacco Use Types Packs/Day Years [...] Care Team (Late st Contact Info) Description 06/21/2025 8:45 AM EST Office Visit [facility] ADULT DENTAL [address] [place] [address] Kayley, Mae [address] [place] [address] documented as of this encounter Visit Diagnoses Not on filedocumented in this encounter Additional Health Concerns Assessment Noted Time PHQ-9 Depression Total Score: 7 04/16/20 23 4:07 PM EDT documented as of this encounter Care Teams Scarf And Anneal Operator Relationship Specialty Start Date End Date Peggy Wolfe MD [address] [place] [address] PCP - General Internal Medicine 08/09/23 documented as of this encounter
--- OUTSIDE RECORDS SUMMARY | 2025-06-18 13:17 | XMS_ITS | Encounter Summary ---
Author Organization [email or web address] Address [address] [place] [address] 7 [place] [address] Care Team Providers Care Switchboard Troubleshooter Name Role Phone Cait Manuel Primary Care Provider Yudith Lucas NP Primary Care Provider [phone] Peggy Wolfe MD Primary Care Provide r Encounter Details Date Type Department Care Team (Latest Contact Info) Description 06/27/2020 Abstract [facility] CONVERSIONS Dental, Provider, [...] Description 06/21/2025 8:45 AM EST Office Visit [facility] ADULT DENTAL [address] [place] [address] Kayley, Mae [address] [place] [address] documented as of this encounter Visit Diagnoses Not on filedocumented in this encounter Care Teams Switchboard Troubleshooter Relationship Specialty Start Date End Date Cait Manuel FNP PCP - General Family Medicine 04/17/22 05/23/23 Yudith Monreal NP [address] [place] [address] PCP - General Family Medicine 05/24/23 08/08/23 Peggy Wolfe MD [address] [place] [address] PCP - General Internal Medicine 08/09/23 documented as of this encounter
--- OUTSIDE RECORDS SUMMARY | 2025-06-18 13:17 | XMS_ITS | Encounter Summary ---
Author Organization [employer] Address [address] [place] [address] Care Team Providers Care Product Safety Head Name Role Phone Peggy Wolfe MD Primary Care Provide r Reason for Visit * Reason Onset Date Comments Nurse Triage 09/16/2024 Encounter Details Date Type Department Care Team ([facility] st Contact Info) Description 09/16/2024 Telephone [facility] MEDICINE [address] [place], [place] [phone] Peggy Wolfe MD [address] [place], [place] [phone] Nurse Triage Social History Tobacco Use Types [...] EST Triage call with [facility] [place] [id number] Pt reports urinary symptoms for several days. Burning/pain with urination, frequency , odor and flank pain, neg for fever. Pt is advised to increase liquids to 6-8 glasses daily. Pt agrees. Pt is advised to come to [facility] today to be seen by provider. [...] urine (peeing) The caller accepted this outcome. [phone] (armenian) documented in this encounter Plan of Treatment Upcoming Encounters Date Type Department Care Team (Late st Contact Info) Description 06/21/2025 8:45 AM EST Office Visit [facility] ADULT DENTAL [address] [place], [place] [phone] Kayley, Mae [address] [place] [address] documented as of this encounter Visit Diagnoses Not on filedocumented in this encounter Additional Health Concerns Assessment Noted Time PHQ-9 Depression Total Score: 7 04/16/20 23 4:07 PM EDT documented as of this encounter Care Teams Product Safety Head Relationship Specialty Start Date End Date Peggy Wolfe MD [address] [place] [address] PCP - General Internal Medicine 08/09/23 documented as of this encounter
--- OUTSIDE RECORDS SUMMARY | 2025-06-18 13:17 | XMS_ITS | Encounter Summary ---
Author Organization [employer] Address [address] [facility] [address] [facility] [address] 7t [place] [address] Care Team Providers Care Senior Capital Markets Specialist Name Role Phone Peggy Wolfe MD Primary Care Provide r Encounter Details Date Type Department Care Team ([facility] Contact Info) Description 09/22/2024 Telephone [facility] [address] [place], [place] [phone] Peggy Wolfe MD [address] [place], [place] [phone] Social History Tobacco Use Types Packs/Day Years [...] your housing situation today? I have ishan cowna 06/04/[address] you li [...] Description 06/21/2025 8:45 AM EST Office Visit [facility] [address] [place] [address] Mae Zaldivar [address] [place] [address] documented as of this encounter Visit Diagnoses Not on filedocumented in this encounter Additional Health Concerns Assessment Noted Time PHQ-9 Depression Total Score: 7 04/16/20 23 4:07 PM EDT documented as of this encounter Care Teams Senior Capital Markets Specialist Relationship Specialty Start Date End Date Peggy Wolfe MD [address] [place] [address] PCP - General Internal Medicine 08/09/23 documented as of this encounter
--- OUTSIDE RECORDS SUMMARY | 2025-06-18 13:17 | XMS_ITS | Encounter Summary ---
Author Organization [employer] Address [address] [place] [address] 7 [place] [address] Care Team Providers Care Assembly Machine Operator Name Role Phone Cait Manuel Primary Care Provider Yudith Lucas NP Primary Care Provider [phone] Peggy Wolfe MD Primary Care Provide r Encounter Details Date Type Department Care Team (Latest Contact Info) Description 06/30/2019 Abstract [facility] CONVERSIONS Dental, [...] 8:45 AM EST Office Visit [facility] ADULT D[facility]AL [address] [place] [address] Kaylye, Mae [address] [place] [address] documented as of this encounter Visit Diagnoses Not on filedocumented in this encounter Care Teams Assembly Machine Operator Relationship Specialty Start Date End Date Cait Manuel FNP PCP - General Family Medicine 04/17/22 05/23/23 Yudith Monreal NP 230 [place] [address] PCP - General Family Medicine 05/24/23 08/08/23 Peggy Wolfe MD [address] [place] [address] PCP - General Internal Medicine 08/09/23 documented as of this encounter
--- OUTSIDE RECORDS SUMMARY | 2025-06-18 13:17 | XMS_ITS | Encounter Summary ---
Author Organization [employer] Address [address] [place] [address] 7 [place] [address] Care Team Providers Care Pruner Name Role Phone Cait Manuel Primary Care Provider Yudith Lucas NP Primary Care Provider [phone] Peggy Wolfe MD Primary Care Provide r Encounter Details Date Type Department Care Team (Latest Contact Info) Description 02/06/2022 Abstract [facility] CONVERSIONS Dental, Provider, DDS Social [...] Description 06/21/2025 8:45 AM EST Office Visit [facility] ADULT D[facility]AL [address] [place] [address] Kayley, Mae [address] [place] [address] documented as of this encounter Visit Diagnoses Not on filedocumented in this encounter Care Teams Pruner Relationship Specialty Start Date End Date Cait Manuel FNP PCP - General Family Medicine 04/17/22 05/23/23 Yudith Monreal NP [address] [place] [address] PCP - General Family Medicine 05/24/23 08/08/23 Peggy Wolfe MD [address] [place] [address] PCP - General Internal Medicine 08/09/23 documented as of this encounter
--- OUTSIDE RECORDS SUMMARY | 2025-06-18 13:17 | XMS_ITS | Encounter Summary ---
Author Organization [employer] Address [address] [place] [address] 7 [place] [address] Care Team Providers Care Cafeteria Food Server Name Role Phone Cait Manuel Primary Care Provider Yudith Lucas NP Primary Care Provider [phone] Peggy Wolfe MD Primary Care Provide r Encounter Details Date Type Department Care Team (Latest Contact Info) Description 06/29/2022 Abstract [facility] CONVERSIONS Dental, Provider, DDS Social History Tobacco [...] Description 06/21/2025 8:45 AM EST Office Visit [facility] ADULT DENTAL [address] [place] [address] Kayley, Mae [address] [place] [address] documented as of this encounter Visit Diagnoses Not on filedocumented in this encounter Care Teams Cafeteria Food Server Relationship Specialty Start Date End Date Cait Manuel FNP PCP - General Family Medicine 04/17/22 05/23/23 Yudith Monreal NP 230 [place] [address] PCP - General Family Medicine 05/24/23 08/08/23 Peggy Wolfe MD [address] [place] [address] PCP - General Internal Medicine 08/09/23 documented as of this encounter
--- OUTSIDE RECORDS SUMMARY | 2025-06-18 13:17 | XMS_ITS | Encounter Summary ---
Author Organization [employer] Address [address] [place] [address] 7 [place] [address] Care Team Providers Care Healthcare Applications Analyst Name Role Phone Cait Manuel Primary Care Provider Yudith Lucas NP Primary Care Provider [phone] Peggy Wolfe MD Primary Care Provide r Encounter Details Date Type Department Care Team (Latest Contact Info) Description 12/25/2018 Abstract [facility] CONVERSIONS Dental, [...] Description 06/21/2025 8:45 AM EST Office Visit [facility] ADULT DENTAL 230 [place] [address] Kayley, Mae [address] [place] [address] documented as of this encounter Visit Diagnoses Not on filedocumented in this encounter Care Teams Healthcare Applications Analyst Relationship Specialty Start Date End Date Cait Manuel FNP PCP - General Family Medicine 04/17/22 05/23/23 Yudith Monreal NP 230 [place] [address] PCP - General Family Medicine 05/24/23 08/08/23 Peggy Wolfe MD [address] [place] [address] PCP - General Internal Medicine 08/09/23 documented as of this encounter
--- OUTSIDE RECORDS SUMMARY | 2025-06-18 13:17 | XMS_ITS | Encounter Summary ---
Author Organization [employer] Address [address] [facility] [address] 7[address] [place] [address] Care Team Providers Care Senior Project Controls Specialist Name Role Phone Peggy Wolfe MD Primary Care Provide r Encounter Details Date Type Department Care Team ([facility] st Contact Info) Description 11/12/2024 Orders Only [facility] [address] [place], [place] [phone] Provider, MD Lola Social History Tobacco Use [...] AM EDT documented as of this encounter Functional Status * Over the past 2 weeks, how often have you been bothered by any of the following problems? Question Answer Date of Assessment Author Patient Health Questionnaire-2 Score 2 11/12/2024 2:38 PM EDT Cami Bradford [place] * Little interest or pleasure in doing things Answer Date of Assessment Author Several days 11/12/2024 2:38 PM EDT Cami Hall [place] * Feeling down, depressed, or hopeless Answer Date of Assessment Author Several days 11/12/2024 2:38 PM EDT Cami Hall [place] * Trouble falling or staying asleep, or sleeping too much Answer Date of Assessment Author Several days 11/12/2024 2:38 PM EDT Cami Hall [place] * Feeling tired or having little energy Answer Date of Assessment Author Several days 11/12/2024 2:38 PM EDT Cami Hall [place] * Poor appetite or overeating Answer Date of Assessment Author Several days 11/12/2024 2:38 PM EDT Cami Hall [place] * Feeling bad about yourself - or that you are a failure or have let yourself or your family down Answer Date of Assessment Author Several days 11/12/2024 2:38 PM EDT Cami Hall [place] * Trouble concentrating on things, such as reading the newspaper or watching television Answer Date of Assessment Author Several days 11/12/2024 2:38 PM EDT Cami Hall [place] * Moving or speaking so slowly that other people could have noticed? Or the opposite - being so fidgety or restless that you have been moving around a lot more than usual. Answer Date of Assessment Author Several days 11/12/2024 2:38 PM EDT Cami Escoto [place] * Thoughts that you would be better off or hurting yourself in some way Answer Date of Assessment Author Not at all 11/12/2024 2:38 PM EDT Cami Hall [place] * Patient Health Questionnaire-9 Score Answer Date of Assessment Author 8 11/12/2024 2:38 PM EDT Cami Hall [place] * How difficult have these problems made it for you to do your work, take care of things at home, or get along with other people? Answer Date of Assessment Author Somewhat difficult 11/12/2024 2:38 PM EDT Cami Miller [place] documented as of this encounter Plan of Treatment Upcoming Encounters Date Type Department Care Team (Late st Contact Info) Description 06/21/2025 8:45 AM EST Office Visit [facility] D[facility] [address] [place] [address] Kayley Mae [address] [place] [address] documented as of this encounter Procedures Procedure [...] as of this encounter Care Teams Senior Project Controls Specialist Relationship Specialty Start Date End Date Peggy Wolfe MD 230 [place] [address] PCP - General Internal Medicine 08/09/23 documented as of this encounter
--- OUTSIDE RECORDS SUMMARY | 2025-06-18 13:17 | XMS_ITS | Encounter Summary ---
Author Organization [employer] Address [address] [place] [address] 7t [place] [address] Care Team Providers Care Material Handling Technician Name Role Phone Cait Manuel Primary Care Provider Yudith Lucas NP Primary Care Provider [phone] Peggy Wolfe MD Primary Care Provide r Reason for Visit * Reason Onset Date Comments Nurse Triage 05/15/2023 Encounter Details Date Type Department Care Team (Late st Contact Info) Description 05/15/2023 Telephone [facility] MEDICINE [address] [place] [address] Cait Manuel FNP Nurse Triage Social History Tobacco Use Types [...] 05/15/2023 3:05 PM EDT Triage call with [facility] Dependency Counselor [id number] Pt reports sore throat that hurts every [...] accepted this outcome Please contact pt at [phone] (Latvian) documented in this encounter Plan of Treatment Upcoming Encounters Date Type Department Care Team (Late st Contact Info) Description 06/21/2025 8:45 AM EST Office Visit [facility] ADULT DENTAL [address] [place] [address] Rocky Zaldivararis [address] [place] [address] documented as of this encounter Visit Diagnoses Not on filedocumented in this encounter Additional Health Concerns Assessment Noted Time PHQ-9 Depression Total Score: 7 04/16/20 23 4:07 PM EDT documented as of this encounter Care Teams Material Handling Technician Relationship Specialty Start Date End Date Cait Manuel FNP PCP - General Family Medicine 04/17/22 05/23/23 Yudith Monreal NP 230 [place] [address] PCP - General Family Medicine 05/24/23 08/08/23 Peggy Wolfe MD [address] [place] [address] PCP - General Internal Medicine 08/09/23 documented as of this encounter
--- OUTSIDE RECORDS SUMMARY | 2025-06-18 13:17 | XMS_ITS | Encounter Summary ---
Author Organization [employer] Address [address] [place] [address] 7t [place] [address] Care Team Providers Care Cell Efficiency Supervisor Name Role Phone Cait Manuel Primary Care Provider Yudith Lucas NP Primary Care Provider [phone] Peggy Wolfe MD Primary Care Provide r Encounter Details Date Type Department Care Team (Late st Contact Info) Description 05/22/2023 Telephone [facility] [address] [place] [address] Cait Manuel FNP Social History Tobacco Use Types Packs/Day Years [...] 3:49 PM EDT T/C to pt. Through [employer] id - [id number] for below message, pt. States she already apt. On 05/[facility]/2023 at [facility]. Pt. Is al set. Pt. Advised to give call on [phone] if any questions or concerns. Pt. Verbally agreed and understood. * Telephone Encounter - Merry Gillespie - 05/22/2023 4:15 PM EDT Tc from pt requesting a new order for nerve test on left leg. Any questions, please contact pt at [phone] (Tristanian) documented in this encounter Plan of Treatment Upcoming Encounters Date Type Department Care Team (Late st Contact Info) Description 06/21/2025 8:45 AM EST Office Visit [facility] ADULT DENTAL [address] [place], [place] [phone] Kayley, Mae [address] [place] [address] documented as of this encounter Visit Diagnoses Not on filedocumented in this encounter Additional Health Concerns Assessment Noted Time PHQ-9 Depression Total Score: 7 04/16/20 4:07 PM EDT documented as of this encounter Care Teams Cell Efficiency Supervisor Relationship Specialty Start Date End Date Cait Manuel FNP PCP - General Family Medicine 04/17/22 05/23/23 Yudith Monreal NP [address] [place] [address] PCP - General Family Medicine 05/24/23 08/08/23 Peggy Wolfe MD [address] [place] [address] PCP - General Internal Medicine 08/09/23 documented as of this encounter
--- OUTSIDE RECORDS SUMMARY | 2025-06-18 13:17 | XMS_ITS | Clinical Summary ---
Author Organization [employer] Address [address] [place] [address] 7t [place] [address] Care Team Providers Care Spooler Name Role Phone Peggy Wolfe MD Primary [...] D EN LA YONI LITA 024 Active fluconazole (Diflucan) 150 MG tablet Take 1 tablet (150 mg) by mouth Once per day. December repeat dose in 3 days prn 2 tablet 025 Active albuterol (Ventolin HFA) 108 (90 Base) MCG/ACT inhalerIndication s:Mild intermittent asthma without complication INHALE 2 PUFFS BY MOUTH EVERY 4 TO 6 HOURS IF NEEDED FOR WHEEZING 18 g 3 025 Active Icosapent Ethyl (Vascepa) 1 g capsuleIndication s:Hypertriglyceri demia Take 2 capsules (2 g) by mouth with breakfast and with evening meal. 120 capsule 11 025 2025 Active cholecalciferol VITAMIN D (Vitamin D-3) 50 MCG (2000 UT) capsule TOME 1 CAPSULA POR VIA ORAL TODOS LOS COLILNS 90 capsule 025 Active fluticasone (Flonase) 50 MCG/ACT nasal sprayIndications: Allergic rhinitis, unspecified seasonality, unspecified trigger SPRAY 1 TO 2 SPRAYS INTO EACH NOSTRIL EVERY DAY. SHAKE GENTLY. BEFORE FIRST USE, PRIME PUMP. AFTER USE, CLEAN TIP AND REPLACE CAP. 48 mL 025 Active fexofenadine (Alina) 180 MG tabletIndications :Allergic rhinitis, unspecified seasonality, unspecified trigger TAKE 1 TABLET BY MOUTH EVERY DAY NEEDED FOR ALLERGIES 90 tablet 1 025 Active fexofenadine (Alina) 180 MG tabletIndications :Allergic rhinitis, unspecified seasonality, unspecified trigger Take 1 tablet (180 mg) by mouth if needed each day (Allergies). 90 tablet 1 025 2024 Discontinued Active Problems Problem Noted Date Diagnosed Date [...] and stress reduction. Inadequate occlusion of dental hinduism 05/20 Seborrheic dermatitis 05/11/2024 Assessment & Plan [...] triggers Symptoms are controlled with PRN albuterol Margarito 06/01/2015 Encounters Date Type Department Care Team Description 06/16/2025 Travel 05/30/2025 Refill [facility] [address] [place] [address] Peggy Wolfe MD Allergic rhinitis, unspecified seasonality, unspecified trigger 05/13/2025 Refill [facility] [address] [place] [address] Peggy Wolfe MD Allergic rhinitis, unspecified seasonality, unspecified trigger from Last 3 Months Immunizations Immunization Administration Dates Next Due Hep B, adult [...] 91 12/03/2024 9:13 AM EDT Temperature 36.1 C (97 F) 12/03/2024 9:13 AM EDT Respiratory Rate 20 [...] Description 06/21/2025 8:45 AM EST Office Visit [facility] ADULT DENTAL [address] [place] [address] Kayley, Mae [address] [place] [address] Health Maintenance Due Date Last Done Comments CT Colonography 1960 FIT DNA/Cologuard 1960 FIT 1960 FOBT 1960 HIV Screening 1960 Sigmoidoscopy 1960 Alcohol/Substance Use Screening 1973 RSV Patients and Patients Aged 60 years or older (1 - Risk 60-74 years 1-dose series) 2021 Mammogram 12/08/2024 12/09/2023 COVID-19 Vaccine ( season) 2025 02/26/2022, 08/28/2021, 12/02/2020, Additional history exists Influenza Vaccine (#1) 2025 , 07/01/2023, 06/20/2022, Additional history exists Dental Oral Exam 05/16/2025 11/12/2024, , 06/29/2022 Dental Prophylaxis 05/16/2025 11/12/2024, 0 12/16/2023, 12/26/2022 Dental X-Ray: Full Mouth 06/30/2025 06/29/2022 SDOH Screening 11/03/2025 11/03/2024 Depression Screening 11/12/2025 11/12/2024, 11/13/19 Dental X-Ray: Bitewings 11/13/2025 11/13/19, 12/16/2023, 06/10/2023 Disability Screening 12/03/2025 12/03/2024 Tobacco Screening 12/03/2025 12/03/2024 HPV/Cotest 12/04/2027 12/03/2024, 05/1 , 11/09/2020, Additional history exists Cervical Cancer Screening 12/03/2029 Pap Smear 12/03/2029 12/03/2024, 051 , 11/09/2020, Additional history exists Colonoscopy 11/18/2033 11/19/2023, 12/26/2012 Colorectal Cancer Screening 11/18/2033 DTaP/Tdap/Td Vaccines (3 - Td or Tdap) 07/27/2034 07/27/2024, 10/24/2012, 01/21/2007 Hepatitis B Vaccines Completed 10/24/2012, 07/05/2011, 04/17/2011 Zoster Vaccines Completed 05/17/2019, 03/18/2019 Pneumococcal Vaccine: 50+ Years Completed 07/27/2024, 07/18/2010 [...] patient's age to complete this topic Meningococcal B Vaccine Aged Out No l onger eligible based on patient's age to complete [...] Procedure Name Priority Date/Time Associated Diagnosis Comments HPV DNA, LOW/HIGH RISK Routine 12/03/2024 12:00 AM EDT PAP SMEAR Routine 12/03/2024 12:00 AM EDT Encounter for Papanicolaou smear for cervical cancer screening HEPATITIS C AB W/REFL TO HCV RNA, QN, PCR Routine 11/13/2024 8:27 AM EDT Mixed hyperlipidemia Full PROPHYLAXIS - ADULT Routine 11/12/2024 9:00 AM EDT Missing teeth, acquired Localized gingival recession Dental calculus BITEWINGS - 4 RADIOGRAPHIC IMAGES Routine 11/12/2024 9:00 AM EDT Missing teeth, acquired Localized gingival recession Dental calculus PERIODIC ORAL EVALUATION - ESTABLISHED PATIENT Routine 11/12/2024 9:00 AM EDT BI MAMMOGRAM SCREENING BILATERAL Routine 12/09/2023 Encounter for screening mammogram for malignant neoplasm of breast HM COLONOSCOPY Routine 11/19/2023 3:37 PM EDT from Last 3 Months or Most Recently Relevant to Health Maintenance Results * HPV DNA, Low/High Risk (12/03/2024 12:00 AM EDT) HPV High Risk Negative Negative [facility] HPV Genotype 16 Negative Negative [facility] HPV Genotype 18 Negative Negative [facility] Comment:HPV testing performe d at [facility] (CLIA#[id number]), [address] [place] [id number].Testing for HPV was performed using the [employer] NephroPlus0system. The presence of HPV in the female genital tract isassociated with a number of diseases, including cervicalcarcinoma. The HPV DNA high risk pool tests for HPV 31, 33,35, 39, 45, 51, 52, 56, 58, 59, 66 and 68. The testing forHPV 16 and 18 genotypes has also been performed. A positiveresult indicates detection of nucleic acid sequences fromone or more subtypes, whereas a negative result indicatessuch sequences were not detected. 12/03/2024 12/04/2024 5:0 3 AM EDT us Peggy Dubon MD LAB BLOOD ORDERABLES Final Result [facility] [address] [place] [phone] * Pap Smear (12/03/2024 12:00 AM EDT) Swab 12/03/2024 12/04/2024 5:0 3 AM EDT Narrative [facility] - 12/09/2024 10:17 AM EDT ----- ------- Name: Key Davilaos Age/Sex: 64/F : 1960 Unit#: [id number] Attend Dr: Peggy Wolfe MD Re12/03/24 Status: DEP REF Location: HO.HHCLNP Disch: ----- ------- SPEC : [id number] RECD: 12/04/24 STATUS: SIMI QUILES NUM: [id number] WILFREDO: 12/03/24-[address]: Oneil Dubon,Peggy KERR ENTERED: 12/04/24 SP TYPE: Pap Smr OTHR DR: ORDERED: Pap Smear Interpretation Satisfactory for evaluation. Negative for intraepithelial lesion or malignancy. Moderate inflammation. HPV High Risk: Negative HPV Genotyping 16: Negative HPV Genotyping 18: Negative Clinical Information LMP:Unknown date Previous PAP test:Unknown date/findings Material Received ThinPrep-Cervical ----- ------- Signed (signature on file) RANDY Arreguin (ASCP) 12/09/24 1017 ----- ------- END OF REPORT us Peggy Dubon MD LAB CYTOLOGY ORDERABL ES Final Result [facility] [address] [place] [phone] * Hepatitis C Antibody with Reflex to HCV, RNA, Quantitative, Real-Time PCR (11/13/2024 8:27 AM EDT) Hepatitis C Antibody Nonreactive Nonreactive [facility] Comment:Antibodies to HCV no t detected; does not exclude early acuteHCV infection. Blood Venous blood specimen / Unknown 11/13/2024 8:27 AM EDT 11/13/2024 11:39 AM EDT us Peggy Dubon MD LAB BLOOD ORDERABLES Final Result [facility] [address] [place] [phone] [phone] * BI Mammogram Screening Bilateral (12/09/2023) Anatomical Region Laterality Modality Breast Bilateral Mammography us Peggy Dubon MD IMG BI PROCEDURES Fin al Result * Hm Colonoscopy (11/19/2023 3:37 PM EDT) us Historical Provider HEALTH MAINTENANCE Final Result from Last 3 Months or Most Recently Relevant to Health Maintenance Insurance MEDICARE [facility] ST[place] AD[place] Care Teams Spooler Relationship Specialty Start Date End Date Peggy Wolfe MD [address] [place] [address] [place] [address] PCP - General Internal Medicine 08/09/23
--- OUTSIDE RECORDS SUMMARY | 2025-06-18 13:17 | XMS_ITS | Encounter Summary ---
Author Organization [employer] Address [address] [place] [address] [address] [place] [address] Care Team Providers Care Assisted Sales Representative Name Role Phone Cait Manuel Primary Care Provider Yudith Lucas NP Primary Care Provider [phone] Peggy Wolfe MD Primary Care Provide r Reason for Visit * Reason Comments Med Refill Encounter Details Date Type Department Care Team (Late st Contact Info) Description 03/24/2023 Refill [facility] MEDICINE [address] [place] [address] Cait Manuel FNP Social History Tobacco Use [...] Description 06/21/2025 8:45 AM EST Office Visit [facility] ADULT DENTAL [address] [place] [address] KayleyRockyMae [address] [place] [address] documented as of this encounter Visit Diagnoses Not on filedocumented in this encounter Care Teams Assisted Sales Representative Relationship Specialty Start Date End Date Cait Manuel FNP PCP - General Family Medicine 04/17/22 05/23/23 Yudith Monreal NP [address] [place] [address] PCP - General Family Medicine 05/24/23 08/08/23 Peggy Wolfe MD [address] [place] [address] PCP - General Internal Medicine 08/09/23 documented as of this encounter
--- OUTSIDE RECORDS SUMMARY | 2025-06-18 13:17 | XMS_ITS | Encounter Summary ---
Author Organization [employer] Address [address] [facility] [address] [facility] [address] [place] [address] Care Team Providers Care Child Caregiver Private Home Name Role Phone Peggy Wolfe MD Primary Care Provide r Encounter Details Date Type Department Care Team (Latest Contact Info) Description 06/16/2025 Travel Social History Tobacco Use Types Packs/Day [...] [facility] ADULT DENT[facility] [address] [place] [address] Kayley, Mae [address] [place] [address] documented as of this encounter Visit Diagnoses Not on filedocumented in this encounter Additional Health Concerns Assessment Noted Time PHQ-9 Depression Total Score: 8 11/13/19 25 2:38 PM EDT documented as of this encounter Care Teams Child Caregiver Private Home Relationship Specialty Start Date End Date Peggy Wolfe MD [address] [place] [address] PCP - General Internal Medicine 08/09/23 documented as of this encounter
--- OUTSIDE RECORDS SUMMARY | 2025-06-18 13:17 | XMS_ITS | Encounter Summary ---
Author Organization [employer] Address [address] [place] [address] 7t [place] [address] Care Team Providers Care Satellite Dish Installer Name Role Phone Cait Manuel Primary Care Provider Yudith Lucas NP Primary Care Provider [phone] Peggy Wolfe MD Primary Care Provide r Encounter Details Date Type Department Care Team (Late st Contact Info) Description 01/02/2023 Abstract [facility] MEDICINE [address] [place] [address] Cait Manuel FNP Social History Tobacco Use [...] Description 06/21/2025 8:45 AM EST Office Visit [facility] ADULT DENTAL [address] [place] [address] Mae Zaldivar [address] [place] [address] documented as of this encounter Procedures Procedure Name Priority Date/Time Associated Diagnosis Comments HM COLONOSCOPY Routine 12/26/2012 documented in this encounter Results * Colonoscopy (12/26/2012) Colonoscopy Normal Normal 12/26/2012 Jami Garcia - 12/26/2012 11:09 AM EDT [place] 10 [place] [place] Provider HEALTH MAINTENANCE Final Result documented in this encounter Visit Diagnoses Not on filedocumented in this encounter Care Teams Satellite Dish Installer Relationship Specialty Start Date End Date Cait Manuel FNP PCP - General Family Medicine 04/17/22 05/23/23 Yudith Monreal NP [address] [place] [address] PCP - General Family Medicine 05/24/23 08/08/23 Peggy Wolfe MD [address] [place] [address] PCP - General Internal Medicine 08/09/23 documented as of this encounter
--- OUTSIDE RECORDS SUMMARY | 2025-06-18 13:17 | XMS_ITS | Encounter Summary ---
Author Organization [employer] Address [address] [facility] 7t [place] [address] Care Team Providers Care Avionics Manager Name Role Phone Yudith Monreal NP Primary Care Provider [phone] Peggy Wolfe MD Primary Care Provide r Reason for Visit * Reason Onset Date Comments Appointment Request 07/30/2023 Encounter Details Date Type Department Care Team ([facility] st Contact Info) Description 07/30/2023 Telephone [facility] MEDICINE [address] [place] [address] Yudith Monreal NP [address] [place] [address] Appointment Request Social History Tobacco Use Types [...] from pt requesting TP Appt with PCP. Fusing Machine Tender does see recall tried booking no available slot found. Please contact Pt [phone] documented in this encounter Plan of Treatment Upcoming Encounters Date Type Department Care Team (Late st Contact Info) Description 06/21/2025 8:45 AM EST Office Visit [facility] ADULT DENTAL [address] [place] [address] Mae Zaldivar [address] [place] [address] documented as of this encounter Visit Diagnoses Not on filedocumented in this encounter Additional Health Concerns Assessment Noted Time PHQ-9 Depression Total Score: 7 04/16/20 23 4:07 PM EDT documented as of this encounter Care Teams Avionics Manager Relationship Specialty Start Date End Date Yudith Monreal NP [address] [place] [address] PCP - General Family Medicine 05/24/23 08/08/23 Peggy Wolfe MD [address] [place] [address] PCP - General Internal Medicine 08/09/23 documented as of this encounter
== END 2025-06-18 12:29 | disposition home or self-care (01) ==
LOC: HO.HGI 11:38
PROVIDERS: Visit Provider Nurse Practitioner Family
DX: R10.13 Epigastric pain (principal); K21.9 Gastro-esophageal reflux disease without esophagitis; A04.8 Other specified bacterial intestinal infections; K52.9 Noninfective gastroenteritis and colitis, unspecified; R14.0 Abdominal distension (gaseous)
CPT/HCPCS: 99214; G2211

== ENCOUNTER 2025-06-18 11:38 | Outpatient (REF) | payer MEDICARE, MEDICAID, SELFPAY ==
[2025-06-18 14:13] LABS: Alanine Aminotransferase 39 U/L (0-31); Albumin Level 4.8 g/dL (3.5-5.0); Alkaline Phosphatase 97 U/L (39-117); Aspartate Amino Transferase 33 U/L (5-31); Lipase 35 U/L (8-78); Total Protein 7.5 g/dL (6.5-8.0)
== END 2025-06-18 11:39 | disposition home or self-care (01) ==
LOC: HO.LAB 11:38
PROVIDERS: PCP Internal Medicine; Visit Provider Nurse Practitioner Family
DX: K21.9 Gastro-esophageal reflux disease without esophagitis (principal); R10.13 Epigastric pain; R14.0 Abdominal distension (gaseous); A04.8 Other specified bacterial intestinal infections; K52.9 Noninfective gastroenteritis and colitis, unspecified; Z79.899 Other long term (current) drug therapy
CPT/HCPCS: 36415; 80076; 83690; 99212

== ENCOUNTER 2025-06-24 09:18 | Outpatient (REF) | payer MEDICARE, MEDICAID, SELFPAY ==
--- OUTSIDE RECORDS SUMMARY | 2025-06-21 08:45 | XMS_ITS | Encounter Summary ---
Author Organization [employer] Address [address] [facility] [address] 7t [place] [address] Care Team Providers Care Field Sales Representative Name Role Phone Peggy Wolfe MD Primary Care Provide r Reason for Visit * Reason Comments Routine Cleaning Encounter Details Date Type Department Care Team ([facility] st Contact Info) Description 06/21/2025 8:45 AM EST Office Visit [facility] ADULT DENTAL [address] [place], [place] [phone] Kayley, Mae [address] [place] [address] Dental calculus (Primary Dx) Social History Tobacco Use Types Packs/Day Years [...] Sign Reading Time Taken Comments Blood Pressure 130/76 06/21/2025 8:31 AM EST Pulse - - Temperature - - Respiratory Rate - - Oxygen Saturation - - Inhaled Oxygen Concentration - - Weight - - Height - - Body Mass Index - - documented in this encounter Progress Notes * Mae Zaldivar - 06/21/2025 8:45 AM EST Patient ID: Karly Davila is a 64 y.o. female. Time Out: Timeout Date: 06/21/25, Timeout Time: 0842 (Prophy) Location: [facility] Tooth: Maxilla and Mandible Procedure: Prophylaxis Verified the above with patient, assistant to the vice president, and provider. Confirmed via patient's chart, intraorally and by radiographs. Electric Screw Driver Operator: not applicable Medical Hx: Vitals: Blood pressure 130/76. Medications, Med Hx reviewed with patient and updated in chart. Treatment Provided Dental procedures in this visit D1110 - PROPHYLAXIS - ADULT (Completed) Service provider: Mae Dasilva provider: Parish Sarah DMD D4454 - CASE PRESENTATION, DETAILED AND EXTENSIVE TREATMENT PLANNING (Completed) Service provider: Mae Dasilva provider: Parish Sarah DMD D1275 - ORAL HYGIENE INSTRUCTIONS (Completed) Service provider: Mae Zaldivar Billing provider: Parish Sarah DMD Instruments Used: Ultrasonic Scalers, Hand Scalers, and Prophy angle Oral Cancer Screening: No lesions Head/Neck Exam: No Lesions Calculus: Light and Moderate Plaque: Light and Moderate Stain: Light Bleeding: Light Gingiva: pink, recession OH: Fair Perio Chart: not due yet Oral hygiene instructions provided to patient including brushing technique and flossing. Recommendations: [place] two times daily, modified wynn technique, Floss daily, Electric toothbrush, Soft bristle toothbrush, [place] Tongue, Anti-sensitivity toothpaste Recall Frequency: 6 mo NV: ^ months for P. Exam, FMX, prophy, perio chart. Hygienist: Mae Zaldivar RDH documented in this encounter Plan of Treatment Upcoming Encounters Date Type Department Care Team (Late st Contact Info) Description 12/21/2025 9:30 AM EDT Office Visit [facility] ADULT DENTAL [address] [place] [address] Mae Zaldivar [address] [place] [address] Scheduled Orders Name Type Priority Associated Diagnoses Orde r Schedule PERIODIC ORAL EVALUATION - ESTABLISHED PATIENT Dental Routine 1 Occurren dread starting 06/21/2025 INTRAORAL - COMPLETE SERIES OF RADIOGRAPHIC IMAGES Dental Routine [address] arting 06/21/2025 PROPHYLAXIS - ADULT Dental Routine 1 Occ urrences starting 06/21/2025 CASE PRESENTATION, DETAILED AND EXTENSIVE TREATMENT PLANNING Dental Routine 1 Occurrences starting 06/21/2025 documented as of this encounter Procedures Procedure Name Priority Date/Time Associated Diagnosis Comments PROPHYLAXIS - ADULT Routine 06/21/2025 8 :45 AM EST Dental calculus ORAL HYGIENE INSTRUCTIONS Routine 2024 8:45 AM EST Dental calculus CASE PRESENTATION, DETAILED AND EXTENSIVE TREATMENT PLANNING Routine 06/21/2025 8:45 AM EST Dental calculus documented in this encounter Visit Diagnoses Diagnosis Dental calculus- Primary Accretions on teeth documented in this encounter Additional Health Concerns Assessment Noted Time PHQ-9 Depression Total Score: 8 11/13/19 25 2:38 PM EDT documented as of this encounter Care Teams Field Sales Representative Relationship Specialty Start Date End Date Peggy Wolfe MD [address] [place] [address] PCP - General Internal Medicine 08/09/23 documented as of this encounter
--- NOTE | ~2025-06-24 | XR_ITS ---
EXAMINATION: XR FOOT, LEFT CLINICAL INFORMATION: persistent L forefoot pain with ambulation x one month COMPARISON: 02/03/2014. TECHNIQUE: AP, lateral, and oblique views of the left foot. FINDINGS: No fracture, dislocation, or suspicious bone lesion. Normal bone mineralization. Normal alignment. Joint spaces are preserved. No significant arthropathy. Normal plantar arch. The midfoot and hindfoot image normally. Soft tissues appear normal. XR/XR foot LT min 3V IMPRESSION: Normal left foot. Electronically signed by: Gee Mcnally MD 06/24/2025 09:35 AM [facility]
--- OUTSIDE RECORDS SUMMARY | 2025-06-24 09:00 | XMS_ITS | Encounter Summary ---
Author Organization [employer] Address [address] [place] [address] 7 [address] [place] [address] Care Team Providers Care Linecasting Machine Keyboard Operator Name Role Phone Peggy oWlfe MD Primary Care Provide r Reason for Referral * Consultation (Urgent) - Pending Review Specialty Diagnoses / Procedures Referred By Juilsa t Referred To Contact Podiatry Diagnoses Left foot pain Sommer Arroyo DO [address] [place], [place] Phone: tel: fax: Referral ID Status Reason Start Date Expiration Date Visits Requested Visits Authorized [id number] Pending Review Specialty Services Required 06/24/2025 06/24/2026 1 1 * Consultation (Urgent) - Pending Review Specialty Diagnoses / Procedures Referred By Julisa goldman Referred To Contact Orthopaedic Surgery Diagnoses Right arm pain Sommer Arroyo DO [address] [place] [address] Phone: tel: fax: Referral ID Status Reason Start Date Expiration Date Visits Requested Visits Authorized [id number] Pending Review Specialty Services Required 06/24/2025 06/24/2026 1 1 * Imaging (Urgent) - Pending Review Specialty Diagnoses / Procedures Referred By Julisa t Referred To Contact Radiology Diagnoses Right arm pain Procedures MRI EXT UPPER W/O CONTRAST RIGHT Sommer Arroyo DO [address] [place] [address] Phone: tel: fax: Referral ID Status Reason Start Date Expiration Date V isits Requested Visits Authorized [id number] Pending Review 06/24/2025 06/24/2026 1 1 Reason for Visit * Reason Comments Foot Pain Encounter Details Date Type Department Care Team (Late st Contact Info) Description 06/24/2025 9:00 AM EST Office Visit [facility] [address] [place] [phone] Left foot pain (Primary Dx); Right arm pain Social History Tobacco Use Types Packs/Day Years [...] Sign Reading Time Taken Comments Blood Pressure 141/69 06/24/2025 8:44 AM EST Pulse 82 06/24/2025 8:44 AM EST Temperature 36.6 C (97.9 F) 06/24/2025 8:44 AM EST Respiratory Rate 16 06/24/2025 8:44 AM EST Oxygen Saturation 99% 06/24/2025 8:44 AM EST Inhaled Oxygen Concentration - - Weight 73 kg (161 lb) 06/24/2025 8:44 AM EST Height - - Body Mass Index 29.45 12/03/2024 9:13 AM EDT documented in this encounter Plan of Treatment Upcoming Encounters Date Type Department Care Team (Late st Contact Info) Description 12/21/2025 9:30 AM EDT Office Visit [facility] ADULT DENTAL [address] [place] [address] Kayley, Mae [address] [place] [address] Scheduled Orders Name Type Priority Associated Diagnoses Orde r Schedule MRI EXT UPPER W/O CONTRAST RIGHT Imaging Urgent Right arm pain Expected: 06/24/2025, Expires: 06/24/2026 Scheduled Referrals Name Type Priority Associated Diagnoses Order Schedule Referral to Orthopaedic Surgery Outpatient Referral Urgent Right arm pain Expected: 06/24/2025 (Approximate), Expires: 06/24/2026 Referral to Podiatry Outpatient Referral Urgent Left foot pain Expected: 06/24/2025 (Approximate), Expires: 06/24/2026 documented as of this encounter Procedures Procedure Name Priority Date/Time Associated Diagnosis Comments XR FOOT 3+ VIEWS LEFT Urgent 06/24/2025 9:30 AM EST Left foot pain documented in this encounter Results * XR Foot 3+ Views Left (06/24/2025 9:30 AM EST) Anatomical Region Laterality Modality Lower Extremities, Foot Left Radiogra phic Imaging 06/24/2025 9:30 AM EST Narrative 06/24/2025 9:38 AM EST [facility] [address] [place] [address] XRay Report Signed Patient: Karly Davila MR#: [id number] : 1960 Acct:[id number] Age/Sex: 64 / F ADM Date: 06/24/25 [facility] Dr: Sommer Arroyo DO Ordering Physician: Sommer Arroyo DO Date of Service: 06/24/25 Procedure(s): XR foot LT min 3V Accession Number(s): [id number] cc: Sommer Arroyo DO Reason for Exam: persistent L forefoot pain with ambulation x one mos EXAMINATION: XR FOOT, LEFT CLINICAL INFORMATION: persistent L forefoot pain with ambulation x one month COMPARISON: 02/03/2014. TECHNIQUE: AP, lateral, and oblique views of the left foot. FINDINGS: No fracture, dislocation, or suspicious bone lesion. Normal bone mineralization. Normal alignment. Joint spaces are preserved. No significant arthropathy. Normal plantar arch. The midfoot and hindfoot image normally. Soft tissues appear normal. XR/XR foot LT min 3V IMPRESSION: Normal left foot. Electronically signed by: Gee Mcnally MD 06/24/2025 09:35 AM EST Dictated By: Gee Mcnally MD Signed By: <Electronically signed by Gee Mcnally MD in OV> 06/24/2535 DD/ 9 TD/TT: 06/24/25931 Strategic Debriefing Specialist: Procedure Note Donotuseinterpreter, Image - 06/24/2025 [facility] [address] [place] [address] XRay Report Signed Patient: Re Davila#: [id number] : 2Acct:[id number] Age/Sex: 64 / FADM Date: 06/24/25 Loc: [facility] Attending Dr: Sommer Arroyo DO Ordering Physician: Sommer Arroyo DO Date of Service: 06/24/25 Procedure(s): XR foot LT min 3V Accession Number(s): [id number] cc: Sommer Arroyo DO Reason for Exam: persistent L forefoot pain with ambulation x one mos EXAMINATION: XR FOOT, LEFT CLINICAL INFORMATION: persistent L forefoot pain with ambulation x one month COMPARISON: 02/03/2014. TECHNIQUE: AP, lateral, and oblique views of the left foot. FINDINGS: No fracture, dislocation, or suspicious bone lesion. Normal bone mineralization. Normal alignment. Joint spaces are preserved. No significant arthropathy. Normal plantar arch. The midfoot and hindfoot image normally. Soft tissues appear normal. XR/XR foot LT min 3V IMPRESSION: Normal left foot. Electronically signed by: Gee Mcnally MD 06/24/2025 09:35 AM [facility] [place] Dictated By: Gee Mcnally MD Signed By: <Electronically signed by Gee Mcnally MD in OV> 06/24/25934 DD/ TD/TT: 06/24/25 0932 Strategic Debriefing Specialist: Sommer Arroyo DO IMG XR PROCEDURES Final Resu lt documented in this encounter Visit Diagnoses Diagnosis Left foot pain- Primary Pain in soft tissues of limb Right arm pain Pain in soft tissues of limb documented in this encounter Additional Health Concerns Assessment Noted Time PHQ-9 Depression Total Score: 8 11/13/19 25 2:38 PM EDT documented as of this encounter Care Teams Linecasting Machine Keyboard Operator Relationship Specialty Start Date End Date Peggy Wolfe MD [address] [place] [address] PCP - General Internal Medicine 08/09/23 documented as of this encounter
--- OUTSIDE RECORDS SUMMARY | 2025-06-24 10:16 | XMS_ITS | Encounter Summary ---
Author Organization [email or web address] Address [address] [facility] [address] 7t [place] [address] Care Team Providers Care Filler Sifter Machine Name Role Phone Peggy Wolfe MD Primary Care Provide r Encounter Details Date Type Department Care Team (Latest Contact Info) Description 06/23/2025 Travel Social History Tobacco Use Types Packs/Day [...] Description 12/21/2025 9:30 AM EDT Office Visit [facility] ADULT DENTAL [address] [place] [address] Kayley, Mae [address] [place] [address] documented as of this encounter Visit Diagnoses Not on filedocumented in this encounter Additional Health Concerns Assessment Noted Time PHQ-9 Depression Total Score: 8 11/13/19 25 2:38 PM EDT documented as of this encounter Care Teams Filler Sifter Machine Relationship Specialty Start Date End Date Peggy Wolfe MD [address] [place] [address] PCP - General Internal Medicine 08/09/23 documented as of this encounter
--- OUTSIDE RECORDS SUMMARY | 2025-06-24 10:16 | XMS_ITS | Encounter Summary ---
Author Organization [employer] Address [address] [facility] [address] 7t [place] [address] Care Team Providers Care Vp Of Digital Marketing Name Role Phone Peggy Wolfe MD Primary Care Provide r Reason for Visit * Reason Comments Med Refill Encounter Details Date Type Department Care Team ([facility] st Contact Info) Description 12/11/2023 Refill [facility] MED & PEDS [address] [place], [place] [phone] Peggy Wolfe MD [address] [place] [address] Social History Tobacco Use Types Packs/Day Years [...] Description 12/21/2025 9:30 AM EDT Office Visit [facility] ADULT DENTAL [address] [place] [address] Kayley, Mae [address] [place] [address] documented as of this encounter Visit Diagnoses Not on filedocumented in this encounter Additional Health Concerns Assessment Noted Time PHQ-9 Depression Total Score: 7 04/16/20 23 4:07 PM EDT documented as of this encounter Care Teams Vp Of Digital Marketing Relationship Specialty Start Date End Date Peggy Wolfe MD [address] [place] [address] PCP - General Internal Medicine 08/09/23 documented as of this encounter
--- OUTSIDE RECORDS SUMMARY | 2025-06-24 10:16 | XMS_ITS | Encounter Summary ---
Author Organization [employer] Address [address] [place] [address] 7 [place] [address] Care Team Providers Care Grades 6 Through 8 Teacher Name Role Phone Cait Manuel Primary Care Provider Yudith Lucas NP Primary Care Provider [phone] Peggy Wolfe MD Primary Care Provide r Encounter Details Date Type Department Care Team (Latest Contact Info) Description 06/27/2020 Abstract [facility] CONVERSIONS Dental, Provider, DDS Social [...] Description 12/21/2025 9:30 AM EDT Office Visit [facility] ADULT DENTAL [address] [place] [address] Kayley, Mae [address] [place] [address] documented as of this encounter Visit Diagnoses Not on filedocumented in this encounter Care Teams Grades 6 Through 8 Teacher Relationship Specialty Start Date End Date Cait Manuel FNP PCP - General Family Medicine 04/17/22 05/23/23 Yudith Monreal NP [address] [place] [address] PCP - General Family Medicine 05/24/23 08/08/23 Peggy Wolfe MD [address] [place] [address] PCP - General Internal Medicine 08/09/23 documented as of this encounter
--- OUTSIDE RECORDS SUMMARY | 2025-06-24 10:16 | XMS_ITS | Encounter Summary ---
Author Organization [employer] Address [address] [facility] [address] 7t [place] [address] Care Team Providers Care Energy And Conservation Technician Name Role Phone Peggy Wolfe MD Primary Care Provide r Encounter Details Date Type Department Care Team ([facility] st Contact Info) Description 11/12/2024 Orders Only [facility] & PEDS [address] [place], [place] [phone] Provider, MD Lola Social History Tobacco Use [...] Description 12/21/2025 9:30 AM EDT Office Visit [facility] ADULT DENTAL [address] [place] [address] Rocky Zaldivararis [address] [place] [address] documented as of this encounter Procedures Procedure [...] documented as of this encounter Care Teams Energy And Conservation Technician Relationship Specialty Start Date End Date Peggy Wolfe MD [address] [place] [address] PCP - General Internal Medicine 08/09/23 documented as of this encounter
--- OUTSIDE RECORDS SUMMARY | 2025-06-24 10:17 | XMS_ITS | Encounter Summary ---
Author Organization [employer] Address [address] [place] [address] 7 [place] [address] Care Team Providers Care Vasc Tech Name Role Phone Cait Manuel Primary Care Provider Yudith Lucas NP Primary Care Provider [phone] Peggy Wolfe MD Primary Care Provide r Encounter Details Date Type Department Care Team (Latest Contact Info) Description 02/06/2022 Abstract [facility] CONVERSIONS Dental, Provider, DDS Social History [...] Description 12/21/2025 9:30 AM EDT Office Visit [facility] ADULT DENTAL [address] [place] [address] Kayley, Mae [address] [place] [address] documented as of this encounter Visit Diagnoses Not on filedocumented in this encounter Care Teams Vasc Tech Relationship Specialty Start Date End Date Cait Manuel FNP PCP - General Family Medicine 04/17/22 05/23/23 Yudith Monreal NP [address] [place] [address] PCP - General Family Medicine 05/24/23 08/08/23 Peggy Wolfe MD [address] [place] [address] PCP - General Internal Medicine 08/09/23 documented as of this encounter
--- OUTSIDE RECORDS SUMMARY | 2025-06-24 10:17 | XMS_ITS | Encounter Summary ---
Author Organization [employer] Address [address] [place] [address] 7 [place] [address] Care Team Providers Care Freight Trucker Name Role Phone Cait Manuel Primary Care Provider Yudith Lucas NP Primary Care Provider [phone] Peggy Wolfe MD Primary Care Provide r Encounter Details Date Type Department Care Team (Latest Contact Info) Description 06/29/2022 Abstract [facility] CONVERSIONS Dental, Provider, DDS Social [...] Description 12/21/2025 9:30 AM EDT Office Visit [facility] ADULT DENTAL [address] [place] [address] Kayley, Mae [address] [place] [address] documented as of this encounter Visit Diagnoses Not on filedocumented in this encounter Care Teams Freight Trucker Relationship Specialty Start Date End Date Cait Manuel FNP PCP - General Family Medicine 04/17/22 05/23/23 Yudith Monreal NP [address] [place] [address] PCP - General Family Medicine 05/24/23 08/08/23 Peggy Wolfe MD [address] [place] [address] PCP - General Internal Medicine 08/09/23 documented as of this encounter
--- OUTSIDE RECORDS SUMMARY | 2025-06-24 10:17 | XMS_ITS | Encounter Summary ---
Author Organization [employer] Address [address] [place] [address] 7 [place] [address] Care Team Providers Care Aix System Administrator Name Role Phone Cait Maneul Primary Care Provider Yudith Lucas NP Primary Care Provider [phone] Peggy Wolfe MD Primary Care Provide r Encounter Details Date Type Department Care Team (Latest Contact Info) Description 12/25/2018 Abstract [facility] CONVERSIONS Dental, Provider, DDS Social History [...] Description 12/21/2025 9:30 AM EDT Office Visit [facility] ADULT DENTAL [address] [place] [address] Kayley, Mae [address] [place] [address] documented as of this encounter Visit Diagnoses Not on filedocumented in this encounter Care Teams Aix System Administrator Relationship Specialty Start Date End Date Cait Manuel FNP PCP - General Family Medicine 04/17/22 05/23/23 Yudith Monreal NP [address] [place] [address] PCP - General Family Medicine 05/24/23 08/08/23 Peggy Wolfe MD [address] [place] [address] PCP - General Internal Medicine 08/09/23 documented as of this encounter
--- OUTSIDE RECORDS SUMMARY | 2025-06-24 10:17 | XMS_ITS | Encounter Summary ---
Author Organization [employer] Address [address] [facility] [address] 7t [place] [address] Care Team Providers Care Manufacturers Representative Name Role Phone Peggy Wolfe MD Primary Care Provide r Encounter Details Date Type Department Care Team (Latest Contact Info) Description 06/24/2025 Travel Social History Tobacco Use Types Packs/Day [...] 12/21/2025 9:30 AM EDT Office Visit [facility] ADULT DENTAL [address] [place] [address] Kayley, Mae [address] [place] [address] documented as of this encounter Visit Diagnoses Not on filedocumented in this encounter Additional Health Concerns Assessment Noted Time PHQ-9 Depression Total Score: 8 11/13/19 25 2:38 PM EDT documented as of this encounter Care Teams Manufacturers Representative Relationship Specialty Start Date End Date Peggy Wolfe MD [address] [place] [address] PCP - General Internal Medicine 08/09/23 documented as of this encounter
--- OUTSIDE RECORDS SUMMARY | 2025-06-24 10:17 | XMS_ITS | Encounter Summary ---
Author Organization [employer] Address [address] [facility] [address] [place] [address] Care Team Providers Care Drafting Supervisor Name Role Phone Peggy Wolfe MD Primary Care Provide r Encounter Details Date Type Department Care Team ([facility] Contact Info) Description 09/22/2024 Telephone [facility] MEDICINE [address] [place], [place] [phone] Peggy Wolfe MD [address] [place], [place] [phone] Social History Tobacco Use Types Packs/Day Years [...] Description 12/21/2025 9:30 AM EDT Office Visit [facility] ADULT DENTAL [address] [place] [address] Mae Zaldivar [address] [place] [address] documented as of this encounter Visit Diagnoses Not on filedocumented in this encounter Additional Health Concerns Assessment Noted Time PHQ-9 Depression Total Score: 7 04/16/20 23 4:07 PM EDT documented as of this encounter Care Teams Drafting Supervisor Relationship Specialty Start Date End Date Peggy Wolfe MD [address] [place] [address] PCP - General Internal Medicine 08/09/23 documented as of this encounter
--- OUTSIDE RECORDS SUMMARY | 2025-06-24 10:17 | XMS_ITS | Encounter Summary ---
Author Organization [employer] Address [address] [place] [address] 7 [place] [address] Care Team Providers Care Diamond Cutter Name Role Phone Cait Manuel Primary Care Provider Yudith Lucas NP Primary Care Provider [phone] Peggy Wolfe MD Primary Care Provide r Reason for Visit * Reason Comments Med Refill Encounter Details Date Type Department Care Team (Late st Contact Info) Description 03/24/2023 Refill [facility] [address] [place] [address] Cait Manuel FNP Social History Tobacco Use [...] Description 12/21/2025 9:30 AM EDT Office Visit [facility]ULT [facility] [address] [place] [address] KayleyRockyMae [address] [place] [address] documented as of this encounter Visit Diagnoses Not on filedocumented in this encounter Care Teams Diamond Cutter Relationship Specialty Start Date End Date Cait Manuel FNP PCP - General Family Medicine 04/17/22 05/23/23 Yudith Monreal NP [address] [place] [address] PCP - General Family Medicine 05/24/23 08/08/23 Peggy Wolfe MD [address] [place] [address] PCP - General Internal Medicine 08/09/23 documented as of this encounter
--- OUTSIDE RECORDS SUMMARY | 2025-06-24 10:17 | XMS_ITS | Encounter Summary ---
Author Organization [employer] Address [address] [place] [address] 7t [place] [address] Care Team Providers Care Medicine Assistant Name Role Phone Cait Manuel Primary Care Provider Yudith Lucas NP Primary Care Provider [phone] Peggy Wolfe MD Primary Care Provide r Encounter Details Date Type Department Care Team (Late st Contact Info) Description 01/02/2023 Abstract [facility] [address] [place] [address] Cait Manuel FNP Social History Tobacco Use [...] 9:30 AM EDT Office Visit [facility] [address] [place] [address] Mae Zaldivar [address] [place] [address] documented as of this encounter Procedures Procedure Name Priority Date/Time Associated Diagnosis Comments HM COLONOSCOPY Routine 12/26/2012 documented in this encounter Results * Colonoscopy (12/26/2012) Colonoscopy Normal Normal 12/26/2012 Narrative Jami Ovalles - 12/26/2012 11:09 AM EDT Recommended 10 year follow up ([facility] ) Historical Provider HEALTH MAINTENANCE Final Result documented in this encounter Visit Diagnoses Not on filedocumented in this encounter Care Teams Medicine Assistant Relationship Specialty Start Date End Date Cait Manuel FNP PCP - General Family Medicine 04/17/22 05/23/23 Yudith Monreal NP [address] [place] [address] PCP - General Family Medicine 05/24/23 08/08/23 Peggy Wolfe MD [address] [place] [address] PCP - General Internal Medicine 08/09/23 documented as of this encounter
--- OUTSIDE RECORDS SUMMARY | 2025-06-24 10:17 | XMS_ITS | Encounter Summary ---
Author Organization [employer] Address [address] [facility] 7t [place] [address] Care Team Providers Care Luggage Attendant Name Role Phone Yudith Monreal NP Primary Care Provider [phone] Peggy Wolfe MD Primary Care Provide r Reason for Visit * Reason Onset Date Comments Appointment Request 07/30/2023 Encounter Details Date Type Department Care Team ([facility] st Contact Info) Description 07/30/2023 Telephone [facility] [address] [place] [address] Yudith Monreal NP [address] [place] [address] Appointment Request Social History Tobacco Use Types [...] from pt requesting TP Appt with PCP. Environmental Maintenance Worker does see recall tried booking no available slot found. Please contact Pt [phone] documented in this encounter Plan of Treatment Upcoming Encounters Date Type Department Care Team (Late st Contact Info) Description 12/21/2025 9:30 AM EDT Office Visit [facility] ADULT D[facility] [address] [place] [address] Mae Zaldivar [address] [place] [address] documented as of this encounter Visit Diagnoses Not on filedocumented in this encounter Additional Health Concerns Assessment Noted Time PHQ-9 Depression Total Score: 7 04/16/20 23 4:07 PM EDT documented as of this encounter Care Teams Luggage Attendant Relationship Specialty Start Date End Date Yudith Monreal NP [address] [place] [address] PCP - General Family Medicine 05/24/23 08/08/23 Peggy Wolfe MD [address] [place] [address] PCP - General Internal Medicine 08/09/23 documented as of this encounter
--- OUTSIDE RECORDS SUMMARY | 2025-06-24 10:17 | XMS_ITS | Clinical Summary ---
Author Organization [employer] Address [address] [place] [address] 7t [place] [address] Care Team Providers Care Dietitian Helper Name Role Phone Peggy Wolfe MD Primary [...] 1 CAPSULA POR VIA ORAL TODOS [place] 90 capsule 025 Active fluticasone (Flonase) 50 MCG/ACT nasal sprayIndications: Allergic rhinitis, unspecified seasonality, unspecified trigger SPRAY 1 TO 2 SPRAYS INTO EACH NOSTRIL EVERY DAY. SHAKE GENTLY. BEFORE FIRST USE, PRIME PUMP. AFTER USE, CLEAN TIP AND REPLACE CAP. 48 mL Active fexofenadine (Alina) 180 MG tabletIndications :Allergic rhinitis, unspecified seasonality, unspecified trigger TAKE 1 TABLET BY MOUTH EVERY DAY NEEDED FOR ALLERGIES 90 tablet 1 Active naproxen (Naprosyn) 500 MG tablet Take 1 tablet (500 mg) by mouth if needed in the morning and at bedtime for mild pain or moderate pain. 30 tablet 1 025 2025 Active predniSONE (Deltasone) 20 MG tablet Take 1 tablet (20 mg) by mouth 2 times daily for 5 days. 10 tablet 025 2024 Active acetaminophen (Tylenol 8 Hour) 650 MG ER tablet Take 1 tablet (650 mg) by mouth every 8 (eight) hours if needed for mild pain. Do not crush, chew, or split. 40 tablet 1 025 2024 Active traMADol (Ultram) 50 MG tabletIndications :Right arm pain Take 1 tablet (50 mg) by mouth if needed in the morning, at noon, and at bedtime for severe pain for up to 5 days. 15 tablet 025 2024 Active Diclofenac Sodium 1 % gel Apply 2 g topically if needed in the morning, at noon, in the evening, and at bedtime (pain). 150 g 3 Active fexofenadine (Alina) 180 MG tabletIndications :Allergic [...] and stress reduction. Inadequate occlusion of dental gnosticism 05/20 Seborrheic dermatitis 05/11/2024 Assessment & Plan [...] Encounters Date Type Department Care Team Description 06/24/2025 9:00 AM EST Office Visit [facility] [address] [place] [address] Left foot pain (Primary Dx); Right arm pain 06/24/2025 Travel 06/23/2025 Travel 06/21/2025 8:45 AM EST Office Visit [facility] [address] [place] [address] KayleyMae Dental calculus (Primary Dx) 06/18/2025 Orders Only GENERIC EXTERNAL DATA DEPARTMENT Provider, Generic External Data 06/16/2025 Travel 05/30/2025 Refill [facility] [address] [place] [address] Peggy Wolfe MD Allergic rhinitis, unspecified seasonality, unspecified trigger 05/13/2025 Refill [facility] [address] [place] [address] Peggy Wolfe MD Allergic rhinitis, unspecified seasonality, [...] (161 lb) 06/24/2025 8:44 AM EST Height 157.5 cm (5' 2 ) 12/03/2024 9:13 AM EDT Body Mass Index 29.45 12/03/2024 9:13 AM EDT Plan of Treatment Upcoming Encounters Date Type Department Care Team (Late st Contact Info) Description 12/21/2025 9:30 AM EDT Office Visit [facility] [address] [place] [address] Kayley, Mae [address] [place] [address] Health Maintenance Due Date Last Done Comments [...] Oral Exam 05/16/2025 11/12/2024, , 06/29/2022 Dental X-Ray: Full Mouth 06/30/2025 06/29/2022 SDOH Screening 11/03/2025 11/03/2024 Depression Screening 11/12/2025 11/12/2024, 11/13/19 Dental X-Ray: Bitewings 11/13/2025 11/13/19, 12/16/2023, 06/10/2023 Disability Screening 12/03/2025 12/03/2024 Dental Prophylaxis 12/20/2025 06/21/2025, 0 11/12/2024, 12/16/2023, Additional history exists Tobacco Screening 06/24/2026 06/24/2025 HPV/Cotest 12/04/2027 12/03/2024, 051 , 11/09/2020, Additional history exists Cervical Cancer Screening 12/03/2029 Pap Smear 12/03/2029 12/03/2024, 05, 11/09/2020, Additional history exists Colonoscopy 11/18/2033 11/19/2023, [...] 06/24/2025 9:30 AM EST Left foot pain ORAL HYGIENE INSTRUCTIONS Routine 06/21/2025 8:45 AM EST Dental calculus CASE PRESENTATION, DETAILED AND EXTENSIVE TREATMENT PLANNING Routine 06/21/2025 8:45 AM EST Dental calculus PROPHYLAXIS - ADULT Routine 06/21/2025 8 :45 AM EST Dental calculus LIPASE Routine 06/18/2025 12:41 PM EDT HEPATIC FUNCTION PANEL Routine 06/18/2025 12:41 PM EDT HPV DNA, LOW/HIGH RISK Routine 12/03/2024 12:00 AM EDT PAP SMEAR Routine 12/03/2024 12:00 AM EDT Encounter for Papanicolaou smear for cervical cancer screening HEPATITIS C AB W/REFL TO HCV RNA, QN, PCR Routine 11/13/2024 8:27 AM EDT Mixed hyperlipidemia BITEWINGS - 4 RADIOGRAPHIC IMAGES Routine 11/12/2024 [...] Recently Relevant to Health Maintenance Results * XR Foot 3+ Views Left (06/24/2025 9:30 AM EST) Anatomical Region Laterality Modality Lower Extremities, Foot Left Radiogra phic Imaging 06/24/2025 9:30 AM EST Narrative 06/24/2025 9:38 AM EST [address] [address] XRay Report Signed Patient: Karly Davila MR#: [id number] : 1960 Acct:[id number] Age/Sex: 64 / F ADM Date: 06/24/25 Loc: .HHX Attending Dr: Sommer Arroyo DO Ordering Physician: Sommer Arroyo DO Date of Service: 06/24/25 Procedure(s): XR foot LT min 3V Accession Number(s): [id number] cc: Sommer Arroyo DO Reason for Exam: [...] MD in OV> 06/24/2535 DD/ 9 TD/TT: 06/24/25 0932 Speech Pathologist Assistant: Procedure Note Donotuseinterpreter, Image - 06/24/[address] [address] XRay Report Signed Patient: Re Davila#: [id number] : 1960cct:[id number] Age/Sex: 64 / FADM Date: 06/24/25 Loc: HO.HHCX Attending Dr: Sommer Arroyo DO Ordering Physician: Sommer Arroyo DO Date of Service: 06/24/25 Procedure(s): XR foot LT min 3V Accession Number(s): [id number] cc: Sommer Arroyo DO Reason for Exam: [...] by: Gee Mcnally MD 06/24/2025 09:35 AM [facility] Dictated By: Gee Mcnally MD Signed By: <Electronically signed by Gee Mcnally MD in OV> 06/24/25934 DD/ 9 TD/TT: 06/24/25931 Speech Pathologist Assistant: us Sommer Arroyo DO IMG XR PROCEDURES Final Resu lt * Lipase (06/18/2025 12:41 PM EDT) [facility] Lipase 35 8 - 78 U/L [facility] 06/18/2025 12:4 1 PM EDT 06/18/2025 12:41 PM EDT us Generic External Data Provider LAB BLOOD ORDERAB LES Final Result [facility] [address] [place] [phone] * (ABNORMAL) Hepatic Function Panel (06/18/2025 12:41 PM EDT) Bilirubin, Total 0.7 0.0 - 1.0 mg/dL [facility] Bilirubin, Direct 0.2 0.0 - 0.5 mg/dL [facility] Aspartate Amino Transferase 33(H) 5 - 31 U/L [facility] Alanine Aminotransferase 39(H) 0 - 31 U/L [facility] Total Protein 7.5 6.5 - 8.0 g/dL [facility] Albumin Level 4.8 3.5 - 5.0 g/dL [facility] Alkaline Phosphatase 97 39 - 117 U/L [facility] 06/18/2025 12:4 1 PM EDT 06/18/2025 12:41 PM EDT us Generic External Data Provider LAB BLOOD ORDERAB LES Final Result Performing Organization Address [facility] Co de Phone Number [facility] [address] [place] [phone] * HPV DNA, Low/High Risk (12/03/2024 12:00 AM EDT) HPV High Risk Negative Negative [facility] HPV Genotype 16 Negative Negative [facility] HPV Genotype 18 Negative Negative [facility] Comment:HPV testing performe d at [facility] (CLIA#[id number]), [address] [place] [address].Testing for HPV was performed using the [employer]system. The presence of HPV in the female [...] BLOOD ORDERABLES Final Result Performing Organization Address [facility] Co de Phone Number [facility] [address] [place] [address] [phone] * Pap Smear (12/03/2024 12:00 AM EDT) Swab 12/03/2024 12/04/2024 5:0 3 AM EDT Narrative [facility] - 12/09/2024 10:17 AM EDT ----- ------- Name: Karly Davila Age/Sex: 64/F : 1960 Unit#: [id number] Attend Dr: Peggy Wolfe MD Re12/03/24 Status: DEP [facility] ----- ------- SPEC : [id number] RECD: 12/04/240503 STATUS: SIMI QUILES NUM: [id number] WILFREDO: 12/03/24-[address]: Peggy Wolfe MD ENTERED: 12/04/240537 SP TYPE: Pap Smr OTHR DR: ORDERED: Pap Smear Interpretation Satisfactory for evaluation. Negative for intraepithelial lesion or malignancy. Moderate inflammation. HPV High Risk: Negative HPV Genotyping 16: Negative HPV Genotyping 18: Negative Clinical Information LMP:Unknown date Previous PAP test:Unknown date/findings Material Received ThinPrep-Cervical ----- ------- Signed (signature on file) RANDY Arreguin (ASCP) 12/09/24 1017 ----- ------- END OF REPORT Peggy Dubon MD LAB CYTOLOGY ORDERABL ES Final Result Performing Organization Address [facility]/ZIP Co de Phone Number [facility] [address] [place] [address] [phone] * Hepatitis C Antibody with Reflex to HCV, RNA, Quantitative, Real-Time PCR (11/13/2024 8:27 AM EDT) Hepatitis C Antibody Nonreactive Nonreactive [facility] Comment:Antibodies to HCV no t detected; does not exclude early acuteHCV infection. Blood Venous blood specimen / Unknown 11/13/2024 8:27 AM EDT 11/13/2024 11:39 AM EDT Peggy Dubon MD LAB BLOOD ORDERABLES Final Result Performing Organization Address [facility]/ZIP Co de Phone Number [facility] [address] [place] [address] [phone] * BI Mammogram Screening Bilateral (12/09/2023) Anatomical Region Laterality Modality Breast Bilateral Mammography Peggy Dubon MD IMG BI PROCEDURES Fin al Result * Hm Colonoscopy (11/19/2023 3:37 PM EDT) Historical Provider HEALTH MAINTENANCE Final Result from Last 3 Months or Most Recently Relevant to Health Maintenance Insurance MEDICARE [facility] STANDARD DENTAL-[facility] MEDICAID STAND ADULT Care Teams Dietitian Helper Relationship Specialty Start Date End Date Peggy Wolfe MD [address] [place] [address] PCP - General Internal Medicine 08/09/23
--- OUTSIDE RECORDS SUMMARY | 2025-06-24 10:17 | XMS_ITS | Encounter Summary ---
Author Organization [employer] Address [address] [place] [address] 7t [place] [address] Care Team Providers Care Manager User Experience Name Role Phone Cait Manuel Primary Care Provider Yudith Lucas NP Primary Care Provider [phone] Peggy Wolfe MD Primary Care Provide r Reason for Visit * Reason Onset Date Comments Nurse Triage 05/15/2023 Encounter Details Date Type Department Care Team (Late st Contact Info) Description 05/15/2023 Telephone [facility] [address] [place] [address] Cait Manuel FNP Nurse Triage Social History [...] 05/15/2023 3:05 PM EDT Triage call with Portia Assessment Counselor [phone] Pt reports sore throat that hurts every time swallowing anything. Pt is neg for fever, ear aches ordifficulty breathing. Pt doesn' t have tonsils and can't see if there is anything white in throat. Pt reports , it feels like something is in there . Advised to come to [facility] for provider to check Pt symptoms and [...] accepted this outcome Please contact pt at [phone] (Greenlandic) documented in this encounter Plan of Treatment Upcoming Encounters Date Type Department Care Team (Late st Contact Info) Description 12/21/2025 9:30 AM EDT Office Visit [facility] ADULT D[facility] [address] [place] [address] Kayley Mae [address] [place] [address] documented as of this encounter Visit Diagnoses Not on filedocumented in this encounter Additional Health Concerns Assessment Noted Time PHQ-9 Depression Total Score: 7 04/16/20 23 4:07 PM EDT documented as of this encounter Care Teams Manager User Experience Relationship Specialty Start Date End Date Cait Manuel FNP PCP - General Family Medicine 04/17/22 05/23/23 Yudith Monreal NP [address] [place] [address] PCP - General Family Medicine 05/24/23 08/08/23 Peggy Wolfe MD [address] [place] [address] PCP - General Internal Medicine 08/09/23 documented as of this encounter
--- OUTSIDE RECORDS SUMMARY | 2025-06-24 10:17 | XMS_ITS | Encounter Summary ---
Author Organization [employer] Address [address] [place] [address] 7t [place] [address] Care Team Providers Care Improvement Director Name Role Phone Cait Manuel Primary Care Provider Yudith Lucas NP Primary Care Provider [phone] Peggy Wolfe MD Primary Care Provide r Encounter Details Date Type Department Care Team (Late st Contact Info) Description 05/22/2023 Telephone [facility] [address] [place] [address] Cait Manuel FNP Social History Tobacco Use [...] 3:49 PM EDT T/C to pt. Through myhub id - [id number] for below message, pt. States she already apt. On 05/30/2023 at [facility]. Pt. Is al set. Pt. Advised to give call on [phone] if any questions or concerns. Pt. Verbally agreed and understood. * Telephone Encounter - Merry Jose Miguel - 05/22/2023 4:15 PM EDT Tc from pt requesting a new order for nerve test on left leg. Any questions, please contact pt at [phone] ([place] Citizen) documented in this encounter Plan of Treatment Upcoming Encounters Date Type Department Care Team (Late st Contact Info) Description 12/21/2025 9:30 AM EDT Office Visit [facility] [address] [place] [address] Kayley, Mae [address] [place] [address] documented as of this encounter Visit Diagnoses Not on filedocumented in this encounter Additional Health Concerns Assessment Noted Time PHQ-9 Depression Total Score: 7 04/16/20 4:07 PM EDT documented as of this encounter Care Teams Improvement Director Relationship Specialty Start Date End Date Cait Manuel FNP PCP - General Family Medicine 04/17/22 05/23/23 Yudith Monreal NP [address] [place] [address] PCP - General Family Medicine 05/24/23 08/08/23 Peggy Wolfe MD [address] [place] [address] PCP - General Internal Medicine 08/09/23 documented as of this encounter
--- OUTSIDE RECORDS SUMMARY | 2025-06-24 10:17 | XMS_ITS | Encounter Summary ---
Author Organization [employer] Address [address] [place] [address] 7 [place] [address] Care Team Providers Care Film Numberer Name Role Phone Cait Manuel Primary Care Provider Yudith Lucas NP Primary Care Provider [phone] Peggy Wolfe MD Primary Care Provide r Encounter Details Date Type Department Care Team (Latest Contact Info) Description 06/30/2019 Abstract [facility] CONVERSIONS [...] [facility] [address] [place] [address] Kayley, Mae [address] [place] [address] documented as of this encounter Visit Diagnoses Not on filedocumented in this encounter Care Teams Film Numberer Relationship Specialty Start Date End Date Cait Manuel FNP PCP - General Family Medicine 04/17/22 05/23/23 Yudith Monreal NP [address] [place] [address] PCP - General Family Medicine 05/24/23 08/08/23 Peggy Wolfe MD [address] [place] [address] PCP - General Internal Medicine 08/09/23 documented as of this encounter
--- OUTSIDE RECORDS SUMMARY | 2025-06-24 10:17 | XMS_ITS | Encounter Summary ---
Author Organization [employer] Address [address] [facility] [address] [place] [address] Care Team Providers Care Repairer Welding Equipment Name Role Phone Peggy Wolfe MD Primary Care Provide r Reason for Visit * Reason Onset Date Comments Nurse Triage 09/16/2024 Encounter Details Date Type Department Care Team ([facility] st Contact Info) Description 09/16/2024 Telephone [facility] [address] [place], [place] [phone] Peggy Wolfe MD [address] [place], [place] [phone] Nurse Triage Social History Tobacco Use Types [...] 09/16/2024 10:55 AM EST Triage call with [facility] [place] [id number] Pt reports urinary symptoms for several days. Burning/pain with urination, frequency , odor and flank pain, neg for fever. Pt is advised to increase liquids to 6-8 glasses daily. Pt agrees. Pt is advised to come to [facility] today to be seen by [...] urine (peeing) The caller accepted this outcome. [phone] (senegalese) documented in this encounter Plan of Treatment Upcoming Encounters Date Type Department Care Team (Late st Contact Info) Description 12/21/2025 9:30 AM EDT Office Visit [facility]ULT [facility] [address] [place], [place] [phone] Kayley, Mae [address] [place] [address] documented as of this encounter Visit Diagnoses Not on filedocumented in this encounter Additional Health Concerns Assessment Noted Time PHQ-9 Depression Total Score: 7 04/16/20 23 4:07 PM EDT documented as of this encounter Care Teams Repairer Welding Equipment Relationship Specialty Start Date End Date Peggy Wolfe MD [address] [place], [place] [phone] PCP - General Internal Medicine 08/09/23 documented as of this encounter
== END 2025-06-24 09:19 | disposition home or self-care (01) ==
LOC: HO.HHCX 09:18
PROVIDERS: Visit Provider Family Medicine
DX: M79.672 Pain in left foot (principal)
CPT/HCPCS: 73630

== ENCOUNTER → 2025-06-24 09:19 | Outpatient (BNV) | payer MEDICARE, MEDICAID, SELFPAY | PROVIDERS: Visit Provider Radiology Diagnostic Radiology | DX: M79.672 Pain in left foot (principal) | CPT/HCPCS: 73630 ==

== ENCOUNTER 2025-08-10 10:37 | Outpatient (AMB) | payer MEDICARE, MEDICAID, SELFPAY ==
[2025-08-10 10:49] VITALS: BMI 29.3
--- NOTE | 2025-08-10 10:49 | MHC.OFFVIS ---
Vital Signs 08/10/25 10:49 Height 5 ft 2 in Weight 160 lb BMI 29.3 Intake Visit Reasons: Lt foot pain Intake Note: Left foot x-ray was done 06/24/2025 pain in the bottom of the toes, 5 months of the pain ,ibuprofen, no past treatment Allergies Seasonal Allergies Allergy (Unknown, Verified 08/10/25 10:52) Sneezing lactose Adverse Reaction (Unknown, Verified 08/10/25 10:52) Nausea and Vomiting HPI HPI Lt foot pain: Details: The patient is a 64 year old female presenting for initial evaluation of left foot pain. Plantar plate tear: The patient reports a five-month history of left foot pain, primarily localized to the area of the second toe. She describes the pain as sharp, and it sometimes has a burning quality. Symptoms are exacerbated by prolonged standing and walking, to the point she needs to stop and sit down. She has also experienced toe spasms that coincide with the onset of pain. She has previously used tramadol for the pain but expressed a desire to avoid strong medications. Medical History: - History of left foot injury at age 13 with 4th toe contractures that developed after the injury. [facility]LY [facility], LATER [facility] Medical History Elevated cholesterol Allergic rhinitis Anxiety Depression Fibromyalgia Helicobacter pylori (H. pylori) infection Surgical History Hx of tubal ligation Hx of abdominoplasty Hx of breast augmentation History of esophagogastroduodenoscopy (EGD) History of bunionectomy H/O colonoscopy Hx of tonsillectomy Family History Mother HTN (hypertension) Heart disease Diabetes Fibromyalgia Arthritis Father Arthritis Maternal Aunt Heart disease Diabetes HTN (hypertension) Maternal Uncle Heart disease Social History Household Members: Other Alcohol intake: never Patient Tobacco Use Status: Never used Tobacco Review of Systems Const All systems reviewed & are unremarkable except as noted in HPI and below Physical Exam Vital Signs: BMI result Body Mass Index 29.3 Extrem Other: *Bilateral Lower Extremity Focused Exam Vascular: DP/PT 2/4, CFT<3s to digits, TG warm to cool, no pedal edema Derm: No erythema or clinical signs of infection to bilateral feet. Healed scar/laceration over the dorsal aspect of the 2nd through 4th metatarsal midshaft level. Neuro: Negative Tinel sign. Negative Jah's click. MSK: Moderate tenderness on palpation of the plantar sulcus of the 2nd Metatarsal-phalangeal joint left foot with pain on Hayley's test. The 2nd and 3rd digits are extended at the Metatarsal-phalangeal joint. Office Procedures AMB Podiatry Dressing Details of Procedure: Procedure: Strapping of the left 2nd Metatarsal-phalangeal joint Indication: left 2nd MTP plantar plate tear Description: A 1/2 athletic tape was use to plantar flex the 2nd MTP and reduce the extension deformity Tolerance: Patient tolerated procedure well, no immediate complications. 21415 Strapping of toe/s Procedure code (CPT) selection complete Results Reviewed Results Reviewed: X-ray Read: 06/24/2025 X-ray left foot 3 views (AP, MO, Lateral) reviewed which shows medial deviation of the proximal phalanx base on the 2nd Metatarsal-phalangeal joint, approximately 10-15% medially subluxed. No fractures. Elongated 2nd metatarsal parabola. I personally reviewed the imaging and my findings are listed above. Assessment & Plan Assessment & Plan (1) Injury of plantar plate of left foot: Code(s): S99.922A - Unspecified injury of left foot, initial encounter Category: Medical Qualifiers: Encounter type: initial encounter Qualified Code(s): S99.922A - Unspecified injury of left foot, initial encounter Plan: The diagnosis is suspected based on physical exam findings of instability at the second MTP joint, consistent with a tear of the plantar plate ligament. A conservative treatment approach is recommended as the patient is not interested in surgical treatment at this time. Strapped left 2nd MTP in plantarflexed position. Instructed patient to strap her toe down at all times for the next 4-6 weeks minimum. Dispensed surgical shoe. Discussed possible use of a cam boot if her symptoms are not improved with the shoe alone. For pain management, advised [id number] options such as Tylenol Arthritis or ibuprofen/Advil, as the patient prefers to avoid stronger medications like tramadol. Rx left foot MRI to evaluate for plantar plate rupture Plan to follow up in one month to re-evaluate her condition. Orders: Orders MR foot LT wo con Today S99.922A - Unspecified injury of left foot, initial encounter Coding Level of Care Code New Pt Level 4 (27144) Diagnoses Injury of plantar plate of left foot, initial encounter S99.922A Encounter type: initial encounter CPT Codes Podiatry Dressing - CPT: 66526 Strapping of toe/s ([id number]) Time Spent (min) 35
--- OUTSIDE RECORDS SUMMARY | 2025-08-10 11:57 | XMS_ITS | Encounter Summary ---
Author Organization [employer] Address [address] [place] [address] 7 [place] [address] Care Team Providers Care Kiln Stacker Name Role Phone Cait Manuel Primary Care Provider Yudith Lucas NP Primary Care Provider [phone] Peggy Wolfe MD Primary Care Provide r Encounter Details Date Type Department Care Team (Latest Contact Info) Description 06/27/2020 Abstract [facility] CONVERSIONS Dental, Provider, DDS [...] Description 12/21/2025 9:30 AM EDT Office Visit [facility] ADULT DENTAL [address] [place] [address] Kayley, Mae [address] [place] [address] documented as of this encounter Visit Diagnoses Not on filedocumented in this encounter Care Teams Kiln Stacker Relationship Specialty Start Date End Date Cait Manuel FNP PCP - General Family Medicine 04/17/22 05/23/23 Yudith Monreal NP [address] [place] [address] PCP - General Family Medicine 05/24/23 08/08/23 Peggy Wolfe MD [address] [place] [address] PCP - General Internal Medicine 08/09/23 documented as of this encounter
--- OUTSIDE RECORDS SUMMARY | 2025-08-10 11:57 | XMS_ITS | Encounter Summary ---
Author Organization [employer] Address [address] [place] [address] 7 [place] [address] Care Team Providers Care Infertility Medical Assistant Name Role Phone Cait Manuel Primary Care Provider Yudith Lucas NP Primary Care Provider [phone] Peggy Wolfe MD Primary Care Provide r Encounter Details Date Type Department Care Team (Latest Contact Info) Description 06/30/2019 Abstract [facility] CONVERSIONS Dental, Provider, DDS Social History Tobacco [...] Description 12/21/2025 9:30 AM EDT Office Visit [facility] ADULT DENTAL [address] [place] [address] Kayley, Mae [address] [place] [address] documented as of this encounter Visit Diagnoses Not on filedocumented in this encounter Care Teams Infertility Medical Assistant Relationship Specialty Start Date End Date Cait Manuel FNP PCP - General Family Medicine 04/17/22 05/23/23 Yudith Monreal NP [address] [place] [address] PCP - General Family Medicine 05/24/23 08/08/23 Peggy Wolfe MD [address] [place] [address] PCP - General Internal Medicine 08/09/23 documented as of this encounter
--- OUTSIDE RECORDS SUMMARY | 2025-08-10 11:57 | XMS_ITS | Encounter Summary ---
Author Organization [employer] Address [address] 7[address] [place] [address] Care Team Providers Care Digital Director Name Role Phone Peggy Wolfe MD Primary Care Provide r Reason for Visit * Reason Comments Med Refill Encounter Details Date Type Department Care Team ([facility] st Contact Info) Description 12/11/2023 Refill [facility] PEDS [address] [place], [place] [phone] Peggy Wolfe MD [address] [place] [address] Social History Tobacco Use Types Packs/Day Years [...] Description 12/21/2025 9:30 AM EDT Office Visit [facility] ADULT DENTAL [address] [place] [address] Kayley, Mae [address] [place] [address] documented as of this encounter Visit Diagnoses Not on filedocumented in this encounter Additional Health Concerns Assessment Noted Time PHQ-9 Depression Total Score: 7 04/16/20 23 4:07 PM EDT documented as of this encounter Care Teams Digital Director Relationship Specialty Start Date End Date Peggy Wolfe MD [address] [place] [address] PCP - General Internal Medicine 08/09/23 documented as of this encounter
--- OUTSIDE RECORDS SUMMARY | 2025-08-10 11:57 | XMS_ITS | Encounter Summary ---
Author Organization [employer] Address [address] [place] [address] 7 [place] [address] Care Team Providers Care Rock Room Worker Name Role Phone Cait Manuel Primary Care Provider Yudith Lucas NP Primary Care Provider [phone] Peggy Wolfe MD Primary Care Provide r Encounter Details Date Type Department Care Team (Latest Contact Info) Description 06/29/2022 Abstract [facility] CONVERSIONS Dental, Provider, DDS Social History [...] Description 12/21/2025 9:30 AM EDT Office Visit [facility] ADULT DENTAL [address] [place] [address] Kayley, Mae [address] [place] [address] documented as of this encounter Visit Diagnoses Not on filedocumented in this encounter Care Teams Rock Room Worker Relationship Specialty Start Date End Date Cait Manuel FNP PCP - General Family Medicine 04/17/22 05/23/23 Yudith Monreal NP [address] [place] [address] PCP - General Family Medicine 05/24/23 08/08/23 Peggy Wolfe MD [address] [place] [address] PCP - General Internal Medicine 08/09/23 documented as of this encounter
--- OUTSIDE RECORDS SUMMARY | 2025-08-10 11:57 | XMS_ITS | Encounter Summary ---
Author Organization [employer] Address [address] 7t [place] [address] Care Team Providers Care Taper Printed Circuit Layout Name Role Phone Peggy Wolfe MD Primary Care Provide r Encounter Details Date Type Department Care Team ([facility] st Contact Info) Description 11/12/2024 Orders Only [facility] MED & PEDS [address] [place], [place] [phone] Provider, MD Lola Social History Tobacco Use [...] Description 12/21/2025 9:30 AM EDT Office Visit [facility] ADULT DENTAL [address] [place] [address] Kayley, Mae [address] [place] [address] documented as of this encounter Procedures Procedure [...] documented as of this encounter Care Teams Taper Printed Circuit Layout Relationship Specialty Start Date End Date Peggy Wolfe MD [address] [place] [address] PCP - General Internal Medicine 08/09/23 documented as of this encounter
--- OUTSIDE RECORDS SUMMARY | 2025-08-10 11:58 | XMS_ITS | Encounter Summary ---
Author Organization [employer] Address [address] 7t [place] [address] Care Team Providers Care Estate Conservator Name Role Phone Peggy Wolfe MD Primary Care Provide r Encounter Details Date Type Department Care Team ([facility] Contact Info) Description 09/22/2024 Telephone [facility] MEDICINE [address] [place], [place] [phone] Peggy Wolfe MD [address] [place], [place] [phone] Social History Tobacco Use Types Packs/Day Years [...] 9:30 AM EDT Office Visit [facility] ADULT DENTAL [address] [place] [address] Mae Zaldivar [address] [place] [address] documented as of this encounter Visit Diagnoses Not on filedocumented in this encounter Additional Health Concerns Assessment Noted Time PHQ-9 Depression Total Score: 7 04/16/20 23 4:07 PM EDT documented as of this encounter Care Teams Estate Conservator Relationship Specialty Start Date End Date Peggy Wolfe MD [address] [place] [address] PCP - General Internal Medicine 08/09/23 documented as of this encounter
--- OUTSIDE RECORDS SUMMARY | 2025-08-10 11:58 | XMS_ITS | Encounter Summary ---
Author Organization [employer] Address [address] [place] [address] 7 [place] [address] Care Team Providers Care Bilingual Medical Receptionist Name Role Phone Cait Manuel Primary Care Provider Yudith Lucas NP Primary Care Provider [phone] Peggy Wolfe MD Primary Care Provide r Encounter Details Date Type Department Care Team (Latest Contact Info) Description 02/06/2022 Abstract [facility] CONVERSIONS Dental, Provider, DDS Social [...] Description 12/21/2025 9:30 AM EDT Office Visit [facility] ADULT DENTAL [address] [place] [address] Kayley, Mae [address] [place] [address] documented as of this encounter Visit Diagnoses Not on filedocumented in this encounter Care Teams Bilingual Medical Receptionist Relationship Specialty Start Date End Date Cait Manuel FNP PCP - General Family Medicine 04/17/22 05/23/23 Yudith Monreal NP [address] [place] [address] PCP - General Family Medicine 05/24/23 08/08/23 Peggy Wolfe MD [address] [place] [address] PCP - General Internal Medicine 08/09/23 documented as of this encounter
--- OUTSIDE RECORDS SUMMARY | 2025-08-10 11:58 | XMS_ITS | Encounter Summary ---
Author Organization [employer] Address [address] [place] [address] 7 [place] [address] Care Team Providers Care Recruiter Account Manager Name Role Phone Cait Manuel Primary Care Provider Yudith Lucas NP Primary Care Provider [phone] Peggy Wolfe MD Primary Care Provide r Reason for Visit * Reason Comments Med Refill Encounter Details Date Type Department Care Team (Late st Contact Info) Description 03/24/2023 Refill [facility] MEDICINE [address] [place] [address] Cait Manuel FNP Social History Tobacco Use [...] Description 12/21/2025 9:30 AM EDT Office Visit [facility] ADULT DENTAL [address] [place] [address] KayleyRockyMae [address] [place] [address] documented as of this encounter Visit Diagnoses Not on filedocumented in this encounter Care Teams Recruiter Account Manager Relationship Specialty Start Date End Date Cait Manuel FNP PCP - General Family Medicine 04/17/22 05/23/23 Yudith Monreal NP [address] [place] [address] PCP - General Family Medicine 05/24/23 08/08/23 Peggy Wolfe MD [address] [place] [address] PCP - General Internal Medicine 08/09/23 documented as of this encounter
--- OUTSIDE RECORDS SUMMARY | 2025-08-10 11:58 | XMS_ITS | Encounter Summary ---
Author Organization [employer] Address [address] [place] [address] 7t [place] [address] Care Team Providers Care Apprenticeship Consultant Name Role Phone Cait Manuel Primary Care Provider Yudith Lucas NP Primary Care Provider [phone] Peggy Wolfe MD Primary Care Provide r Reason for Visit * Reason Onset Date Comments Nurse Triage 05/15/2023 Encounter Details Date Type Department Care Team (Late st Contact Info) Description 05/15/2023 Telephone [facility] MEDICINE [address] [place] [address] Cait Manuel FNP Nurse Triage Social History [...] 05/15/2023 3:05 PM EDT Triage call with [place] Medical Device Engineer [id number] Pt reports sore throat that hurts every time swallowing anything. Pt is neg for fever, ear aches ordifficulty breathing. Pt doesn' t have tonsils and can't see if there is anything white in throat. Pt reports , it feels like something is in there . Advised to come to [facility] for provider to check Pt symptoms [...] accepted this outcome Please contact pt at [phone] (Turkmen) documented in this encounter Plan of Treatment Upcoming Encounters Date Type Department Care Team (Late st Contact Info) Description 12/21/2025 9:30 AM EDT Office Visit [facility] ADULT DENTAL [address] [place] [address] Kayley Mae [address] [place] [address] documented as of this encounter Visit Diagnoses Not on filedocumented in this encounter Additional Health Concerns Assessment Noted Time PHQ-9 Depression Total Score: 7 04/16/20 23 4:07 PM EDT documented as of this encounter Care Teams Apprenticeship Consultant Relationship Specialty Start Date End Date Cait Manuel FNP PCP - General Family Medicine 04/17/22 05/23/23 Yudith Monreal NP [address] [place] [address] PCP - General Family Medicine 05/24/23 08/08/23 Peggy Wolfe MD [address] [place] [address] PCP - General Internal Medicine 08/09/23 documented as of this encounter
--- OUTSIDE RECORDS SUMMARY | 2025-08-10 11:58 | XMS_ITS | Encounter Summary ---
Author Organization [employer] Address [address] [place] [address] 7t [place] [address] Care Team Providers Care Arborist Name Role Phone Cait Manuel Primary Care Provider Yudith Lucas NP Primary Care Provider [phone] Peggy Wolfe MD Primary Care Provide r Encounter Details Date Type Department Care Team (Late st Contact Info) Description 05/22/[address] [facility] MEDICINE [address] [place] [address] Cait Manuel FNP Social History Tobacco Use [...] 3:49 PM EDT T/C to pt. Through [employer] id - [id number] for below message, pt. States she already apt. On 05/30/2023 at [facility]. Pt. Is al set. Pt. Advised to give call on [phone] if any questions or concerns. Pt. Verbally agreed and understood. * Telephone Encounter - Merry Jose Miguel - 05/22/2023 4:15 PM EDT Tc from pt requesting a new order for nerve test on left leg. Any questions, please contact pt at [phone] (Singaporean) documented in this encounter Plan of Treatment Upcoming Encounters Date Type Department Care Team (Late st Contact Info) Description 12/21/2025 9:30 AM EDT Office Visit [facility] ADULT DENTAL [address] [place] [address] Kayley, Mae [address] [place] [address] documented as of this encounter Visit Diagnoses Not on filedocumented in this encounter Additional Health Concerns Assessment Noted Time PHQ-9 Depression Total Score: 7 04/16/20 4:07 PM EDT documented as of this encounter Care Teams Arborist Relationship Specialty Start Date End Date Cait Manuel FNP PCP - General Family Medicine 04/17/22 05/23/23 Yudith Monreal NP [address] [place] [address] PCP - General Family Medicine 05/24/23 08/08/23 Peggy Wolfe MD [address] [place] [address] PCP - General Internal Medicine 08/09/23 documented as of this encounter
--- OUTSIDE RECORDS SUMMARY | 2025-08-10 11:58 | XMS_ITS | Encounter Summary ---
Author Organization [employer] Address [address] 7t [place] [address] Care Team Providers Care Life Consultant Name Role Phone Peggy Wolfe MD Primary Care Provide r Reason for Visit * Reason Onset Date Comments Nurse Triage 09/16/2024 Encounter Details Date Type Department Care Team ([facility] st Contact Info) Description 09/16/2024 Telephone [facility] MEDICINE [address] [place], [place] [phone] Peggy Wolfe MD [address] [place], [place] [phone] Nurse Triage Social History Tobacco Use Types [...] 09/16/2024 10:55 AM EST Triage call with [facility] multimedia production assistant [place] [id number] Pt reports urinary symptoms for several days. Burning/pain with urination, frequency , odor and flank pain, neg for fever. Pt is advised to increase liquids to 6-8 glasses daily. Pt agrees. Pt is advised to come to [facility] today to be seen by [...] urine (peeing) The caller accepted this outcome. [phone] (syriac) documented in this encounter Plan of Treatment Upcoming Encounters Date Type Department Care Team (Late st Contact Info) Description 12/21/2025 9:30 AM EDT Office Visit [facility] ADULT DENTAL [address] [place], [place] [phone] Kayley, Mae [address] [place] [address] documented as of this encounter Visit Diagnoses Not on filedocumented in this encounter Additional Health Concerns Assessment Noted Time PHQ-9 Depression Total Score: 7 04/16/20 23 4:07 PM EDT documented as of this encounter Care Teams Life Consultant Relationship Specialty Start Date End Date Peggy Wolfe MD [address] [place], [place] [phone] PCP - General Internal Medicine 08/09/23 documented as of this encounter
--- OUTSIDE RECORDS SUMMARY | 2025-08-10 11:58 | XMS_ITS | Encounter Summary ---
Author Organization [employer] Address [address] [place] [address] 7 [place] [address] Care Team Providers Care Bellman Driver Name Role Phone Cait Manuel Primary Care Provider Yudith Lucas NP Primary Care Provider [phone] Peggy Wolfe MD Primary Care Provide r Encounter Details Date Type Department Care Team (Latest Contact Info) Description 12/25/2018 Abstract [facility] CONVERSIONS Dental, Provider, DDS Social History Tobacco [...] Description 12/21/2025 9:30 AM EDT Office Visit [facility] ADULT DENTAL [address] [place] [address] Kayley, Mae [address] [place] [address] documented as of this encounter Visit Diagnoses Not on filedocumented in this encounter Care Teams Bellman Driver Relationship Specialty Start Date End Date Cait Manuel FNP PCP - General Family Medicine 04/17/22 05/23/23 Yudith Monreal NP [address] [place] [address] PCP - General Family Medicine 05/24/23 08/08/23 Peggy Wolfe MD [address] [place] [address] PCP - General Internal Medicine 08/09/23 documented as of this encounter
--- OUTSIDE RECORDS SUMMARY | 2025-08-10 11:58 | XMS_ITS | Encounter Summary ---
Author Organization [employer] Address [address] [place] [address] 7t [place] [address] Care Team Providers Care Gem Expert Name Role Phone Cait Manuel Primary Care Provider Yudith Lucas NP Primary Care Provider [phone] Peggy Wolfe MD Primary Care Provide r Encounter Details Date Type Department Care Team (Late st Contact Info) Description 01/02/2023 Abstract [facility] MEDICINE [address] [place] [address] Cait Manuel FNP Social History Tobacco Use [...] Description 12/21/2025 9:30 AM EDT Office Visit [facility] ADULT DENTAL [address] [place] [address] Mae Zaldivar [address] [place] [address] documented as of this encounter Procedures Procedure Name Priority Date/Time Associated Diagnosis Comments [facility] COLONOSCOPY Routine 12/26/2012 documented in this encounter Results * Colonoscopy (12/26/2012) Colonoscopy Normal Normal 12/26/2012 Narrative Jami Ovalles - 12/26/2012 11:09 AM EDT Recommended 10 year follow up ([facility] ) Historical Provider HEALTH MAINTENANCE Final Result documented in this encounter Visit Diagnoses Not on filedocumented in this encounter Care Teams Gem Expert Relationship Specialty Start Date End Date Cait Manuel FNP PCP - General Family Medicine 04/17/22 05/23/23 Yudith Monreal NP [address] [place] [address] PCP - General Family Medicine 05/24/23 08/08/23 Peggy Wolfe MD [address] [place] [address] PCP - General Internal Medicine 08/09/23 documented as of this encounter
--- OUTSIDE RECORDS SUMMARY | 2025-08-10 11:58 | XMS_ITS | Encounter Summary ---
Author Organization [employer] Address [address] [facility] 7t [place] [address] Care Team Providers Care Bricklayer Supervisor Name Role Phone Yudith Monreal NP Primary Care Provider [phone] Peggy Wolfe MD Primary Care Provide r Reason for Visit * Reason Onset Date Comments Appointment Request 07/30/2023 Encounter Details Date Type Department Care Team ([facility] st Contact Info) Description 07/30/2023 Telephone [facility] [address] [place] [address] Yudith Monreal NP [address] [place] [address] Appointment Request Social History Tobacco Use Types [...] from pt requesting TP Appt with PCP. Swim Instructor does see recall tried booking no available slot found. Please contact Pt [phone] documented in this encounter Plan of Treatment Upcoming Encounters Date Type Department Care Team (Late st Contact Info) Description 12/21/2025 9:30 AM EDT Office Visit [facility] [address] [place] [address] aMe Zaldivar [address] [place] [address] documented as of this encounter Visit Diagnoses Not on filedocumented in this encounter Additional Health Concerns Assessment Noted Time PHQ-9 Depression Total Score: 7 04/16/20 23 4:07 PM EDT documented as of this encounter Care Teams Bricklayer Supervisor Relationship Specialty Start Date End Date Yudith Monreal NP [address] [place] [address] PCP - General Family Medicine 05/24/23 08/08/23 Peggy Wolfe MD [address] [place] [address] PCP - General Internal Medicine 08/09/23 documented as of this encounter
--- OUTSIDE RECORDS SUMMARY | 2025-08-10 11:58 | XMS_ITS | Clinical Summary ---
Author Organization [employer] Address [address] [place] [address] 7t [place] [address] Care Team Providers Care Glaze Carrier Name Role Phone Peggy Wolfe MD Primary [...] needed 30 tablet 3 09/10/19 24 Active ibuprofen 800 MG tabletIndications: Fibromyositis take 1 tablet by oral route 3 times every day with food 30 tablet 12/23/19 24 Active ketoconazole (NIZOral) 2 % shampooIndications :Seborrheic dermatitis APPLY TOPICALLY THREE TIMES A WEEK FOR 21 DAYS Do not start before June 26, 2024. 240 mL 06/26/20 24 Active hydrocortisone 2.5 % cream Apply [...] D EN GLORIA [place]ON 04/06/20 24 Active fluconazole (Diflucan) 150 MG tablet Take 1 tablet (150 mg) by mouth Once per day. December repeat dose in 3 days prn 2 tablet 09/16/19 25 Active albuterol (Ventolin HFA) 108 (90 Base) MCG/ACT inhalerIndications :Mild intermittent asthma without complication INHALE 2 PUFFS BY MOUTH EVERY 4 TO 6 HOURS IF NEEDED FOR WHEEZING 18 g 3 11/13/19 25 Active Icosapent Ethyl (Vascepa) 1 g capsuleIndications :Hypertriglyceride sandra Take 2 capsules (2 g) by mouth with breakfast and with evening meal. 120 capsule 11 12/04/19 25 026 Active cholecalciferol VITAMIN D (Vitamin D-3) 50 MCG (2000 UT) capsule TOME 1 CAPSULA POR VIA ORAL TODOS [place] 90 capsule 02/13/20 25 Active fluticasone (Flonase) 50 MCG/ACT nasal sprayIndications:A llergic rhinitis, unspecified seasonality, unspecified trigger SPRAY 1 TO 2 SPRAYS INTO EACH NOSTRIL EVERY DAY. SHAKE GENTLY. BEFORE FIRST USE, PRIME PUMP. AFTER USE, CLEAN TIP AND REPLACE CAP. 48 mL 05/14/20 25 Active fexofenadine (Alina) 180 MG tabletIndications: Allergic rhinitis, unspecified seasonality, unspecified trigger TAKE 1 TABLET BY MOUTH EVERY DAY NEEDED FOR ALLERGIES 90 tablet 1 05/31/20 25 Active naproxen (Naprosyn) 500 MG tablet Take 1 tablet (500 mg) by mouth if needed in the morning and at bedtime for mild pain or moderate pain. 30 tablet 1 06/24/20 25 026 Active Diclofenac Sodium 1 % gel Apply 2 g topically if needed in the morning, at noon, in the evening, and at bedtime (pain). 150 g 3 06/24/20 25 Active acetaminophen (Tylenol 8 Hour) 650 MG ER tablet Take 1 tablet (650 mg) by mouth every 8 (eight) hours if needed for mild pain. Do not crush, chew, or split. 40 tablet 1 06/24/20 25 025 Active Problems Problem Noted Date [...] and stress reduction. Inadequate occlusion of dental cheondoism 05/20 Seborrheic dermatitis 05/11/2024 Assessment & Plan [...] Description 06/24/2025 9:00 AM EST Office Visit [facility] [address] [place] [address] Sommer Arroyo DO Left foot pain (Primary Dx); Right arm pain 06/24/2025 Results Follow-Up [facility] [address] [place] [address] Sommer Arroyo DO XR Foot 3+ Views Left 06/24/2025 Travel 06/23/2025 Travel 06/21/2025 8:45 AM EST Office Visit [facility] [address] [place] [address] Mae Zaldivar Dental calculus (Primary Dx) 06/18/2025 Orders Only GENERIC EXTERNAL DATA DEPARTMENT Provider, Generic External Data 06/16/2025 Travel 05/30/2025 Refill [facility] [address] [place] [address] Peggy Wolfe MD Allergic rhinitis, unspecified seasonality, unspecified trigger 05/13/2025 Refill [facility] [address] [place] [address] Peggy Wolfe MD Allergic rhinitis, unspecified seasonality, [...] Description 12/21/2025 9:30 AM EDT Office Visit [facility] [address] [place] [address] Kayley, Mae [address] [place] [address] Health Maintenance Due Date Last Done Comments CT Colonography 1960 FIT DNA/Cologuard 1960 FIT 1960 FOBT 1960 HIV Screening 1960 Sigmoidoscopy 1960 Alcohol/Substance Use Screening 1973 RSV Patients and Patients Aged 60 years or older (1 - Risk 50-74 years 1-dose series) 2011 Mammogram 12/08/2024 12/09/2023 COVID-19 Vaccine ( season) 2025 Dental Oral Exam 05/16/2025 11/12/2024, , 06/29/2022 Dental X-Ray: Full Mouth 06/30/2025 06/29/2022 SDOH Screening 11/03/2025 11/03/2024 Depression Screening 11/12/2025 11/12/2024, 11/13/19 Dental X-Ray: Bitewings 11/13/2025 11/13/19 25, 12/16/2023, 06/10/2023 Disability Screening 12/03/2025 12/03/2024 Dental Prophylaxis 12/20/2025 06/21/2025, 0 11/12/2024, 12/16/2023, Additional history exists Tobacco Screening 06/24/2026 06/24/2025 HPV/Cotest 12/04/2027 12/03/2024, 12/17, 11/09/2020, Additional history exists Cervical Cancer Screening 12/03/2029 Pap Smear 12/03/2029 12/03/2024, 12/17, 11/09/2020, Additional history exists Colonoscopy 11/18/2033 11/19/2023, 12/26/2012 Colorectal Cancer Screening 11/18/2033 DTaP/Tdap/Td Vaccines (3 - Td or Tdap) 07/27/2034 07/27/2024, 10/24/2012, 01/21/2007 Hepatitis B Vaccines Completed 10/24/2012, 07/05/2011, 04/17/2011 Zoster Vaccines Completed 05/17/2019, 03/18/2019 Pneumococcal Vaccine: 50+ Years Completed 07/27/2024, 07/18/2010 Hepatitis C Screening Completed 11/13/2024, 023 Influenza Vaccine Completed 06/24/2025, , 07/01/2023, Additional history exists HIB Vaccines Aged Out No longer eligi [...] AM EST Narrative 06/24/2025 9:38 AM EST [address] [address] XRay Report Signed Patient: Karly Davila MR#: [id number] : 1960 Acct:[id number] Age/Sex: 64 / F ADM Date: 06/24/25 Loc: .[facility] Attending Dr: Sommer Arroyo DO Ordering Physician: Sommer Arroyo DO Date of Service: 06/24/25 Procedure(s): XR foot LT min 3V Accession Number(s): [id number] cc: Sommer Arroyo DO Reason for Exam: [...] Gee Mcnally MD 06/24/2025 09:35 AM EST RP Dictated By: Gee Mcnally MD Signed By: <Electronically signed by Gee Mcnally MD in OV> 06/24/25934 DD/ 9 TD/TT: 06/24/2532 It Applications Manager: Procedure Note Donotuseinterpreter, Image - 06/24/2025 [place] [address] XRay Report Signed Patient: Re Davila#: [id number] : 2Acct:[id number] Age/Sex: 64 / FADM Date: 06/24/25 [facility]: Sommer Arroyo DO Ordering Physician: Sommer Arroyo DO Date of Service: 06/24/25 Procedure(s): XR foot LT min 3V Accession Number(s): [id number] cc: Sommer Arroyo DO Reason for Exam: [...] Gee Mcnally MD 06/24/2025 09:35 AM EST RP Dictated By: Gee Mcnally MD Signed By: <Electronically signed by Gee Mcnally MD in OV> 06/24/25934 DD/ 9 TD/TT: 06/24/2532 It Applications Manager: us Sommer Perryreddy DO IMG XR PROCEDURES Final Resu lt * Lipase (06/18/2025 12:41 PM EDT) Pathologist [facility] Lipase 35 8 - 78 U/L [facility] 06/18/2025 12:4 1 PM EDT 06/18/2025 12:41 PM EDT us Generic External Data Provider LAB BLOOD ORDERAB LES Final Result [facility] [address] [place] [address] [phone] * (ABNORMAL) Hepatic Function Panel (06/18/2025 12:41 PM EDT) Pathologist [facility] Bilirubin, Total 0.7 0.0 - 1.0 mg/dL [facility] Bilirubin, Direct 0.2 0.0 - 0.5 mg/dL [facility] Aspartate Amino Transferase 33(H) 5 - 31 U/L [facility] Alanine Aminotransferase 39(H) 0 - 31 U/L [facility] Total Protein 7.5 6.5 - 8.0 g/dL [facility] Albumin Level 4.8 3.5 - 5.0 g/dL [facility] Alkaline Phosphatase 97 39 - 117 U/L [facility] 06/18/2025 12:4 1 PM EDT 06/18/2025 12:41 PM EDT Generic External Data Provider LAB BLOOD ORDERAB LES Final Result Performing Organization Address City/[facility]/ZIP Co de Phone Number [facility] [address] [place] [address] [phone] * HPV DNA, Low/High Risk (12/03/2024 12:00 AM EDT) Pathologist [facility] HPV High Risk Negative Negative [facility] HPV Genotype 16 Negative Negative [facility] HPV Genotype 18 Negative Negative [facility] Comment:HPV testing performe d at [facility] (CLIA#[id number]), [address] [place] [phone].Testing for HPV was performed using the Alex AJ [id number]. The presence of HPV in the female [...] detected. 12/03/2024 12/04/2024 5:0 3 AM EDT Peggy Dubon MD LAB BLOOD ORDERABLES Final Result [facility] [address] [place] [phone] * Pap Smear (12/03/2024 12:00 AM EDT) Swab 12/03/2024 12/04/2024 5:0 3 AM EDT Narrative [facility] - 12/09/2024 10:17 AM EDT ----- ------- Name: Karly Davila Age/Sex: 64/F : 1960 Unit#: [id number] Attend Dr: Peggy Wolfe MD Re12/03/24 Status: DEP [facility]F [facility] Disch: ----- ------- SPEC : [id number] RECD: 12/04/24 STATUS: SIMI QUILES NUM: [id number] WILFREDO: 12/03/24-[address]: Peggy Wolfe MD ENTERED: 12/04/24 SP TYPE: Pap Smr OTHR [...] MD LAB CYTOLOGY ORDERABL ES Final Result [facility] [address] [place] [phone] * Hepatitis C Antibody with Reflex to HCV, RNA, Quantitative, Real-Time PCR (11/13/2024 8:27 AM EDT) Hepatitis C Antibody Nonreactive Nonreactive [facility] Comment:Antibodies to HCV no t detected; does not exclude early acuteHCV infection. Blood Venous blood specimen / Unknown 11/13/2024 8:27 AM EDT 11/13/2024 11:39 AM EDT Peggy Dubon MD LAB BLOOD ORDERABLES Final Result [facility] [address] [place] [phone] [phone] * BI Mammogram Screening Bilateral (12/09/2023) Anatomical Region Laterality Modality Breast Bilateral Mammography Peggy Dubon MD IMG BI PROCEDURES Fin al Result * Hm Colonoscopy (11/19/2023 3:37 PM EDT) Historical Provider HEALTH MAINTENANCE Final Result from Last 3 Months or Most Recently Relevant to Health Maintenance Insurance MEDICARE [facility] MEDICAID STAND ADULT Care Teams Glaze Carrier Relationship Specialty Start Date End Date Peggy Wolfe MD [address] [place] [phone] PCP - General Internal Medicine 08/09/23
== END 2025-08-10 11:14 | disposition home or self-care (01) ==
LOC: HO.HPODS 10:38
PROVIDERS: Visit Provider Student in an Organized Health Care Education/Training Program
DX: S99.922A Unspecified injury of left foot, initial encounter (principal)
CPT/HCPCS: 29550; 99203

== ENCOUNTER → 2025-08-10 10:37 | Outpatient (BNVA) | payer MEDICARE, MEDICAID, SELFPAY | PROVIDERS: Visit Provider Student in an Organized Health Care Education/Training Program | DX: S99.922A Unspecified injury of left foot, initial encounter (principal); X58.XXXA Exposure to other specified factors, initial encounter; Y93.9 Activity, unspecified; Y92.9 Unspecified place or not applicable; Y99.9 Unspecified external cause status | CPT/HCPCS: 29550; 99202 ==

== ENCOUNTER 2025-08-16 09:03 | Outpatient (REF) | payer MEDICARE, MEDICAID, SELFPAY ==
--- NOTE | ~2025-08-16 | US_ITS ---
CLINICAL HISTORY: R10.9 - Unspecified abdominal pain US abdomen complete Comparison: None provided Findings: The visualized pancreas head is normal. The visualized aorta and inferior vena cava are normal caliber. The liver is normal in size, right lobe length is 16.9 cm. Normal in echogenicity, no discrete lesion is visualized in the imaged liver. Subcentimeter calcified granuloma in the left lobe. No intrahepatic bile duct dilatation. The common duct is 3 mm in diameter. The gallbladder is normal. Negative sonographic Dash sign. The main portal vein is patent with antegrade flow. Mild hydronephrosis bilaterally, more conspicuous on the left. Kidneys are otherwise normal, right kidney measures 10.6 cm in length, left kidney 10.7 cm in length. The spleen is normal, 12 cm in length. No free fluid in the abdomen. Impression: Bilateral mild hydronephrosis, left is worse, uncertain etiology. CT abdomen and pelvis would be helpful for further evaluation if warranted. This document has been electronically signed by: Lilly Clifton MD on 08/17/2025 14:39:05
--- OUTSIDE RECORDS SUMMARY | 2025-08-16 09:22 | XMS_ITS | Encounter Summary ---
Author Organization [employer] Address [address] [place] [address] 7 [place] [address] Care Team Providers Care Chief Librarian Music Department Name Role Phone Cait Manuel Primary Care Provider Yudith Lucas NP Primary Care Provider [phone] Peggy Wolfe MD Primary Care Provide r Encounter Details Date Type Department Care Team (Latest Contact Info) Description 06/27/2020 Abstract [facility] CONVERSIONS Dental, Provider, DDS Social History Tobacco [...] Visit [facility] ADULT DENTAL [address] [place] [address] Kayley, Mae [address] [place] [address] documented as of this encounter Visit Diagnoses Not on filedocumented in this encounter Care Teams Chief Librarian Music Department Relationship Specialty Start Date End Date Cait Manuel FNP PCP - General Family Medicine 04/17/22 05/23/23 Yudith Monreal NP [address] [place] [address] PCP - General Family Medicine 05/24/23 08/08/23 Peggy Wolfe MD [address] [place] [address] PCP - General Internal Medicine 08/09/23 documented as of this encounter
--- OUTSIDE RECORDS SUMMARY | 2025-08-16 09:22 | XMS_ITS | Encounter Summary ---
Author Organization [employer] Address [address] [place] [address] 7 [place] [address] Care Team Providers Care Assistant Warehouse Manager Name Role Phone Cait Manuel Primary Care Provider Yudith Lucas NP Primary Care Provider [phone] Peggy Wolfe MD Primary Care Provide r Encounter Details Date Type Department Care Team (Latest Contact Info) Description 06/29/2022 Abstract [facility] CONVERSIONS Dental, Provider, DDS Social [...] Description 12/21/2025 9:30 AM EDT Office Visit [facility] [address] [place] [address] Kayley, Mae [address] [place] [address] documented as of this encounter Visit Diagnoses Not on filedocumented in this encounter Care Teams Assistant Warehouse Manager Relationship Specialty Start Date End Date Cait Manuel FNP PCP - General Family Medicine 04/17/22 05/23/23 Yudith Monreal NP [address] [place] [address] PCP - General Family Medicine 05/24/23 08/08/23 Peggy Wolfe MD [address] [place] [address] PCP - General Internal Medicine 08/09/23 documented as of this encounter
--- OUTSIDE RECORDS SUMMARY | 2025-08-16 09:22 | XMS_ITS | Encounter Summary ---
Author Organization [employer] Address [address] [place] [address] 7 [place] [address] Care Team Providers Care Steel Finisher Name Role Phone Cait Manuel Primary Care Provider Yudith Lucas NP Primary Care Provider [phone] Peggy Wolfe MD Primary Care Provide r Encounter Details Date Type Department Care Team (Latest Contact Info) Description 12/25/2018 Abstract [facility] CONVERSIONS Dental, Provider, DDS Social History [...] Description 12/21/2025 9:30 AM EDT Office Visit [facility] ADULT DENT[facility] [address] [place] [address] Kayley, Mae [address] [place] [address] documented as of this encounter Visit Diagnoses Not on filedocumented in this encounter Care Teams Steel Finisher Relationship Specialty Start Date End Date Cait Manuel FNP PCP - General Family Medicine 04/17/22 05/23/23 Yudith Monreal NP [address] [place] [address] PCP - General Family Medicine 05/24/23 08/08/23 Peggy Wolfe MD [address] [place] [address] PCP - General Internal Medicine 08/09/23 documented as of this encounter
--- OUTSIDE RECORDS SUMMARY | 2025-08-16 09:22 | XMS_ITS | Encounter Summary ---
Author Organization [employer] Address [address] [place] [address] 7 [place] [address] Care Team Providers Care Branch Service Representative Name Role Phone Cait Manuel Primary Care Provider Yudith Lucas NP Primary Care Provider [phone] Peggy Wolfe MD Primary Care Provide r Reason for Visit * Reason Comments Med Refill Encounter Details Date Type Department Care Team (Late st Contact Info) Description 03/24/2023 Refill [facility] [address] [place] [address] Cait Manuel FNP Social History Tobacco Use [...] Description 12/21/2025 9:30 AM EDT Office Visit [facility] [address] [place] [address] KayleyRockyMae [address] [place] [address] documented as of this encounter Visit Diagnoses Not on filedocumented in this encounter Care Teams Branch Service Representative Relationship Specialty Start Date End Date Cait Manuel FNP PCP - General Family Medicine 04/17/22 05/23/23 Yudith Monreal NP [address] [place] [address] PCP - General Family Medicine 05/24/23 08/08/23 Peggy Wolfe MD [address] [place] [address] PCP - General Internal Medicine 08/09/23 documented as of this encounter
--- OUTSIDE RECORDS SUMMARY | 2025-08-16 09:22 | XMS_ITS | Encounter Summary ---
Author Organization [employer] Address [address] [place] [address] 7t [place] [address] Care Team Providers Care Coating Inspector Name Role Phone Cait Manuel Primary Care Provider Yudith Lucas NP Primary Care Provider [phone] Peggy Wolfe MD Primary Care Provide r Encounter Details Date Type Department Care Team (Late st Contact Info) Description 01/02/2023 Abstract [facility] [address] [place] [address] Cait Manuel FNP Social History Tobacco Use [...] Description 12/21/2025 9:30 AM EDT Office Visit [facility] [address] [place] [address] Mae Zaldivar [address] [place] [address] documented as of this encounter Procedures Procedure Name Priority Date/Time Associated Diagnosis Comments HM COLONOSCOPY Routine 12/26/2012 documented in this encounter Results * Colonoscopy (12/26/2012) Colonoscopy Normal Normal 12/26/2012 Narrative Jami Ovalles - 12/26/2012 11:09 AM EDT Recommended 10 year follow [place] [place] Historical Provider HEALTH MAINTENANCE Final Result documented in this encounter Visit Diagnoses Not on filedocumented in this encounter Care Teams Coating Inspector Relationship Specialty Start Date End Date Cait Manuel FNP PCP - General Family Medicine 04/17/22 05/23/23 Yudith Monreal NP [address] [place] [address] PCP - General Family Medicine 05/24/23 08/08/23 ePggy Wolfe MD [address] [place] [address] PCP - General Internal Medicine 08/09/23 documented as of this encounter
--- OUTSIDE RECORDS SUMMARY | 2025-08-16 09:22 | XMS_ITS | Encounter Summary ---
Author Organization [employer] Address [address] [place] [address] 7t [place] [address] Care Team Providers Care Household Assistant Name Role Phone Cait Manuel Primary Care Provider Yudith Lucas NP Primary Care Provider [phone] Peggy Wolfe MD Primary Care Provide r Reason for Visit * Reason Onset Date Comments Nurse Triage 05/15/2023 Encounter Details Date Type Department Care Team (Late st Contact Info) Description 05/15/2023 Telephone [facility] [address] [place] [address] Cait Manuel FNP Nurse Triage Social History [...] 05/15/2023 3:05 PM EDT Triage call with Garnett It Consulting Manager [phone] Pt reports sore throat that hurts every time swallowing anything. Pt is neg for fever, ear aches ordifficulty breathing. Pt doesn' t have tonsils and can't see if there is anything white in throat. Pt reports , it feels like something is in there . Advised to come to [facility] for provider to check Pt symptoms [...] accepted this outcome Please contact pt at [phone] (Welsh) documented in this encounter Plan of Treatment Upcoming Encounters Date Type Department Care Team (Late st Contact Info) Description 12/21/2025 9:30 AM EDT Office Visit [facility] [address] [place] [address] Kayley Mae [address] [place] [address] documented as of this encounter Visit Diagnoses Not on filedocumented in this encounter Additional Health Concerns Assessment Noted Time PHQ-9 Depression Total Score: 7 04/16/20 23 4:07 PM EDT documented as of this encounter Care Teams Household Assistant Relationship Specialty Start Date End Date Cait Manuel FNP PCP - General Family Medicine 04/17/22 05/23/23 Yudith Monreal NP [address] [place] [address] PCP - General Family Medicine 05/24/23 08/08/23 Peggy Wolfe MD [address] [place] [address] PCP - General Internal Medicine 08/09/23 documented as of this encounter
--- OUTSIDE RECORDS SUMMARY | 2025-08-16 09:22 | XMS_ITS | Encounter Summary ---
Author Organization [employer] Address [address] [place] [address] 7 [place] [address] Care Team Providers Care Fire Operations Forester Name Role Phone Cait Manuel Primary Care Provider Yudith Lucas NP Primary Care Provider [phone] Peggy Wolfe MD Primary Care Provide r Encounter Details Date Type Department Care Team (Latest Contact Info) Description 02/06/2022 Abstract [facility] CONVERSIONS Dental, Provider, DDS Social [...] Description 12/21/2025 9:30 AM EDT Office Visit [facility] ADULT [facility] [address] [place] [address] Kayley, Mae [address] [place] [address] documented as of this encounter Visit Diagnoses Not on filedocumented in this encounter Care Teams Fire Operations Forester Relationship Specialty Start Date End Date Cait Manuel FNP PCP - General Family Medicine 04/17/22 05/23/23 Yudith Monreal NP [address] [place] [address] PCP - General Family Medicine 05/24/23 08/08/23 Peggy Wolfe MD [address] [place] [address] PCP - General Internal Medicine 08/09/23 documented as of this encounter
--- OUTSIDE RECORDS SUMMARY | 2025-08-16 09:22 | XMS_ITS | Encounter Summary ---
Author Organization [email or web address] Address [address] [place] [address] 7 [place] [address] Care Team Providers Care Panel Maker Name Role Phone Cait Manuel Primary Care Provider Yudith Lucas NP Primary Care Provider [phone] Peggy Wolfe MD Primary Care Provide r Encounter Details Date Type Department Care Team (Latest Contact Info) Description 06/30/2019 Abstract [facility] CONVERSIONS Dental, Provider, DDS Social [...] 12/21/2025 9:30 AM EDT Office Visit [facility] ADULT [facility] [address] [place] [address] Kayley, Mae [address] [place] [address] documented as of this encounter Visit Diagnoses Not on filedocumented in this encounter Care Teams Panel Maker Relationship Specialty Start Date End Date Cait Manuel FNP PCP - General Family Medicine 04/17/22 05/23/23 Yudith Monreal NP [address] [place] [address] PCP - General Family Medicine 05/24/23 08/08/23 Peggy Wolfe MD [address] [place] [address] PCP - General Internal Medicine 08/09/23 documented as of this encounter
--- OUTSIDE RECORDS SUMMARY | 2025-08-16 09:22 | XMS_ITS | Encounter Summary ---
Author Organization [employer] Address [address] [place] [address] 7t [place] [address] Care Team Providers Care Investment Sales Assistant Name Role Phone Cait Manuel Primary Care Provider Yudith Lucas NP Primary Care Provider [phone] Peggy Wolfe MD Primary Care Provide r Encounter Details Date Type Department Care Team (Late st Contact Info) Description 05/22/2023 Telephone [facility] [address] [place] [address] Cait Manuel FNP Social History Tobacco Use [...] 3:49 PM EDT T/C to pt. Through Scry[place] id - [id number] for below message, pt. States she already apt. [place]/20[facility] [place] [facility] Pt. Is al set. Pt. Advised to give call on [phone] if any questions or concerns. Pt. Verbally agreed and understood. * Telephone Encounter - Merry Jose Miguel - 05/22/2023 4:15 PM EDT Tc from pt requesting a new order for nerve test on left leg. Any questions, please contact pt at [phone] (Macedonian) documented in this encounter Plan of Treatment Upcoming Encounters Date Type Department Care Team (Late st Contact Info) Description 12/21/2025 9:30 AM EDT Office Visit [facility] ADULT DENTAL [address] [place] [address] Kayley, Mae [address] [place] [address] documented as of this encounter Visit Diagnoses Not on filedocumented in this encounter Additional Health Concerns Assessment Noted Time PHQ-9 Depression Total Score: 7 04/16/20 4:07 PM EDT documented as of this encounter Care Teams Investment Sales Assistant Relationship Specialty Start Date End Date Cait Manuel FNP PCP - General Family Medicine 04/17/22 05/23/23 Yudith Monreal NP [address] [place] [address] PCP - General Family Medicine 05/24/23 08/08/23 Peggy Wolfe MD [address] [place] [phone] PCP - General Internal Medicine 08/09/23 documented as of this encounter
--- OUTSIDE RECORDS SUMMARY | 2025-08-16 09:22 | XMS_ITS | Encounter Summary ---
Author Organization [employer] Address [address] [place] [address] Care Team Providers Care Bi Solutions Architect Name Role Phone Peggy Wolfe MD Primary Care Provide r Encounter Details Date Type Department Care Team ([facility] st Contact Info) Description 11/12/2024 Orders Only [facility] [address] [place], [place] [phone] Provider, MD Lola Social History Tobacco Use [...] Description 12/21/2025 9:30 AM EDT Office Visit [facility] ADULT DENTAL [address] [place] [address] Kayley, Mae [address] [place] [address] documented as of this encounter Procedures Procedure [...] documented as of this encounter Care Teams Bi Solutions Architect Relationship Specialty Start Date End Date Peggy Wolfe MD [address] [place] [address] PCP - General Internal Medicine 08/09/23 documented as of this encounter
--- OUTSIDE RECORDS SUMMARY | 2025-08-16 09:22 | XMS_ITS | Encounter Summary ---
Author Organization [employer] Address [address] [place] [address] Care Team Providers Care Night Shift Supervisor Name Role Phone Peggy Wolfe MD Primary Care Provide r Reason for Visit * Reason Comments Med Refill Encounter Details Date Type Department Care Team ([facility] st Contact Info) Description 12/11/2023 Refill [facility] [address] [place], [place] [phone] Peggy Wolfe MD [address] [place] [address] Social History Tobacco Use Types Packs/Day Years [...] Description 12/21/2025 9:30 AM EDT Office Visit [facility] ADULT DENTAL [address] [place] [address] Kayley, Mae [address] [place] [address] documented as of this encounter Visit Diagnoses Not on filedocumented in this encounter Additional Health Concerns Assessment Noted Time PHQ-9 Depression Total Score: 7 04/16/20 23 4:07 PM EDT documented as of this encounter Care Teams Night Shift Supervisor Relationship Specialty Start Date End Date Peggy Wolfe MD [address] [place] [address] PCP - General Internal Medicine 08/09/23 documented as of this encounter
--- OUTSIDE RECORDS SUMMARY | 2025-08-16 09:23 | XMS_ITS | Encounter Summary ---
Author Organization [employer] Address [address] 7t [place] [address] Care Team Providers Care Tire Worker Name Role Phone Yudith Monreal NP Primary Care Provider [phone] Peggy Wolfe MD Primary Care Provide r Reason for Visit * Reason Onset Date Comments Appointment Request 07/30/2023 Encounter Details Date Type Department Care Team ([facility] st Contact Info) Description 07/30/2023 Telephone [facility] [address] [place] [address] Yudith Monreal NP [address] [place] [address] Appointment Request Social History Tobacco Use Types [...] from pt requesting TP Appt with PCP. Medical Receptionist does see recall tried booking no available slot found. Please contact Pt [phone] documented in this encounter Plan of Treatment Upcoming Encounters Date Type Department Care Team (Late st Contact Info) Description 12/21/2025 9:30 AM EDT Office Visit [facility] ADULT DENTAL [address] [place] [address] Mae Zaldivar [address] [place] [address] documented as of this encounter Visit Diagnoses Not on filedocumented in this encounter Additional Health Concerns Assessment Noted Time PHQ-9 Depression Total Score: 7 04/16/20 23 4:07 PM EDT documented as of this encounter Care Teams Tire Worker Relationship Specialty Start Date End Date Yudith Monreal NP [address] [place] [address] PCP - General Family Medicine 05/24/23 08/08/23 Peggy Wolfe MD [address] [place] [address] PCP - General Internal Medicine 08/09/23 documented as of this encounter
--- OUTSIDE RECORDS SUMMARY | 2025-08-16 09:23 | XMS_ITS | Encounter Summary ---
Author Organization [employer] Address [address] [place] [address] Care Team Providers Care Elementary School Director Name Role Phone Peggy Wolfe MD Primary Care Provide r Reason for Visit * Reason Onset Date Comments Nurse Triage 09/16/2024 Encounter Details Date Type Department Care Team ([facility] st Contact Info) Description 09/16/2024 Telephone [facility] MED[facility]INE [address] [place], [place] [phone] Peggy Wolfe MD [address] [place], [place] [phone] Nurse Triage Social History Tobacco Use Types [...] call with [facility] ammunition specialist [place] [id number] Pt reports urinary symptoms for several days. Burning/pain with urination, frequency , odor and flank pain, neg for fever. Pt is advised to increase liquids to 6-8 glasses daily. Pt agrees. Pt is advised to come to [facility] today to be seen by provider. [...] urine (peeing) The caller accepted this outcome. [phone] (amharic) documented in this encounter Plan of Treatment Upcoming Encounters Date Type Department Care Team (Late st Contact Info) Description 12/21/2025 9:30 AM EDT Office Visit [facility] ADULT DENTAL [address] [place], [place] [phone] Kayley, Mae [address] [place] [address] documented as of this encounter Visit Diagnoses Not on filedocumented in this encounter Additional Health Concerns Assessment Noted Time PHQ-9 Depression Total Score: 7 04/16/20 23 4:07 PM EDT documented as of this encounter Care Teams Elementary School Director Relationship Specialty Start Date End Date Peggy Wolfe MD [address] [place], [place] [phone] PCP - General Internal Medicine 08/09/23 documented as of this encounter
--- OUTSIDE RECORDS SUMMARY | 2025-08-16 09:23 | XMS_ITS | Clinical Summary ---
Author Organization [employer] Address [address] [place] [address] 7[address] [place] [address] Care Team Providers Care Mine Car Repairer Name Role Phone Peggy Wolfe MD Primary [...] and stress reduction. Inadequate occlusion of dental synagogue 05/20 Seborrheic dermatitis 05/11/2024 Assessment & Plan [...] Allergic rhinitis 06/01/2015 Overview (04/16/2023): Treats with Laina PO PRN + JAZ use PRN Stable [...] Description 06/24/2025 9:00 AM EST Office Visit [facility] [address] [place] [phone] Sommer Arroyo DO Left foot pain (Primary Dx); Right arm pain 06/24/2025 Results Follow-Up [facility] [address] [place] [phone] Sommer Arroyo DO XR Foot 3+ Views Left 06/24/2025 Travel 06/23/2025 Travel 06/21/2025 8:45 AM EST Office Visit [facility] AD[facility] [address] [place] [address] Mae Zaldivar Dental calculus (Primary Dx) 06/18/2025 Orders Only GENERIC EXTERNAL DATA DEPARTMENT Provider, Generic External Data 06/16/2025 Travel 05/30/2025 Refill [facility] [address] [place] [address] Peggy Wolfe MD Allergic rhinitis, unspecified seasonality, [...] Upcoming Encounters Date Type Department Care Team ([facility] st Contact Info) Description 12/21/2025 9:30 AM EDT Office Visit [facility]ULT [facility] [address] [place] [address] Mae Zaldivar [address] [place] [address] Health Maintenance Due Date Last Done Comments [...] AM EST Narrative 06/24/2025 9:38 [place] [address] XRay Report Signed Patient: Karly Davila MR#: [id number] : 1960 Acct:[id number] Age/Sex: 64 / F ADM Date: 06/24/25 Loc: HO.HHCX Attending Dr: Sommer Arroyo DO Ordering Physician: Sommer Arroyo DO Date of Service: 06/24/25 Procedure(s): XR foot LT min 3V Accession Number(s): [id number] cc: Sommer Arroyo DO Reason for Exam: [...] in OV> 06/24/25934 DD/ 9 TD/TT: 06/24/25931 Wreath Inspector: Procedure Note Donotuseinterpreter, Image - 06/24/[address] [address] XRay Report Signed Patient: Re Davila#: [id number] : 1960cct:[id number] Age/Sex: 64 / FADM Date: 06/24/25 Loc: HO.HHCX Attending Dr: Sommer Arroyo DO Ordering Physician: Sommer Arroyo DO Date of Service: 06/24/25 Procedure(s): XR foot LT min 3V Accession Number(s): [id number] cc: Sommer Arroyo DO Reason for Exam: [...] in OV> 06/24/25934 DD/ 9 TD/TT: 06/24/25931 Wreath Inspector: Sommer Arroyo DO IMG XR PROCEDURES Final Resu lt * Lipase (06/18/2025 12:41 PM EDT) Lipase 35 8 - 78 U/L [facility] 06/18/2025 12:4 1 PM EDT 06/18/2025 12:41 PM EDT us Generic External Data Provider LAB BLOOD ORDERAB LES Final Result Performing Organization Address [facility]/ZIP Co de Phone Number [facility] [address] [place] [phone] * (ABNORMAL) Hepatic Function Panel (06/18/2025 12:41 PM EDT) [facility] Bilirubin, Total 0.7 0.0 - 1.0 mg/dL [facility] Bilirubin, Direct 0.2 0.0 - 0.5 mg/dL [facility] Aspartate Amino Transferase 33(H) 5 - 31 U/L [facility] Alanine Aminotransferase 39(H) 0 - 31 U/L [facility] Total Protein 7.5 6.5 - 8.0 g/dL [facility] Albumin Level 4.8 3.5 - 5.0 g/dL [facility] Alkaline Phosphatase 97 39 - 117 U/L [facility] 06/18/2025 12:4 1 PM EDT 06/18/2025 12:41 PM EDT us Generic External Data Provider LAB BLOOD ORDERAB LES Final Result Performing Organization Address City/[facility] Co de Phone Number [facility] [address] [place] [address] [phone] * HPV DNA, Low/High Risk (12/03/2024 12:00 AM EDT) [facility] HPV High Risk Negative Negative [facility] HPV Genotype 16 Negative Negative [facility] HPV Genotype 18 Negative Negative [facility] Comment:HPV testing performe d at [facility] (CLIA#[id number])[address] [address].Testing for HPV was performed using the Alex [...] Dubon MD LAB BLOOD ORDERABLES Final Result [facility] [address] [place] [phone] * Pap Smear (12/03/2024 12:00 AM EDT) Swab 12/03/2024 12/04/2024 5:0 3 AM EDT Narrative [facility] - 12/09/2024 10:17 AM EDT ----- ------- Name: Karly Davila Age/Sex: 64/F : 1960 Unit#: [id number] Attend Dr: Peggy Wolfe MD Re12/03/24 Status: DEP [facility] Disch[facility] ----- ------- SPEC : [id number] RECD: 12/04/24 STATUS: SIMI QUILES NUM: [id number] WILFREDO: 12/03/24-[address]: Peggy Wolfe MD [...] MD LAB CYTOLOGY ORDERABL ES Final Result [facility] [address] [place] [phone] * Hepatitis C Antibody with Reflex to HCV, RNA, Quantitative, Real-Time PCR (11/13/2024 8:27 AM EDT) Hepatitis C Antibody Nonreactive Nonreactive [facility] Comment:Antibodies to HCV no t detected; does not exclude early acuteHCV infection. Blood Venous blood specimen / Unknown 11/13/2024 8:27 AM EDT 11/13/2024 11:39 AM EDT us Peggy Dubon MD LAB BLOOD ORDERABLES Final Result [facility] [address] [place] [phone] * BI Mammogram Screening Bilateral (12/09/2023) Anatomical Region Laterality Modality Breast Bilateral Mammography us Peggy Dubon MD IMG BI PROCEDURES Fin al Result * Hm Colonoscopy (11/19/2023 3:37 PM EDT) us Historical Provider HEALTH MAINTENANCE Final Result from Last 3 Months or Most Recently Relevant to Health Maintenance Insurance MEDICARE [facility] MEDICAID STAND ADULT Care Teams Mine Car Repairer Relationship Specialty Start Date End Date Peggy Wolfe MD [address] [place] [phone] PCP - General Internal Medicine 08/09/23
--- OUTSIDE RECORDS SUMMARY | 2025-08-16 09:23 | XMS_ITS | Encounter Summary ---
Author Organization [employer] Address [address] [place] [address] Care Team Providers Care Washing Machine Repairer Name Role Phone Peggy Wolfe MD Primary Care Provide r Encounter Details Date Type Department Care Team ([facility] Contact Info) Description 09/22/[address] [facility] [address] [place], [place] [phone] Peggy Wolfe MD [address] [place], [place] [phone] Social History Tobacco Use Types Packs/Day Years [...] 12/21/2025 9:30 AM EDT Office Visit [facility] ADULT DENT[facility] [address] [place] [address] Mae Zaldivar [address] [place] [address] documented as of this encounter Visit Diagnoses Not on filedocumented in this encounter Additional Health Concerns Assessment Noted Time PHQ-9 Depression Total Score: 7 04/16/20 23 4:07 PM EDT documented as of this encounter Care Teams Washing Machine Repairer Relationship Specialty Start Date End Date Peggy Wolfe MD [address] [place] [address] PCP - General Internal Medicine 08/09/23 documented as of this encounter
== END 2025-08-16 09:04 | disposition home or self-care (01) ==
LOC: HO.US 09:03
PROVIDERS: Visit Provider Nurse Practitioner Family
DX: R10.9 Unspecified abdominal pain (principal)
CPT/HCPCS: 76700

== ENCOUNTER → 2025-08-16 09:06 | Outpatient (BNV) | payer MEDICARE, MEDICAID, SELFPAY | PROVIDERS: Visit Provider Radiology Diagnostic Radiology | DX: N13.30 Unspecified hydronephrosis (principal) | CPT/HCPCS: 76700 ==